=== PATIENT | female | born 1970 | race Hispanic/Latino ===

== ENCOUNTER 2018-11-28 00:11 | Emergency (ER) | payer BC, SELFPAY ==
[2018-11-28] MEDS ORDERED: Ketorolac Tromethamine 60 MG/2 ML VIAL ONE (03:24)
--- NOTE | 2018-11-28 07:51 | RAD ---
CHEST 2 VIEWS: HISTORY: Pain. COMPARISON: None. FINDINGS: Normal cardiac silhouette. The pulmonary vessels and hilum are normal. Costophrenic angles are kendall r. No consolidation or mass. No pneumothorax or osseous abnormalities. IMPRESSION: No acute cardiopulmonary process. POS: [facility]
== END 2018-11-28 04:25 | disposition home or self-care (01) ==
LOC: ERS 00:11
DX: M54.6 Pain in thoracic spine (principal); E78.00 Pure hypercholesterolemia, unspecified; Z79.899 Other long term (current) drug therapy; Z79.84 Long term (current) use of oral hypoglycemic drugs
CPT/HCPCS: 71046; 96372; J1885

== ENCOUNTER 2018-12-23 11:46 | Outpatient (CLI) | payer BC ==
--- NOTE | 2018-12-23 14:50 | RAD ---
LUMBAR SPINE 2 VIEWS: HISTORY: Low back pain. FINDINGS: There are mild to moderate degenerative changes with spurring from the lumbar vertebrae. Slight scol iotic curvature to the left. In the lateral view, there is minimal anterior wedging of the L2 verteb ra. Anterior osteophytes are present at the L1-2 and L2-3 levels. Posterior height is maintained. The other lumbar vertebrae maintain height. Facet hypertrophy is noted. IMPRESSION: Mild anterior wedging of L2. This could represent acute or subacute compression injury. Mild to mod erate degenerative changes of the lumbar spine noted as described. POS: [facility]
== END 2018-12-23 11:47 | disposition home or self-care (01) ==
LOC: BICRAD 11:46
PROVIDERS: ATTEND Family Medicine
DX: M54.5 Low back pain (principal); M47.816 Spondylosis without myelopathy or radiculopathy, lumbar region
CPT/HCPCS: 72100

== ENCOUNTER 2019-01-25 10:43 | Outpatient (CLI) | payer BC ==
--- NOTE | 2019-01-25 11:56 | MRI ---
FMRI of the lumbar spine without contrast: 01/25/2019 COMPARISON: None HISTORY: Wedging of vertebral body on recent radiographs, low back pain TECHNIQUE: Multiplanar multisequence MR imaging of the lumbar spine obtained without contrast FINDINGS: There are innumerable T2/STIR hyperintense lesions throughout the imaged osseous structures including all imaged vertebral bodies, posterior elements, and visualized portions of the sacrum and pelvic osseous structures. The osseous marrow signal intensity is markedly heterogeneous and diffuse ly of decreased signal intensity on T1-weighted imaging. Partially imaged right T12 pedicle is expand ed. Assuming 5 lumbar type vertebral bodies, the conus medullaris terminates at the T12 level. T12-L1: There is a suggestion of mild soft tissue signal intensity within the right neural foramen wh ich may represent tumor extension. No significant central canal or left neural foraminal stenosis. L1-2: Intervertebral disc height and signal intensity grossly unremarkable. Bilateral facet hypertrop hy with no significant central canal or neural foraminal stenosis. L2-3: Mild bilateral facet hypertrophy. Intervertebral disc height and signal intensity within normal limits with no significant central canal or neural foraminal stenosis L3-4: Mild bilateral facet hypertrophy. Intervertebral disc height and signal intensity within normal limits with no significant central canal or neural foraminal stenosis. L4-5: Mild bilateral facet hypertrophy. No significant central canal or neural foraminal stenosis. L5-S1: Mild bilateral facet hypertrophy. No significant central canal or neural foraminal stenosis. Partially imaged sigmoid diverticulosis noted. Imaged retroperitoneal structures demonstrate no acute findings. IMPRESSION: Extensive abnormal bone marrow signal intensity with numerous lesions seen throughout the imaged osseous structures. Findings are highly suspicious for metastatic disease or myeloma. Results discussed with Dr. Burris at 11:50 AM 01/25/2019.
== END 2019-01-25 10:44 | disposition home or self-care (01) ==
LOC: TBSIIMAG 10:43
PROVIDERS: ATTEND Family Medicine
DX: M48.56XA Collapsed vertebra, not elsewhere classified, lumbar region, initial encounter for fracture (principal); M54.5 Low back pain; R93.7 Abnormal findings on diagnostic imaging of other parts of musculoskeletal system; M89.9 Disorder of bone, unspecified
CPT/HCPCS: 72148

== ENCOUNTER 2019-02-02 08:15 | Outpatient (CLI) | payer BC ==
--- NOTE | 2019-02-02 09:21 | MMO ---
Bilateral MAMMO Bilat Screen [facility]. CLINICAL HISTORY: Patient is 48 years old and is seen for screening. The patient has no family history of breast cancer. The patient has no personal history of cancer. VIEWS: The views performed were: bilateral craniocaudal with tomosynthesis and bilateral mediolateral oblique with tomosynthesis. FILMS COMPARED: The present examination has been compared to prior imaging studies performed at [facility] on 03/17/2017 and 03/31/2017. MAMMOGRAM FINDINGS: There are scattered fibroglandular densities. Finding 1: There are stable benign appearing calcifications seen in both breasts. Finding 2: There is a focal asymmetry with indistinct margins seen in the right breast at 12 o'clock. IMPRESSION: FINDING 1: STABLE CALCIFICATIONS IN BOTH BREASTS ARE BENIGN. FINDING 2: FOCAL ASYMMETRY IN THE RIGHT BREAST REQUIRES ADDITIONAL EVALUATION. ADDITIONAL PROJECTIONS (RIGHT CRANIOCAUDAL SPOT COMPRESSION; RIGHT MEDIOLATERAL OBLIQUE SPOT COMPRESSION; AND RIGHT MEDIOLATERAL) ARE RECOMMENDED. AN ULTRASOUND EXAM IS RECOMMENDED. ADDITIONAL IMAGING. THE RESULTS OF THIS EXAM WERE SENT TO THE PATIENT. ACR BI-RADS Category 0 - Incomplete: Need additional imaging evaluation. [facility] will notify the patient of the need for additional imaging services. MAMMOGRAPHY NOTE: 1. A negative mammogram report should not delay a biopsy if a dominant of clinically suspicious mass is present. 2. Approximately 10% to 15% of breast cancers are not detected by mammography. 3. Adenosis and dense breasts may obscure an underlying neoplasm.
== END 2019-02-02 08:16 | disposition home or self-care (01) ==
LOC: BICMAMMO 08:15
PROVIDERS: ATTEND Family Medicine
DX: Z12.31 Encounter for screening mammogram for malignant neoplasm of breast (principal); R92.1 Mammographic calcification found on diagnostic imaging of breast; N64.89 Other specified disorders of breast
CPT/HCPCS: 77063; 77067

== ENCOUNTER 2019-02-06 09:35 | Outpatient (CLI) | payer BC ==
--- NOTE | 2019-02-06 10:59 | MMO ---
Right Breast MAMMO Unilat Diag [facility]DI RT+[facility]ERRELL. CLINICAL HISTORY: Patient is 48 years old and is seen for diagnostic exam. The patient has no family history of breast cancer. The patient has no personal history of cancer. VIEWS: The views performed were: right craniocaudal with tomosynthesis; right mediolateral oblique with tomosynthesis; and right mediolateral. FILMS COMPARED: The present examination has been compared to prior imaging studies performed at [facility] on 03/17/2017, 03/31/2017, 02/02/2019 and 02/06/2019. MAMMOGRAM FINDINGS: There are scattered fibroglandular densities. There is a focal asymmetry seen in the posterior central region of the right breast. Spiculated margins are seen on the additional views. This lesion is not seen on ultrasound. IMPRESSION: FOCAL ASYMMETRY IN THE RIGHT BREAST IS SUSPICIOUS. NEEDLE LOCALIZATION AND BIOPSY ARE RECOMMENDED. FINDINGS DISCUSSED WITH DR. MORGAN ON 02/06/19 AT 10:51 HOURS. 3BTHE RESULTS OF THIS EXAM WERE SENT TO THE PATIENT.0B ACR BI-RADS Category 4 - Suspicious abnormality - biopsy should be considered MAMMOGRAPHY NOTE: 1. A negative mammogram report should not delay a biopsy if a dominant of clinically suspicious mass is present. 2. Approximately 10% to 15% of breast cancers are not detected by mammography. 3. Adenosis and dense breasts may obscure an underlying neoplasm.
--- NOTE | 2019-02-06 11:43 | ULT ---
LIMITED ULTRASOUND RIGHT BREAST: Date: 02/06/19 HISTORY: Mammographic abnormality seen in the posterior depth central breast near the 12 o'clock position. FINDINGS: Limited sonographic evaluation was performed in the expected location of the mammographic abnormality . No mass or distortion is seen to correspond to the mammographic abnormality. However, the mammograp hic finding does represent a suspicious finding. Biopsy of the mass is suggested and a needle and wir e localization followed by surgical excision is recommended. IMPRESSION: BIRADS Category 4 - Suspicious abnormality. Biopsy is recommended. As noted above, this mass is not s een on sonographic evaluation, and as a result, a needle and wire localization with surgical excision is recommended. Above findings discussed with Dr. Adriano Burris on 02/06/19 at 1051 hours. CODE CR. POS: [facility]
== END 2019-02-06 09:36 | disposition home or self-care (01) ==
LOC: BICMAMMO 09:35
PROVIDERS: ATTEND Family Medicine
DX: R92.8 Other abnormal and inconclusive findings on diagnostic imaging of breast (principal); N64.89 Other specified disorders of breast
CPT/HCPCS: G0279

== ENCOUNTER 2019-02-13 08:36 | Outpatient (CLI) | payer BC ==
--- NOTE | 2019-02-13 10:30 | CT ---
CT THORAX WITH IV CONTRAST CT ABDOMEN AND PELVIS WITH IV CONTRAST 02/13/2019 CLINICAL INFORMATION: Metastatic breast carcinoma. COMPARISON: None. Technique: Multiple contiguous axial CT images are obtained through the chest, abdomen, and pelvis with IV contr ast. Coronal reformatted images are provided. FINDINGS: CT thorax: Mediastinum: There is no evidence of lymphadenopathy. The thoracic aorta is normal in caliber without evidence of an aortic dissection. Lungs: No pulmonary nodule, mass, or pleural effusion is seen. Bones: Diffuse mottled appearance of the visualized osseous structures with innumerable lytic lesions throughout the thoracic spine and C7 vertebral body. There are also lytic lesions seen within each scapula and involving the sternum as well as multiple ribs bilaterally. There are fractures involving the right anterolateral sixth and seventh, lateral right eighth and ninth, and posterolateral right 10th ribs. These fractures may be related to prior injury, some of the fractures could be secon fadumo to pathological fractures. There is callus formation about the fractures. CT Abdomen: Portal vein:Patent Gallbladder: Not visualized and may be surgically absent. Liver: Multiple hypodense lesions are seen throughout each lobe of the liver largest within the dome the liver measuring 2.8 cm and in the most posterior medial aspect of the anterior segment left hepatic lobe measuring 2.9 cm. Findings are compatible with multiple metastatic lesions within the li kristen. Pancreas: within normal limits. Spleen: There is a small 1.7 cm hypodense lesion seen at the medial aspect body of the spleen which c ould also be related to metastatic lesion. Adrenals: within normal limits. Kidneys: A subcentimeter too small to characterize hypodense lesion is seen in the midportion right k idney. The kidneys otherwise have a normal CT appearance bilaterally. Peritoneum: No ascites or free air; no fluid collection. Bowel: There is colonic diverticulosis. The small bowel is normal in caliber.The appendix is visualiz ed and normal in caliber. Mesentery and Retroperitoneum: No enlarged mesenteric or retroperitoneal lymph nodes. Abdominal Wall/breast: There are a few nodular densities seen within the right breast. However, this would be better evaluated with mammography. Largest slightly irregular nodule is seen within the posterior central aspect of the upper breast measuring 12 mm. Pelvis: Reproductive Organs: The uterus is not visualized likely related to prior hysterectomy. There are a f ew low-density structures within the left ovary largest measuring approximately 2 cm likely attributable to dominant follicles versus small cysts. Subcentimeter increased density focus is seen in the right aspect of the vaginal wall of uncertain etiology. Pelvis within normal limits. Bladder: Decompressed, but otherwise grossly normal in appearance. Vessels: The abdominal aorta and iliac arteries are normal in caliber. Bones: There is a mottled appearance of the osseous structures with multiple lytic lesions scattered throughout the lumbar spine, sacrum, and throughout the pelvis as well as involving the femoral heads. A few ill-defined areas of sclerosis are seen in the intertrochanteric regions of each proxima l femur also probably attributable to metastatic disease. IMPRESSION: 1. Extensive osseous metastatic disease. There are fractures involving right sided ribs which may be pathologic. These fractures are not displaced. 2. Multiple hypodense hepatic metastatic lesions with a hypodense lesion in the spleen which also may represent a metastatic lesion. 3. Irregular nodular densities seen in the right breast. However, this would be better evaluated with mammography. 4. Colonic diverticulosis 5. Hysterectomy. 6. Above findings discussed Dr. Eric on 02/13/2019 at 1017 hours.
[2019-02-13] MEDS ORDERED: Iopamidol 370 76% 100 ML VIAL ONE (15:00)
== END 2019-02-13 08:37 | disposition home or self-care (01) ==
LOC: CT 08:36
PROVIDERS: ATTEND Internal Medicine Hematology & Oncology
DX: C50.919 Malignant neoplasm of unspecified site of unspecified female breast (principal); C79.51 Secondary malignant neoplasm of bone; M84.48XA Pathological fracture, other site, initial encounter for fracture; D73.89 Other diseases of spleen; N64.89 Other specified disorders of breast; K57.30 Diverticulosis of large intestine without perforation or abscess without bleeding; Z90.710 Acquired absence of both cervix and uterus
CPT/HCPCS: 71260; 74177; Q9967

== ENCOUNTER 2019-02-17 09:41 | Outpatient (CLI) | payer BC ==
[2019-02-17 10:14] LABS: #Basophils 0.1 thou/uL (0.0-0.2); #Eosinphils 0.4 thou/uL (0.0-0.7); #Lymphocytes 2.4 thou/uL (1.20-3.40); #Monocytes 0.8 thou/uL (0.11-0.59); #Neutrophils 5.9 thou/uL (1.40-6.50); %Basophils 0.9 % (0.0-1.0); %Eosinophils 3.9 % (0.0-10.0); %Lymphocytes 24.9 % (21.0-51.0); %Monocytes 8.2 % (0.0-10.0); %Neutrophils 62.1 % (42.0-75.0); Hemoglobin 14.5 g/dL (12.0-16.0); Mean Corpuscular HGB CONC 31.9 g/dL (32.0-36.0); Mean Corpuscular Hemoglobin 29.1 pg (27.0-31.0); Mean Corpuscular Volume 91.3 fL (78.0-98.0); Mean Platelet Volume 7.6 fL (7.4-10.4); Platelet Count 194 thou/uL (130-400); RBC Distribution Width 13.3 % (11.5-14.5); Red Blood Cell (RBC) Count 4.98 mill/uL (4.20-5.40); White Blood Cell (WBC) Count 9.5 thou/uL (4.8-10.8)
[2019-02-17 10:35] LABS: Anion Gap 11 mmol/L (10-20); BUN (Urea Nitrogen) 11 mg/dL (7.0-18.7); Calc. Creatinine Clearance 0 mL/min (70-130); Calcium 10.2 mg/dL (7.8-10.44); Carbon Dioxide 26 mmol/L (22-29); Chloride 103 mmol/L (98-107); Estimated GFR-MDRD 72; Glucose 134 mg/dL (70-105); Potassium 4.4 mmol/L (3.5-5.1); Sodium 136 mmol/L (136-145)
--- NOTE | 2019-02-19 14:07 | EKG ---
Test Reason : Blood Pressure : / mmHG Vent. Rate : 084 BPM Atrial Rate : 084 BPM P-R Int : 120 ms QRS Dur : 078 ms QT Int : 358 ms P-R-T Axes : 065 013 011 degrees QTc Int : 423 ms Normal sinus rhythm Cannot rule out Anterior infarct , age undetermined Abnormal ECG No previous ECGs available Confirmed by JOHN MORALES ([id number]) on 02/19/2019 2:07:15 PM Referred By: MYKEL Confirmed By:JOHN MORALES
== END 2019-02-17 09:42 | disposition home or self-care (01) ==
LOC: LABBT 09:41
PROVIDERS: ATTEND Specialist
DX: Z01.818 Encounter for other preprocedural examination (principal); R92.8 Other abnormal and inconclusive findings on diagnostic imaging of breast
CPT/HCPCS: 80048; 85025; 93005; 93010

== ENCOUNTER 2019-02-21 06:43 | Day surgery (SDC) | payer BC ==
[2019-02-17 10:21] VITALS: BMI 39.6
--- NOTE | 2019-02-21 08:53 | NM ---
NM Lymphoscintigraphy HISTORY: Malignant neoplasm of unspecified site of the right female breast. RADIOPHARMACEUTICAL: 0.423 mCi of technetium 99m filtered sulfur colloid. Right periareolar injectio n in divided doses. FINDINGS: Submitted anterior and lateral planar images demonstrate identification of the first draini ng lymph node within the right axilla. IMPRESSION: Sweetser lymph node(s) in the right axilla.
--- NOTE | 2019-02-21 09:13 | MMO ---
MAMMO Brst Loc Dev Mammo Guide History: [Breast cancer] Comparison: Mammogram February 06, 2019 Findings: Patient was brought to the mammography suite. All questions were answered. Informed consent was obtained. Timeout performed. Patient's right breast was prepped and draped in normal sterile fashion. Using mammographic guidance and a 10 cm needle the posterior breast mass was localized. The needle is through the posterior margin of the mass with the hook curled anteriorly just underneath it. Impression: 1. Technically successful mammographic guided needle localization. The posterior margin of the mass i s speared at the level of the tip of the needle with the wire curled underneath it. 2. Concern for a possible second mass anterior breast seen best on the ML view anterior to the needle tip approximately 5.5 cm on the compression image, although with the patient in the supine position, this is likely less than 2 cm anterior to the originally localized mass.
[2019-02-21] MEDS ORDERED: Ketorolac Tromethamine 30 MG/ML VIAL ONE (10:14)
[2019-02-21] MEDS ORDERED: Fentanyl 100 MCG/2 ML VIAL ONE (10:50)
[2019-02-21] MEDS ORDERED: Lidocaine 1% (PF) 30 ML VIAL ONE (10:51)
[2019-02-21] MEDS ORDERED: Bupivacaine/Epinephrine 0.25% 30 ML VIAL ONE (10:51)
[2019-02-21] MEDS ORDERED: Isosulfan Blue 50 MG/5 ML VIAL ONE (10:56)
[2019-02-21] MEDS ORDERED: Scopolamine 1.5 mg/72 hour Patch ONE (11:12)
--- NOTE | 2019-02-21 13:37 | MMO ---
MAMMO Surgial Specimen History: [Surgical specimen] Comparison: The localization same day Findings: Two separate specimens were sent for review. There are 2 separate needles. There are hyperd ense foci within both samples suggesting that both masses. Impression: Satisfactory specimen.
--- NOTE | 2019-02-21 14:41 | RAD ---
PORTABLE CHEST 1 VIEW: DATE: 02/21/2019. TIME: 1:54 pm. HISTORY: MediPort placement. FINDINGS: There is a left subclavian Port-A-Cath with tip in the projection of the SVC. The heart size is norm al. The lungs are expanded without lobar consolidation, pneumothoraces, or pleural effusions. IMPRESSION: No acute process. POS: [facility]
[2019-02-21] MEDS ORDERED: HYDROcodone/Acetaminophen 5/325 mg Tablet ONE ×2 (14:57→15:35)
[2019-02-21] MEDS ORDERED: ePHEDrine 50 MG/ML VIAL ONE (15:39)
[2019-02-21] MEDS ORDERED: Ondansetron PF 4 MG/2 ML Vial ONE (15:39)
[2019-02-21] MEDS ORDERED: Lidocaine 1% PF 5 ML VIAL ONE (15:39)
[2019-02-21] MEDS ORDERED: PROPOFOL 200 MG/20 ML VIAL ONE (15:39)
[2019-02-21] MEDS ORDERED: Dexamethasone 20 MG/5 ML VIAL ONE (15:39)
--- NOTE | 2019-02-21 22:15 | OP ---
DATE OF PROCEDURE: 02/21/2019 PREOPERATIVE DIAGNOSIS: Suspected metastatic breast cancer. POSTOPERATIVE DIAGNOSIS: Suspected metastatic breast cancer. PROCEDURES PERFORMED: Right breast ultrasound-guided needle localization, right breast needle localized biopsy, right breast mammographic needle localized lumpectomy, right axillary sentinel lymph node mapping with sentinel lymph node biopsy, placement of left subclavian power compatible MediPort. ANESTHESIA: General with laryngeal mask airway. INDICATIONS FOR PROCEDURE: The patient is an obese 48-year-old female. She was recently found to have evidence of metastatic cancer to her bone marrow. Evaluation of this suggested that this may have been from a breast primary. Subsequent CT scan also revealed numerous lesions throughout her spine and in her liver. Imaging studies of the breast indicated an area of concern that was less than 1 cm in the posterior right breast. This was not amenable to an ultrasound-guided biopsy. We have, therefore, scheduled her a mammographic needle localization and biopsy. The sentinel lymph node biopsy was recommended as well. MediPort placement will be carried out to allow for chemotherapy. On the day of her presentation, Dr. Osullivan (Radiology) noted a second lesion within the breast that appeared to be on the same plane as the posterior lesion, but several centimeters anteriorly. This was seen best on the MLO view. Preoperative lymphoscintigraphy was performed as well as needle localization of the posterior lesion. DESCRIPTION OF OPERATION: Informed consent was obtained. The patient was taken to the operating room, where general anesthesia was obtained with the patient in supine position. 3 mL of Lymphazurin was infiltrated in the right periareolar subdermal tissue and massaged for 5 minutes. The right breast, axilla, and left chest wall were prepped with ChloraPrep and draped in sterile fashion. Attention was turned first to the MediPort. Large gauge needle was passed under the clavicle in subclavian vein on the initial pass. Guidewire was passed through this needle, which was fluoroscopically confirmed to enter the superior vena cava. Additional local anesthetic was infiltrated and transverse incision was created based on the needle insertion site. Subcutaneous pocket was dissected inferiorly. Introducer dilator was passed over the wire. Wire and dilator were removed, and catheter was passed through the introducer uneventfully. Catheter tip was positioned at the atriocaval junction and trimmed to appropriate length. The catheter was secured to the locking hub of the port using the sliding grommet. The port was placed in the subcutaneous pocket and secured to pectoral fascia with 2 interrupted sutures of 3-0 Prolene. The wound was closed in layers with 3-0 and 4-0 Monocryl suture. Dermabond was placed externally. The port aspirated blood freely and was flushed with heparinized saline. The subsequent postprocedure chest x-ray showed good position of the port and catheter. Attention was turned to the right axilla. Local anesthetic was infiltrated using 0.25% Marcaine with epinephrine. A transverse incision was created based on needle insertion site. Dissection was carried through the skin and subcutaneous tissue. Neoprobe was utilized to identify areas of maximum radio intensity. Additionally, areas of blue staining were dissected. I was able to identify three separate sentinel lymph nodes. Each of these had radio activity while only one of them appeared to have blue dye. Each of these three were dissected circumferentially and investing lymphatics were divided between clamps and 3-0 silk ties. These were each passed off the field and submitted for permanent evaluation. The hemostasis within the wound was meticulous. The wound was closed in layers with 3-0 and 4-0 Monocryl and additional local anesthetic was instilled in the wound during closure. Dermabond was placed externally. Attention was turned to the breast. The localizing needle entered the breast at the far superior aspect of the breast about the 12 o'clock radiant. This was a 10-cm needle and the concerning lesion was at the tip of the needle. On the images, I was also able to identify the potential second concerning lesion. First, I used ultrasound to map the course and the location of the needle in order to place a counterincision inferior to the needle insertion site. I also identified the second concerning lesion. This was hypoechoic with somewhat thickened irregular cuevas and less than a centimeter in size. It was at the same transverse plane as the initial lesion, but was somewhat lateral and anterior within the breast. A localizing needle was passed through this in a medial to lateral fashion. I then created an incision transverse in the upper right breast that would incorporate both areas of concern as well as the localizing needle. Dissection was carried through the skin and subcutaneous tissue. Attention was turned first to the lateral lesion. I created flaps within the breast tissue superiorly and inferiorly and dissected down on the medial aspect of the localizing wire. At the appropriate depth, I dissected a wide lump of tissue around the localizing wire and removed it intact. Localizing sutures were placed for tissue orientation and it was submitted for specimen mammography. This revealed a hyperdense lesion within the breast that the localizing wire passed through. Attention was then turned to the medial lesion, which was very posterior within the breast. I dissected the flap superiorly and then dissected deeply within the breast down to the chest wall. The localizing wire proceeded immediately anterior to the chest wall. I identified this at the point that it was 4 cm from the tip of the needle. At this point, I removed the localizing needle and replaced the wire to the incision. Then, I dissected immediately off the chest wall, the breast tissue, into which the wire entered extending inferiorly. I then dissected a lump of tissue around the localizing wire using a combination of sharp dissection and electrocautery. The specimen was removed intact and again tagged with sutures for orientation. Specimen mammography again revealed a hyperdense lesion within the specimen, but consistent with area of concern. Meticulous hemostasis was obtained within the wound. It was closed in layers with 3-0 and 4-0 Monocryl. Dermabond was placed externally. There were no complications. The patient tolerated the procedure well, and was taken to the recovery room in stable condition. Job ID: [id number]
== END 2019-02-21 16:20 | disposition home or self-care (01) ==
LOC: SDC 06:43
PROVIDERS: ATTEND Specialist
PROC: 0HBT0ZZ Excision of Right Breast, Open Approach (ICD-10-PCS; principal; 2019-02-21)
PROC: 0JH63WZ Insertion of Totally Implantable Vascular Access Device into Chest Subcutaneous Tissue and Fascia, Percutaneous Approach (ICD-10-PCS; principal; 2019-02-21)
PROC: 07B50ZX Excision of Right Axillary Lymphatic, Open Approach, Diagnostic (ICD-10-PCS; principal; 2019-02-21)
DX: C50.911 Malignant neoplasm of unspecified site of right female breast (principal); C77.3 Secondary and unspecified malignant neoplasm of axilla and upper limb lymph nodes; E11.9 Type 2 diabetes mellitus without complications; J45.909 Unspecified asthma, uncomplicated; E66.9 Obesity, unspecified; Z68.39 Body mass index [BMI] 39.0-39.9, adult; Z79.1 Long term (current) use of non-steroidal anti-inflammatories (NSAID); Z79.84 Long term (current) use of oral hypoglycemic drugs; Z79.899 Other long term (current) drug therapy
CPT/HCPCS: 19281; 71045; 76000; 76098; 78195; 88307; 88341; 88342; A9541; C1788; J0131; J0690; J1100; J1642; J1885; J2001; J2405; J2704; J3010; J3490; Q9968

== ENCOUNTER 2019-08-18 07:57 | Outpatient (CLI) | payer BC ==
[~2019-08-18 07:57] MED LIST: Iopamidol 370 76% 100 ML VIAL ONE
--- NOTE | 2019-08-18 12:26 | CT ---
CT CHEST AND ABDOMEN AND PELVIS WITH IV CONTRAST: Date: 08/18/19 HISTORY: Breast cancer and bone metastatic disease. COMPARISON: 02/13/19. FINDINGS: CT THORAX: No pulmonary nodule or mass is seen. There is no mediastinal or hilar lymphadenopathy identified. Tho racic aorta is normal in caliber. There are diffuse osseous sclerotic metastatic lesions. However, th e majority of these lesions demonstrated a lytic appearance on the prior study, and findings may be r elated to treatment of metastatic lesions. There are remote fractures involving the right 6th-7th rib s, as well as the lateral left 8th, 9th, and 10th ribs. Left subclavian MediPort catheter is now noted in place with tip overlying the cavoatrial junction. CT ABDOMEN/PELVIS: There are innumerable hypodense metastatic lesions again seen throughout each lobe of the liver, and these lesions are better delineated on today's examination, primarily related to phase of imaging. Gi maria c differences in technique, there is probably no significant interval change in degree of metastati c disease. There is a small hypodense lesion medial aspect body of the spleen which is smaller in size, previous ly measuring 1.7 cm, and now measures 1.1 cm. There is also a tiny hypodense lesion in the inferior a spect of the spleen, which was also present on the prior study, but better delineated on the current exam. The pancreas and bilateral adrenal glands demonstrate a normal CT appearance. Subcentimeter, too small to characterize, hypodense lesions are seen in each kidney. Urinary bladder has a normal appearance. There are colonic diverticula seen throughout the colon, much greater in the region of the sigmoid co keerthi. There is colonic wall thickening in the sigmoid colon. This may be related to incomplete distent ion and the proximal diverticular disease in this region. Early diverticulitis could not be entirely excluded. However, no significant pericolonic inflammatory changes are identified. Abdominal aorta is normal in caliber. There is evidence of hysterectomy. There is a small umbilical hernia. No enlarged lymph nodes are seen in the abdomen or pelvis by CT size criteria. As noted on CT of the thorax, there are multiple sclerotic osseous metastatic lesions. However, the m ajority of these lesions demonstrated lytic appearance on the prior study, and the sclerotic appearan ce on today's exam may be related to interval treatment, but there are innumerable sclerotic lesions seen diffusely throughout the osseous structures. IMPRESSION: 1. Extensive osseous metastatic disease. Multiple lytic lesions were noted on the prior exam, but th e lesions on today's examination primarily have a sclerotic appearance with a few scattered lytic les ions identified. Sclerotic appearance of the metastatic lesions may be related to interval treatment. 2. Multiple hepatic metastatic lesions. While these lesions are better delineated on today's examina tion, this may be attributable to factor of imaging. 3. Small hypodense lesions within the spleen which may also represent metastatic lesions. The lesion in the medial aspect body of the spleen is smaller in size. 4. Colonic diverticulosis with prominent thickening in the region of the sigmoid colon. This is prob ably a factor of multiple diverticula and incomplete distention of the colon in this region. However, early diverticulitis cannot be entirely excluded. No pericolonic inflammatory changes are identified . 5. Remote lower bilateral rib fracture. 6. Previously seen nodular appearing densities in the right breast are not appreciated on today's ex am. 7. Remainder of findings are as described above. POS: [facility]
== END 2019-08-18 07:58 | disposition home or self-care (01) ==
LOC: CT 07:57
PROVIDERS: ATTEND Internal Medicine Hematology & Oncology
DX: C50.919 Malignant neoplasm of unspecified site of unspecified female breast (principal); C79.51 Secondary malignant neoplasm of bone; K57.30 Diverticulosis of large intestine without perforation or abscess without bleeding; Z87.81 Personal history of (healed) traumatic fracture; D73.89 Other diseases of spleen
CPT/HCPCS: 71260; 74177

== ENCOUNTER 2019-11-20 07:30 | Outpatient (CLI) | payer BC ==
--- NOTE | 2019-11-20 09:50 | CT ---
CT OF THE CHEST AND ABDOMEN AND PELVIS WITH IV CONTRAST: DATE: 11/20/2019. PROVIDED CLINICAL HISTORY: Breast cancer. FINDINGS: Comparison is made with the study dated 08/18/2019. The heart, pericardium, and great vessels demonstrate a stable CT appearance. There is no evidence f or thoracic lymph node enlargement. The lungs are free of significant opacity. The airway appears p atent and of normal caliber. There is no pleural fluid or pneumothorax apparent. Multiple hypodense hepatic lesions are redemonstrated, without apparent significant interval change w ith respect to prior. Medial splenic lesion is also redemonstrated and appears stable. The pancreas , kidneys, and adrenal glands demonstrate no significant abnormality. Interval development of free intraperitoneal fluid, primarily about the right hepatic margin and pelv ic cul-de-sac. There is also an inhomogeneous appearance to the anterior peritoneal/omental fat with out discrete soft tissue mass. Sigmoid colonic diverticulosis changes are again seen. There is a somewhat more focal area of appare nt mural thickening involving the sigmoid colon. This could be on the basis of nondistention. There is no bowel dilatation, lymph node enlargement, or localized inflammatory fat stranding evident . The regional major vascular structures appear unremarkable. Innumerable mixed lytic and blastic osseous metastatic lesions are redemonstrated without apparent in terval change. IMPRESSION: 1. Development of free intraperitoneal fluid and an inhomogeneous appearance to the anterior periton eal fat. Findings are suspicious for development of peritoneal carcinomatosis, somewhat unusual in t he setting of breast cancer. Given the mural thickening involving the sigmoid colon, consideration f or sigmoidoscopy should be given to exclude a synchronous primary. 2. Otherwise, stable exam. POS: TPC
[2019-11-20] MEDS ORDERED: Iopamidol 370 76% 100 ML VIAL ONE (13:12)
== END 2019-11-20 07:31 | disposition home or self-care (01) ==
LOC: CT 07:30
PROVIDERS: ATTEND Internal Medicine Hematology & Oncology
DX: C50.411 Malignant neoplasm of upper-outer quadrant of right female breast (principal); C79.51 Secondary malignant neoplasm of bone; K63.89 Other specified diseases of intestine
CPT/HCPCS: 71260; 74177; Q9967

== ENCOUNTER 2020-01-14 16:56 | Inpatient (IN) | payer BC ==
[2020-01-14] MEDS ORDERED: Vancomycin 1 GM/200 ML BAG ONE (17:33)
[2020-01-14] MEDS ORDERED: Cefepime 1 GM VIAL ONE (17:33)
[2020-01-14] MEDS ORDERED: Sodium Chloride 0.9% 100 ML ONE (17:33)
--- NOTE | 2020-01-14 17:36 | RAD ---
EXAM: Single view of the chest HISTORY: Chest pain COMPARISON: 02/21/2019 FINDINGS: Single view of the chest shows a normal sized cardiomediastinal silhouette. A left subclav carlos Mediport is seen with its tip in the superior vena cava. Atelectasis is seen in the left lung base. There is no evidence of consolidation, mass, or pleural effusion. The bones are unremarkable. IMPRESSION: No evidence of acute cardiopulmonary disease
[2020-01-14] MEDS ORDERED: Acetaminophen 325 MG Suppository ONE (17:38)
[2020-01-14 17:53] LABS: Bilirubin Negative (Negative); Blood, Urine Negative (Negative); Clarity Clear (Clear); Glucose, Urine (Dipstick) Greater than 1000 mg/dL (Negative); Leukocyte Negative Leu/uL (Negative); Nitrite Negative (Negative); Protein, Urine (Dipstick) 20 mg/dL (Neg-Trace); Urobilinogen 3 mg/dL (Less than 2)
[2020-01-14 18:08] LABS: ALT (SGPT) 20 U/L (8-55); AST (SGOT) 77 U/L (5-34); Albumin 2.8 g/dL (3.5-5.0); Alkaline Phosphatase 179 U/L (40-110); Anion Gap 14 mmol/L (10-20); BUN (Urea Nitrogen) 25 mg/dL (7.0-18.7); Bilirubin, Total 1.1 mg/dL (0.2-1.2); CK (CPK) 155 U/L (29-168); Calc. Creatinine Clearance 0 mL/min (70-130); Calcium 8.2 mg/dL (7.8-10.44); Carbon Dioxide 25 mmol/L (22-29); Chloride 101 mmol/L (98-107); Estimated GFR-MDRD 67; Globulin 2.9 g/dL (2.4-3.5); Glucose 354 mg/dL (70-105); Lipase 13 U/L (8-78); Potassium 4.5 mmol/L (3.5-5.1); Protein, Total 5.7 g/dL (6.0-8.3); Sodium 135 mmol/L (136-145)
[2020-01-14 18:51] LABS: Hemoglobin 9.5 g/dL (12.0-16.0); Mean Corpuscular HGB CONC 33.9 g/dL (32.0-36.0); Mean Corpuscular Hemoglobin 35.6 pg (27.0-31.0); RBC Distribution Width 13.8 % (11.5-14.5); Red Blood Cell (RBC) Count 2.67 mill/uL (4.20-5.40); White Blood Cell (WBC) Count 0.6 thou/uL (4.8-10.8)
[2020-01-14 19:14] LABS: Anisocytosis SLIGHT = 6-15 cells (100X) (0-5/hpf); Hypochromia SLIGHT = 6-15 cells (100X) (0-5/hpf); Lymphocytes 76 % (21-51); MDiff Complete? YES; Macrocytosis SLIGHT = 6-15 cells (100X) (0-5/hpf); Mean Platelet Volume 9.6 fL (7.4-10.4); Monocytes 16 % (0-10); Neutrophil 4 % (42-75); Platelet Count 81 thou/uL (130-400); Platelet Morphology Comment Appears Decreased; Reactive Lymphocytes 4 % (0-10); Reflex for Review?? YES; Schistocytes SLIGHT = 2-5 cells (100X) (0-1/hpf); Tear Drops SLIGHT = 2-5 cells (100X) (0-1/hpf)
--- NOTE | 2020-01-14 20:14 | CT ---
EXAM: CTA of the chest HISTORY: Metastatic breast cancer on chemotherapy with fever COMPARISON: None TECHNIQUE: Multiple contiguous axial images were obtained a CTA of the chest with contrast per pulmon holly embolism protocol. 3-D oblique MIP reformats and direct coronal reformats were performed. FINDINGS: HEART: Normal in size without focal cardiac abnormality. PULMONARY ARTERIES: This exam is limited secondary to poor timing of the contrast bolus. Normal in ca liber without filling defects in the central pulmonary arteries. MEDIASTINUM: No hilar or mediastinal lymphadenopathy. LUNGS: No focal infiltrates or masses. PLEURAL SPACE: No pleural effusion or pneumothorax. CHEST WALL SOFT TISSUES: There is a left-sided Mediport with its tip in the superior vena cava. VISUALIZED OSSEOUS STRUCTURES: Severe diffuse osseous metastatic disease is seen. VISUALIZED SUBDIAPHRAGMATIC STRUCTURES: There is ascites. Hypodensities in the liver likely represent metastases. IMPRESSION: 1. No evidence of pulmonary thromboembolism on this limited exam 2. Diffuse osseous metastatic disease and hepatic metastatic disease.
--- NOTE | 2020-01-14 20:34 | CT ---
CT Abdomen Pelvis W Con: 01/14/2020 7:33 PM CLINICAL INFORMATION: Metastatic breast cancer. Fever. Patient started chemotherapy one week ago COMPARISON: 11/20/2019 TECHNIQUE: Multiple contiguous axial images were obtained and a CT of the abdomen and pelvis with IV contrast. C oronal and sagittal reformats were performed. FINDINGS: Lower Chest: within normal limits. Abdomen: Liver: Scattered hypodensities in the liver are likely secondary to metastatic disease. These have sl ightly worsened compared to the prior examination. The largest lesion measures approximately 3.3 cm in greatest dimension. Bile Ducts: Normal caliber. Gallbladder: No calcified gallstones. Normal caliber wall. Pancreas: within normal limits. Spleen: within normal limits. Adrenals: within normal limits. Kidneys: within normal limits. Pelvis: Reproductive Organs: No pelvic masses. Ureters: within normal limits. Bladder: within normal limits. Peritoneum: Moderate free fluid is seen in the abdomen and pelvis. This has worsened compared to the prior examination. Findings in the mesentery are suspicious for peritoneal carcinomatosis. Bowel: Normal caliber. Scattered diverticula in the colon. Mesentery and Retroperitoneum: No enlarged mesenteric or retroperitoneal lymph nodes. Vessels: Normal. Abdominal Wall: Limited evaluation as the anterior abdominal wall touches the CT gantry. Bones: Diffuse osseous metastatic disease is seen. IMPRESSION: 1. Worsening of ascites and peritoneal carcinomatosis 2. Worsening of hepatic metastatic disease 3. Diffuse osseous metastatic disease 4. Diverticulosis
[2020-01-14] MEDS ORDERED: Amiodarone 150 MG/3 ML VIAL ONE (20:41)
[2020-01-14] MEDS ORDERED: Magnesium 2 GM/50 ML BAG (IN WATER) ONE (20:49)
--- NOTE | 2020-01-14 20:52 | HP ---
PRIMARY CARE PHYSICIAN: Dr. Adriano Burris. CHIEF COMPLAINT: Abdominal pain or pain in my stomach and fever. HISTORY OF PRESENT ILLNESS: Ms. Mariana Dickinson is a pleasant 49-year-old female, who has a history of metastatic breast cancer. She says that she was undergoing her first chemotherapy treatment on Wednesday and then noticed she was starting to have pain "in her stomach" for the last 3 days. She says it will come and go and is not really related to anything such as eating, but if she lays in the bed in certain positions, it is worse. She also started having some fever today. She says she has been nauseated, but has not really thrown up. She also has been having diarrhea off and on. She says it is a minimal amount of stool. There is no blood in the stool, but as a result of her symptoms, she came to the ER for evaluation. In the ER, she was found to be neutropenic with a white blood cell count of 0.6 with only 4 neutrophils. She was also noted that her blood pressure began to drop during her ER stay and was also noted to have a temperature of 102.2. She was tachycardic and as a result, she is being admitted for neutropenia with sepsis. The patient denies any other symptoms such as sore throat. She denies any cough. No congestion. No shortness of breath and no other symptoms other than the abdominal pain. REVIEW OF SYMPTOMS: All systems are negative except for that mentioned in the history of present illness. PAST MEDICAL HISTORY: Significant for diabetes as well as breast cancer, hyperlipidemia, and hypertension. PAST SURGICAL HISTORY: She has had a cholecystectomy and a . ALLERGIES: NO KNOWN DRUG ALLERGIES. SOCIAL HISTORY: She is . She has 3 children. She denies any alcohol use. No drug use or tobacco use. FAMILY HISTORY: No history of any heritable diseases. CURRENT MEDICATIONS: Include; 1. Metformin 500 mg twice daily. 2. Flexeril 10 mg q.8 as needed. 3. Naprosyn 500 mg twice a day. 4. [place] 10/325 q.4 as needed. 5. Lisinopril 10 mg daily. 6. Zofran 8 mg q.6 as needed. 7. Compazine 10 mg q.6 as needed. PHYSICAL EXAMINATION: GENERAL: She is alert and oriented. She does appear to be in some distress due to nausea and abdominal pain. She is well developed. VITAL SIGNS: Blood pressure was approximately 104/50, heart rate 114, respiratory rate of 22, temperature was 100.8, T-max was 102.2. HEENT: Pupils are equal, round, and reactive. Extraocular muscles are intact. Her sclerae anicteric. Throat, she has extremely dry mucous membranes and her lips are dry and cracked. NECK: There is no adenopathy, no bruits. LUNGS: Clear to auscultation. There is no wheezing, no rales, no rhonchi. CARDIOVASCULAR: She has a normal S1, S2. There is no S3 or S4. Heart rate is tachycardic. There are no appreciable murmurs. ABDOMEN: Obese. She does have some firmness on the right upper quadrant as well as some exquisite tenderness in the right upper quadrant and right mid quadrant as well as epigastric region. It appears as if this is either a palpable mass or a severe hepatomegaly. There is no rebound tenderness however and she did have audible bowel sounds, which were slightly hyperactive. EXTREMITIES: There is no clubbing or cyanosis. There is no edema. NEUROLOGIC: The exam is grossly nonfocal. SKIN AND INTEGUMENT: No skin changes. No rash. LABORATORY DATA: Her white blood cell count is 0.6, hemoglobin 9.5, hematocrit is 28.1, and platelet count is 81. D-dimer is 4.12. Sodium 135, potassium 4.5, chloride is 101, CO2 is 25, BUN of 25, creatinine 0.89, glucose is 354, total bilirubin is 1.1. Urinalysis was essentially negative other than 1000 glucose. Chest x-ray was negative for any evidence of any infiltrate or effusion. However, she does have an elevated right hemidiaphragm and poor inspiratory effort. This is by my reading. ASSESSMENT: This is a 49-year-old female, who presents with; 1. Fever, neutropenia, and severe right upper quadrant pain. This is in the setting of a patient receiving chemotherapy for breast cancer. She also has signs of sepsis, in that she was tachycardic, temperature was 102.2. Lactic acid was elevated. She will be admitted to the [facility]. We will start her on broad-spectrum IV antibiotics. Given the severe right upper quadrant pain, we will go ahead and get a CT scan of the abdomen and pelvis with contrast. It is noted that on a previous CT in October of this year, she was noted to have development of free intraperitoneal fluid and findings is suspicious for peritoneal carcinomatosis. We will consult ID as well as her Oncologist given the severity of her illness. 2. Diabetes mellitus type 2. Her blood glucose is elevated, likely as a result of the sepsis. She will be placed on a low-dose scheduled insulin and sliding scale. We will hold off on the metformin for now. 3. Breast cancer. She is currently under active treatment. We will once again consult her Oncologist for recommendations and the patient will be placed on deep venous thrombosis as well as gastrointestinal prophylaxis. Job ID: [id number]
[2020-01-14 20:55] LABS: Lactic Acid 1.7 mmol/L (0.5-2.2)
[2020-01-14] MEDS ORDERED: Amiodarone 450 MG, Admixture Fee 1 EACH in Dextrose 5% in Water 250 ML IVPB SCH (21:15)
[2020-01-14] MEDS ORDERED: Ondansetron ODT 4 MG TAB SL PRN (22:20)
[2020-01-14] MEDS ORDERED: Sodium Chloride 0.9% 1,000 ML IV SCH (22:20)
[2020-01-14] MEDS ORDERED: Ondansetron PF 4 MG/2 ML Vial IVP PRN (22:20)
[2020-01-14] MEDS ORDERED: Dextrose 5% in Water 1,000 ML IV PRN (22:42)
[2020-01-14] MEDS ORDERED: Morphine 2 MG/ML SYRINGE SLOW IVP PRN (22:42)
[2020-01-14] MEDS ORDERED: hydrALAZINE 20 MG/ML VIAL SLOW IVP PRN (22:42)
[2020-01-14] MEDS ORDERED: Lorazepam 2 MG/ML VIAL SLOW IVP PRN (22:42)
[2020-01-14] MEDS ORDERED: Dextrose 50% Abboject 50 ML SYRINGE SLOW IVP PRN (22:42)
[2020-01-14] MEDS ORDERED: HumaLOG 300 UNITS/3 ML VIAL SC PRN (22:42)
[2020-01-14] MEDS: Lactated Ringer's 1,000 ML IV SCH (23:11)
[2020-01-14] MEDS ORDERED: Insulin Glargine 15 UNITS in Pre-Filled Syringe 1 EACH SC SCH (23:30)
[2020-01-15] MEDS: Vancomycin 1.5 GRAM/300 ML BAG 1.5 GM in Premix Bag 1 BAG IVPB SCH ×2 (02:09→14:56)
[2020-01-15 04:19] LABS: Hemoglobin 9.5 g/dL (12.0-16.0); Mean Corpuscular HGB CONC 33.6 g/dL (32.0-36.0); Mean Corpuscular Hemoglobin 35.1 pg (27.0-31.0); Mean Platelet Volume 10.1 fL (7.4-10.4); Platelet Count 74 thou/uL (130-400); RBC Distribution Width 13.8 % (11.5-14.5); White Blood Cell (WBC) Count 0.6 thou/uL (4.8-10.8)
[2020-01-15 04:33] LABS: Lymphocytes 84 % (21-51); MDiff Complete? YES; Monocytes 12 % (0-10); Neutrophil 4 % (42-75); Platelet Morphology Comment Appears Decreased
[2020-01-15 04:36] LABS: Anion Gap 13 mmol/L (10-20); BUN (Urea Nitrogen) 20 mg/dL (7.0-18.7); Calc. Creatinine Clearance 157 mL/min (70-130); Calcium 7.8 mg/dL (7.8-10.44); Carbon Dioxide 22 mmol/L (22-29); Chloride 105 mmol/L (98-107); Estimated GFR-MDRD 87; Glucose 327 mg/dL (70-105); Potassium 4.3 mmol/L (3.5-5.1); Sodium 136 mmol/L (136-145)
[2020-01-15] MEDS: Amiodarone 450 MG in Dextrose 5% in Water 250 ML IVPB SCH ×2 (05:52→21:33)
[2020-01-15] MEDS: Cefepime 1 GM in Sodium Chloride 0.9% 100 ML IVPB SCH ×2 (05:52→18:18)
[2020-01-15] MEDS ORDERED: Vancomycin 1 GM in Premix Bag 1 BAG IVPB SCH (06:00)
[2020-01-15] MEDS: Lactated Ringer's 1,000 ML IV SCH ×2 (09:36→18:21)
[2020-01-15] MEDS: Insulin Glargine 15 UNITS in Pre-Filled Syringe 1 EACH SC SCH ×2 (09:36→21:30)
[2020-01-15] MEDS: Enoxaparin Sodium 40 MG/0.4 ML SYRINGE SC SCH (09:36)
--- NOTE | 2020-01-15 09:47 | PDOC.HOSPP ---
- Subjective Encounter Date: 01/15/20 Encounter Time: 09:45 Subjective: Ms. Mariana Dickinson was seen today in follow-up of Neutropenic sepsis. She says she feels a little better today. The pain in her abdomen is at about a 7/10. She says she has some nausea, but it is only a little. - Objective Vital Signs & Weight: Vital Signs (12 hours) Temp Pulse Ox 01/15/20 07:20 98.8 F 01/15/20 00:00 98.7 F 01/14/20 22:20 99 01/14/20 22:02 99.2 F Weight Weight 228 lb 13.437 oz Most Recent Monitor Data Heart Rate from ECG 101 NIBP 126/76 NIBP BP-Mean 92 Respiration from ECG 20 SpO2 100 I&O: 01/14/20 01/15/20 01/16/20 06:59 06:59 06:59 Intake Total 920 Output Total 910 Balance 10 Result Diagrams: 01/15/20 03:08 01/15/20 03:08 Additional Labs: Accuchecks 01/15/20 01/14/20 01/14/20 06:27 23:29 20:02 POC Glucose 295 H 324 H 337 H Hospitalist ROS - Medication Medications: Active Medications Generic Name Dose Route Start Last Admin Trade Name Pedroq PRN Reason Stop Dose Admin Enoxaparin Sodium 40 mg 01/15/20 09:00 01/15/20 09:36 Lovenox SC 40 mg 0900 SONNY Administration Cefepime HCl 1 gm/ Sodium 100 mls @ 200 mls/hr 01/15/20 06:00 01/15/20 05:52 Chloride IVPB 100 mls 0600,1800 SONNY Administration Lactated Ringer's 1,000 mls @ 125 mls/hr 01/14/20 22:42 01/15/20 09:36 Lactated Ringer's IV 1,000 mls .Q8H SONNY Administration Amiodarone HCl 450 mg/ 259 mls @ 0 mls/hr 01/14/20 22:42 01/15/20 05:52 Dextrose/Water IVPB 259 mls INF SONNY Administration Protocol Per Protocol Vancomycin HCl 1.5 gm/ Device 300 mls @ 200 mls/hr 01/15/20 02:00 01/15/20 02 :09 IVPB 300 mls 0200,1400 SONNY Administration Insulin Glargine 15 units/ 0.15 mls @ 0 mls/hr 01/15/20 09:00 01/15/20 09:36 Miscellaneous Medication SC 0.15 mls QAM SONNY Administration Insulin Human Lispro 0 units 01/14/20 22:42 01/14/20 23:35 Humalog SC 4 unit .BEDTIME SLIDING SC PRN Administration Bedtime Correctional Scale Morphine Sulfate 2 mg 01/14/20 22:42 01/15/20 03:58 Morphine SLOW IVP 2 mg Q4H PRN Administration Moderate to Severe Pain (6-10) Sodium Chloride 10 ml 01/14/20 22:22 01/15/20 03:59 Flush - Normal Saline IVF 10 ml PRN PRN Administration Saline Flush - Exam Eye: PERRL Heart: no murmur, no gallops, no rubs, irregular Respiratory: CTAB, no wheezes, no rales, no ronchi, normal chest expansion, no tachypnea, normal percussion Gastrointestinal: soft (+ RUQ tenderness, with hepatomegaly, no rebound or guarding) Extremities: no cyanosis, no edema Hosp A/P (1) Neutropenic sepsis Code(s): A41.9 - SEPSIS, UNSPECIFIED ORGANISM; D70.9 - NEUTROPENIA, UNSPECIFIED Status: Acute (2) Breast cancer Status: Acute (3) Atrial fibrillation with RVR Code(s): I48.91 - UNSPECIFIED ATRIAL FIBRILLATION Status: Acute (4) Diabetes mellitus type 2 in obese Code(s): E11.69 - TYPE 2 DIABETES MELLITUS WITH OTHER SPECIFIED COMPLICATION; E66.9 - OBESITY, UNSPECIFIED Status: Acute (5) Hypertension Code(s): I10 - ESSENTIAL (PRIMARY) HYPERTENSION Status: Acute - Plan * Neutropenic Sepsis- will continue Cefepime and Vancomycin * Continue to monitor her cultures * Await ID recommendations * AFIB with RVR- likely provoked by sepsis- her heart rate continues to be variable. Continue the Amiodarone drip * Will chack an Echo * Await Cardiology * HTN- blood pressure is stable * DM- blood glucose is stable- will continue low dose Lantus and SSI * Will advance diet to clear liquids * Her CT scan of the Chest and Abdomen was reviewed- it demonstrated advancing disease- will await Oncology input
[2020-01-15] MEDS ORDERED: Prochlorperazine Maleate 5 MG TAB PO PRN (12:40)
--- NOTE | 2020-01-15 13:15 | CON ---
DATE OF CONSULTATION: 01/15/2020 REASON FOR CONSULTATION: Tachycardia. HISTORY OF PRESENT ILLNESS: Ms. Dickinson is a 49-year-old woman with history of breast cancer, who recently presented with nausea and vomiting in addition to diarrhea. She recently chemotherapy. She states this had been noted over the last 4 days. She has not been able to have significant p.o. intake over this time period. I was consulted for possible atrial fibrillation. PAST MEDICAL HISTORY: Diabetes mellitus, breast cancer, hyperlipidemia, hypertension, and cholecystectomy. ALLERGIES: NONE. SOCIAL HISTORY: Currently . HOME MEDICATIONS: Include 1. Metformin. 2. Flexeril. 3. Naproxen. 4. [place]. 5. Lisinopril. 6. Zofran. 7. Compazine. REVIEW OF SYSTEMS: A 10-point review of systems is reviewed and is as above, otherwise negative. PHYSICAL EXAMINATION: GENERAL: Patient is a pleasant woman, who is in no acute distress. The patient appears their stated age. VITAL SIGNS: Blood pressure 143/50, pulse 96, temperature afebrile. NEUROLOGIC: The patient is alert and oriented x3 with no focal neurologic deficits. HEENT: Sclerae without icterus. Mouth has moist mucous membranes with normal pallor. NECK: No JVD. Carotid upstroke brisk. No bruits bilaterally. LUNGS: Clear to auscultation with unlabored respirations. BACK: No scoliosis or kyphosis. CARDIAC: Regular rate and rhythm with normal S1 and S2. No S3 or S4 noted. No significant rubs, murmurs, thrills, or gallops noted throughout the precordium. PMI is not displaced. There is no parasternal heave. ABDOMEN: Soft, nontender, nondistended. No peritoneal signs present. No hepatosplenomegaly. No abnormal striae. EXTREMITIES: 2+ femoral and 2+ dorsalis pedis pulses. No cyanosis, clubbing, or edema. SKIN: No gross abnormalities. PERTINENT LABORATORY DATA: White blood cell count 0.6, hemoglobin 9.5, and platelet count 74. Creatinine 0.71. EKG shows undetermined rhythm. There is suggestion of irregularity, but likely more consistent with sinus tachycardia. Her current rhythm is consistent with a sinus tachycardia on telemetry monitoring. IMPRESSION: 1. Tachycardia. 2. Breast cancer. 3. Recent chemotherapy. 4. Nausea, vomiting, and diarrhea. RECOMMENDATIONS: Ms. Mariana Dickinson appears to have a significant decreased p.o. intake. On top of nausea, vomiting, and diarrhea, she is likely volume contracted. We will continue with IV fluids. We would recommend echo to assess LVEF. We would not proceed with anticoagulation therapy. Continue to monitor on telemetry. Job ID: [id number]
[2020-01-15] MEDS: Diphenoxylate HCl/Atropine Tablet PO PRN (13:25)
[2020-01-15] MEDS: HYDROcodone/Acetaminophen 5/325 mg Tablet PO PRN (13:25)
--- NOTE | 2020-01-15 13:54 | CON ---
DATE OF CONSULTATION: REASON FOR CONSULTATION: Breast cancer and neutropenic fever. HISTORY OF PRESENT ILLNESS: Ms. Peña is a 49-year-old female, who was diagnosed with ER positive, NC negative, HER2 negative invasive lobular carcinoma of the breast involving the liver and bone. This was in 01/2019. She was on Ibrance, letrozole, Zoladex, and Zometa. She had a CT scan in 07/2019, that showed stable disease. However, in December, she had a several-week history of abdominal pain and increasing girth. Physical exam showed a tender abdomen without any definitive mass. She had a CT scan performed, which showed probable peritoneal carcinomatosis. The Ibrance and letrozole were discontinued and she was started on chemotherapy consisting of Taxotere and Cytoxan. She received her first dose on Wednesday, 01/09. She did get Neulasta support. Over the weekend, she began to have worsening pain, diarrhea, and eventual fever. She presented to the emergency room for evaluation. She was found to be neutropenic with a white count of 0.6. She was tachycardic and her temperature was 102.2. She was admitted for neutropenia and sepsis. She was in atrial fibrillation with RVR and started on amiodarone drip. She was pancultured and started on vancomycin and cefepime. She also had stool testing for C difficile, which was negative. She is resting comfortably in the intermediate care unit. She was seen at bedside with her son present, who was used as an horse doctor. She complains of abdominal discomfort and nausea and frequent diarrhea. PAST MEDICAL HISTORY: 1. Metastatic invasive lobular carcinoma. 2. Diabetes mellitus. 3. Reflux. 4. Hypertension. 5. History of abnormal LFT since 2017. PAST SURGICAL HISTORY: 1. Hysterectomy secondary to uterine fibroids. 2. . 3. Cholecystectomy. ALLERGIES: NO KNOWN DRUG ALLERGIES. HOME MEDICATIONS: 1. Benzonatate 200 mg daily. 2. Hydrocodone 10/325 p.r.n. 3. Lisinopril 5 mg daily. 4. Metformin 500 b.i.d. 5. Naprosyn p.r.n. 6. Olmesartan 20 mg daily. FAMILY HISTORY: No family history of malignancy. SOCIAL HISTORY: , one child. Lives with her spouse. No alcohol, tobacco, or illicit drug use. REVIEW OF SYSTEMS: A 10-point review of systems is negative except for noted in HPI. PHYSICAL EXAMINATION: VITAL SIGNS: Temperature is 98.0, pulse is 96, respiratory rate 23, BP is 143/ 50. She is 100% on room air. GENERAL: This is a well-developed, well-nourished female, in no acute distress. HEENT: Normocephalic and atraumatic. Pupils are equal and reactive to light. NECK: Supple. CV: Irregular rate and rhythm. LUNGS: Clear. ABDOMEN: Tender in the right upper quadrant. Bowel sounds are positive. EXTREMITIES: No clubbing or cyanosis. SKIN: No rash. HEMATOLOGIC: No petechiae or purpura. NEUROLOGIC: Nonfocal. PERTINENT LABORATORY DATA AND X-RAYS: Current WBCs are 0.6, hemoglobin 9.5, hematocrit 28.2, and platelet count is 74,000. She has 4% neutrophils, 84% lymphocytes, and 12% monocytes. Sodium is 136, potassium 4.3, chloride 105, CO2 is 22, BUN is 20, creatinine 0.71, lactic acid is 1.7, and calcium 7.8. Bilirubin was 1.1, AST is 77, ALT is 20, and alkaline phosphatase is 179. Troponin is negative. BNP is 34. Serum total protein is 5.7, albumin 2.8, globulin 2.9, and lipase is 13. Urine is negative for bacteria. Abdominal and pelvis CT showed worsening ascites, metastatic liver lesions, and peritoneal carcinomatosis, showed diffuse bone metastatic disease. CT angio of her chest was negative for pulmonary emboli. ASSESSMENT: 1. Metastatic breast cancer of the right breast with recent progression of liver and bone disease, now with peritoneal carcinomatosis. 2. Cycle 1, day 5 of Taxotere and Cytoxan chemotherapy with Neulasta support. 3. Neutropenic fever. 4. Diarrhea. 5. Nausea and vomiting. 6. Atrial fibrillation with rapid ventricular response. DISCUSSION: The patient's side effects of diarrhea and nausea are likely from chemotherapy. She is negative for Clostridium difficile. I will add Imodium and Lomotil to her medication list. She has no nausea medicine on her medication list. I will add Compazine and Zofran, although I note the Zofran interferes with amiodarone. Hopefully, we can use it sparingly. She is being seen by Cardiology for her arrhythmia. We will continue IV fluids and antibiotics. Her white count should begin to improve in the next 24 to 48 hours as she did receive Neulasta support. We will continue to follow along with her hospital course. Thank you for the consult. Job ID: [id number] MTDD
[2020-01-15] MEDS: Acetaminophen 325 MG TAB PO PRN (20:05)
[2020-01-15] MEDS: Ondansetron PF 4 MG/2 ML Vial IVP PRN (22:24)
[2020-01-16] MEDS: HYDROcodone/Acetaminophen 5/325 mg Tablet PO PRN (00:53)
[2020-01-16 01:24] LABS: Vancomycin, Trough 9.7 ug/mL
[2020-01-16] MEDS: Vancomycin 1.5 GRAM/300 ML BAG 1.5 GM in Premix Bag 1 BAG IVPB SCH ×3 (02:02→18:35)
[2020-01-16] MEDS: Lactated Ringer's 1,000 ML IV SCH ×2 (02:14→15:09)
[2020-01-16 04:08] LABS: Anion Gap 12 mmol/L (10-20); BUN (Urea Nitrogen) 18 mg/dL (7.0-18.7); Calc. Creatinine Clearance 169 mL/min (70-130); Calcium 7.7 mg/dL (7.8-10.44); Carbon Dioxide 19 mmol/L (22-29); Chloride 104 mmol/L (98-107); Estimated GFR-MDRD Greater than 90; Glucose 211 mg/dL (70-105); Potassium 4.5 mmol/L (3.5-5.1); Sodium 130 mmol/L (136-145)
--- NOTE | 2020-01-16 05:40 | PDOC.EVN ---
Event Note - Event Note Event Note: RN called - Pt had 4 episodes of tachycardia overnight. On Amiodarone drip.
[2020-01-16 06:01] LABS: Hemoglobin 10.2 g/dL (12.0-16.0); Mean Corpuscular HGB CONC 36.1 g/dL (32.0-36.0); Mean Corpuscular Hemoglobin 37.6 pg (27.0-31.0); Mean Platelet Volume 10.5 fL (7.4-10.4); Platelet Count 50 thou/uL (130-400); RBC Distribution Width 13.9 % (11.5-14.5); White Blood Cell (WBC) Count 0.9 thou/uL (4.8-10.8)
[2020-01-16 06:13] LABS: Hypochromia SLIGHT = 6-15 cells (100X) (0-5/hpf); Lymphocytes 64 % (21-51); MDiff Complete? YES; Macrocytosis SLIGHT = 6-15 cells (100X) (0-5/hpf); Monocytes 28 % (0-10); Neutrophil 4 % (42-75); Platelet Morphology Comment Appears Decreased; Reactive Lymphocytes 4 % (0-10)
[2020-01-16 06:21] LABS: Magnesium 1.9 mg/dL (1.6-2.6)
[2020-01-16] MEDS: Cefepime 1 GM in Sodium Chloride 0.9% 100 ML IVPB SCH ×2 (06:32→18:35)
--- NOTE | 2020-01-16 06:46 | CON ---
DATE OF CONSULTATION: 01/15/2020 REASON FOR CONSULTATION: Febrile neutropenia. HISTORY OF PRESENT ILLNESS: A 49-year-old, who has been diagnosed with metastatic breast cancer to the liver and bone, failed hormonal therapy and now has been switched to cytotoxic chemotherapy with Cytoxan and Taxotere. She has developed peritoneal carcinomatosis as well and she was also on Ibrance before the Neulasta regimen was started. The patient has a port in the left subclavian location. She developed a fever after the last chemotherapy with neutropenia and admitted, had atrial fibrillation and required amiodarone, and currently she had one episode of diarrhea. She denies headaches. She is awake, alert, and oriented. Follows commands. No sore throat. No cough. No chest pain. She does have abdominal tenderness which is chronic, probably from the peritoneal carcinomatosis. She is voiding with the assistance of a Zurita catheter. She has had pain in those areas to include the spine and appendicular structures. PAST MEDICAL HISTORY: Metastatic invasive breast cancer along with bone, liver , and peritoneum; type 2 diabetes; hypertension. PAST SURGICAL HISTORY: Hysterectomy, , cholecystectomy. ALLERGIES: NONE. FAMILY HISTORY: Noncontributory. SOCIAL HISTORY: She lives in the area. , one child. Never smoker. No alcoholic beverage use. MEDICATION LIST: 1. Amiodarone IV. 2. Cefepime. 3. Dextrose. 4. Vancomycin. PHYSICAL EXAMINATION: VITAL SIGNS: T-max 99.2, blood pressure 135/74, pulse 103, respirations 18, O2 saturation 99%. SKIN: No areas of skin breakdown. There is a port in the left subclavian location. She has been tender in the spine. She has peripheral IV access in both upper extremities and a Zurita catheter. GENERAL: Awake, alert, oriented. A little bit of distress from the acute illness. LYMPHATIC: No lymphadenopathy. HEENT: Ocular movements are conjugate. Sclerae are white. Pupils are equal. Conjunctivae normal. Oral cavity, somewhat dry, but no abnormalities noted. She still has quite a few teeth in place. NECK: Supple. No jugular venous distention. There is tenderness diffusely in the spine, probably from the metastatic breast cancer. LUNGS: Symmetric air entry. HEART: S1 and S2. Regular rate. No S3 or S4. ABDOMEN: Soft, not distended or tender. No ascites. No bladder distention. EXTREMITIES: She is able to move extremities. LABORATORY DATA: White cell count is 0.6 and 0.6, neutrophils are 4%, 84% lymphocytes, hemoglobin 9.5, total neutrophil count is minimal. Creatinine 0.71. AST 77, ALT 20, alkaline phosphatase 179, albumin 2.8. Urinalysis was with greater than 1000 glucose. Microbiology with negative C diff. Two sets of blood cultures pending. Influenza A and B are negative. She had an abdomen and pelvis CT from January 13 with worsening ascites and peritoneal carcinomatosis, worsening hepatic metastatic disease, diffuse osseous metastatic disease. ASSESSMENT: Metastatic breast cancer, status post Taxotere and Cytoxan with neutropenic fever. The patient will continue on current regimen. We will monitor blood cultures. Awaiting on the improvement of the white cell count. Evidently , the prognosis is quite limited in view of the aggressive malignancy with widespread metastases. We will see what kind of response she will have to this new intervention. In terms of her neutropenic fever, she should improve promptly once the white cell count returns to normal, which should I predict will happen in the next 2 or 3 days or so. If she has persistence of fever or recurrence of fever in the next 2 or 3 days, we will have to start antifungal coverage, but usually this is not necessary with those types of regimens. Job ID: [id number] [facility]ENTERThu
[2020-01-16] MEDS: Enoxaparin Sodium 40 MG/0.4 ML SYRINGE SC SCH (09:48)
[2020-01-16] MEDS: Insulin Glargine 15 UNITS in Pre-Filled Syringe 1 EACH SC SCH ×2 (09:49→20:53)
[2020-01-16] MEDS: Diphenoxylate HCl/Atropine Tablet PO PRN ×2 (09:58→20:52)
--- NOTE | 2020-01-16 11:19 | PDOC.HOSPP ---
- Subjective Encounter Date: 01/16/20 Encounter Time: 11:17 Subjective: Ms. Peña was seen today in follow-up of Neutropenia and sepsis. she notes some improvement in the abdominal pain, but says she is very sleepy. - Objective Vital Signs & Weight: Vital Signs (12 hours) Temp Pulse Ox 01/16/20 07:48 100 01/16/20 07:34 99.9 F H 01/16/20 03:37 99.6 F 01/15/20 23:21 98.9 F Weight Admit Weight 228 lb 13.437 oz Weight 228 lb 13.437 oz Most Recent Monitor Data Heart Rate from ECG 101 NIBP 128/67 NIBP BP-Mean 87 Respiration from ECG 21 SpO2 100 I&O: 01/15/20 01/16/20 01/17/20 06:59 06:59 06:59 Intake Total 920 2280 Output Total 910 800 Balance 10 1480 Result Diagrams: 01/16/20 05:38 01/16/20 03:21 Additional Labs: Accuchecks 01/16/20 01/16/20 01/15/20 10:49 05:56 21:33 POC Glucose 195 H 207 H 218 H 01/15/20 16:38 POC Glucose 244 H Hospitalist ROS - Medication Medications: Active Medications Generic Name Dose Route Start Last Admin Trade Name Freq PRN Reason Stop Dose Admin Acetaminophen 650 mg 01/14/20 22:42 01/15/20 20:05 Tylenol PO 650 mg Q4H PRN Administration Headache/Fever/Mild Pain (1-3) Hydrocodone Bitart/Acetaminophen 1 tab 01/14/20 22:42 01/16/20 00:53 [place] 5/325 PO 1 tab Q4H PRN Administration Moderate Pain (4-6) Diphenoxylate HCl/Atropine 1 tab 01/15/20 12:40 01/16/20 09:58 Lomotil PO 1 tab Q6H PRN Administration Diarrhea/Loose Stools Enoxaparin Sodium 40 mg 01/15/20 09:00 01/16/20 09:48 Lovenox SC 40 mg 0900 SONNY Administration Cefepime HCl 1 gm/ Sodium 100 mls @ 200 mls/hr 01/15/20 06:00 01/16/20 06:32 Chloride IVPB 100 mls 0600,1800 SONNY Administration Insulin Glargine 15 units/ 0.15 mls @ 0 mls/hr 01/15/20 21:00 01/15/20 21:30 Miscellaneous Medication SC 0.15 mls HS SONNY Administration Lactated Ringer's 1,000 mls @ 125 mls/hr 01/14/20 22:42 01/16/20 02:14 Lactated Ringer's IV 1,000 mls .Q8H SONNY Administration Amiodarone HCl 450 mg/ 259 mls @ 0 mls/hr 01/14/20 22:42 01/15/20 21:33 Dextrose/Water IVPB 259 mls INF SONNY Administration Protocol Per Protocol Insulin Glargine 15 units/ 0.15 mls @ 0 mls/hr 01/15/20 09:00 01/16/20 09:49 Miscellaneous Medication SC 0.15 mls QAM SONNY Administration Vancomycin HCl 1.5 gm/ Device 300 mls @ 200 mls/hr 01/16/20 02:00 01/16/20 09 :48 IVPB 300 mls 0200,1000,1800 SONNY Administration Insulin Human Lispro 0 units 01/14/20 22:42 01/14/20 23:35 Humalog SC 4 unit .BEDTIME SLIDING SC PRN Administration Bedtime Correctional Scale Morphine Sulfate 2 mg 01/14/20 22:42 01/15/20 03:58 Morphine SLOW IVP 2 mg Q4H PRN Administration Moderate to Severe Pain (6-10) Ondansetron HCl 4 mg 01/15/20 12:43 01/15/20 22:24 Zofran IVP 4 mg Q6H PRN Administration Nausea/Vomiting Sodium Chloride 10 ml 01/15/20 09:00 01/16/20 09:48 Flush - Normal Saline IVF 10 ml Q12HR SONNY Administration Sodium Chloride 10 ml 01/14/20 22:22 01/15/20 22:25 Flush - Normal Saline IVF 10 ml PRN PRN Administration Saline Flush - Exam Eye: PERRL Heart: RRR, no murmur, no gallops, no rubs, normal peripheral pulses Respiratory: CTAB, no wheezes, no rales, no ronchi, normal chest expansion, no tachypnea Gastrointestinal: soft, normal bowel sounds, tender to palpation (+ mild RUQ tenderness, and a fullness there,) Extremities: no cyanosis Hosp A/P (1) Neutropenic sepsis Code(s): A41.9 - SEPSIS, UNSPECIFIED ORGANISM; D70.9 - NEUTROPENIA, UNSPECIFIED Status: Acute (2) Breast cancer Status: Acute (3) Atrial fibrillation with RVR Code(s): I48.91 - UNSPECIFIED ATRIAL FIBRILLATION Status: Acute (4) Diabetes mellitus type 2 in obese Code(s): E11.69 - TYPE 2 DIABETES MELLITUS WITH OTHER SPECIFIED COMPLICATION; E66.9 - OBESITY, UNSPECIFIED Status: Acute (5) Hypertension Code(s): I10 - ESSENTIAL (PRIMARY) HYPERTENSION Status: Acute - Plan * Neutropenic Sepsis- will continue Cefepime and Vancomycin * Cultures are negative so far * ID recommendations noted * AFIB - She was evaluated by Cardiology- and this is not felt to be AFIB- sinus tachycardia instead * HTN- blood pressure is stable * DM- blood glucose is stable- will continue low dose Lantus and SSI * Continue to advance diet as tolerated. * She likely can be moved out of the [facility] soon
--- NOTE | 2020-01-16 14:55 | PDOC.MOPN ---
Interval History: about the same, continue diarrhea despite imodium, lomotil. - Vital Signs Vital Signs: Vital Signs (12 hours) Temp Pulse Ox 01/16/20 11:54 99.9 F H 01/16/20 07:48 100 01/16/20 07:34 99.9 F H 01/16/20 03:37 99.6 F Weight Admit Weight 228 lb 13.437 oz Weight 228 lb 13.437 oz Most Recent Monitor Data Heart Rate from ECG 103 NIBP 128/69 NIBP BP-Mean 88 Respiration from ECG 26 SpO2 100 - Physical Exam General: Alert, Oriented x3, No acute distress HEENT: Other (dry lips) Lungs: Clear to auscultation Cardiovascular: Regular rate Abdomen: Other Extremities: Other Neurological: Normal speech - Labs Result Diagrams: 01/16/20 05:38 01/16/20 03:21 Lab results: Laboratory Results - last 24 hr 01/16/20 10:49: POC Glucose 195 H 01/16/20 05:56: POC Glucose 207 H 01/16/20 05:38: WBC 0.9 L*, RBC 2.70 L, Hgb 10.2 L, Hct 28.1 L, MCV 104.0 H, MCH 37.6 H, MCHC 36.1 H, RDW 13.9, Plt Count 50 L, MPV 10.5 H, Neutrophils % ( Manual) 4 L, Lymphocytes % (Manual) 64 H, Reactive Lymphs % 4, Monocytes % ( Manual) 28 H, Lymphocytes # Not Reportable, Hypochromia SLIGHT = 6-15 cells, Plt Morphology Comment Appears Decreased L, Macrocytosis SLIGHT = 6-15 cells 01/16/20 03:21: Phosphorus 2.0 L, Magnesium 1.9 01/16/20 03:21: Sodium 130 L, Potassium 4.5, Chloride 104, Carbon Dioxide 19 L, Anion Gap 12, BUN 18, Creatinine 0.66, Estimated GFR (MDRD) Greater than 90, Glucose 211 H, Calcium 7.7 L 01/16/20 01:05: Vancomycin Trough 9.7 01/15/20 21:33: POC Glucose 218 H 01/15/20 16:38: POC Glucose 244 H Status: lab reviewed by me A/P - Problem (1) Breast cancer Current Visit: Yes Status: Acute (2) Neutropenic sepsis Current Visit: Yes Code(s): A41.9 - SEPSIS, UNSPECIFIED ORGANISM; D70.9 - NEUTROPENIA, UNSPECIFIED Status: Acute - Plan Plan: 1. Continue antidiarrheals, antiemetics 2. Continue IVF and supportive care 3. WBC should improve soon
[2020-01-16] MEDS: Ondansetron PF 4 MG/2 ML Vial IVP PRN ×2 (15:09→20:58)
[2020-01-16] MEDS: Loperamide HCl 2 MG CAP PO PRN (15:09)
--- NOTE | 2020-01-16 18:03 | PRG ---
DATE OF SERVICE: 01/16/2020 SUBJECTIVE: Ms. Mariana Dickinson is doing well. No recurrent nausea or vomiting. She continued to have diarrhea, although states it is better. OBJECTIVE: GENERAL: Patient is a pleasant female, who is in no acute distress. The patient appears their stated age. VITAL SIGNS: Blood pressure , pulse 108, and respirations 20. NEUROLOGIC: The patient is alert and oriented x3 with no focal neurologic deficits. HEENT: Sclerae without icterus. Mouth has moist mucous membranes with normal pallor. NECK: No JVD. Carotid upstroke brisk. No bruits bilaterally. LUNGS: Clear to auscultation with unlabored respirations. BACK: No scoliosis or kyphosis. CARDIAC: Regular rate and rhythm with normal S1 and S2. No S3 or S4 noted. No significant rubs, murmurs, thrills, or gallops noted throughout the precordium. PMI is not displaced. There is no parasternal heave. ABDOMEN: Soft, nontender, nondistended. No peritoneal signs present. No hepatosplenomegaly. No abnormal striae. EXTREMITIES: 2+ femoral and 2+ dorsalis pedis pulses. No cyanosis, clubbing, or edema. SKIN: No gross abnormalities. LABORATORY DATA: White blood cell count 0.9, hemoglobin 10.0, and creatinine 0.66. IMPRESSION: 1. Intermittent atrial flutter. 2. Volume contraction. 3. Leukopenia from recent chemotherapy. RECOMMENDATIONS: 1. Add low-dose Cardizem in a short-acting form to try to reduce dysrhythmia. 2. Continue IV fluids. 3. Continue antibiotic therapy. Job ID: [id number]
[2020-01-17] MEDS: Acetaminophen 325 MG TAB PO PRN ×2 (01:12→20:25)
[2020-01-17] MEDS: Morphine 4 MG/ML VIAL SLOW IVP PRN (01:12)
[2020-01-17] MEDS: Lactated Ringer's 1,000 ML IV SCH ×2 (01:13→07:56)
[2020-01-17] MEDS: Vancomycin 1.5 GRAM/300 ML BAG 1.5 GM in Premix Bag 1 BAG IVPB SCH ×3 (02:07→17:30)
[2020-01-17] MEDS: Amiodarone 450 MG in Dextrose 5% in Water 250 ML IVPB SCH ×2 (02:07→18:22)
[2020-01-17 03:53] LABS: Anion Gap 12 mmol/L (10-20); BUN (Urea Nitrogen) 18 mg/dL (7.0-18.7); Calc. Creatinine Clearance 174 mL/min (70-130); Calcium 7.7 mg/dL (7.8-10.44); Carbon Dioxide 19 mmol/L (22-29); Chloride 104 mmol/L (98-107); Estimated GFR-MDRD Greater than 90; Glucose 181 mg/dL (70-105); Potassium 4.1 mmol/L (3.5-5.1); Sodium 131 mmol/L (136-145)
[2020-01-17 04:08] LABS: Band 14 % (5-11); Hemoglobin 9.2 g/dL (12.0-16.0); Lymphocytes 42 % (21-51); MDiff Complete? YES; Mean Corpuscular HGB CONC 33.6 g/dL (32.0-36.0); Mean Corpuscular Hemoglobin 35.4 pg (27.0-31.0); Mean Platelet Volume 11.3 fL (7.4-10.4); Metamyelocyte 8 % (0-0); Monocytes 18 % (0-10); Neutrophil 18 % (42-75); Nucleated RBC 4 % (0); Platelet Count 54 thou/uL (130-400); Platelet Morphology Comment Appears Decreased; RBC Distribution Width 14.1 % (11.5-14.5); Red Blood Cell (RBC) Count 2.59 mill/uL (4.20-5.40)
[2020-01-17] MEDS: Cefepime 1 GM in Sodium Chloride 0.9% 100 ML IVPB SCH ×2 (05:59→17:29)
[2020-01-17] MEDS: HumaLOG 300 UNITS/3 ML VIAL SC PRN (06:08)
[2020-01-17] MEDS: Enoxaparin Sodium 40 MG/0.4 ML SYRINGE SC SCH (07:56)
[2020-01-17] MEDS: Diphenoxylate HCl/Atropine Tablet PO PRN (07:56)
[2020-01-17] MEDS: Insulin Glargine 15 UNITS in Pre-Filled Syringe 1 EACH SC SCH ×2 (07:56→20:25)
--- NOTE | 2020-01-17 09:57 | PDOC.HOSPP ---
- Subjective Encounter Date: 01/17/20 Encounter Time: 09:55 Subjective: Ms. Peña is feeling better. She was seen today in follow-up of neutropenia and fever. - Objective Vital Signs & Weight: Vital Signs (12 hours) Temp Pulse Ox 01/17/20 08:00 100 01/17/20 07:18 96.7 F L 01/17/20 04:00 98.9 F 100 01/17/20 02:00 99 01/17/20 00:00 100 01/16/20 23:39 99.8 F H Weight Admit Weight 228 lb 13.437 oz Weight 228 lb 13.437 oz Most Recent Monitor Data Heart Rate from ECG 90 NIBP 123/66 NIBP BP-Mean 85 Respiration from ECG 18 SpO2 100 I&O: 01/16/20 01/17/20 01/18/20 06:59 06:59 06:59 Intake Total 2280 4697 Output Total 800 1625 Balance 1480 3072 Result Diagrams: 01/17/20 03:10 01/17/20 03:10 Additional Labs: Accuchecks 01/17/20 01/16/20 01/16/20 06:11 20:36 16:31 POC Glucose 172 H 205 H 207 H 01/16/20 10:49 POC Glucose 195 H Hospitalist ROS - Medication Medications: Active Medications Generic Name Dose Route Start Last Admin Trade Name Freq PRN Reason Stop Dose Admin Acetaminophen 650 mg 01/14/20 22:42 01/17/20 01:12 Tylenol PO 650 mg Q4H PRN Administration Headache/Fever/Mild Pain (1-3) Hydrocodone Bitart/Acetaminophen 1 tab 01/14/20 22:42 01/16/20 00:53 [place] 5/325 PO 1 tab Q4H PRN Administration Moderate Pain (4-6) Diltiazem HCl 30 mg 01/16/20 18:00 01/17/20 05:59 Cardizem PO 30 mg Q6H SONNY Administration Diphenoxylate HCl/Atropine 1 tab 01/15/20 12:40 01/17/20 07:56 Lomotil PO 1 tab Q6H PRN Administration Diarrhea/Loose Stools Enoxaparin Sodium 40 mg 01/15/20 09:00 01/17/20 07:56 Lovenox SC 40 mg 0900 SONNY Administration Cefepime HCl 1 gm/ Sodium 100 mls @ 200 mls/hr 01/15/20 06:00 01/17/20 05:59 Chloride IVPB 100 mls 0600,1800 SONNY Administration Insulin Glargine 15 units/ 0.15 mls @ 0 mls/hr 01/15/20 21:00 01/16/20 20:53 Miscellaneous Medication SC 0.15 mls HS SONNY Administration Lactated Ringer's 1,000 mls @ 125 mls/hr 01/14/20 22:42 01/17/20 07:56 Lactated Ringer's IV 1,000 mls .Q8H SONNY Administration Amiodarone HCl 450 mg/ 259 mls @ 0 mls/hr 01/14/20 22:42 01/17/20 02:07 Dextrose/Water IVPB 259 mls INF SONNY Administration Protocol Per Protocol Insulin Glargine 15 units/ 0.15 mls @ 0 mls/hr 01/15/20 09:00 01/17/20 07:56 Miscellaneous Medication SC 0.15 mls QAM SONNY Administration Vancomycin HCl 1.5 gm/ Device 300 mls @ 200 mls/hr 01/16/20 02:00 01/17/20 02 :07 IVPB 300 mls 0200,1000,1800 SONNY Administration Insulin Human Lispro 0 units 01/14/20 22:42 01/17/20 06:08 Humalog SC 2 unit .MODERATE SLIDING SC PRN Administration Moderate Correctional Scale Insulin Human Lispro 0 units 01/14/20 22:42 01/14/20 23:35 Humalog SC 4 unit .BEDTIME SLIDING SC PRN Administration Bedtime Correctional Scale Loperamide HCl 2 mg 01/15/20 12:40 01/16/20 15:09 Imodium PO 2 mg PRN PRN Administration Diarrhea/Loose Stools Morphine Sulfate 2 mg 01/14/20 22:42 01/15/20 03:58 Morphine SLOW IVP 2 mg Q4H PRN Administration Moderate to Severe Pain (6-10) Morphine Sulfate 4 mg 01/14/20 22:42 01/17/20 01:12 Morphine SLOW IVP 4 mg Q4H PRN Administration Moderate to Severe Pain (6-10) Ondansetron HCl 4 mg 01/15/20 12:43 01/16/20 20:58 Zofran IVP 4 mg Q6H PRN Administration Nausea/Vomiting Sodium Chloride 10 ml 01/15/20 09:00 01/17/20 07:57 Flush - Normal Saline IVF 10 ml Q12HR SONNY Administration Sodium Chloride 10 ml 01/14/20 22:22 01/15/20 22:25 Flush - Normal Saline IVF 10 ml PRN PRN Administration Saline Flush - Exam Eye: PERRL Heart: RRR, no murmur, no gallops, no rubs, normal peripheral pulses Respiratory: CTAB, no wheezes, no rales, no ronchi, normal chest expansion, no tachypnea, normal percussion Gastrointestinal: soft, non-tender, non-distended, normal bowel sounds, no palpable masses, no hepatomegaly Extremities: no cyanosis, 1+ LE edema Hosp A/P (1) Neutropenic sepsis Code(s): A41.9 - SEPSIS, UNSPECIFIED ORGANISM; D70.9 - NEUTROPENIA, UNSPECIFIED Status: Acute (2) Breast cancer Status: Acute (3) Atrial fibrillation with RVR Code(s): I48.91 - UNSPECIFIED ATRIAL FIBRILLATION Status: Acute (4) Diabetes mellitus type 2 in obese Code(s): E11.69 - TYPE 2 DIABETES MELLITUS WITH OTHER SPECIFIED COMPLICATION; E66.9 - OBESITY, UNSPECIFIED Status: Acute (5) Hypertension Code(s): I10 - ESSENTIAL (PRIMARY) HYPERTENSION Status: Acute - Plan * Neutropenic Sepsis- cultures are negative * Continue Cefepime and Vancomycin * Atrial flutter- this has been intermittent, and her heart rate has improved * HTN- blood pressure is stable * DM- blood glucose is stable- will continue low dose Lantus and SSI * Continue to advance diet as tolerated. * She is stable to transfer to Telemetry
--- NOTE | 2020-01-17 10:34 | PDOC.MOPN ---
Interval History: sleepy, nausea improved. Diarrhea during night. - Vital Signs Vital Signs: Vital Signs (12 hours) Temp Pulse Ox 01/17/20 08:00 100 01/17/20 07:18 96.7 F L 01/17/20 04:00 98.9 F 100 01/17/20 02:00 99 01/17/20 00:00 100 01/16/20 23:39 99.8 F H Weight Admit Weight 228 lb 13.437 oz Weight 228 lb 13.437 oz Most Recent Monitor Data Heart Rate from ECG 90 NIBP 122/67 NIBP BP-Mean 85 Respiration from ECG 18 SpO2 100 - Physical Exam General: No acute distress Lungs: Clear to auscultation, Normal air movement Cardiovascular: Regular rate, Normal S1, Normal S2, No murmurs, Gallops, Rubs Abdomen: No tenderness Skin: No rashes, No breakdown, No significant lesion Neurological: Normal speech Psych/Mental Status: Mental status NL - Labs Result Diagrams: 01/17/20 03:10 01/17/20 03:10 Lab results: Laboratory Results - last 24 hr 01/17/20 06:11: POC Glucose 172 H 01/17/20 03:10: WBC 2.0 L, RBC 2.59 L, Hgb 9.2 L, Hct 27.3 L, MCV 105.0 H, MCH 35.4 H, MCHC 33.6, RDW 14.1, Plt Count 54 L, MPV 11.3 H, Neutrophils % (Manual) 18 L, Band Neuts % (Manual) 14 H, Lymphocytes % (Manual) 42, Monocytes % (Manual ) 18 H, Metamyelocytes % (Man) 8 H, Nucleated RBCs # (Man) 4 H, Plt Morphology Comment Appears Decreased L 01/17/20 03:10: Sodium 131 L, Potassium 4.1, Chloride 104, Carbon Dioxide 19 L, Anion Gap 12, BUN 18, Creatinine 0.64, Estimated GFR (MDRD) Greater than 90, Glucose 181 H, Calcium 7.7 L 01/17/20 01:07: Vancomycin Trough 19.0 01/16/20 20:36: POC Glucose 205 H 01/16/20 16:31: POC Glucose 207 H 01/16/20 10:49: POC Glucose 195 H Status: lab reviewed by me A/P - Problem (1) Breast cancer Current Visit: Yes Status: Acute (2) Neutropenic sepsis Current Visit: Yes Code(s): A41.9 - SEPSIS, UNSPECIFIED ORGANISM; D70.9 - NEUTROPENIA, UNSPECIFIED Status: Acute - Plan Plan: 1. Continue antidiarrheals, antiemetics 2. Continue IVF and supportive care 3. WBC improved today.
--- NOTE | 2020-01-17 16:08 | PRG ---
DATE OF SERVICE: 01/17/2020 SUBJECTIVE: Ms. Mariana Dickinson continues to have diarrhea. No current complaints. She did well all night. No recurrent episodes of heart flutters. She did develop atrial flutter noted during my visit this morning with heart rate in the 140s to 150s. She was asymptomatic. OBJECTIVE: VITAL SIGNS: Blood pressure 113/55, pulse 90, and respirations 20. LUNGS: Clear to auscultation. HEART: Regular rate and rhythm. ABDOMEN: Soft, nontender, and nondistended. EXTREMITIES: No edema. PERTINENT LABORATORY DATA: White blood cell count 2.0, hemoglobin 9.2, and hematocrit 27.3. IMPRESSION: 1. Recurrent atrial flutter. 2. Nausea, vomiting, and diarrhea, status post chemotherapy. RECOMMENDATIONS: 1. Increase Cardizem to 60 mg q.6 hours. 2. Consult with EP due to recurrent episodes of atrial flutter. 3. Continue IV amiodarone and await recommendations from Dr. Grover. Job ID: [id number]
--- NOTE | 2020-01-17 18:31 | PRG ---
DATE OF SERVICE: 01/17/2020 SUBJECTIVE: The patient was transferred to [facility]. She is lying in her right lateral decubitus as usual. Some difficulty with speech, but she was able to talk a little better than previously. Having some abdominal cramps and sensation of fullness, particularly in the right upper quadrant. No cough. Some back pain. She is voiding with an indwelling Zurita catheter. OBJECTIVE: VITAL SIGNS: T-max 99.8 yesterday at 11:00 p.m. and now 99.4, blood pressure 113/55, pulse 91, respirations 16. GENERAL: No acute distress. Oriented. HEENT: Ocular movements conjugate. Herpetic lesions in the lower lip. LUNGS: Symmetric, clear breath sounds. HEART: S1 and S2, regular rate. ABDOMEN: Somewhat distended with sensation of fullness in the right upper quadrant. Mild tenderness. No bladder distention. EXTREMITIES: Able to move extremities. LABORATORY DATA: The white cell count is up to 2000, hemoglobin 9.2, platelets 54,000, total neutrophil count is about 500 to 600. Chemistry with a creatinine of 0.64, sodium 131. Microbiology with negative C diff. Two sets of negative blood cultures. ASSESSMENT: Metastatic breast cancer, Taxotere and Cytoxan, neutropenic fever, improving neutrophil count rapidly as expected. The patient is having some significant diarrhea, could be related to the antibiotics and chemotherapy. Aggressive malignancy with widespread metastases. No need for antifungal agent to be added at this point in time continuing improvement of the syndrome that led to admission. Job ID: [id number] MTDD
[2020-01-18] MEDS: Vancomycin 1.5 GRAM/300 ML BAG 1.5 GM in Premix Bag 1 BAG IVPB SCH ×3 (01:30→18:18)
[2020-01-18] MEDS: Cefepime 1 GM in Sodium Chloride 0.9% 100 ML IVPB SCH ×2 (05:05→18:17)
[2020-01-18 05:18] LABS: Band 10 % (5-11); Hemoglobin 9.2 g/dL (12.0-16.0); Hypochromia SLIGHT = 6-15 cells (100X) (0-5/hpf); Lymphocytes 16 % (21-51); MDiff Complete? YES; Macrocytosis SLIGHT = 6-15 cells (100X) (0-5/hpf); Mean Corpuscular HGB CONC 34.7 g/dL (32.0-36.0); Mean Corpuscular Hemoglobin 36.2 pg (27.0-31.0); Mean Platelet Volume 10.6 fL (7.4-10.4); Monocytes 7 % (0-10); Neutrophil 65 % (42-75); Nucleated RBC 8 % (0); Platelet Count 47 thou/uL (130-400); Platelet Morphology Comment Appears Decreased; RBC Distribution Width 14.4 % (11.5-14.5); Reactive Lymphocytes 2 % (0-10); Red Blood Cell (RBC) Count 2.54 mill/uL (4.20-5.40); White Blood Cell (WBC) Count 5.7 thou/uL (4.8-10.8)
[2020-01-18] MEDS: Amiodarone 450 MG in Dextrose 5% in Water 250 ML IVPB SCH (05:46)
[2020-01-18] MEDS: Morphine 4 MG/ML VIAL SLOW IVP PRN ×2 (09:18→13:34)
[2020-01-18] MEDS: Enoxaparin Sodium 40 MG/0.4 ML SYRINGE SC SCH (09:48)
--- NOTE | 2020-01-18 10:52 | PDOC.MOPN ---
Interval History: alert today, feels better. diarrhea improving. - Vital Signs Vital Signs: Vital Signs (12 hours) Temp Pulse Resp BP Pulse Ox 01/18/20 09:04 98.5 F 97 16 117/62 94 L 01/18/20 04:00 99.6 F 87 18 130/68 93 L 01/18/20 00:00 100.8 F H 103 H 16 124/72 94 L Weight Admit Weight 228 lb 13.437 oz Weight 228 lb 13.437 oz Most Recent Monitor Data Heart Rate from ECG 90 NIBP 110/56 NIBP BP-Mean 74 Respiration from ECG 19 SpO2 100 - Physical Exam General: Alert HEENT: Atraumatic Lungs: Clear to auscultation Cardiovascular: Regular rate Abdomen: Normal bowel sounds Extremities: Other Skin: No rashes, No breakdown, No significant lesion Neurological: Normal speech Psych/Mental Status: Mental status NL - Labs Result Diagrams: 01/18/20 04:01 01/17/20 03:10 Lab results: Laboratory Results - last 24 hr 01/18/20 05:34: POC Glucose 131 H 01/18/20 04:01: WBC 5.7, RBC 2.54 L, Hgb 9.2 L, Hct 26.5 L, MCV 104.0 H, MCH 36.2 H, MCHC 34.7, RDW 14.4, Plt Count 47 L, MPV 10.6 H, Neutrophils % (Manual) 65, Band Neuts % (Manual) 10, Lymphocytes % (Manual) 16 L, Reactive Lymphs % 2, Monocytes % (Manual) 7, Nucleated RBCs # (Man) 8 H, Hypochromia SLIGHT = 6-15 cells, Plt Morphology Comment Appears Decreased L, Macrocytosis SLIGHT = 6-15 cells 01/17/20 20:29: POC Glucose 161 H 01/17/20 16:42: POC Glucose 159 H Status: lab reviewed by me A/P - Problem (1) Breast cancer Current Visit: Yes Status: Acute (2) Neutropenic sepsis Current Visit: Yes Code(s): A41.9 - SEPSIS, UNSPECIFIED ORGANISM; D70.9 - NEUTROPENIA, UNSPECIFIED Status: Resolved - Plan Plan: 1. ANC 5.5, no longer neutropenic. DC precautions 2. Continue antidiarrheals prn 3. Increase activity 4. Cardiac eval in progress
[2020-01-18] MEDS: Insulin Glargine 15 UNITS in Pre-Filled Syringe 1 EACH SC SCH (11:30)
[2020-01-18] MEDS ORDERED: Insulin Glargine 6 UNITS in Pre-Filled Syringe 1 EACH SC SCH (12:15)
--- NOTE | 2020-01-18 12:40 | PDOC.HOSPP ---
- Subjective Encounter Date: 01/18/20 Encounter Time: 12:39 Subjective: Ms. Peña was seen today in follow-up of neutropenic fever. She admits to feeling a little better. She notes improving abdominal pain, but continues to have diarrhea, and nausea. She also has a poor appetite. - Objective Vital Signs & Weight: Vital Signs (12 hours) Temp Pulse Resp BP BP BP Pulse Ox 01/18/20 12:07 95 01/18/20 11:07 99.5 F 91 14 116/56 L 90 L 01/18/20 09:33 156/80 H 118/62 01/18/20 09:04 98.5 F 97 16 117/62 94 L 01/18/20 04:00 99.6 F 87 18 130/68 93 L Weight Admit Weight 228 lb 13.437 oz Weight 228 lb 13.437 oz Most Recent Monitor Data Heart Rate from ECG 90 NIBP 110/56 NIBP BP-Mean 74 Respiration from ECG 19 SpO2 100 I&O: 01/17/20 01/18/20 01/19/20 06:59 06:59 06:59 Intake Total 4697 610 Output Total 1625 1950 Balance 3072 -1340 Result Diagrams: 01/18/20 04:01 01/17/20 03:10 Additional Labs: Accuchecks 01/18/20 01/18/20 01/17/20 10:55 05:34 20:29 POC Glucose 186 H 131 H 161 H 01/17/20 16:42 POC Glucose 159 H Hospitalist ROS - Medication Medications: Active Medications Generic Name Dose Route Start Last Admin Trade Name Freq PRN Reason Stop Dose Admin Acetaminophen 650 mg 01/14/20 22:42 01/17/20 20:25 Tylenol PO 650 mg Q4H PRN Administration Headache/Fever/Mild Pain (1-3) Hydrocodone Bitart/Acetaminophen 1 tab 01/14/20 22:42 01/16/20 00:53 [place] 5/325 PO 1 tab Q4H PRN Administration Moderate Pain (4-6) Diltiazem HCl 60 mg 01/17/20 18:00 01/18/20 12:08 Cardizem PO 60 mg Q6HR SONNY Administration Diphenoxylate HCl/Atropine 1 tab 01/15/20 12:40 01/17/20 07:56 Lomotil PO 1 tab Q6H PRN Administration Diarrhea/Loose Stools Enoxaparin Sodium 40 mg 01/15/20 09:00 01/18/20 09:48 Lovenox SC Not Given 0900 SONNY Cefepime HCl 1 gm/ Sodium 100 mls @ 200 mls/hr 01/15/20 06:00 01/18/20 05:05 Chloride IVPB 100 mls 0600,1800 SONNY Administration Insulin Glargine 15 units/ 0.15 mls @ 0 mls/hr 01/15/20 21:00 01/17/20 20:25 Miscellaneous Medication SC 0.15 mls HS SONNY Administration Amiodarone HCl 450 mg/ 259 mls @ 0 mls/hr 01/14/20 22:42 01/18/20 05:46 Dextrose/Water IVPB 259 mls INF SONNY Administration Protocol Per Protocol Vancomycin HCl 1.5 gm/ Device 300 mls @ 200 mls/hr 01/16/20 02:00 01/18/20 09 :20 IVPB 300 mls 0200,1000,1800 SONNY Administration Insulin Human Lispro 0 units 01/14/20 22:42 01/17/20 06:08 Humalog SC 2 unit .MODERATE SLIDING SC PRN Administration Moderate Correctional Scale Insulin Human Lispro 0 units 01/14/20 22:42 01/14/20 23:35 Humalog SC 4 unit .BEDTIME SLIDING SC PRN Administration Bedtime Correctional Scale Loperamide HCl 2 mg 01/15/20 12:40 01/16/20 15:09 Imodium PO 2 mg PRN PRN Administration Diarrhea/Loose Stools Morphine Sulfate 2 mg 01/14/20 22:42 01/15/20 03:58 Morphine SLOW IVP 2 mg Q4H PRN Administration Moderate to Severe Pain (6-10) Morphine Sulfate 4 mg 01/14/20 22:42 01/18/20 09:18 Morphine SLOW IVP 4 mg Q4H PRN Administration Moderate to Severe Pain (6-10) Ondansetron HCl 4 mg 01/15/20 12:43 01/16/20 20:58 Zofran IVP 4 mg Q6H PRN Administration Nausea/Vomiting Sodium Chloride 10 ml 01/15/20 09:00 01/18/20 09:21 Flush - Normal Saline IVF 10 ml Q12HR SONNY Administration Sodium Chloride 10 ml 01/14/20 22:22 01/15/20 22:25 Flush - Normal Saline IVF 10 ml PRN PRN Administration Saline Flush - Exam Eye: PERRL Heart: RRR, no murmur, no gallops, no rubs, normal peripheral pulses Respiratory: CTAB, no wheezes, no rales, no ronchi, normal chest expansion, no tachypnea Gastrointestinal: soft (+ right upper quadrant tenderness- + hepatomegaly), non- distended, normal bowel sounds Hosp A/P (1) Neutropenic sepsis Code(s): A41.9 - SEPSIS, UNSPECIFIED ORGANISM; D70.9 - NEUTROPENIA, UNSPECIFIED Status: Resolved (2) Breast cancer Status: Acute (3) Atrial fibrillation with RVR Code(s): I48.91 - UNSPECIFIED ATRIAL FIBRILLATION Status: Acute (4) Diabetes mellitus type 2 in obese Code(s): E11.69 - TYPE 2 DIABETES MELLITUS WITH OTHER SPECIFIED COMPLICATION; E66.9 - OBESITY, UNSPECIFIED Status: Acute (5) Hypertension Code(s): I10 - ESSENTIAL (PRIMARY) HYPERTENSION Status: Acute - Plan * Neutropenic Sepsis- continue IV antibiotics, await further recommendations from ID * Atrial flutter- await EP recommendations * HTN- blood pressure is stable * DM- blood glucose is stable- will continue low dose Lantus and SSI * Encourage oral intake, and ambulation * Neutropenia- improved, and can discontinue reverse isolation
--- NOTE | 2020-01-18 15:01 | CON ---
DATE OF CONSULTATION: 01/18/2020 HISTORY OF PRESENT ILLNESS: I am seeing Ms. 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 Her problems are: 1. Recurrent atrial arrhythmias. a. Newly found atrial fibrillation with rapid rate in the setting of acute illness. b. IV amiodarone, suppressing atrial fibrillation with occasional atypical atrial flutter runs noted. 2. Preserved LVEF of 65%, mild MR and mild TR, normal left atrial size on echo on 01/15/2020. 3. History of metastatic breast cancer, on chemotherapy regimen with associated neutropenia. 4. Neutropenic fever. Negative blood cultures x2 days. Negative C difficile and influenza type A and B. 5. History of diabetes and hypertension and elevated BMI. ALLERGIES: NONE NOTED. MEDICATIONS: At home, included: 1. Metformin. 2. Cyclobenzaprine. 3. Naproxen. 4. Lisinopril. 5. Ondansetron. 6. Prochlorperazine. 7. Hydrocodone. SUBJECTIVE: Ms. Peña was admitted with neutropenic fever and had diarrhea and weakness for at least 3 days. She had nausea without major throwing up episodes. She denies bleeding. She was noted to be hypotensive and fever at 102.2. She was diagnosed with neutropenic fever. ID is following. Dr. Foy was originally consulted for tachycardia, and IV amiodarone was initiated, also receiving p.o. Cardizem. She was noted to have episodic atrial fibrillation, then the episode of atrial flutter is seen, currently maintaining sinus rhythm. Currently, she seems to be doing fair. Denies dyspnea or angina. No cough. She still has borderline temperatures, T-max 100.8. Intermittent diarrhea is noted. She is noted to have excoriation in the buttocks. REVIEW OF SYSTEMS: Rest of 12-point review of systems otherwise unremarkable. PAST MEDICAL HISTORY: As above. PAST SURGICAL HISTORY: 1. History of cholecystectomy. 2. . SOCIAL HISTORY: The patient is . She has 3 children. Denies any EtOH or drug abuse. No history of tobacco abuse. FAMILY HISTORY: No inheritable diseases. PHYSICAL EXAMINATION: VITAL SIGNS: Blood pressure is 115/56, heart rate 97, respirations 18, and temperature 100.7 degrees Fahrenheit. GENERAL: This is an alert and oriented, [place]ic-speaking woman, in no apparent distress. NECK: Supple. Jugular veins difficult to evaluate. CHEST: Coarse without crackles. HEART: Sounds are regular to rate and rhythm. No murmur or gallop. ABDOMEN: Benign. Bowel sounds positive. EXTREMITIES: Lower extremities without edema, clubbing, or cyanosis. Pulses are adequate. NEUROLOGIC: The patient is nonfocal. MUSCULOSKELETAL: Without joint swelling or deformity. SKIN: Without rash. DATABASE: EKG is reviewed. Initial EKG, revealing sinus tachycardia, rate of 136 beats per minute. Subsequent EKG seems to indicate atrial fibrillation/atypical atrial flutter, alternating again with sinus rhythm. More recent EKGs though seem to indicate a more regular atrial flutter with variable AV conduction, rate 160 to 170 beats per minute. Chest CT from admission reveals no pulmonary thromboembolism and diffuse osseous metastatic disease and hepatitic metastatic disease noted. LABORATORY DATA: White cell count is 5.7, although initially was 0.6 on admission; hemoglobin currently 9.2; and platelet count is 47, decreased from initial 81. Sodium 131, potassium 4.1, BUN is 18, and creatinine 0.64. Troponin levels are less than 0.01 on admission. BNP is 34.7. ASSESSMENT AND PLAN: Ms. Peña is a pleasant 49-year-old woman with history of metastatic breast cancer, on chemotherapy, who is presenting with neutropenic fever. She also was noted to have tachycardia, both sinus tachycardia initially, converting to atrial fibrillation. Atrial fibrillation required p.o. diltiazem and IV amiodarone initiation on the . Since then, on occasion more organized atrial flutter is seen. Atrial flutter both atypical and on occasion, possibly typical isthmus dependent in morphology as well with decreasing trend. I examined the patient and discussed her symptoms with her. She seems to be responding well to the initiated amiodarone therapy. Although amiodarone tends to organize the atrial arrhythmias, I am hoping that eventually with adequate loading it will be able to suppress the rhythm. Monitoring her liver function is prudent especially in view of the baseline LFT abnormalities which is likely related to liver mets. Long-term after resolution of the neutropenic fever, I am hoping her tendency for atrial fibrillation will subside, then we will be able to discontinue amiodarone. Due to her borderline platelet count, she is a poor candidate for anticoagulation at this point. I will continue suppressive measures. She is a poor long-term candidate for ablation, especially in view of the COVID-19 pandemic, I will postpone that unless typically isthmus dependent atrial flutter sustained and makes discharge difficult. Thank you again for allowing me to participate in the care of this patient. Job ID: [id number] MTDD
--- NOTE | 2020-01-18 15:29 | EKG ---
Test Reason : EMERGENCY EXAM Blood Pressure : / mmHG Vent. Rate : 195 BPM Atrial Rate : 136 BPM P-R Int : 000 ms QRS Dur : 062 ms QT Int : 234 ms P-R-T Axes : 000 -33 -42 degrees QTc Int : 421 ms Undetermined rhythm Left axis deviation Nonspecific ST and T wave abnormality Abnormal ECG Confirmed by CASANDRA FORMAN, KWADWO ([id number]), photograph editor AMY STUART ([id number]) on 01/18/2020 3:29:09 PM Referred By: Confirmed By:KWADWO GUAJARDO MD
[2020-01-18] MEDS: Amiodarone 200 MG TAB PO SCH ×2 (15:30→20:39)
[2020-01-18] MEDS: Insulin Glargine 6 UNITS in Pre-Filled Syringe 1 EACH SC SCH (20:45)
[2020-01-19] MEDS: Vancomycin 1.5 GRAM/300 ML BAG 1.5 GM in Premix Bag 1 BAG IVPB SCH ×3 (00:51→17:39)
[2020-01-19] MEDS: Cefepime 1 GM in Sodium Chloride 0.9% 100 ML IVPB SCH ×2 (05:38→17:03)
[2020-01-19 05:52] LABS: Band 19 % (5-11); Dohle Bodies SLIGHT; Hemoglobin 9.5 g/dL (12.0-16.0); Lymphocytes 8 % (21-51); MDiff Complete? YES; Mean Corpuscular Hemoglobin 35.1 pg (27.0-31.0); Mean Platelet Volume 11.9 fL (7.4-10.4); Metamyelocyte 3 % (0-0); Monocytes 3 % (0-10); Myelocyte 5 % (0-0); Neutrophil 62 % (42-75); Nucleated RBC 6 % (0); Platelet Count 40 thou/uL (130-400); Platelet Morphology Comment Appears Decreased; RBC Distribution Width 14.5 % (11.5-14.5); Red Blood Cell (RBC) Count 2.69 mill/uL (4.20-5.40); Toxic Granulation SLIGHT; White Blood Cell (WBC) Count 10.1 thou/uL (4.8-10.8)
[2020-01-19] MEDS: Insulin Glargine 6 UNITS in Pre-Filled Syringe 1 EACH SC SCH ×2 (08:37→21:52)
[2020-01-19] MEDS: Amiodarone 200 MG TAB PO SCH ×3 (08:38→21:47)
[2020-01-19 09:19] LABS: Vancomycin, Trough 17.4 ug/mL
[2020-01-19] MEDS: Enoxaparin Sodium 40 MG/0.4 ML SYRINGE SC SCH (09:28)
[2020-01-19] MEDS: Diphenoxylate HCl/Atropine Tablet PO PRN (09:58)
--- NOTE | 2020-01-19 11:19 | PDOC.HOSPP ---
- Subjective Encounter Date: 01/19/20 Encounter Time: 11:19 Subjective: Ms. Peña was seen today in follow-up of Neutropenic fever. She says she feels worse today than yesterday. She is much weaker, and she is having trouble breathing, especially when she turns to the left side. She was not able to stand on her own with PT, and her appetite remains poor. - Objective Vital Signs & Weight: Vital Signs (12 hours) Temp Pulse Resp BP BP Pulse Ox 01/19/20 07:33 98.6 F 108 H 18 118/57 L 94 L 01/19/20 03:14 98.5 F 117 H 18 134/63 92 L 01/19/20 00:00 100.0 F H 92 20 123/56 L 92 L Weight Admit Weight 228 lb 13.437 oz Weight 228 lb 13.437 oz Most Recent Monitor Data Heart Rate from ECG 90 NIBP 110/56 NIBP BP-Mean 74 Respiration from ECG 19 SpO2 100 I&O: 01/18/20 01/19/20 01/20/20 06:59 06:59 06:59 Intake Total 610 3000 Output Total 1950 3600 Balance -1340 -600 Result Diagrams: 01/19/20 04:22 01/17/20 03:10 Additional Labs: Accuchecks 01/19/20 01/18/20 01/18/20 05:42 20:28 17:01 POC Glucose 160 H 166 H 182 H 01/18/20 10:55 POC Glucose 186 H Hospitalist ROS - Medication Medications: Active Medications Generic Name Dose Route Start Last Admin Trade Name Freq PRN Reason Stop Dose Admin Acetaminophen 650 mg 01/14/20 22:42 01/17/20 20:25 Tylenol PO 650 mg Q4H PRN Administration Headache/Fever/Mild Pain (1-3) Hydrocodone Bitart/Acetaminophen 1 tab 01/14/20 22:42 01/16/20 00:53 [place] 5/325 PO 1 tab Q4H PRN Administration Moderate Pain (4-6) Amiodarone HCl 200 mg 01/18/20 15:00 01/19/20 08:38 Cordarone PO 200 mg TID SONNY Administration Diltiazem HCl 60 mg 01/17/20 18:00 01/19/20 05:38 Cardizem PO 60 mg Q6HR SONNY Administration Diphenoxylate HCl/Atropine 1 tab 01/15/20 12:40 01/19/20 09:58 Lomotil PO 1 tab Q6H PRN Administration Diarrhea/Loose Stools Enoxaparin Sodium 40 mg 01/15/20 09:00 01/19/20 09:28 Lovenox SC Not Given 0900 SONNY Cefepime HCl 1 gm/ Sodium 100 mls @ 200 mls/hr 01/15/20 06:00 01/19/20 05:38 Chloride IVPB 100 mls 0600,1800 SONNY Administration Vancomycin HCl 1.5 gm/ Device 300 mls @ 200 mls/hr 01/16/20 02:00 01/19/20 09 :55 IVPB 300 mls 0200,1000,1800 SONNY Administration Insulin Glargine 6 units/ 0.06 mls @ 0 mls/hr 01/19/20 09:00 01/19/20 08:37 Miscellaneous Medication SC Not Given QAM SONNY Insulin Glargine 6 units/ 0.06 mls @ 0 mls/hr 01/18/20 21:00 01/18/20 20:45 Miscellaneous Medication SC Not Given HS SONNY Insulin Human Lispro 0 units 01/14/20 22:42 01/17/20 06:08 Humalog SC 2 unit .MODERATE SLIDING SC PRN Administration Moderate Correctional Scale Insulin Human Lispro 0 units 01/14/20 22:42 01/14/20 23:35 Humalog SC 4 unit .BEDTIME SLIDING SC PRN Administration Bedtime Correctional Scale Loperamide HCl 2 mg 01/15/20 12:40 01/16/20 15:09 Imodium PO 2 mg PRN PRN Administration Diarrhea/Loose Stools Morphine Sulfate 2 mg 01/14/20 22:42 01/15/20 03:58 Morphine SLOW IVP 2 mg Q4H PRN Administration Moderate to Severe Pain (6-10) Morphine Sulfate 4 mg 01/14/20 22:42 01/18/20 13:34 Morphine SLOW IVP 4 mg Q4H PRN Administration Moderate to Severe Pain (6-10) Ondansetron HCl 4 mg 01/15/20 12:43 01/16/20 20:58 Zofran IVP 4 mg Q6H PRN Administration Nausea/Vomiting Sodium Chloride 10 ml 01/15/20 09:00 01/19/20 08:40 Flush - Normal Saline IVF 10 ml Q12HR SONNY Administration Sodium Chloride 10 ml 01/14/20 22:22 01/15/20 22:25 Flush - Normal Saline IVF 10 ml PRN PRN Administration Saline Flush - Exam Eye: PERRL Heart: RRR, no murmur, no gallops, no rubs, normal peripheral pulses Respiratory: CTAB (decreased breath sounds at the bases), no wheezes, no rales, no ronchi Gastrointestinal: soft (distended, + RUQ tendernss no rebound or guarding) Extremities: no cyanosis Hosp A/P (1) Neutropenic sepsis Code(s): A41.9 - SEPSIS, UNSPECIFIED ORGANISM; D70.9 - NEUTROPENIA, UNSPECIFIED Status: Resolved (2) Breast cancer Status: Acute (3) Atrial fibrillation with RVR Code(s): I48.91 - UNSPECIFIED ATRIAL FIBRILLATION Status: Acute (4) Diabetes mellitus type 2 in obese Code(s): E11.69 - TYPE 2 DIABETES MELLITUS WITH OTHER SPECIFIED COMPLICATION; E66.9 - OBESITY, UNSPECIFIED Status: Acute (5) Hypertension Code(s): I10 - ESSENTIAL (PRIMARY) HYPERTENSION Status: Acute - Plan * Shortness of breath- ? etiology- may be volume overload- will check a CXR to assess, and may need CT scan as well-( offered to start with the CT scan but the patient was concerned that she will not be able to breathe if she has to lay flat. * Neutropenic Sepsis- continue IV antibiotics. All cultures are negative- may be able to transition to oral antibiotics * Atrial flutter- She has been placed on oral Amiodarone * HTN- blood pressure is stable * DM- blood glucose is stable- * Encourage oral intake, and ambulation * Neutropenia- WBC count is 10.1
--- NOTE | 2020-01-19 12:09 | RAD ---
SUPINE CHEST: Date: 01/19/2020 INDICATION: Shortness of breath. COMPARISON: 01/14/2020. FINDINGS: Poor inspiration. CP angles are blunted bilaterally and appear stable. I cannot exclude bibasilar ate lectasis and/or infiltrates. The upper lung zones remain clear. Central line is unchanged. IMPRESSION: Chest findings are stable from 01/14/2020. POS: [facility]
--- NOTE | 2020-01-19 13:40 | PDOC.EP ---
- Subjective Date: 01/19/20 Time: 12:00 Interval History: follow up for management of atrial arrhythmias. - Review of Systems Constitutional: reports: fever, malaise, weakness. denies: chills, sweats Respiratory: denies: cough, pleuritic pain, shortness of breath, wheezing Cardiology: denies: chest pain, edema, light headedness, passing out Gastrointestinal: denies: abdominal pain, constipation, diarrhea - Objective Allergies/Adverse Reactions: Allergies Allergy/AdvReac Type Severity Reaction Status Date / Time No Known Allergies Allergy Verified 01/14/20 22:49 Current Medications Acetaminophen (Tylenol) 650 mg PO Q4H PRN PRN Reason: Headache/Fever/Mild Pain (1-3) Last Admin: 01/17/20 20:25 Dose: 650 mg Hydrocodone Bitart/Acetaminophen ([place] 5/325) 1 tab PO Q4H PRN PRN Reason: Moderate Pain (4-6) Last Admin: 01/16/20 00:53 Dose: 1 tab Amiodarone HCl (Cordarone) 200 mg PO TID [facility] Last Admin: 01/19/20 08:38 Dose: 200 mg Dextrose/Water (Dextrose 50%) 25 gm SLOW IVP PRN PRN PRN Reason: Hypoglycemia Diltiazem HCl (Cardizem) 60 mg PO Q6HR [facility] Last Admin: 01/19/20 11:55 Dose: 60 mg Diphenoxylate HCl/Atropine (Lomotil) 1 tab PO Q6H PRN PRN Reason: Diarrhea/Loose Stools Last Admin: 01/19/20 09:58 Dose: 1 tab Enoxaparin Sodium (Lovenox) 40 mg SC 0900 [facility] Last Admin: 01/19/20 09:28 Dose: Not Given Glucagon (Glucagon) 1 mg IM PRN PRN PRN Reason: Hypoglycemia Hydralazine HCl (Apresoline) 10 mg SLOW IVP Q4H PRN PRN Reason: SBP > 180 and HR < 70 Cefepime HCl 1 gm/ Sodium (Chloride) 100 mls @ 200 mls/hr IVPB 0600,1800 [facility] Last Admin: 01/19/20 05:38 Dose: 100 mls Dextrose/Water (D5w) 1,000 mls @ 0 mls/hr IV .Q0M PRN PRN Reason: Hypoglycemia Vancomycin HCl 1.5 gm/ Device 300 mls @ 200 mls/hr IVPB 0200,1000,1800 [facility] Last Admin: 01/19/20 09:55 Dose: 300 mls Insulin Glargine 6 units/ (Miscellaneous Medication) 0.06 mls @ 0 mls/hr SC QAM [facility] Last Admin: 01/19/20 08:37 Dose: Not Given Insulin Glargine 6 units/ (Miscellaneous Medication) 0.06 mls @ 0 mls/hr SC HS [facility] Last Admin: 01/18/20 20:45 Dose: Not Given Insulin Human Lispro (Humalog) 0 units SC .MODERATE SLIDING SC PRN PRN Reason: Moderate Correctional Scale Last Admin: 01/17/20 06:08 Dose: 2 unit Insulin Human Lispro (Humalog) 0 units SC .BEDTIME SLIDING SC PRN PRN Reason: Bedtime Correctional Scale Last Admin: 01/14/20 23:35 Dose: 4 unit Loperamide HCl (Imodium) 2 mg PO PRN PRN PRN Reason: Diarrhea/Loose Stools Last Admin: 01/16/20 15:09 Dose: 2 mg Lorazepam (Ativan) 0.5 mg SLOW IVP Q6H PRN PRN Reason: Anxiety/Agitation Miscellaneous Medication (Pharmacy To Dose) 1 each IVPB PRN PRN PRN Reason: Pharmacy to dose Morphine Sulfate (Morphine) 2 mg SLOW IVP Q4H PRN PRN Reason: Moderate to Severe Pain (6-10) Last Admin: 01/15/20 03:58 Dose: 2 mg Morphine Sulfate (Morphine) 4 mg SLOW IVP Q4H PRN PRN Reason: Moderate to Severe Pain (6-10) Last Admin: 01/18/20 13:34 Dose: 4 mg Ondansetron HCl (Zofran) 4 mg IVP Q6H PRN PRN Reason: Nausea/Vomiting Last Admin: 01/16/20 20:58 Dose: 4 mg Prochlorperazine Maleate (Compazine) 10 mg PO Q6H PRN PRN Reason: Nausea/Vomiting Sodium Chloride (Flush - Normal Saline) 10 ml IVF Q12HR [facility] Last Admin: 01/19/20 08:40 Dose: 10 ml Sodium Chloride (Flush - Normal Saline) 10 ml IVF PRN PRN PRN Reason: Saline Flush Last Admin: 01/15/20 22:25 Dose: 10 ml Vital Signs & Weight: Vital Signs Temp Pulse Resp BP BP Pulse Ox 01/19/20 11:49 97.2 F L 67 20 126/96 H 95 01/19/20 07:33 98.6 F 108 H 18 118/57 L 94 L 01/19/20 03:14 98.5 F 117 H 18 134/63 92 L Admit Weight 228 lb 13.437 oz Weight 228 lb 13.437 oz I/O: I/O 01/18/20 01/19/20 01/20/20 06:59 06:59 06:59 Intake Total 610 3000 Output Total 1950 3600 Balance -1340 -600 - Quality Measures Condition: Atrial Fibrillation/Flutter (hx or current) - Medication Contraindications No Anticoagulant reason: Anticoagulant not tolerated (thrombocytopenia) - Physical Exam General: alert & oriented x3, appears well, no apparent distress, speech clear, affect appropriate HEENT: mucus membranes moist, normocephaly. negative: jaundice Neck: supple neck, midline trachea, no lymphadenopathy Cardiology: irregularly irregular, tachycardia Lungs: clear to auscultation, no wheeze, rales, rhonchi Neurology: cranial nerve 2-12 intact, sensory function intact, no lateralizing findings - Chadsvasc Risk factors Hypertension: 1 Diabetes mellitus: 1 Female: 1 Risk Score: 3 - Labs Result Diagrams: 01/19/20 04:22 01/17/20 03:10 - EKG Interpretation EKG Method: Telemetry EKG shows: Atypical atrial flutter - Assessment/Plan Assessment/Plan: 1. Atrial fibrillation, paroxysmal - continues on amiodarone taper, more organized atrial flutter (possibly CTI dependent) is still being seen 2. Neutropenic fever 3. Thrombocytopenia -plt ct 40 on 01/18 4. Metastatic liver carcinoma -bone mets on CT Not a candidate for OAC with low platelet count. Suppressing AF with amiodarone will likely be necessary to continue while she is acutely ill, but hopefully can be stopped once her fever is resolved, assuming AF subsides. Recommend close surveillance of her LFTs while amiodarone is in use. If persisting CTI dependent flutter is seen and delaying discharge, could consider CTI flutter ablation. Will re-evaluate Wednesday. Continue amiodarone.
--- NOTE | 2020-01-19 14:03 | PDOC.MOPN ---
Interval History: complains of left leg numbness. Mild diarrhea - Vital Signs Vital Signs: Vital Signs (12 hours) Temp Pulse Resp BP BP Pulse Ox 01/19/20 11:49 97.2 F L 67 20 126/96 H 95 01/19/20 07:33 98.6 F 108 H 18 118/57 L 94 L 01/19/20 03:14 98.5 F 117 H 18 134/63 92 L Weight Admit Weight 228 lb 13.437 oz Weight 228 lb 13.437 oz Most Recent Monitor Data Heart Rate from ECG 90 NIBP 110/56 NIBP BP-Mean 74 Respiration from ECG 19 SpO2 100 - Physical Exam General: Alert, Oriented x3, No acute distress HEENT: Atraumatic, PERRLA, EOMI, Mucous membr. moist/pink Lungs: Clear to auscultation, Normal air movement Cardiovascular: Other Abdomen: Other (obese) Extremities: No clubbing, No cyanosis, No edema, Normal pulses, No tenderness/ swelling Skin: No rashes, No breakdown, No significant lesion Neurological: Normal speech - Labs Result Diagrams: 01/19/20 04:22 01/17/20 03:10 Lab results: Laboratory Results - last 24 hr 01/19/20 11:21: POC Glucose 182 H 01/19/20 08:42: Vancomycin Trough 17.4 01/19/20 05:42: POC Glucose 160 H 01/19/20 04:22: WBC 10.1, RBC 2.69 L, Hgb 9.5 L, Hct 27.8 L, MCV 103.0 H, MCH 35.1 H, MCHC 34.0, RDW 14.5, Plt Count 40 L, MPV 11.9 H, Neutrophils % (Manual) 62, Band Neuts % (Manual) 19 H, Lymphocytes % (Manual) 8 L, Monocytes % (Manual ) 3, Metamyelocytes % (Man) 3 H, Myelocytes % 5 H, Nucleated RBCs # (Man) 6 H, Toxic Granulation SLIGHT, Dohle Bodies SLIGHT, Plt Morphology Comment Appears Decreased L 01/18/20 20:28: POC Glucose 166 H 01/18/20 17:01: POC Glucose 182 H Status: lab reviewed by me A/P - Problem (1) Breast cancer Current Visit: Yes Status: Acute (2) Neutropenic sepsis Current Visit: Yes Code(s): A41.9 - SEPSIS, UNSPECIFIED ORGANISM; D70.9 - NEUTROPENIA, UNSPECIFIED Status: Resolved - Plan Plan: 1. continue OT/PT 2. Cardiology/EP workup continues 3. nutritional support.
[2020-01-19] MEDS: Loperamide HCl 2 MG CAP PO PRN (15:16)
--- NOTE | 2020-01-19 15:41 | PDOC.EVN ---
Event Note - Event Note Event Note: Chest X-ray reviewed, and there has not been significant change. I saw Ms. Peña again, and she says she is breathing better. The dyspnea has improved. She believes she will feel better once she is at home. I contacted Dr. Zamarripa, and her antibiotics can be transitioned to Omnicef 300mg BID for 5 days. WIll start in the AM
[2020-01-20] MEDS: Vancomycin 1.5 GRAM/300 ML BAG 1.5 GM in Premix Bag 1 BAG IVPB SCH (03:30)
[2020-01-20] MEDS: Loperamide HCl 2 MG CAP PO PRN (03:35)
[2020-01-20] MEDS: Cefepime 1 GM in Sodium Chloride 0.9% 100 ML IVPB SCH (05:46)
[2020-01-20] MEDS: Insulin Glargine 6 UNITS in Pre-Filled Syringe 1 EACH SC SCH ×2 (08:16→21:30)
[2020-01-20] MEDS: Enoxaparin Sodium 40 MG/0.4 ML SYRINGE SC SCH (08:16)
[2020-01-20] MEDS: Cefdinir 300 MG CAP PO SCH ×2 (08:18→21:20)
[2020-01-20] MEDS: Diphenoxylate HCl/Atropine Tablet PO PRN ×2 (08:18→21:25)
[2020-01-20] MEDS: Amiodarone 200 MG TAB PO SCH ×3 (08:18→21:20)
--- NOTE | 2020-01-20 11:33 | PDOC.HOSPP ---
- Subjective Encounter Date: 01/20/20 Encounter Time: 10:30 Subjective: has sob, no palp or chest pain wants to go home but has not ambulated, is requiring max assist to stand - Objective Vital Signs & Weight: Vital Signs (12 hours) Temp Pulse Resp BP Pulse Ox 01/20/20 07:08 98.2 F 95 18 123/55 L 93 L 01/20/20 04:00 99.2 F 92 18 119/57 L 94 L Weight Admit Weight 228 lb 13.437 oz Weight 256 lb 12.8 oz Most Recent Monitor Data Heart Rate from ECG 90 NIBP 110/56 NIBP BP-Mean 74 Respiration from ECG 19 SpO2 100 I&O: 01/19/20 01/20/20 01/21/20 06:59 06:59 06:59 Intake Total 3000 2550 Output Total 3600 2350 Balance -600 200 Result Diagrams: 01/19/20 04:22 01/17/20 03:10 Additional Labs: Accuchecks 01/20/20 01/20/20 01/19/20 10:51 05:38 20:19 POC Glucose 161 H 149 H 174 H 01/19/20 16:42 POC Glucose 171 H Hospitalist ROS - Medication Medications: Active Medications Generic Name Dose Route Start Last Admin Trade Name Freq PRN Reason Stop Dose Admin Acetaminophen 650 mg 01/14/20 22:42 01/17/20 20:25 Tylenol PO 650 mg Q4H PRN Administration Headache/Fever/Mild Pain (1-3) Hydrocodone Bitart/Acetaminophen 1 tab 01/14/20 22:42 01/16/20 00:53 [place] 5/325 PO 1 tab Q4H PRN Administration Moderate Pain (4-6) Amiodarone HCl 200 mg 01/18/20 15:00 01/20/20 08:18 Cordarone PO 200 mg TID SONNY Administration Cefdinir 300 mg 01/20/20 09:00 01/20/20 08:18 Omnicef PO 300 mg BID SONNY Administration Diltiazem HCl 60 mg 01/17/20 18:00 01/20/20 05:46 Cardizem PO 60 mg Q6HR SONNY Administration Diphenoxylate HCl/Atropine 1 tab 01/15/20 12:40 01/20/20 08:18 Lomotil PO 1 tab Q6H PRN Administration Diarrhea/Loose Stools Enoxaparin Sodium 40 mg 01/15/20 09:00 01/20/20 08:16 Lovenox SC Not Given 0900 SONNY Insulin Glargine 6 units/ 0.06 mls @ 0 mls/hr 01/19/20 09:00 01/20/20 08:16 Miscellaneous Medication SC Not Given QAM SONNY Insulin Glargine 6 units/ 0.06 mls @ 0 mls/hr 01/18/20 21:00 01/19/20 21:52 Miscellaneous Medication SC 0.06 mls HS SONNY Administration Insulin Human Lispro 0 units 01/14/20 22:42 01/17/20 06:08 Humalog SC 2 unit .MODERATE SLIDING SC PRN Administration Moderate Correctional Scale Insulin Human Lispro 0 units 01/14/20 22:42 01/14/20 23:35 Humalog SC 4 unit .BEDTIME SLIDING SC PRN Administration Bedtime Correctional Scale Loperamide HCl 2 mg 01/15/20 12:40 01/20/20 03:35 Imodium PO 2 mg PRN PRN Administration Diarrhea/Loose Stools Morphine Sulfate 2 mg 01/14/20 22:42 01/15/20 03:58 Morphine SLOW IVP 2 mg Q4H PRN Administration Moderate to Severe Pain (6-10) Morphine Sulfate 4 mg 01/14/20 22:42 01/18/20 13:34 Morphine SLOW IVP 4 mg Q4H PRN Administration Moderate to Severe Pain (6-10) Ondansetron HCl 4 mg 01/15/20 12:43 01/16/20 20:58 Zofran IVP 4 mg Q6H PRN Administration Nausea/Vomiting Sodium Chloride 10 ml 01/15/20 09:00 01/20/20 08:20 Flush - Normal Saline IVF 10 ml Q12HR SONNY Administration Sodium Chloride 10 ml 01/14/20 22:22 01/15/20 22:25 Flush - Normal Saline IVF 10 ml PRN PRN Administration Saline Flush - Exam General Appearance: awake alert, ill appearing Eye: PERRL, anicteric sclera ENT: no oropharyngeal lesions, moist mucosa Neck: supple, no JVD Heart: RRR, no murmur Respiratory: no wheezes, no rales, rhonchi Gastrointestinal: soft, non-tender, normal bowel sounds Gastrointestinal - other findings: abdominal wall edema Extremities: no cyanosis, 1+ LE edema Neurological: cranial nerve grossly intact, no focal deficits Psychiatric: A&O x 3 Hosp A/P (1) Atrial fibrillation with RVR Code(s): I48.91 - UNSPECIFIED ATRIAL FIBRILLATION Status: Acute (2) Breast cancer Status: Chronic Qualifiers: Breast location: unspecified site of breast (3) Diabetes mellitus type 2 in obese Code(s): E11.69 - TYPE 2 DIABETES MELLITUS WITH OTHER SPECIFIED COMPLICATION; E66.9 - OBESITY, UNSPECIFIED Status: Chronic (4) Hypertension Code(s): I10 - ESSENTIAL (PRIMARY) HYPERTENSION Status: Chronic Qualifiers: Hypertension type: essential hypertension Qualified Code(s): I10 - Essential (primary) hypertension (5) Neutropenic sepsis Code(s): A41.9 - SEPSIS, UNSPECIFIED ORGANISM; D70.9 - NEUTROPENIA, UNSPECIFIED Status: Resolved (6) Moderate protein-calorie malnutrition Code(s): E44.0 - MODERATE PROTEIN-CALORIE MALNUTRITION Status: Acute (7) Physical deconditioning Code(s): R53.81 - OTHER MALAISE Status: Acute - Plan has low albumin with third spacing and sob will attempt to diurese and see if it helps severe deconditioning, needs rehab for recuperation prior to home has h/o breast cancer with mets, recieved 1 cycle of chemo per patient on amiodarone taper orally, cardizem 60mg q6h, lantus omnicef x 5 days d/w son over phone and gave full updates.
[2020-01-20] MEDS: Ondansetron PF 4 MG/2 ML Vial IVP PRN (14:17)
[2020-01-20] MEDS: Furosemide 20 MG/2 ML VIAL SLOW IVP SCH (14:22)
[2020-01-21 04:39] LABS: ALT (SGPT) 32 U/L (8-55); AST (SGOT) 104 U/L (5-34); Albumin 2.4 g/dL (3.5-5.0); Alkaline Phosphatase 292 U/L (40-110); Anion Gap 14 mmol/L (10-20); BUN (Urea Nitrogen) 9 mg/dL (7.0-18.7); Bilirubin, Total 0.9 mg/dL (0.2-1.2); Calc. Creatinine Clearance 236 mL/min (70-130); Calcium 7.2 mg/dL (7.8-10.44); Carbon Dioxide 19 mmol/L (22-29); Chloride 101 mmol/L (98-107); Estimated GFR-MDRD Greater than 90; Globulin 2.9 g/dL (2.4-3.5); Glucose 135 mg/dL (70-105); Potassium 3.3 mmol/L (3.5-5.1); Protein, Total 5.3 g/dL (6.0-8.3); Sodium 131 mmol/L (136-145)
[2020-01-21] MEDS: Furosemide 20 MG/2 ML VIAL SLOW IVP SCH ×2 (05:15→14:55)
[2020-01-21] MEDS: Potassium Chloride 20 MEQ TAB PO SCH ×2 (08:12→16:56)
[2020-01-21] MEDS: Amiodarone 200 MG TAB PO SCH ×3 (08:12→21:17)
[2020-01-21] MEDS: Diphenoxylate HCl/Atropine Tablet PO PRN ×3 (08:13→21:24)
[2020-01-21] MEDS: Cefdinir 300 MG CAP PO SCH ×2 (08:13→21:17)
[2020-01-21] MEDS: Insulin Glargine 6 UNITS in Pre-Filled Syringe 1 EACH SC SCH ×3 (08:14→21:18)
[2020-01-21] MEDS: Enoxaparin Sodium 40 MG/0.4 ML SYRINGE SC SCH (08:23)
--- NOTE | 2020-01-21 10:30 | PDOC.HOSPP ---
- Subjective Encounter Date: 01/21/20 Encounter Time: 08:45 Subjective: sob is better, so far has gotten 2 doses of iv lasix is mobilizing a bit with PT, gets dizzy and tired easily with activity - Objective Vital Signs & Weight: Vital Signs (12 hours) Temp Pulse Resp BP Pulse Ox 01/21/20 06:55 98.4 F 90 18 110/54 L 93 L 01/21/20 03:21 99.0 F 89 16 110/56 L 93 L Weight Admit Weight 228 lb 13.437 oz Weight 256 lb 12.8 oz Most Recent Monitor Data Heart Rate from ECG 90 NIBP 110/56 NIBP BP-Mean 74 Respiration from ECG 19 SpO2 100 I&O: 01/20/20 01/21/20 01/22/20 06:59 06:59 06:59 Intake Total 2550 2570 Output Total 2350 2400 Balance 200 170 Result Diagrams: 01/19/20 04:22 01/21/20 03:48 Additional Labs: Accuchecks 01/21/20 01/20/20 01/20/20 06:31 20:44 17:29 POC Glucose 152 H 150 H 203 H 01/20/20 10:51 POC Glucose 161 H Hospitalist ROS - Medication Medications: Active Medications Generic Name Dose Route Start Last Admin Trade Name Freq PRN Reason Stop Dose Admin Acetaminophen 650 mg 01/14/20 22:42 01/17/20 20:25 Tylenol PO 650 mg Q4H PRN Administration Headache/Fever/Mild Pain (1-3) Hydrocodone Bitart/Acetaminophen 1 tab 01/14/20 22:42 01/16/20 00:53 [place] 5/325 PO 1 tab Q4H PRN Administration Moderate Pain (4-6) Amiodarone HCl 200 mg 01/18/20 15:00 01/21/20 08:12 Cordarone PO 200 mg TID SONNY Administration Cefdinir 300 mg 01/20/20 09:00 01/21/20 08:13 Omnicef PO 300 mg BID SONNY Administration Diltiazem HCl 60 mg 01/17/20 18:00 01/21/20 05:14 Cardizem PO 60 mg Q6HR SONNY Administration Diphenoxylate HCl/Atropine 1 tab 01/15/20 12:40 01/21/20 08:13 Lomotil PO 1 tab Q6H PRN Administration Diarrhea/Loose Stools Enoxaparin Sodium 40 mg 01/15/20 09:00 01/21/20 08:23 Lovenox SC 40 mg 0900 SONNY Administration Furosemide 20 mg 01/20/20 14:00 01/21/20 05:15 Lasix SLOW IVP 20 mg 0600,1400 SONNY Administration Insulin Glargine 6 units/ 0.06 mls @ 0 mls/hr 01/19/20 09:00 01/21/20 08:22 Miscellaneous Medication SC Not Given QAM SONNY Insulin Glargine 6 units/ 0.06 mls @ 0 mls/hr 01/18/20 21:00 01/21/20 08:14 Miscellaneous Medication SC 0.06 mls HS SONNY Administration Insulin Human Lispro 0 units 01/14/20 22:42 01/17/20 06:08 Humalog SC 2 unit .MODERATE SLIDING SC PRN Administration Moderate Correctional Scale Insulin Human Lispro 0 units 01/14/20 22:42 01/14/20 23:35 Humalog SC 4 unit .BEDTIME SLIDING SC PRN Administration Bedtime Correctional Scale Loperamide HCl 2 mg 01/15/20 12:40 01/20/20 03:35 Imodium PO 2 mg PRN PRN Administration Diarrhea/Loose Stools Morphine Sulfate 2 mg 01/14/20 22:42 01/15/20 03:58 Morphine SLOW IVP 2 mg Q4H PRN Administration Moderate to Severe Pain (6-10) Morphine Sulfate 4 mg 01/14/20 22:42 01/18/20 13:34 Morphine SLOW IVP 4 mg Q4H PRN Administration Moderate to Severe Pain (6-10) Ondansetron HCl 4 mg 01/15/20 12:43 01/20/20 14:17 Zofran IVP 4 mg Q6H PRN Administration Nausea/Vomiting Potassium Chloride 40 meq 01/21/20 08:00 01/21/20 08:12 K-Dur PO 40 meq BID-WM SONNY Administration Sodium Chloride 10 ml 01/15/20 09:00 01/21/20 08:26 Flush - Normal Saline IVF 10 ml Q12HR SONNY Administration Sodium Chloride 10 ml 01/14/20 22:22 01/15/20 22:25 Flush - Normal Saline IVF 10 ml PRN PRN Administration Saline Flush - Exam General Appearance: awake alert Eye: PERRL, anicteric sclera ENT: no oropharyngeal lesions, moist mucosa Neck: supple, no JVD Heart: RRR, no murmur Respiratory: no wheezes, no rales Gastrointestinal: soft, non-tender, normal bowel sounds Gastrointestinal - other findings: abd wall edema++ Extremities: no cyanosis, 1+ LE edema Neurological: cranial nerve grossly intact, no focal deficits Psychiatric: normal affect, A&O x 3 Hosp A/P (1) Atrial fibrillation with RVR Code(s): I48.91 - UNSPECIFIED ATRIAL FIBRILLATION Status: Resolved (2) Breast cancer Status: Chronic Qualifiers: Breast location: unspecified site of breast (3) Diabetes mellitus type 2 in obese Code(s): E11.69 - TYPE 2 DIABETES MELLITUS WITH OTHER SPECIFIED COMPLICATION; E66.9 - OBESITY, UNSPECIFIED Status: Chronic (4) Hypertension Code(s): I10 - ESSENTIAL (PRIMARY) HYPERTENSION Status: Chronic Qualifiers: Hypertension type: essential hypertension Qualified Code(s): I10 - Essential (primary) hypertension (5) Neutropenic sepsis Code(s): A41.9 - SEPSIS, UNSPECIFIED ORGANISM; D70.9 - NEUTROPENIA, UNSPECIFIED Status: Resolved (6) Moderate protein-calorie malnutrition Code(s): E44.0 - MODERATE PROTEIN-CALORIE MALNUTRITION Status: Acute (7) Physical deconditioning Code(s): R53.81 - OTHER MALAISE Status: Acute - Plan has low albumin with third spacing and sob is on iv lasix and diuresing well, sbp is holding up. Needs another 3-4 doses of iv lasix prior to dc. severe deconditioning, needs rehab for recuperation prior to home has h/o breast cancer with mets, recieved 1 cycle of chemo per patient on amiodarone taper orally, cardizem 60mg q6h, lantus omnicef x 5 days d/w son over phone and gave full updates yesterday.
[2020-01-21] MEDS ORDERED: Diabetic Tussin 200 MG/10 ML UDCUP PO PRN (15:50)
[2020-01-22] MEDS: Furosemide 20 MG/2 ML VIAL SLOW IVP SCH ×2 (05:09→15:41)
[2020-01-22 08:21] LABS: Hemoglobin 8.7 g/dL (12.0-16.0); Mean Corpuscular HGB CONC 33.8 g/dL (32.0-36.0); Mean Corpuscular Hemoglobin 35.1 pg (27.0-31.0); Mean Platelet Volume 9.9 fL (7.4-10.4); Platelet Count 66 thou/uL (130-400); RBC Distribution Width 15.5 % (11.5-14.5); Red Blood Cell (RBC) Count 2.46 mill/uL (4.20-5.40); White Blood Cell (WBC) Count 16.1 thou/uL (4.8-10.8)
[2020-01-22 08:25] LABS: Anion Gap 11 mmol/L (10-20); BUN (Urea Nitrogen) 5 mg/dL (7.0-18.7); Calc. Creatinine Clearance 232 mL/min (70-130); Calcium 7.2 mg/dL (7.8-10.44); Carbon Dioxide 24 mmol/L (22-29); Chloride 101 mmol/L (98-107); Estimated GFR-MDRD Greater than 90; Glucose 118 mg/dL (70-105); Sodium 132 mmol/L (136-145)
[2020-01-22 09:00] LABS: Band 15 % (5-11); Lymphocytes 18 % (21-51); MDiff Complete? YES; Metamyelocyte 3 % (0-0); Monocytes 5 % (0-10); Myelocyte 2 % (0-0); Neutrophil 55 % (42-75); Nucleated RBC 14 % (0); Platelet Morphology Comment Appears Decreased; Polychromasia MODERATE = 3-4 cells (100X) (0-2/hpf); Reactive Lymphocytes 2 % (0-10); Schistocytes SLIGHT = 2-5 cells (100X) (0-1/hpf)
[2020-01-22] MEDS: Potassium Chloride 20 MEQ TAB PO SCH (09:14)
[2020-01-22] MEDS: Cefdinir 300 MG CAP PO SCH (09:14)
[2020-01-22] MEDS: Enoxaparin Sodium 40 MG/0.4 ML SYRINGE SC SCH (09:14)
[2020-01-22] MEDS: Insulin Glargine 6 UNITS in Pre-Filled Syringe 1 EACH SC SCH ×2 (09:19→22:55)
[2020-01-22] MEDS: Amiodarone 200 MG TAB PO SCH ×3 (09:24→20:26)
[2020-01-22] MEDS: Diphenoxylate HCl/Atropine Tablet PO PRN ×2 (09:28→20:26)
--- NOTE | 2020-01-22 11:07 | PDOC.HOSPP ---
- Subjective Encounter Date: 01/22/20 Encounter Time: 09:15 Subjective: c/o diarrhea, no sob this am encouraged to eat more proteins - Objective Vital Signs & Weight: Vital Signs (12 hours) Temp Pulse Resp BP BP Pulse Ox 01/22/20 07:47 98.5 F 92 15 107/54 L 92 L 01/22/20 04:00 99.4 F 92 16 108/51 L 95 Weight Admit Weight 228 lb 13.437 oz Weight 256 lb 12.8 oz Most Recent Monitor Data Heart Rate from ECG 90 NIBP 110/56 NIBP BP-Mean 74 Respiration from ECG 19 SpO2 100 I&O: 01/21/20 01/22/20 01/23/20 06:59 06:59 06:59 Intake Total 2570 2560 Output Total 2400 3950 Balance 170 -1390 Result Diagrams: 01/22/20 07:59 01/22/20 07:59 Additional Labs: Accuchecks 01/22/20 01/22/20 01/21/20 10:45 05:24 20:06 POC Glucose 174 H 115 H 129 H 01/21/20 01/21/20 16:46 10:43 POC Glucose 147 H 208 H Hospitalist ROS - Medication Medications: Active Medications Generic Name Dose Route Start Last Admin Trade Name Freq PRN Reason Stop Dose Admin Acetaminophen 650 mg 01/14/20 22:42 01/17/20 20:25 Tylenol PO 650 mg Q4H PRN Administration Headache/Fever/Mild Pain (1-3) Hydrocodone Bitart/Acetaminophen 1 tab 01/14/20 22:42 01/16/20 00:53 [place] 5/325 PO 1 tab Q4H PRN Administration Moderate Pain (4-6) Amiodarone HCl 200 mg 01/18/20 15:00 01/22/20 09:24 Cordarone PO 200 mg TID SONNY Administration Diltiazem HCl 60 mg 01/17/20 18:00 01/22/20 05:08 Cardizem PO 60 mg Q6HR SONNY Administration Diphenoxylate HCl/Atropine 1 tab 01/15/20 12:40 01/22/20 09:28 Lomotil PO 1 tab Q6H PRN Administration Diarrhea/Loose Stools Enoxaparin Sodium 40 mg 01/15/20 09:00 03/29/20 08:23 Lovenox SC 40 mg 0900 SONNY Administration Furosemide 20 mg 01/20/20 14:00 01/22/20 05:09 Lasix SLOW IVP 20 mg 0600,1400 SONNY Administration Insulin Glargine 6 units/ 0.06 mls @ 0 mls/hr 01/19/20 09:00 01/22/20 09:19 Miscellaneous Medication SC 0.06 mls QAM SONNY Administration Insulin Glargine 6 units/ 0.06 mls @ 0 mls/hr 01/18/20 21:00 01/21/20 21:18 Miscellaneous Medication SC Not Given HS SONNY Insulin Human Lispro 0 units 01/14/20 22:42 01/17/20 06:08 Humalog SC 2 unit .MODERATE SLIDING SC PRN Administration Moderate Correctional Scale Insulin Human Lispro 0 units 01/14/20 22:42 01/14/20 23:35 Humalog SC 4 unit .BEDTIME SLIDING SC PRN Administration Bedtime Correctional Scale Loperamide HCl 2 mg 01/15/20 12:40 01/20/20 03:35 Imodium PO 2 mg PRN PRN Administration Diarrhea/Loose Stools Morphine Sulfate 2 mg 01/14/20 22:42 01/15/20 03:58 Morphine SLOW IVP 2 mg Q4H PRN Administration Moderate to Severe Pain (6-10) Morphine Sulfate 4 mg 01/14/20 22:42 01/18/20 13:34 Morphine SLOW IVP 4 mg Q4H PRN Administration Moderate to Severe Pain (6-10) Ondansetron HCl 4 mg 01/15/20 12:43 01/20/20 14:17 Zofran IVP 4 mg Q6H PRN Administration Nausea/Vomiting Sodium Chloride 10 ml 01/15/20 09:00 01/22/20 09:25 Flush - Normal Saline IVF 10 ml Q12HR SONNY Administration Sodium Chloride 10 ml 01/14/20 22:22 01/15/20 22:25 Flush - Normal Saline IVF 10 ml PRN PRN Administration Saline Flush - Exam General Appearance: awake alert Eye: PERRL, anicteric sclera ENT: no oropharyngeal lesions, moist mucosa Neck: supple, no JVD Heart: RRR, no murmur Respiratory: no wheezes, no rales Gastrointestinal: soft, normal bowel sounds Gastrointestinal - other findings: abd wall edema is receding a bit Extremities: no cyanosis, 1+ LE edema Neurological: cranial nerve grossly intact, no focal deficits Psychiatric: normal affect, A&O x 3 Hosp A/P (1) Atrial fibrillation with RVR Code(s): I48.91 - UNSPECIFIED ATRIAL FIBRILLATION Status: Resolved (2) Breast cancer Status: Chronic Qualifiers: Breast location: unspecified site of breast (3) Diabetes mellitus type 2 in obese Code(s): E11.69 - TYPE 2 DIABETES MELLITUS WITH OTHER SPECIFIED COMPLICATION; E66.9 - OBESITY, UNSPECIFIED Status: Chronic (4) Hypertension Code(s): I10 - ESSENTIAL (PRIMARY) HYPERTENSION Status: Chronic Qualifiers: Hypertension type: essential hypertension Qualified Code(s): I10 - Essential (primary) hypertension (5) Neutropenic sepsis Code(s): A41.9 - SEPSIS, UNSPECIFIED ORGANISM; D70.9 - NEUTROPENIA, UNSPECIFIED Status: Resolved (6) Moderate protein-calorie malnutrition Code(s): E44.0 - MODERATE PROTEIN-CALORIE MALNUTRITION Status: Acute (7) Physical deconditioning Code(s): R53.81 - OTHER MALAISE Status: Acute - Plan has low albumin with third spacing and sob is on iv lasix and diuresing well, sbp is holding up. Needs another 2-3 doses of iv lasix prior to dc. severe deconditioning, needs rehab for recuperation prior to home has h/o breast cancer with mets, recieved 1 cycle of chemo per patient on amiodarone taper orally, cardizem 60mg q6h, lantus dc antibiotics in view of diarrhea. mobilize more with PT as tolerated anup hose to LE
[2020-01-22] MEDS: Acetaminophen 325 MG TAB PO PRN (11:39)
--- NOTE | 2020-01-22 17:25 | PDOC.EP ---
- Subjective Date: 01/22/20 Time: 17:23 Interval History: Continues to improve. AFL resolved over the weekend. Breathing easier. - Review of Systems Constitutional: denies: chills, fever, malaise, sweats, weakness, other Respiratory: denies: hemoptysis, SOB with excertion Cardiology: denies: chest pain, edema, heart racing, light headedness Gastrointestinal: denies: abdominal pain - Objective Allergies/Adverse Reactions: Allergies Allergy/AdvReac Type Severity Reaction Status Date / Time No Known Allergies Allergy Verified 01/14/20 22:49 Current Medications Acetaminophen (Tylenol) 650 mg PO Q4H PRN PRN Reason: Headache/Fever/Mild Pain (1-3) Last Admin: 01/22/20 11:39 Dose: 650 mg Hydrocodone Bitart/Acetaminophen ([place] 5/325) 1 tab PO Q4H PRN PRN Reason: Moderate Pain (4-6) Last Admin: 01/16/20 00:53 Dose: 1 tab Alprazolam (Xanax) 1 mg PO HSPRN PRN PRN Reason: Anxiety Amiodarone HCl (Cordarone) 200 mg PO TID [facility] Last Admin: 01/22/20 15:41 Dose: 200 mg Dextrose/Water (Dextrose 50%) 25 gm SLOW IVP PRN PRN PRN Reason: Hypoglycemia Diltiazem HCl (Cardizem) 60 mg PO Q6HR [facility] Last Admin: 01/22/20 11:38 Dose: 60 mg Diphenoxylate HCl/Atropine (Lomotil) 1 tab PO Q6H PRN PRN Reason: Diarrhea/Loose Stools Last Admin: 01/22/20 09:28 Dose: 1 tab Enoxaparin Sodium (Lovenox) 40 mg SC 0900 [facility] Last Admin: 01/21/20 08:23 Dose: 40 mg Furosemide (Lasix) 20 mg SLOW IVP 0600,1400 [facility] Last Admin: 01/22/20 15:41 Dose: 20 mg Glucagon (Glucagon) 1 mg IM PRN PRN PRN Reason: Hypoglycemia Guaifenesin (Robitussin Sf) 200 mg PO Q6H PRN PRN Reason: Cough Hydralazine HCl (Apresoline) 10 mg SLOW IVP Q4H PRN PRN Reason: SBP > 180 and HR < 70 Dextrose/Water (D5w) 1,000 mls @ 0 mls/hr IV .Q0M PRN PRN Reason: Hypoglycemia Insulin Glargine 6 units/ (Miscellaneous Medication) 0.06 mls @ 0 mls/hr SC QAM [facility] Last Admin: 01/22/20 09:19 Dose: 0.06 mls Insulin Glargine 6 units/ (Miscellaneous Medication) 0.06 mls @ 0 mls/hr SC HS [facility] Last Admin: 01/21/20 21:18 Dose: Not Given Insulin Human Lispro (Humalog) 0 units SC .MODERATE SLIDING SC PRN PRN Reason: Moderate Correctional Scale Last Admin: 01/17/20 06:08 Dose: 2 unit Insulin Human Lispro (Humalog) 0 units SC .BEDTIME SLIDING SC PRN PRN Reason: Bedtime Correctional Scale Last Admin: 01/14/20 23:35 Dose: 4 unit Loperamide HCl (Imodium) 2 mg PO PRN PRN PRN Reason: Diarrhea/Loose Stools Last Admin: 01/20/20 03:35 Dose: 2 mg Lorazepam (Ativan) 0.5 mg SLOW IVP Q6H PRN PRN Reason: Anxiety/Agitation Morphine Sulfate (Morphine) 2 mg SLOW IVP Q4H PRN PRN Reason: Moderate to Severe Pain (6-10) Last Admin: 01/15/20 03:58 Dose: 2 mg Morphine Sulfate (Morphine) 4 mg SLOW IVP Q4H PRN PRN Reason: Moderate to Severe Pain (6-10) Last Admin: 01/18/20 13:34 Dose: 4 mg Ondansetron HCl (Zofran) 4 mg IVP Q6H PRN PRN Reason: Nausea/Vomiting Last Admin: 01/20/20 14:17 Dose: 4 mg Potassium Chloride (K-Dur) 40 meq PO DAILY [facility] Prochlorperazine Maleate (Compazine) 10 mg PO Q6H PRN PRN Reason: Nausea/Vomiting Sodium Chloride (Flush - Normal Saline) 10 ml IVF Q12HR [facility] Last Admin: 01/22/20 09:25 Dose: 10 ml Sodium Chloride (Flush - Normal Saline) 10 ml IVF PRN PRN PRN Reason: Saline Flush Last Admin: 01/15/20 22:25 Dose: 10 ml Vital Signs & Weight: Vital Signs Temp Pulse Pulse Pulse Resp BP BP 01/22/20 15:47 97.7 F 95 18 01/22/20 14:38 97 99 118/58 L 113/55 L 01/22/20 14:04 98.5 F 01/22/20 11:32 99.6 F 99 19 01/22/20 07:47 98.5 F 92 15 BP BP Pulse Ox 01/22/20 15:47 121/64 95 01/22/20 14:38 01/22/20 14:04 01/22/20 11:32 121/58 L 94 L 01/22/20 07:47 107/54 L 92 L Admit Weight 228 lb 13.437 oz Weight 256 lb 12.8 oz I/O: I/O 01/21/20 01/22/20 01/23/20 06:59 06:59 06:59 Intake Total 2570 2560 Output Total 2400 3950 Balance 170 -1390 - Quality Measures Condition: Atrial Fibrillation/Flutter (hx or current) - Medication Contraindications No Anticoagulant reason: Anticoagulant not tolerated (thrombocytopenia) - Physical Exam General: alert & oriented x3, appears well Neck: supple neck, no JVD/HJR Cardiology: regular rate and rhythm, no murmur Lungs: clear to auscultation Neurology: grossly intact Abdomen: unremarkable, active bowel sounds - Labs Result Diagrams: 01/22/20 07:59 01/22/20 07:59 - Assessment/Plan Assessment/Plan: 1. Atrial fibrillation, paroxysmal - continues on amiodarone taper, more organized atrial flutter (possibly CTI dependent), resolved. 2. Neutropenic fever 3. Thrombocytopenia -plt ct 40 on 01/18 4. Metastatic liver carcinoma -bone mets on CT Not a candidate for OAC with low platelet count. Suppressing AF with amiodarone will likely be necessary to continue while she is acutely ill, but hopefully can be stopped once her fever is resolved, assuming AF subsides. Recommend close surveillance of her LFTs while amiodarone is in use. If persisting CTI dependent flutter is seen and delaying discharge, could consider CTI flutter ablation. [place] over weekend. Continue amiodarone.
[2020-01-22] MEDS: ALPRAZolam 1 MG TAB PO PRN (22:52)
[2020-01-23 04:50] LABS: Anion Gap 11 mmol/L (10-20); BUN (Urea Nitrogen) 5 mg/dL (7.0-18.7); Calc. Creatinine Clearance 241 mL/min (70-130); Calcium 7.2 mg/dL (7.8-10.44); Carbon Dioxide 22 mmol/L (22-29); Chloride 102 mmol/L (98-107); Estimated GFR-MDRD Greater than 90; Glucose 108 mg/dL (70-105); Potassium 4.2 mmol/L (3.5-5.1); Sodium 131 mmol/L (136-145)
[2020-01-23 05:19] LABS: Band 12 % (5-11); Hemoglobin 8.4 g/dL (12.0-16.0); Lymphocytes 12 % (21-51); MDiff Complete? YES; Macrocytosis SLIGHT = 6-15 cells (100X) (0-5/hpf); Mean Corpuscular HGB CONC 33.7 g/dL (32.0-36.0); Mean Corpuscular Hemoglobin 34.8 pg (27.0-31.0); Mean Platelet Volume 9.7 fL (7.4-10.4); Metamyelocyte 1 % (0-0); Monocytes 9 % (0-10); Myelocyte 1 % (0-0); Neutrophil 65 % (42-75); Nucleated RBC 6 % (0); Platelet Count 83 thou/uL (130-400); Platelet Morphology Comment Appears Decreased; Polychromasia SLIGHT = 2-3 cells (100X) (0-2/hpf); RBC Distribution Width 15.6 % (11.5-14.5); Red Blood Cell (RBC) Count 2.42 mill/uL (4.20-5.40)
[2020-01-23] MEDS: Furosemide 20 MG/2 ML VIAL SLOW IVP SCH ×2 (05:45→14:05)
[2020-01-23] MEDS: Diphenoxylate HCl/Atropine Tablet PO PRN ×2 (06:11→12:20)
[2020-01-23] MEDS: HYDROcodone/Acetaminophen 5/325 mg Tablet PO PRN (06:11)
[2020-01-23] MEDS: Insulin Glargine 6 UNITS in Pre-Filled Syringe 1 EACH SC SCH ×2 (08:37→20:53)
[2020-01-23] MEDS: Amiodarone 200 MG TAB PO SCH ×3 (08:38→20:54)
[2020-01-23] MEDS: Potassium Chloride 20 MEQ TAB PO SCH (08:38)
[2020-01-23] MEDS: Enoxaparin Sodium 40 MG/0.4 ML SYRINGE SC SCH (09:06)
--- NOTE | 2020-01-23 10:25 | PDOC.EP ---
- Subjective Date: 01/23/20 Time: 09:30 Interval History: Stable overnight. Unaware/asymptomatic with recurrence of AFib/flutter. Voices no new concerns or complaints. - Review of Systems Constitutional: reports: sweats. denies: chills, fever Respiratory: denies: cough, sputum, wheezing Cardiology: denies: chest pain, heart racing, light headedness, palpitations, passing out Gastrointestinal: denies: abdominal pain, constipation, diarrhea, vomitting - Objective Allergies/Adverse Reactions: Allergies Allergy/AdvReac Type Severity Reaction Status Date / Time No Known Allergies Allergy Verified 01/14/20 22:49 Current Medications Acetaminophen (Tylenol) 650 mg PO Q4H PRN PRN Reason: Headache/Fever/Mild Pain (1-3) Last Admin: 01/22/20 11:39 Dose: 650 mg Hydrocodone Bitart/Acetaminophen ([place] 5/325) 1 tab PO Q4H PRN PRN Reason: Moderate Pain (4-6) Last Admin: 01/23/20 06:11 Dose: 1 tab Alprazolam (Xanax) 1 mg PO HSPRN PRN PRN Reason: Anxiety Last Admin: 01/22/20 22:52 Dose: 1 mg Amiodarone HCl (Cordarone) 200 mg PO TID SONNY Last Admin: 01/23/20 08:38 Dose: 200 mg Dextrose/Water (Dextrose 50%) 25 gm SLOW IVP PRN PRN PRN Reason: Hypoglycemia Diltiazem HCl (Cardizem) 60 mg PO Q6HR SONNY Last Admin: 01/23/20 05:45 Dose: 60 mg Diphenoxylate HCl/Atropine (Lomotil) 1 tab PO Q6H PRN PRN Reason: Diarrhea/Loose Stools Last Admin: 01/23/20 06:11 Dose: 1 tab Enoxaparin Sodium (Lovenox) 40 mg SC 0900 [facility] Last Admin: 01/23/20 09:06 Dose: 40 mg Furosemide (Lasix) 20 mg SLOW IVP 0600,1400 SONNY Last Admin: 01/23/20 05:45 Dose: 20 mg Glucagon (Glucagon) 1 mg IM PRN PRN PRN Reason: Hypoglycemia Guaifenesin (Robitussin Sf) 200 mg PO Q6H PRN PRN Reason: Cough Hydralazine HCl (Apresoline) 10 mg SLOW IVP Q4H PRN PRN Reason: SBP > 180 and HR < 70 Dextrose/Water (D5w) 1,000 mls @ 0 mls/hr IV .Q0M PRN PRN Reason: Hypoglycemia Insulin Glargine 6 units/ (Miscellaneous Medication) 0.06 mls @ 0 mls/hr SC QAM [facility] Last Admin: 01/23/20 08:37 Dose: 0.06 mls Insulin Glargine 6 units/ (Miscellaneous Medication) 0.06 mls @ 0 mls/hr SC HS [facility] Last Admin: 01/22/20 22:55 Dose: 0.06 mls Insulin Human Lispro (Humalog) 0 units SC .MODERATE SLIDING SC PRN PRN Reason: Moderate Correctional Scale Last Admin: 01/17/20 06:08 Dose: 2 unit Insulin Human Lispro (Humalog) 0 units SC .BEDTIME SLIDING SC PRN PRN Reason: Bedtime Correctional Scale Last Admin: 01/14/20 23:35 Dose: 4 unit Loperamide HCl (Imodium) 2 mg PO PRN PRN PRN Reason: Diarrhea/Loose Stools Last Admin: 01/20/20 03:35 Dose: 2 mg Lorazepam (Ativan) 0.5 mg SLOW IVP Q6H PRN PRN Reason: Anxiety/Agitation Morphine Sulfate (Morphine) 2 mg SLOW IVP Q4H PRN PRN Reason: Moderate to Severe Pain (6-10) Last Admin: 01/15/20 03:58 Dose: 2 mg Morphine Sulfate (Morphine) 4 mg SLOW IVP Q4H PRN PRN Reason: Moderate to Severe Pain (6-10) Last Admin: 01/18/20 13:34 Dose: 4 mg Ondansetron HCl (Zofran) 4 mg IVP Q6H PRN PRN Reason: Nausea/Vomiting Last Admin: 01/20/20 14:17 Dose: 4 mg Potassium Chloride (K-Dur) 40 meq PO DAILY [facility] Last Admin: 01/23/20 08:38 Dose: 40 meq Prochlorperazine Maleate (Compazine) 10 mg PO Q6H PRN PRN Reason: Nausea/Vomiting Sodium Chloride (Flush - Normal Saline) 10 ml IVF Q12HR [facility] Last Admin: 01/23/20 08:45 Dose: 10 ml Sodium Chloride (Flush - Normal Saline) 10 ml IVF PRN PRN PRN Reason: Saline Flush Last Admin: 01/15/20 22:25 Dose: 10 ml Vital Signs & Weight: Vital Signs Temp Pulse Resp BP BP Pulse Ox 01/23/20 08:38 99.6 F 96 16 106/52 L 95 01/23/20 04:00 98.3 F 92 18 101/49 L 92 L 01/22/20 23:47 97.7 F 91 16 106/51 L 95 Admit Weight 228 lb 13.437 oz Weight 248 lb 6 oz I/O: I/O 01/22/20 01/23/20 01/24/20 06:59 06:59 06:59 Intake Total 2560 3200 Output Total 3950 3800 Balance -1390 -600 - Quality Measures Condition: Atrial Fibrillation/Flutter (hx or current) - Medication Contraindications No Anticoagulant reason: Anticoagulant not tolerated (thrombocytopenia) - Physical Exam General: alert & oriented x3, no apparent distress, speech clear, affect appropriate HEENT: mucus membranes moist, normocephaly Neck: supple neck, midline trachea, no JVD/HJR, no lymphadenopathy Cardiology: regular rate and rhythm, no murmur, PMI nondisplaced Lungs: clear to auscultation, no wheeze, rales, rhonchi Neurology: cranial nerve 2-12 intact, sensory function intact, no lateralizing findings - Labs Result Diagrams: 01/23/20 04:12 01/23/20 04:12 - EKG Interpretation EKG Method: Telemetry EKG shows: Sinus rhythm - Assessment/Plan Assessment/Plan: 1. Atrial fibrillation, paroxysmal - continues on amiodarone taper, more organized atrial flutter (possibly CTI dependent), resolved. -01/22: short recurrence since yesterday. Asymptomatic, now in SR 2. Neutropenic fever 3. Thrombocytopenia -plt ct 40 on 01/18, 01/22=83 4. Metastatic liver carcinoma -bone mets on CT Not a candidate for OAC with low platelet count. Recommend close surveillance of her LFTs while amiodarone is in use. Stable overnight. Continue amiodarone taper to goal of 200mg PO daily. OK for DC by EP.
--- NOTE | 2020-01-23 12:06 | PDOC.HOSPP ---
- Subjective Encounter Date: 01/23/20 Encounter Time: 09:30 Subjective: no sob is trying to work with PT but is severely deconditioned needing max to mod assist - Objective Vital Signs & Weight: Vital Signs (12 hours) Temp Pulse Pulse Pulse Resp BP BP 01/23/20 09:09 100 54 L 115/53 L 118/54 L 01/23/20 08:38 99.6 F 96 16 01/23/20 04:00 98.3 F 92 18 BP Pulse Ox 01/23/20 09:09 01/23/20 08:38 106/52 L 95 01/23/20 04:00 101/49 L 92 L Weight Admit Weight 228 lb 13.437 oz Weight 248 lb 6 oz Most Recent Monitor Data Heart Rate from ECG 90 NIBP 110/56 NIBP BP-Mean 74 Respiration from ECG 19 SpO2 100 I&O: 01/22/20 01/23/20 01/24/20 06:59 06:59 06:59 Intake Total 2560 3200 Output Total 3950 3800 Balance -1390 -600 Result Diagrams: 01/23/20 04:12 01/23/20 04:12 Additional Labs: Accuchecks 01/23/20 01/23/20 01/22/20 10:58 05:25 21:03 POC Glucose 147 H 109 153 H 01/22/20 17:14 POC Glucose 137 H Hospitalist ROS - Medication Medications: Active Medications Generic Name Dose Route Start Last Admin Trade Name Freq PRN Reason Stop Dose Admin Acetaminophen 650 mg 01/14/20 22:42 01/22/20 11:39 Tylenol PO 650 mg Q4H PRN Administration Headache/Fever/Mild Pain (1-3) Hydrocodone Bitart/Acetaminophen 1 tab 01/14/20 22:42 01/23/20 06:11 [place] 5/325 PO 1 tab Q4H PRN Administration Moderate Pain (4-6) Alprazolam 1 mg 01/21/20 15:50 01/22/20 22:52 Xanax PO 1 mg HSPRN PRN Administration Anxiety Amiodarone HCl 200 mg 01/18/20 15:00 01/23/20 08:38 Cordarone PO 200 mg TID SONNY Administration Diltiazem HCl 60 mg 01/17/20 18:00 01/23/20 05:45 Cardizem PO 60 mg Q6HR SONNY Administration Diphenoxylate HCl/Atropine 1 tab 01/15/20 12:40 01/23/20 06:11 Lomotil PO 1 tab Q6H PRN Administration Diarrhea/Loose Stools Enoxaparin Sodium 40 mg 01/15/20 09:00 01/23/20 09:06 Lovenox SC 40 mg 0900 SONNY Administration Furosemide 20 mg 01/20/20 14:00 01/23/20 05:45 Lasix SLOW IVP 20 mg 0600,1400 SONNY Administration Insulin Glargine 6 units/ 0.06 mls @ 0 mls/hr 01/19/20 09:00 01/23/20 08:37 Miscellaneous Medication SC 0.06 mls QAM SONNY Administration Insulin Glargine 6 units/ 0.06 mls @ 0 mls/hr 01/18/20 21:00 01/22/20 22:55 Miscellaneous Medication SC 0.06 mls HS SONNY Administration Insulin Human Lispro 0 units 01/14/20 22:42 01/17/20 06:08 Humalog SC 2 unit .MODERATE SLIDING SC PRN Administration Moderate Correctional Scale Insulin Human Lispro 0 units 01/14/20 22:42 01/14/20 23:35 Humalog SC 4 unit .BEDTIME SLIDING SC PRN Administration Bedtime Correctional Scale Loperamide HCl 2 mg 01/15/20 12:40 01/20/20 03:35 Imodium PO 2 mg PRN PRN Administration Diarrhea/Loose Stools Morphine Sulfate 2 mg 01/14/20 22:42 01/15/20 03:58 Morphine SLOW IVP 2 mg Q4H PRN Administration Moderate to Severe Pain (6-10) Morphine Sulfate 4 mg 01/14/20 22:42 01/18/20 13:34 Morphine SLOW IVP 4 mg Q4H PRN Administration Moderate to Severe Pain (6-10) Ondansetron HCl 4 mg 01/15/20 12:43 01/20/20 14:17 Zofran IVP 4 mg Q6H PRN Administration Nausea/Vomiting Potassium Chloride 40 meq 01/23/20 09:00 01/23/20 08:38 K-Dur PO 40 meq DAILY SONNY Administration Sodium Chloride 10 ml 01/15/20 09:00 01/23/20 08:45 Flush - Normal Saline IVF 10 ml Q12HR SONNY Administration Sodium Chloride 10 ml 01/14/20 22:22 01/15/20 22:25 Flush - Normal Saline IVF 10 ml PRN PRN Administration Saline Flush - Exam General Appearance: awake alert Eye: PERRL, anicteric sclera ENT: no oropharyngeal lesions, moist mucosa Neck: supple, no JVD Heart: RRR, no murmur Respiratory: no wheezes, rales, rhonchi Gastrointestinal: soft, non-tender, normal bowel sounds Extremities: no cyanosis, 2+ LE edema Neurological: cranial nerve grossly intact, no focal deficits Psychiatric: A&O x 3 Hosp A/P (1) Atrial fibrillation with RVR Code(s): I48.91 - UNSPECIFIED ATRIAL FIBRILLATION Status: Resolved (2) Breast cancer Status: Chronic Qualifiers: Breast location: unspecified site of breast (3) Diabetes mellitus type 2 in obese Code(s): E11.69 - TYPE 2 DIABETES MELLITUS WITH OTHER SPECIFIED COMPLICATION; E66.9 - OBESITY, UNSPECIFIED Status: Chronic (4) Hypertension Code(s): I10 - ESSENTIAL (PRIMARY) HYPERTENSION Status: Chronic Qualifiers: Hypertension type: essential hypertension Qualified Code(s): I10 - Essential (primary) hypertension (5) Neutropenic sepsis Code(s): A41.9 - SEPSIS, UNSPECIFIED ORGANISM; D70.9 - NEUTROPENIA, UNSPECIFIED Status: Resolved (6) Moderate protein-calorie malnutrition Code(s): E44.0 - MODERATE PROTEIN-CALORIE MALNUTRITION Status: Acute (7) Physical deconditioning Code(s): R53.81 - OTHER MALAISE Status: Acute - Plan has low albumin with third spacing and sob is on iv lasix and diuresing well, sbp is holding up. severe deconditioning, needs rehab for recuperation prior to home has h/o breast cancer with mets, recieved 1 cycle of chemo per patient on amiodarone taper orally, cardizem 60mg q6h, lantus dc antibiotics in view of diarrhea. mobilize more with PT as tolerated anup hose to LE February dc to rehab in am if accepted
[2020-01-23] MEDS: HumaLOG 300 UNITS/3 ML VIAL SC PRN (17:12)
--- NOTE | 2020-01-23 19:46 | PRG ---
DATE OF SERVICE: 01/23/2020 SUBJECTIVE: Ms. Dickinson is still laying on her lateral decubitus. Two reasons for this position; 1. She feels dyspneic when she is on her back. 2. She has a hard time in moving to a different position in bed because of weakness in lower extremities and pelvic area. She does not have a headache. Mild dyspnea. No chest pain. No cough. No abdominal pain or vomiting. Having some eructation intermittently. OBJECTIVE: VITAL SIGNS: T-max 100.8 recently, blood pressure 103/56, pulse 97, respirations 18, and O2 saturation is 97% on room air. GENERAL: Appears chronically ill, oriented, awake. HEENT: Conjunctivae are normal. LUNGS: Symmetric air entry except for the right base. There is little bit diminished, but no crackles or wheezing. HEART: S1 and S2. Regular rate. ABDOMEN: Protuberant, but not tender. Soft. No organomegaly. EXTREMITIES: The patient has weak lower extremities. She is able to move her feet well and has good sensation there, but there are 2+ to 3+ edema in lower extremities. NEUROLOGIC: She is awake, oriented, follows commands. She is able to lift her knees a little bit, but not much, and cannot pivot herself to change the decubitus in bed without help. LABORATORY DATA: White cell count was up to 16, now is 15,000; hemoglobin 8.4; platelets 83,000; 65% neutrophils; 12% bands; and 12% lymphocytes. Creatinine 0.52. ASSESSMENT AND DISCUSSION: Metastatic breast cancer, on Taxotere and Cytoxan. Neutropenic fever, improving neutrophil count rapidly as expected. The patient having some significant diarrhea and weakness in lower extremities. Aggressive malignancy with widespread metastases. Some recrudescence of temperature elevation, we will have to monitor that, could be related to the overshooting of the neutrophil response. In view of the bony metastases, one of the areas of concern is with spinal cord involvement and compression. We will go ahead and order an MRI of her spine to rule out that possibility. Job ID: [id number]
[2020-01-23] MEDS: ALPRAZolam 1 MG TAB PO PRN (23:11)
[2020-01-23] MEDS: Loperamide HCl 2 MG CAP PO PRN (23:11)
[2020-01-24] MEDS: Furosemide 20 MG/2 ML VIAL SLOW IVP SCH (05:11)
[2020-01-24 05:18] LABS: Anion Gap 7 mmol/L (10-20); BUN (Urea Nitrogen) 5 mg/dL (7.0-18.7); Calc. Creatinine Clearance 220 mL/min (70-130); Calcium 7.2 mg/dL (7.8-10.44); Carbon Dioxide 28 mmol/L (22-29); Chloride 101 mmol/L (98-107); Estimated GFR-MDRD Greater than 90; Glucose 109 mg/dL (70-105); Potassium 4.2 mmol/L (3.5-5.1); Sodium 132 mmol/L (136-145)
[2020-01-24] MEDS: Insulin Glargine 6 UNITS in Pre-Filled Syringe 1 EACH SC SCH ×2 (09:09→20:15)
[2020-01-24] MEDS: Potassium Chloride 20 MEQ TAB PO SCH (09:10)
[2020-01-24] MEDS: Enoxaparin Sodium 40 MG/0.4 ML SYRINGE SC SCH (09:10)
[2020-01-24] MEDS: Amiodarone 200 MG TAB PO SCH ×3 (09:10→20:14)
--- NOTE | 2020-01-24 10:13 | PDOC.HOSPP ---
- Subjective Encounter Date: 01/24/20 Encounter Time: 09:30 Subjective: sob is better, feels weak, wants her ramirez removed - Objective Vital Signs & Weight: Vital Signs (12 hours) Temp Pulse Resp BP BP Pulse Ox 01/24/20 07:27 98.9 F 93 19 104/54 L 93 L 01/24/20 03:56 99.5 F 89 18 108/51 L 92 L Weight Admit Weight 228 lb 13.437 oz Weight 244 lb 3.2 oz Most Recent Monitor Data Heart Rate from ECG 90 NIBP 110/56 NIBP BP-Mean 74 Respiration from ECG 19 SpO2 100 I&O: 01/23/20 01/24/20 01/25/20 06:59 06:59 06:59 Intake Total 3200 2270 Output Total 3800 3975 Balance -600 -1700 Result Diagrams: 01/23/20 04:12 01/24/20 04:21 Additional Labs: Accuchecks 01/23/20 01/23/20 01/23/20 20:54 16:50 10:58 POC Glucose 137 H 192 H 147 H Hospitalist ROS - Medication Medications: Active Medications Generic Name Dose Route Start Last Admin Trade Name Freq PRN Reason Stop Dose Admin Acetaminophen 650 mg 01/14/20 22:42 01/22/20 11:39 Tylenol PO 650 mg Q4H PRN Administration Headache/Fever/Mild Pain (1-3) Hydrocodone Bitart/Acetaminophen 1 tab 01/14/20 22:42 01/23/20 06:11 [place] 5/325 PO 1 tab Q4H PRN Administration Moderate Pain (4-6) Alprazolam 1 mg 01/21/20 15:50 01/23/20 23:11 Xanax PO 1 mg HSPRN PRN Administration Anxiety Amiodarone HCl 200 mg 01/18/20 15:00 01/24/20 09:10 Cordarone PO 200 mg TID SONNY Administration Diltiazem HCl 60 mg 01/17/20 18:00 01/24/20 05:11 Cardizem PO 60 mg Q6HR SONNY Administration Diphenoxylate HCl/Atropine 1 tab 01/15/20 12:40 01/23/20 12:20 Lomotil PO 1 tab Q6H PRN Administration Diarrhea/Loose Stools Enoxaparin Sodium 40 mg 01/15/20 09:00 01/24/20 09:10 Lovenox SC 40 mg 0900 SONNY Administration Insulin Glargine 6 units/ 0.06 mls @ 0 mls/hr 01/19/20 09:00 01/24/20 09:09 Miscellaneous Medication SC 0.06 mls QAM SONNY Administration Insulin Glargine 6 units/ 0.06 mls @ 0 mls/hr 01/18/20 21:00 01/23/20 20:53 Miscellaneous Medication SC 0.06 mls HS SONNY Administration Insulin Human Lispro 0 units 01/14/20 22:42 01/23/20 17:12 Humalog SC 2 unit .MODERATE SLIDING SC PRN Administration Moderate Correctional Scale Insulin Human Lispro 0 units 01/14/20 22:42 01/14/20 23:35 Humalog SC 4 unit .BEDTIME SLIDING SC PRN Administration Bedtime Correctional Scale Loperamide HCl 2 mg 01/15/20 12:40 01/23/20 23:11 Imodium PO 2 mg PRN PRN Administration Diarrhea/Loose Stools Morphine Sulfate 2 mg 01/14/20 22:42 01/15/20 03:58 Morphine SLOW IVP 2 mg Q4H PRN Administration Moderate to Severe Pain (6-10) Morphine Sulfate 4 mg 01/14/20 22:42 01/18/20 13:34 Morphine SLOW IVP 4 mg Q4H PRN Administration Moderate to Severe Pain (6-10) Ondansetron HCl 4 mg 01/15/20 12:43 01/20/20 14:17 Zofran IVP 4 mg Q6H PRN Administration Nausea/Vomiting Potassium Chloride 40 meq 01/23/20 09:00 01/24/20 09:10 K-Dur PO 40 meq DAILY SONNY Administration Sodium Chloride 10 ml 01/15/20 09:00 01/24/20 09:12 Flush - Normal Saline IVF 10 ml Q12HR SONNY Administration Sodium Chloride 10 ml 01/14/20 22:22 01/23/20 23:12 Flush - Normal Saline IVF 10 ml PRN PRN Administration Saline Flush - Exam General Appearance: awake alert Eye: PERRL, anicteric sclera ENT: no oropharyngeal lesions, moist mucosa Neck: supple, no JVD Heart: RRR, no murmur Respiratory: no wheezes, rales Gastrointestinal: soft, non-distended, normal bowel sounds Gastrointestinal - other findings: abd wall edema is receding Extremities: no cyanosis, 2+ LE edema Neurological: cranial nerve grossly intact, no focal deficits Psychiatric: normal affect, A&O x 3 Hosp A/P (1) Atrial fibrillation with RVR Code(s): I48.91 - UNSPECIFIED ATRIAL FIBRILLATION Status: Resolved (2) Breast cancer Status: Chronic Qualifiers: Breast location: unspecified site of breast (3) Diabetes mellitus type 2 in obese Code(s): E11.69 - TYPE 2 DIABETES MELLITUS WITH OTHER SPECIFIED COMPLICATION; E66.9 - OBESITY, UNSPECIFIED Status: Chronic (4) Hypertension Code(s): I10 - ESSENTIAL (PRIMARY) HYPERTENSION Status: Chronic Qualifiers: Hypertension type: essential hypertension Qualified Code(s): I10 - Essential (primary) hypertension (5) Neutropenic sepsis Code(s): A41.9 - SEPSIS, UNSPECIFIED ORGANISM; D70.9 - NEUTROPENIA, UNSPECIFIED Status: Resolved (6) Moderate protein-calorie malnutrition Code(s): E44.0 - MODERATE PROTEIN-CALORIE MALNUTRITION Status: Acute (7) Physical deconditioning Code(s): R53.81 - OTHER MALAISE Status: Acute - Plan has low albumin with third spacing and sob is on iv lasix and diuresing well, sbp is holding up. severe deconditioning, needs rehab for recuperation prior to home has h/o breast cancer with mets, recieved 1 cycle of chemo per patient on amiodarone taper orally, cardizem 60mg q6h, lantus mobilize more with PT as tolerated anup HAN May dc to rehab if accepted I cannot reach Mr.Montalvo Silveira on phone to give updates from last 2 days MRI of thoracic and lumbar spine has been ordered to see if she has any spinal cord impingement from mets.
--- NOTE | 2020-01-24 10:37 | PDOC.MOPN ---
Interval History: continues to rest on right side. neuro appears intact. - Vital Signs Vital Signs: Vital Signs (12 hours) Temp Pulse Resp BP BP Pulse Ox 01/24/20 07:27 98.9 F 93 19 104/54 L 93 L 01/24/20 03:56 99.5 F 89 18 108/51 L 92 L Weight Admit Weight 228 lb 13.437 oz Weight 244 lb 3.2 oz Most Recent Monitor Data Heart Rate from ECG 90 NIBP 110/56 NIBP BP-Mean 74 Respiration from ECG 19 SpO2 100 - Physical Exam General: Alert HEENT: Atraumatic, PERRLA, EOMI, Mucous membr. moist/pink Lungs: Clear to auscultation Cardiovascular: Regular rate, Normal S1, Normal S2, No murmurs, Gallops, Rubs Abdomen: Other (distending) Extremities: Other (ble edema) Neurological: Normal speech - Labs Result Diagrams: 01/23/20 04:12 01/24/20 04:21 Lab results: Laboratory Results - last 24 hr 01/24/20 04:21: Sodium 132 L, Potassium 4.2, Chloride 101, Carbon Dioxide 28, Anion Gap 7 L, BUN 5 L, Creatinine 0.54 L, Estimated GFR (MDRD) Greater than 90 , Glucose 109 H, Calcium 7.2 L 01/23/20 20:54: POC Glucose 137 H 01/23/20 16:50: POC Glucose 192 H 01/23/20 10:58: POC Glucose 147 H Status: lab reviewed by me A/P - Problem (1) Breast cancer Current Visit: Yes Status: Chronic Qualifiers: Breast location: unspecified site of breast (2) Neutropenic sepsis Current Visit: Yes Code(s): A41.9 - SEPSIS, UNSPECIFIED ORGANISM; D70.9 - NEUTROPENIA, UNSPECIFIED Status: Resolved - Plan Plan: agree with MRI transfer to onc. abdominal ultrasound for poss paracentesis.
--- NOTE | 2020-01-24 10:47 | PDOC.EP ---
- Subjective Date: 01/24/20 Time: 10:46 Interval History: follow up for atrial arrhythmia management. Stable overnight. Voices no new concerns or complaints. - Review of Systems Constitutional: reports: weakness. denies: chills, fever, malaise, sweats Respiratory: reports: shortness of breath. denies: cough, sputum, wheezing Cardiology: denies: chest pain, edema, heart racing, light headedness, palpitations, passing out - Objective Allergies/Adverse Reactions: Allergies Allergy/AdvReac Type Severity Reaction Status Date / Time No Known Allergies Allergy Verified 01/14/20 22:49 Current Medications Acetaminophen (Tylenol) 650 mg PO Q4H PRN PRN Reason: Headache/Fever/Mild Pain (1-3) Last Admin: 01/22/20 11:39 Dose: 650 mg Hydrocodone Bitart/Acetaminophen ([place] 5/325) 1 tab PO Q4H PRN PRN Reason: Moderate Pain (4-6) Last Admin: 01/23/20 06:11 Dose: 1 tab Alprazolam (Xanax) 1 mg PO HSPRN PRN PRN Reason: Anxiety Last Admin: 01/23/20 23:11 Dose: 1 mg Amiodarone HCl (Cordarone) 200 mg PO TID SONNY Last Admin: 01/24/20 09:10 Dose: 200 mg Dextrose/Water (Dextrose 50%) 25 gm SLOW IVP PRN PRN PRN Reason: Hypoglycemia Diltiazem HCl (Cardizem) 60 mg PO Q6HR SONNY Last Admin: 01/24/20 05:11 Dose: 60 mg Diphenoxylate HCl/Atropine (Lomotil) 1 tab PO Q6H PRN PRN Reason: Diarrhea/Loose Stools Last Admin: 01/23/20 12:20 Dose: 1 tab Enoxaparin Sodium (Lovenox) 40 mg SC 0900 SONNY Last Admin: 01/24/20 09:10 Dose: 40 mg Furosemide (Lasix) 40 mg PO 0900,1400 SONNY Glucagon (Glucagon) 1 mg IM PRN PRN PRN Reason: Hypoglycemia Guaifenesin (Robitussin Sf) 200 mg PO Q6H PRN PRN Reason: Cough Hydralazine HCl (Apresoline) 10 mg SLOW IVP Q4H PRN PRN Reason: SBP > 180 and HR < 70 Dextrose/Water (D5w) 1,000 mls @ 0 mls/hr IV .Q0M PRN PRN Reason: Hypoglycemia Insulin Glargine 6 units/ (Miscellaneous Medication) 0.06 mls @ 0 mls/hr SC QAM [facility] Last Admin: 01/24/20 09:09 Dose: 0.06 mls Insulin Glargine 6 units/ (Miscellaneous Medication) 0.06 mls @ 0 mls/hr SC HS [facility] Last Admin: 01/23/20 20:53 Dose: 0.06 mls Insulin Human Lispro (Humalog) 0 units SC .MODERATE SLIDING SC PRN PRN Reason: Moderate Correctional Scale Last Admin: 01/23/20 17:12 Dose: 2 unit Insulin Human Lispro (Humalog) 0 units SC .BEDTIME SLIDING SC PRN PRN Reason: Bedtime Correctional Scale Last Admin: 01/14/20 23:35 Dose: 4 unit Loperamide HCl (Imodium) 2 mg PO PRN PRN PRN Reason: Diarrhea/Loose Stools Last Admin: 01/23/20 23:11 Dose: 2 mg Lorazepam (Ativan) 0.5 mg SLOW IVP Q6H PRN PRN Reason: Anxiety/Agitation Metolazone (Zaroxolyn) 2.5 mg PO 0830 [facility] Morphine Sulfate (Morphine) 2 mg SLOW IVP Q4H PRN PRN Reason: Moderate to Severe Pain (6-10) Last Admin: 01/15/20 03:58 Dose: 2 mg Morphine Sulfate (Morphine) 4 mg SLOW IVP Q4H PRN PRN Reason: Moderate to Severe Pain (6-10) Last Admin: 01/18/20 13:34 Dose: 4 mg Ondansetron HCl (Zofran) 4 mg IVP Q6H PRN PRN Reason: Nausea/Vomiting Last Admin: 01/20/20 14:17 Dose: 4 mg Potassium Chloride (K-Dur) 40 meq PO DAILY [facility] Last Admin: 01/24/20 09:10 Dose: 40 meq Prochlorperazine Maleate (Compazine) 10 mg PO Q6H PRN PRN Reason: Nausea/Vomiting Sodium Chloride (Flush - Normal Saline) 10 ml IVF Q12HR [facility] Last Admin: 01/24/20 09:12 Dose: 10 ml Sodium Chloride (Flush - Normal Saline) 10 ml IVF PRN PRN PRN Reason: Saline Flush Last Admin: 01/23/20 23:12 Dose: 10 ml Vital Signs & Weight: Vital Signs Temp Pulse Resp BP BP Pulse Ox 01/24/20 07:27 98.9 F 93 19 104/54 L 93 L 01/24/20 03:56 99.5 F 89 18 108/51 L 92 L Admit Weight 228 lb 13.437 oz Weight 244 lb 3.2 oz I/O: I/O 01/23/20 01/24/20 01/25/20 06:59 06:59 06:59 Intake Total 3200 2270 480 Output Total 3800 3975 1650 Balance -600 -0241 -0019 - Quality Measures Condition: Atrial Fibrillation/Flutter (hx or current) - Medication Contraindications No Anticoagulant reason: Anticoagulant not tolerated (thrombocytopenia) - Physical Exam General: alert & oriented x3, appears well, no apparent distress, speech clear, affect appropriate HEENT: mucus membranes moist, normocephaly Neck: supple neck, midline trachea, no lymphadenopathy Cardiology: regular rate and rhythm, no murmur, PMI nondisplaced Lungs: clear to auscultation, no wheeze, rales, rhonchi Neurology: cranial nerve 2-12 intact, sensory function intact, no lateralizing findings - Labs Result Diagrams: 01/23/20 04:12 01/24/20 04:21 - EKG Interpretation EKG Method: Telemetry EKG shows: Sinus rhythm - Assessment/Plan Assessment/Plan: 1. Atrial fibrillation, paroxysmal - continues on amiodarone taper - more organized atrial flutter (possibly CTI dependent), resolved. -01/22: short recurrence of A Flutter, atypical. Asymptomatic, now in SR 2. Neutropenic fever 3. Thrombocytopenia -plt ct 40 on 01/18, 01/22=83 4. Metastatic liver carcinoma -bone mets on CT Not a candidate for OAC with low platelet count. Recommend close surveillance of her LFTs while amiodarone is in use. Stable overnight. Continue amiodarone taper to goal of 200mg PO daily. OK for DC by EP.
--- NOTE | 2020-01-24 12:05 | MRI ---
EXAM: MRI Thoracic Spine W WO Con PROVIDED CLINICAL HISTORY: History of cancer, lower extremity weakness COMPARISON: None FINDINGS: Thoracic alignment appears normal. Vertebral body heights are preserved. There is diffusely abnormall y diminished T1 signal intensity involving the regional marrow. There is patchy inhomogeneous T2 hyperintensity and contrast enhancement throughout the regional marrow. The axial images are limited by patient motion. No gross signal abnormality involving the thoracic sp inal cord. No definite abnormal contrast enhancement involving the thoracic spinal cord. There is no significant central canal or foraminal narrowing apparent. Right pleural fluid is partially visualized. IMPRESSION: 1. Limited study by patient motion. 2. Diffuse regional osseous metastatic disease. 3. No evidence for significant central canal or foraminal narrowing.
--- NOTE | 2020-01-24 12:17 | MRI ---
MRI lumbar spine without and with gadolinium contrast HISTORY: Low back pain with worsening lower extremity weakness. Metastatic breast cancer. FINDINGS: A small portion of intra-abdominal fluid is visualized. There is known intra-abdominal meta static disease. Conus medullaris has a normal appearance. Vertebral body heights and alignment are maintained. Abnormal signal is present throughout the bone marrow of each vertebra, involving all portions. The a bnormal areas primarily show gadolinium enhancement, best demonstrated on the sagittal fat sat postcontrast images. Small amount of fluid is present within the facets at the lumbosacral junction. Mild osteophytosis th roughout the facets. Very mild posterior disc bulges at the L2-3 and L5-S1 levels. Degenerative changes result in mild to moderate stenosis of the right neural foramen at the L3-4 level. IMPRESSION : Diffuse osseous metastatic disease. Mild degenerative changes including stenosis of the right L3-4 neural foramen. No focal disc herniati on or nerve root compression evident.
[2020-01-24 13:09] VITALS: BMI 41.9
[2020-01-24] MEDS: Furosemide 40 MG TAB PO SCH (13:30)
[2020-01-24] MEDS: HYDROcodone/Acetaminophen 5/325 mg Tablet PO PRN (20:46)
[2020-01-24] MEDS: Loperamide HCl 2 MG CAP PO PRN (20:52)
[2020-01-25 03:59] LABS: INR-International Normal Ratio 1.2; PTT 32.2 SEC (22.9-36.1); Prothrombin Time 15.2 SEC (12.0-14.7)
[2020-01-25 04:06] LABS: Anion Gap 8 mmol/L (10-20); BUN (Urea Nitrogen) 5 mg/dL (7.0-18.7); Calc. Creatinine Clearance 209 mL/min (70-130); Calcium 7.2 mg/dL (7.8-10.44); Carbon Dioxide 29 mmol/L (22-29); Chloride 100 mmol/L (98-107); Estimated GFR-MDRD Greater than 90; Glucose 129 mg/dL (70-105); Potassium 4.3 mmol/L (3.5-5.1); Sodium 133 mmol/L (136-145)
[2020-01-25] MEDS: Potassium Chloride 20 MEQ TAB PO SCH (07:45)
[2020-01-25] MEDS: Enoxaparin Sodium 40 MG/0.4 ML SYRINGE SC SCH (07:45)
[2020-01-25] MEDS: Furosemide 40 MG TAB PO SCH ×2 (07:45→14:43)
[2020-01-25] MEDS: Amiodarone 200 MG TAB PO SCH ×2 (07:45→14:43)
[2020-01-25] MEDS ORDERED: Lidocaine 1% PF 5 ML VIAL ONE (07:57)
[2020-01-25] MEDS ORDERED: Sodium Bicarbonate 2.5 MEQ/5 ML VIAL ONE (07:57)
[2020-01-25] MEDS ORDERED: Metolazone 2.5 MG TAB PO SCH (08:30)
--- NOTE | 2020-01-25 09:41 | ULT ---
Ultrasound-guided paracentesis: HISTORY: Metastatic breast cancer with peritoneal carcinomatosis and ascites. FINDINGS: Informed consent obtained prior to the procedure. Preprocedural imaging demonstrated intrap eritoneal free fluid. An area was marked in the right mid abdomen in the mid axillary line, and then meticulously prepped a nd draped in normal sterile fashion and anesthetized with 1% buffered lidocaine. With direct sonographic guidance, a 19-gauge needle and 5 Romansh Beta Dasheh catheter were advanced into the abdomen. After the return of fluid, the catheter was advanced, and the needle was removed. Approximately 6 L of clear straw-colored fluid was aspirated. The introducer sheath was removed, and hemostasis was achieved with direct pressure. A dry sterile dressing was placed. The patient tolerated the procedure well and without immediate complication. IMPRESSION: Technically successful ultrasound-guided paracentesis.
[2020-01-25] MEDS: Insulin Glargine 6 UNITS in Pre-Filled Syringe 1 EACH SC SCH (09:48)
--- NOTE | 2020-01-25 09:59 | PDOC.MOPN ---
Interval History: feels better after paracentesis but states still weak. - Vital Signs Vital Signs: Vital Signs (12 hours) Temp Pulse Resp BP Pulse Ox 01/25/20 08:00 98.8 F 97 16 111/55 L 95 01/25/20 04:00 98.9 F 89 16 102/51 L 100 01/25/20 00:00 98.5 F 97 16 109/50 L 98 Weight Admit Weight 228 lb 13.437 oz Weight 244 lb 3.2 oz Most Recent Monitor Data Heart Rate from ECG 90 NIBP 110/56 NIBP BP-Mean 74 Respiration from ECG 19 SpO2 100 - Physical Exam General: Alert, Oriented x3, No acute distress HEENT: Atraumatic, PERRLA, EOMI, Mucous membr. moist/pink Lungs: Clear to auscultation, Normal air movement Cardiovascular: Regular rate, Normal S1, Normal S2, No murmurs, Gallops, Rubs Abdomen: Other (soft) Neurological: Normal speech Psych/Mental Status: Other (depressed) - Labs Result Diagrams: 01/23/20 04:12 01/25/20 03:23 Lab results: Laboratory Results - last 24 hr 01/25/20 03:23: PT 15.2 H, INR 1.2, APTT 32.2 01/25/20 03:23: Sodium 133 L, Potassium 4.3, Chloride 100, Carbon Dioxide 29, Anion Gap 8 L, BUN 5 L, Creatinine 0.57 L, Estimated GFR (MDRD) Greater than 90 , Glucose 129 H, Calcium 7.2 L 01/24/20 20:19: POC Glucose 189 H 01/24/20 18:11: POC Glucose 133 H 01/24/20 12:30: POC Glucose 143 H 01/24/20 05:56: POC Glucose 109 Status: lab reviewed by me A/P - Problem (1) Breast cancer Current Visit: Yes Status: Chronic Qualifiers: Breast location: unspecified site of breast (2) Neutropenic sepsis Current Visit: Yes Code(s): A41.9 - SEPSIS, UNSPECIFIED ORGANISM; D70.9 - NEUTROPENIA, UNSPECIFIED Status: Resolved - Plan Plan: 6l fluid removed this am with paracentesis continue PT likely needs rehab or snf ok to dc home from our perspective
--- NOTE | 2020-01-25 10:50 | PDOC.HOSPP ---
- Subjective Encounter Date: 01/25/20 Encounter Time: 10:30 Subjective: had paracentesis with removal of 6lts this am no new complaints - Objective Vital Signs & Weight: Vital Signs (12 hours) Temp Pulse Resp BP Pulse Ox 01/25/20 08:00 98.8 F 97 16 111/55 L 95 01/25/20 04:00 98.9 F 89 16 102/51 L 100 01/25/20 00:00 98.5 F 97 16 109/50 L 98 Weight Admit Weight 228 lb 13.437 oz Weight 244 lb 3.2 oz Most Recent Monitor Data Heart Rate from ECG 90 NIBP 110/56 NIBP BP-Mean 74 Respiration from ECG 19 SpO2 100 I&O: 01/24/20 01/25/20 01/26/20 06:59 06:59 06:59 Intake Total 2270 1440 Output Total 3975 3700 Balance -9686 -3953 Result Diagrams: 01/23/20 04:12 01/25/20 03:23 Additional Labs: Accuchecks 01/24/20 01/24/20 01/24/20 20:19 18:11 12:30 POC Glucose 189 H 133 H 143 H 01/24/20 05:56 POC Glucose 109 Hospitalist ROS - Medication Medications: Active Medications Generic Name Dose Route Start Last Admin Trade Name Freq PRN Reason Stop Dose Admin Acetaminophen 650 mg 01/14/20 22:42 01/22/20 11:39 Tylenol PO 650 mg Q4H PRN Administration Headache/Fever/Mild Pain (1-3) Alprazolam 1 mg 01/21/20 15:50 01/23/20 23:11 Xanax PO 1 mg HSPRN PRN Administration Anxiety Amiodarone HCl 200 mg 01/18/20 15:00 01/25/20 07:45 Cordarone PO 200 mg TID SONNY Administration Diltiazem HCl 60 mg 01/17/20 18:00 01/25/20 05:21 Cardizem PO Not Given Q6HR SONNY Diphenoxylate HCl/Atropine 1 tab 01/15/20 12:40 01/23/20 12:20 Lomotil PO 1 tab Q6H PRN Administration Diarrhea/Loose Stools Enoxaparin Sodium 40 mg 01/15/20 09:00 01/25/20 07:45 Lovenox SC Not Given 0900 SONNY Furosemide 40 mg 01/24/20 14:00 01/25/20 07:45 Lasix PO Not Given 0900,1400 SONNY Insulin Glargine 6 units/ 0.06 mls @ 0 mls/hr 01/19/20 09:00 01/25/20 09:48 Miscellaneous Medication SC 0.06 mls QAM SONNY Administration Insulin Glargine 6 units/ 0.06 mls @ 0 mls/hr 01/18/20 21:00 01/24/20 20:15 Miscellaneous Medication SC 0.06 mls HS SONNY Administration Insulin Human Lispro 0 units 01/14/20 22:42 01/23/20 17:12 Humalog SC 2 unit .MODERATE SLIDING SC PRN Administration Moderate Correctional Scale Insulin Human Lispro 0 units 01/14/20 22:42 01/14/20 23:35 Humalog SC 4 unit .BEDTIME SLIDING SC PRN Administration Bedtime Correctional Scale Loperamide HCl 2 mg 01/15/20 12:40 01/24/20 20:52 Imodium PO 2 mg PRN PRN Administration Diarrhea/Loose Stools Metolazone 2.5 mg 01/25/20 08:30 01/25/20 09:48 Zaroxolyn PO 2.5 mg 0830 SONNY Administration Ondansetron HCl 4 mg 01/15/20 12:43 01/20/20 14:17 Zofran IVP 4 mg Q6H PRN Administration Nausea/Vomiting Potassium Chloride 40 meq 01/23/20 09:00 01/25/20 07:45 K-Dur PO 40 meq DAILY SONNY Administration Sodium Chloride 10 ml 01/15/20 09:00 01/25/20 07:46 Flush - Normal Saline IVF 10 ml Q12HR SONNY Administration Sodium Chloride 10 ml 01/14/20 22:22 01/23/20 23:12 Flush - Normal Saline IVF 10 ml PRN PRN Administration Saline Flush - Exam General Appearance: awake alert Eye: PERRL, anicteric sclera ENT: no oropharyngeal lesions, moist mucosa Neck: supple, no JVD Heart: RRR, no gallops Respiratory: no wheezes, no rales Gastrointestinal: soft, normal bowel sounds, no guarding, no rigidity Extremities: no cyanosis, 1+ LE edema Neurological: cranial nerve grossly intact, no focal deficits Psychiatric: A&O x 3 Hosp A/P (1) Atrial fibrillation with RVR Code(s): I48.91 - UNSPECIFIED ATRIAL FIBRILLATION Status: Chronic (2) Breast cancer Status: Chronic Qualifiers: Breast location: unspecified site of breast Estrogen receptor status: positive Patient sex: female (3) Diabetes mellitus type 2 in obese Code(s): E11.69 - TYPE 2 DIABETES MELLITUS WITH OTHER SPECIFIED COMPLICATION; E66.9 - OBESITY, UNSPECIFIED Status: Chronic (4) Hypertension Code(s): I10 - ESSENTIAL (PRIMARY) HYPERTENSION Status: Chronic Qualifiers: Hypertension type: essential hypertension Qualified Code(s): I10 - Essential (primary) hypertension (5) Neutropenic sepsis Code(s): A41.9 - SEPSIS, UNSPECIFIED ORGANISM; D70.9 - NEUTROPENIA, UNSPECIFIED Status: Resolved (6) Moderate protein-calorie malnutrition Code(s): E44.0 - MODERATE PROTEIN-CALORIE MALNUTRITION Status: Acute (7) Physical deconditioning Code(s): R53.81 - OTHER MALAISE Status: Acute - Plan s/p Paracentesis with removal of 6 liters straw col fluid. has low albumin with third spacing and sob is on iv lasix and diuresing well, sbp is holding up. severe deconditioning, needs rehab for recuperation prior to home has h/o breast cancer with mets on amiodarone taper orally, cardizem 60mg q6h, lantus mobilize more with PT as tolerated anup HAN May dc to rehab if accepted MRI of thoracic and lumbar spine results reviewed, no radiation needed, d/w Ms.Julie Rodriguez. May dc to rehab if accepted anytime
[2020-01-25] MEDS: HumaLOG 300 UNITS/3 ML VIAL SC PRN (11:52)
[2020-01-25 12:29] VITALS: TEMP 98.9
[2020-01-25 16:58] VITALS: BP 114/56
--- NOTE | 2020-01-26 12:38 | DIS ---
DATE OF ADMISSION: 01/14/2020 DATE OF DISCHARGE: 01/25/2020 DISCHARGE DISPOSITION: Inpatient rehab. PRIMARY DISCHARGE DIAGNOSES: Severe deconditioning, history of breast cancer with multiple metastases, sepsis with neutropenic fever, moderate protein calorie malnutrition due to poor oral intake, diabetes mellitus type 2, hypertension, and atrial fibrillation with rapid ventricular response, which is rate controlled and mostly in sinus. PROCEDURES DONE DURING HOSPITALIZATION: CT angio chest done showed no evidence of pulmonary thromboembolism. There is diffuse osseous metastatic disease and hepatic metastases. CT of the abdomen and pelvis with contrast done showed worsening ascites and peritoneal carcinomatosis, worsening hepatic metastatic disease. There is diffuse osseous metastatic disease seen. Diverticulosis was seen. Echo with 2D Doppler showed EF of more than 65%. MRI of thoracic spine with and without contrast done showed diffuse regional osseous metastatic disease. No significant central canal or foraminal narrowing. MRI of lumbar spine with contrast done showed diffuse osseous metastatic disease. There are mild degenerative changes including stenosis of the right L3-4 neural foramen. No focal disk herniation or nerve root compression was evident. Paracentesis with removal of 6 L of serosanguineous of straw-colored fluid by Interventional Radiology done on 01/25/2020. Blood cultures x2, no growth. Influenza A and B antigens were negative. Clostridium difficile antigen and toxin were negative. Discharge white count of 15, H and H of 8 and 25, platelet count is 83. Had a white count of 0.6 on admission with H and H of 9 and 28, and platelet count of 81. Discharge BUN and creatinine are 5 and 0.5. Albumin was 2.4, AST 77, ALT 20, alkaline phosphatase 179, total bilirubin 1.1. INPATIENT CONSULTS: Ms. Roxanna Rodriguez for Oncology, Dr. Troy Grover for Electrophysiology, Dr. Foy for Cardiology, and Dr. Zamarripa for Infectious Disease. DISCHARGE PLAN: The patient to follow up with Dr. Eric in 2 weeks. She needs to follow up with Dr. Foy in 2 weeks. BRIEF COURSE DURING HOSPITALIZATION: The patient initially got admitted on the with complaints of abdominal pain and fever. The patient was found to be neutropenic with sepsis. She had known history of breast cancer with multiple metastases. The patient also had atrial fibrillation with RVR on arrival. Ms. 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 Prior to arrival, the patient also had peritoneal carcinomatosis. She was on Taxotere and Cytoxan prior to arrival here. She got her first dose on 01/10/2020 and was also given a dose of Neulasta prior to arrival here. In view of all the above history, the patient was admitted to the hospital and was placed on broad-spectrum IV antibiotics. Pancultures were obtained. Her blood cultures did not grow any organism. The patient's pancytopenia slowly resolved. She has had massive ascites and had paracentesis done with removal of 6 L. She also has anasarca with very low albumin and severe deconditioning. In view of this, she is being discharged to inpatient rehab for further recuperation. Her atrial fibrillation is likely paroxysmal. She has also had episodes of flutter as well while being monitored on telemetry. She is currently stable on current medications including amiodarone and Cardizem. She also needs to continue Lasix with close monitoring of electrolytes at the rehab. Her overall prognosis is guarded due to multiple metastasis, poor functional status , and low albumin with severe deconditioning at present. The patient will not receive any further chemotherapy until her functional status improves per Oncology. She has been counseled and motivated to work with Physical Therapy at the inpatient rehab. A total of 35 minutes was spent on discharge plan. Please see a [id number] documentation for the day of discharge on [employer]. Job ID: [id number] MTDD
--- NOTE | 2020-01-26 22:19 | PQF ---
ROGE HENDERSON VINAYA KUMAR MD [id number] CLINICAL DOCUMENTATION CLARIFICATION FORM: POST DISCHARGE Addendum to original discharge summary date: ____ Late entry note date: __ DATE:01/26/2020 ATTN: ALDEN NARAYAN MD Please exercise your independent, professional judgment in responding to the clarification form. Clinical indicators are provided on the bottom of this form for your review Please check appropriate box(s): Pancytopenia due to: [ x ] Chemotherapy/antineoplastic drugs [ ] Other drug-induced (please specify if known): [ ] Congenital [ ] Other diagnosis [ ] Unable to determine In addition, please specify: Present on Admission (POA): [ x] Yes [ ] No [ ] Unable to determine For continuity of documentation, please document condition throughout progress notes and discharge summary. Thank You. CLINICAL INDICATORS - SIGNS / SYMPTOMS / LABS WBC-0.9 , 2.0, 5.7, 10.1-Documented in Laboratory RBC-2.70, 2.59, 2.54, 2.69-Documented in Laboratory Plt count-50, 54, 47, 40-Documented in Laboratory Neutropenic fever- Electrophysiology progress note on 01/23 by Troy Grover MD Thrombocytopenia -Electrophysiology progress note on 01/23 by Troy Grover MD Metastatic liver carcinoma -bone mets on CT-Electrophysiology progress note on 01/23 by Troy Grover MD Sepsis with neutropenic fever-Documented in discharge summary on 01/24 by Alden Narayan MD H/O breast cancer with mets received 1 cycle of chemo per patient -Documented in Hospitalist progress note on 01/23 by Alden Narayan MD [employer]K [employer]CTORS Sepsis with neutropenic fever-Documented in discharge summary on 01/24 by Alden Narayan MD H/O breast cancer with mets received 1 cycle of chemo per patient -Documented in Hospitalist progress note on 01/23 by Alden Narayan MD Thrombocytopenia -Electrophysiology progress note on 01/23 by Troy Grover MD TREATMENT: 6L fluid removed this am with paracentesis -Documented in oncology progress note on 01/24 by Roxanna Rodriguez APRN Ms Roxanna yari rodriguez for oncology-Documented in discharge summary on 01/24 by Alden Narayan MD Cefepime 1gm -Documented in Medication snapshot Vancomycin -Documented in Medication snapshot [employer] Win[employer] View[employer] (This form is maintained as a part of the permanent medical record) 2014 [employer]. All Rights Reserved [email or web address]
== END 2020-01-25 16:45 | DRG 871 ==
LOC: ERS 16:56 → CCU 19:10 → IMCU/EMU 01-15 03:26 → 2NO 01-17 15:43 → ONC 01-24 12:18
PROVIDERS: ADMIT Internal Medicine; ATTEND Internal Medicine
PROC: 0W9G3ZZ Drainage of Peritoneal Cavity, Percutaneous Approach (ICD-10-PCS; principal; 2020-01-25)
DX: A41.9 Sepsis, unspecified organism (principal); D61.810 Antineoplastic chemotherapy induced pancytopenia; E44.0 Moderate protein-calorie malnutrition; Z68.41 Body mass index [BMI] 40.0-44.9, adult; I48.92 Unspecified atrial flutter; C78.7 Secondary malignant neoplasm of liver and intrahepatic bile duct; C79.51 Secondary malignant neoplasm of bone; D70.9 Neutropenia, unspecified; C50.919 Malignant neoplasm of unspecified site of unspecified female breast; E11.69 Type 2 diabetes mellitus with other specified complication; E66.9 Obesity, unspecified; Z90.49 Acquired absence of other specified parts of digestive tract; I10 Essential (primary) hypertension; E11.9 Type 2 diabetes mellitus without complications; K21.9 Gastro-esophageal reflux disease without esophagitis; R19.7 Diarrhea, unspecified; E86.9 Volume depletion, unspecified; I48.0 Paroxysmal atrial fibrillation; D69.6 Thrombocytopenia, unspecified
CPT/HCPCS: 36415; 36416; 49083; 51702; 71045; 71275; 72157; 72158; 74177; 80048; 80053; 80202; 81003; 82550; 83605; 83690; 83735; 83880; 84100; 84484; 85025; 85060; 85379; 85610; 85730; 87040; 87324; 87449; 87804; 93005; 93306; 96365; 96367; 96375; 96376; A4353; J0282; J0692; J1650; J1815; J1940; J2001; J2270; J2405; J3370; J3475; J3490; J7070; Q9967

== ENCOUNTER 2020-04-21 15:04 | Emergency (ER) | payer BC ==
[~2020-04-21 15:04] MED LIST changes: -Iopamidol 370 76% 100 ML VIAL ONE; +Iopamidol-370 76% 500 ML 1 ML ONE
[2020-04-21] MEDS ORDERED: Morphine 4 MG/ML VIAL ONE ×2 (15:51→18:38)
[2020-04-21] MEDS ORDERED: Ondansetron PF 4 MG/2 ML Vial ONE ×2 (15:53→18:38)
[2020-04-21 16:23] LABS: Hemoglobin 10.7 g/dL (12.0-16.0); Mean Corpuscular HGB CONC 32.9 g/dL (32.0-36.0); Mean Corpuscular Hemoglobin 31.9 pg (27.0-31.0); RBC Distribution Width 18.2 % (11.5-14.5); Red Blood Cell (RBC) Count 3.34 mill/uL (4.20-5.40); White Blood Cell (WBC) Count 7.8 thou/uL (4.8-10.8)
[2020-04-21 16:38] LABS: Bacteria/HPF None Seen HPF (None Seen); Bilirubin Negative (Negative); Blood, Urine Negative (Negative); Clarity Turbid (Clear); Glucose, Urine (Dipstick) Normal (Negative); Leukocyte 25 Leu/uL (Negative); Nitrite Negative (Negative); Protein, Urine (Dipstick) Negative (Neg-Trace); RBC/HPF 0-3 HPF (0-3); Squamous Epithelial 0-3 HPF (0-3); Urobilinogen Normal mg/dL (Less than 2); WBC/HPF 0-3 HPF (0-3)
[2020-04-21 16:40] LABS: ALT (SGPT) 22 U/L (8-55); AST (SGOT) 22 U/L (5-34); Albumin 3.3 g/dL (3.5-5.0); Alkaline Phosphatase 150 U/L (40-110); Anion Gap 13 mmol/L (10-20); BUN (Urea Nitrogen) 10 mg/dL (7.0-18.7); Calc. Creatinine Clearance 0 mL/min (70-130); Calcium 8.4 mg/dL (7.8-10.44); Carbon Dioxide 25 mmol/L (22-29); Chloride 101 mmol/L (98-107); Estimated GFR-MDRD Greater than 90; Globulin 2.5 g/dL (2.4-3.5); Glucose 157 mg/dL (70-105); Lipase 10 U/L (8-78); Potassium 3.7 mmol/L (3.5-5.1); Protein, Total 5.8 g/dL (6.0-8.3); Sodium 135 mmol/L (136-145)
[2020-04-21 16:43] LABS: Anisocytosis SLIGHT = 6-15 cells (100X) (0-5/hpf); Band 45 % (5-11); Eosinophils 2 % (0-10); Hypochromia SLIGHT = 6-15 cells (100X) (0-5/hpf); Lymphocytes 4 % (21-51); MDiff Complete? YES; Mean Platelet Volume 6.5 fL (7.4-10.4); Monocytes 1 % (0-10); Neutrophil 46 % (42-75); Platelet Count 45 thou/uL (130-400); Platelet Morphology Comment Appears Decreased; Reactive Lymphocytes 2 % (0-10); Reflex for Review?? NO; Tear Drops SLIGHT = 2-5 cells (100X) (0-1/hpf)
--- NOTE | 2020-04-21 17:13 | RAD ---
PORTABLE CHEST: History: Nausea, vomiting, shortness of breath. Comparison: 01-19-2020 FINDINGS: There are diffuse osseous metastatic disease again noted which has been previously described. A Medip ort catheter is adequately positioned. There is question of a new hazy infiltrate overlying the left midlung when compared to the prior stud y. If there is concern of pneumonia, recommend upright PA and lateral views to better evaluate the argenis ng su. Otherwise the lungs are clear and the vascularity is normal. No other interval change noted. IMPRESSION: As above. POS: AGW
--- NOTE | 2020-04-21 17:46 | CT ---
CT OF THE ABDOMEN AND PELVIS WITH IV CONTRAST INDICATION: 49-year-old female with history of breast cancer undergoing chemotherapy with nausea vomi ting diarrhea for 3 days COMPARISON: CT the abdomen and pelvis dated January 14, 2020 FINDINGS: ABDOMEN: Lung bases: Clear Liver: Numerous hypodense masses are again seen involving the liver. The index lesion within the left hepatic lobe appears to measure 3.4 cm now measures 3 cm. An additional conspicuous lesion within the right hepatic dome previously measured 2.6 cm and is stable on the current examination. Gallbladder: Not evident Pancreas: Normal. Adrenal glands: Normal. Spleen: Normal. Kidneys and ureters: Small bilateral renal cysts. No hydronephrosis Vasculature: Normal. Lymph nodes:No lymphadenopathy. Free fluid in abdomen:There is improvement in the degree of ascites. Mild residual free fluid is seen within the abdomen and pelvis. PELVIS: Small and large bowel: There is mucosal enhancement and wall thickening involving the rectum, sigmoid colon, and descending colon suspicious for changes of a proctocolitis. There are scattered colonic diverticula. Small bowel appears of normal caliber. Appendix:Normal Bladder: Normal. Rectal and perirectal soft tissues:Normal. Reproductive structures: Uterus is surgically absent. Adnexa are seen within the lower quadrants bila terally. Free fluid in pelvis: Small amount of free fluid is present. Lymphadenopathy pelvis: No lymphadenopathy is evident. Osseous structures: Diffuse osteoblastic metastatic disease similar appearing. Healed rib deformities involving the lower rib cage bilaterally are similar appearing. The chronic endplate compression abnormalities of L2 similar appearing. No acute fractures evident. There is scattered degenerative a nd osteoarthritic changes. Soft tissues:Normal. IMPRESSION: 1. Findings of a proctocolitis. Findings are suspicious for an infectious proctocolitis. There are sc attered colonic diverticula. No drainable fluid collection is evident. 2. Overall findings of response to therapy within the abdomen and pelvis. The hypodense hepatic metas tatic disease appears slightly less prominent. There is improvement in the degree of scattered ascites. Diffuse osteoblastic metastatic disease appears stable.
== END 2020-04-21 18:52 | disposition home or self-care (01) ==
LOC: ERS 15:04
DX: K52.9 Noninfective gastroenteritis and colitis, unspecified (principal); I10 Essential (primary) hypertension; E11.9 Type 2 diabetes mellitus without complications; E78.5 Hyperlipidemia, unspecified; Z79.899 Other long term (current) drug therapy; Z79.4 Long term (current) use of insulin
CPT/HCPCS: 71045; 74177; 80053; 81003; 81015; 83605; 83690; 84484; 85025; 86850; 86900; 86901; 87040; 93005; J2270; J2405; Q9967

== ENCOUNTER 2020-04-22 16:26 | Inpatient (IN) | payer BC ==
[2020-04-22] MEDS ORDERED: Ondansetron PF 4 MG/2 ML Vial ONE (17:14)
[2020-04-22] MEDS ORDERED: Morphine 4 MG/ML VIAL ONE (17:14)
[2020-04-22 17:36] LABS: Hemoglobin 8.7 g/dL (12.0-16.0); Mean Corpuscular HGB CONC 33.1 g/dL (32.0-36.0); Mean Corpuscular Volume 96.8 fL (78.0-98.0); Mean Platelet Volume 10.5 fL (7.4-10.4); Platelet Count 48 thou/uL (130-400); RBC Distribution Width 17.7 % (11.5-14.5); Red Blood Cell (RBC) Count 2.71 mill/uL (4.20-5.40); White Blood Cell (WBC) Count 1.9 thou/uL (4.8-10.8)
[2020-04-22 17:54] LABS: ALT (SGPT) 17 U/L (8-55); AST (SGOT) 17 U/L (5-34); Alkaline Phosphatase 130 U/L (40-110); Anion Gap 10 mmol/L (10-20); BUN (Urea Nitrogen) 7 mg/dL (7.0-18.7); CK (CPK) 56 U/L (29-168); Calc. Creatinine Clearance 0 mL/min (70-130); Calcium 8.3 mg/dL (7.8-10.44); Carbon Dioxide 25 mmol/L (22-29); Chloride 103 mmol/L (98-107); Estimated GFR-MDRD Greater than 90; Globulin 2.4 g/dL (2.4-3.5); Glucose 122 mg/dL (70-105); Lipase 5 U/L (8-78); Magnesium 1.7 mg/dL (1.6-2.6); Potassium 3.5 mmol/L (3.5-5.1); Protein, Total 5.4 g/dL (6.0-8.3); Sodium 134 mmol/L (136-145)
[2020-04-22 18:11] LABS: MDiff Complete? YES
[2020-04-22 18:12] LABS: Anisocytosis SLIGHT = 6-15 cells (100X) (0-5/hpf); Band 3 % (5-11); Lymphocytes 12 % (21-51); Monocytes 7 % (0-10); Neutrophil 78 % (42-75); Platelet Morphology Comment Appears Decreased; Polychromasia SLIGHT = 2-3 cells (100X) (0-2/hpf); Tear Drops SLIGHT = 2-5 cells (100X) (0-1/hpf)
[2020-04-22 19:31] LABS: Bilirubin Negative (Negative); Blood, Urine Negative (Negative); Clarity Clear (Clear); Glucose, Urine (Dipstick) Normal (Negative); Ketone, Urine Negative (Negative); Leukocyte Negative Leu/uL (Negative); Nitrite Negative (Negative); Protein, Urine (Dipstick) 20 mg/dL (Neg-Trace); Specific Gravity, Urine 1.018 (1.002-1.036)
[2020-04-22] MEDS ORDERED: metroNIDAZOLE 500 MG/100 ML BAG ONE (20:11)
[2020-04-22] MEDS ORDERED: Sodium Chloride 0.9% 1,000 ML IV SCH (22:50)
[2020-04-22] MEDS ORDERED: Morphine 2 MG/ML SYRINGE SLOW IVP PRN (22:51)
[2020-04-22] MEDS ORDERED: Ondansetron PF 4 MG/2 ML Vial IVP SCH (23:00)
[2020-04-23] MEDS ORDERED: Acetaminophen 650 MG Suppository PR PRN (01:18)
[2020-04-23] MEDS ORDERED: Acetaminophen 325 MG TAB PO PRN (01:18)
[2020-04-23] MEDS ORDERED: Dextrose 50% Abboject 50 ML SYRINGE SLOW IVP PRN (01:31)
[2020-04-23] MEDS ORDERED: Dextrose 5% in Water 1,000 ML IV PRN (01:31)
[2020-04-23] MEDS ORDERED: Dextrose 5 %-0.45 % NaCl 1,000 ML IV SCH (01:45)
[2020-04-23] MEDS ORDERED: D5 1/2 NS 500 ML IV SCH (01:45)
[2020-04-23] MEDS ORDERED: Sodium Chloride 0.9% (PF) 10 ML VIAL FS PRN (02:12)
--- NOTE | 2020-04-23 02:25 | PDOC.HHP ---
Hospitalist HPI - History of Present Illness Abdominal pain and leg weakness History of Present Illness: Patient presents with multiple complaints but states her main concern was her abdominal discomfort as well as worsening weakness in her legs. She is known to have metastatic breast cancer and is receiving chemotherapy every 3 weeks. Her last treatment was on 04/17. States she has noted gradual worsening in lower extremity pain, with reduced sensation extending up to her upper thighs. She has noted significantly worsening weakness, and for the last 3 days has had trouble walking short distances and states her legs easily give out. She has also reports diarrhea, however upon further questioning she appears to be experiencing incontinence of stool which has been occurring when she attempts to mobilize to the bathroom. When asked about urine incontinence the patient states she has had difficulty emptying her bladder. While in the ED today she had UA obtained via straight cath and reports feeling relief in her abdominal discomfort immediately after. Unclear how much urine was removed from her bladder. She denies any back pain/tenderness. Has not noted any saddle paraesthesias/ anesthesia. Is able to lift her legs slightly but reports that they feel heavy. Patient unsure what chemotherapy regimen she is on. Has been told in the past that altered sensation in her legs could be associated with her chemotherapy treatment. Currently on Gabapentin. She denies having any fevers, chills or sweats. Does report feeling generally unwell and fatigued. ED Course: In the ED she had an EKG that showed a HR os 93. No ST changes or T wave abnormalities. CT abdomen/pelvis: Findings of proctocolitis, infectious. Scattered colon diverticula. When compared to previous study she appears to have overall response to therapy. Hypodense liver mets said to appear slightly less prominent. Also improvement in scattered ascites. Diffuse osteoblastic mets appears stable. Labs done showed a WCC of 1.9, Hgb 8.7, Hct 26.2, platelets 48, neutrophils 78. Lactic acid 1.3, Mg 1.7, Lipase 5, CK 56, Na+ 134. Creat 0.50, BUN 7, GFR >90. Glucose 122, Alk phos 130, LFTs normal. Patient started on Cipro and Flagyl for acute colitis. Given Morphine for pain. Zofran for nausea. Received 1 L NS IV. Hospitalist ROS - Review of Systems Constitutional: reports: weakness, malaise. denies: fever, chills, sweats, other Eyes: denies: pain, vision change, conjunctivae inflammation, eyelid inflammation, redness, other ENT: denies: ear pain, ear discharge, nose pain, nose discharge, nose congestion , mouth pain, mouth swelling, throat pain, throat swelling, other Respiratory: denies: cough, dry, shortness of breath, hemoptysis, SOB with excertion, pleuritic pain, sputum, wheezing, other Cardiovascular: denies: chest pain, palpitations, orthopnea, paroxysmal noc. dyspnea, edema, light headedness, other Gastrointestinal: reports: nausea, vomiting (Wednesday, but has resolved), abdominal pain, diarrhea, other (stool incontinence) Genitourinary: reports: incontinence, retention Musculoskeletal: reports: leg pain (bilateral) Skin: denies: rash, lesions, bon, bruising, other Neurological: reports: weakness (lower leg weakness), numbness (feet up to upper thighs) - Medication Medications: Active Medications Generic Name Dose Route Start Last Admin Trade Name Freq PRN Reason Stop Dose Admin Dextrose/Sodium Chloride 1,000 mls @ 75 mls/hr 04/23/20 01:45 04/23/20 02:09 D5 1/ Ns IV 1,000 mls .[id number] SONNY Administration ALLERGIES: No known drug allergies. HOME MEDICATIONS: dilTIAZem oral tablet extended release 24 hr : Strength - 180 mg : ORAL Patient Dose: 180 mg Oral once a day. amiodarone oral tablet : Strength - 200 mg : ORAL Patient Dose: 200 mg Oral once a day. gabapentin capsule : Strength - 100 mg : ORAL Patient Dose: 100 mg Oral once a day (at bedtime). furosemide oral tablet : Strength - 40 mg : ORAL Patient Dose: 40 mg Oral 2 times a day. Levemir Flexpen insulin pen : Strength - 100 unit/mL (3 mL) : SUBCUTANEOUS Patient Dose: 16 units Subcutaneous once a day (at bedtime). Hospitalist History - Past Medical History Cardiac: reports: HTN, Hyperlipidemia Heme/Onc: reports: Cancer (Metastatic breast cancer to liver and bone) Endocrine: reports: Diabetes - Past Surgical History Past Surgical History: reports: Other Surgical History: Port placement Abdominal surgery - Family History Family History: reports: no pertinent history - Social History Smoking Status: Never smoker Alcohol: reports: None Living Situation: With Family Hospitalist Results - Labs Result Diagrams: 04/22/20 17:16 04/22/20 17:16 Lab results: WBC 1.9 thou/uL (4.8-10.8) L 04/22/20 17:16 Hgb 8.7 g/dL (12.0-16.0) L 04/22/20 17:16 Hct 26.2 % (36.0-47.0) L 04/22/20 17:16 MCV 96.8 fL (78.0-98.0) 04/22/20 17:16 Plt Count 48 thou/uL (130-400) L 04/22/20 17:16 Band Neuts % (Manual) 3 % (5-11) L 04/22/20 17:16 Sodium 134 mmol/L (136-145) L 04/22/20 17:16 Potassium 3.5 mmol/L (3.5-5.1) 04/22/20 17:16 Chloride 103 mmol/L (98-107) 04/22/20 17:16 Carbon Dioxide 25 mmol/L (22-29) 04/22/20 17:16 BUN 7 mg/dL (7.0-18.7) 04/22/20 17:16 Creatinine 0.50 mg/dL (0.6-1.1) L 04/22/20 17:16 Glucose 122 mg/dL (70-105) H 04/22/20 17:16 Lactic Acid 1.3 mmol/L (0.5-2.2) 04/22/20 17:16 Calcium 8.3 mg/dL (7.8-10.44) 04/22/20 17:16 Total Bilirubin 1.0 mg/dL (0.2-1.2) 04/22/20 17:16 AST 17 U/L (5-34) 04/22/20 17:16 ALT 17 U/L (8-55) 04/22/20 17:16 Alkaline Phosphatase 130 U/L (40-110) H 04/22/20 17:16 Creatine Kinase 56 U/L (29-168) 04/22/20 17:16 Troponin I 0.014 ng/mL (< 0.028) 04/22/20 17:16 Serum Total Protein 5.4 g/dL (6.0-8.3) L 04/22/20 17:16 Albumin 3.0 g/dL (3.5-5.0) L 04/22/20 17:16 Lipase 5 U/L (8-78) L 04/22/20 17:16 Urine Ketones Negative mg/dL (Negative) 04/22/20 19:08 Urine Blood Negative (Negative) 04/22/20 19:08 Urine Nitrite Negative (Negative) 04/22/20 19:08 Ur Leukocyte Esterase Negative Peter/uL (Negative) 04/22/20 19:08 - Radiology Interpretation CT scan - abdomen Status: report reviewed by nh Hospitalist H&P A/P - Problem (1) Proctocolitis Code(s): K52.9 - NONINFECTIVE GASTROENTERITIS AND COLITIS, UNSPECIFIED Status : Acute (2) Abdominal pain Code(s): R10.9 - UNSPECIFIED ABDOMINAL PAIN Status: Acute (3) Bowel incontinence Code(s): R15.9 - FULL INCONTINENCE OF FECES Status: Acute (4) Bilateral leg weakness Code(s): R29.898 - OTH SYMPTOMS AND SIGNS INVOLVING THE MUSCULOSKELETAL SYSTEM Status: Acute (5) Pancytopenia Code(s): D61.818 - OTHER PANCYTOPENIA Status: Acute (6) Metastatic breast cancer Code(s): C50.919 - MALIGNANT NEOPLASM OF UNSP SITE OF UNSPECIFIED FEMALE BREAST Status: Chronic (7) Physical deconditioning Code(s): R53.81 - OTHER MALAISE Status: Chronic (8) Diabetes mellitus type 2 in obese Code(s): E11.69 - TYPE 2 DIABETES MELLITUS WITH OTHER SPECIFIED COMPLICATION; E66.9 - OBESITY, UNSPECIFIED Status: Chronic (9) Hypertension Code(s): I10 - ESSENTIAL (PRIMARY) HYPERTENSION Status: Chronic Qualifiers: Hypertension type: essential hypertension Qualified Code(s): I10 - Essential (primary) hypertension - Plan Plan: Repeat H/H, will transfuse if <7 Continue antibiotics. Stool studies. Also check for occult blood. Protonix 40mg BID. Known vertebral mets with worsening BLE weakness/numbness and stool incontinence concerning for cord compression. MRI T/L spine NPO for now. Day team to decide on further consults i.e. neurosurgery, oncology. Bladder scan to assess for urine retention. Monitor glucose. ISS initiated. Monitor BP. Hold antihypertensives given BP low. Reconcile home medications as appropriate once verified. PT/OT consult DVT prophylaxis with mechanical SCDs. CODE STATUS FULL Surrogate decision maker is her Raoul Valdes. Case discussed with Dr. Angel Travis who agrees with plan as above.
[2020-04-23] MEDS: metroNIDAZOLE 500 MG in Premix Bag 1 BAG IVPB SCH ×3 (04:19→20:53)
[2020-04-23] MEDS ORDERED: Morphine 2 MG/ML VIAL SLOW IVP PRN (04:45)
[2020-04-23 05:10] LABS: INR-International Normal Ratio 1.2; Prothrombin Time 15.3 sec (12.0-14.7)
[2020-04-23 05:21] LABS: Band 2 % (5-11); Hemoglobin 8.4 g/dL (12.0-16.0); Lymphocytes 36 % (21-51); MDiff Complete? YES; Mean Corpuscular HGB CONC 32.7 g/dL (32.0-36.0); Mean Corpuscular Hemoglobin 33.4 pg (27.0-31.0); Mean Platelet Volume 10.2 fL (7.4-10.4); Monocytes 12 % (0-10); Neutrophil 50 % (42-75); Platelet Count 60 thou/uL (130-400); Platelet Morphology Comment Appears Decreased; RBC Distribution Width 17.6 % (11.5-14.5); White Blood Cell (WBC) Count 1.3 thou/uL (4.8-10.8)
[2020-04-23 05:34] LABS: ALT (SGPT) 15 U/L (8-55); AST (SGOT) 17 U/L (5-34); Albumin 2.8 g/dL (3.5-5.0); Alkaline Phosphatase 118 U/L (40-110); Anion Gap 10 mmol/L (10-20); BUN (Urea Nitrogen) 6 mg/dL (7.0-18.7); Bilirubin, Total 0.7 mg/dL (0.2-1.2); Calc. Creatinine Clearance 183 mL/min (70-130); Calcium 7.9 mg/dL (7.8-10.44); Carbon Dioxide 24 mmol/L (22-29); Chloride 106 mmol/L (98-107); Estimated GFR-MDRD Greater than 90; Glucose 122 mg/dL (70-105); Iron 41 ug/dL (50-170); Iron Binding Capacity, Total 211 mcg/dL (265-497); Potassium 3.7 mmol/L (3.5-5.1); Protein, Total 4.8 g/dL (6.0-8.3); Sodium 136 mmol/L (136-145)
[2020-04-23 05:36] LABS: Ferritin 613.56 ng/mL (10-291)
[2020-04-23 05:41] LABS: Vitamin B12 Greater than 2000 pg/mL (211-911)
[2020-04-23] MEDS: Pantoprazole 40 MG VIAL IVP SCH ×3 (08:33→20:53)
[2020-04-23] MEDS ORDERED: Morphine 2 MG/ML SYRINGE SLOW IVP PRN (08:50)
[2020-04-23] MEDS ORDERED: Prochlorperazine Maleate 5 MG TAB PO PRN (08:51)
[2020-04-23] MEDS ORDERED: D5 1/2 NS w/20 mEq KCL 1,000 ML IV SCH (09:00)
--- NOTE | 2020-04-23 09:42 | MRI ---
MRI OF THE THORACIC SPINE WITH AND WITHOUT CONTRAST: INDICATION: History of metastatic disease with bilateral leg weakness. CONTRAST: 20 cc of MultiHance. COMPARISON: MRI of the thoracic spine dated 01/24/2020. FINDINGS: Diffuse osteoblastic metastatic disease is again seen. No definite cord compression or cord signal ab normality is noted. Motion artifact slightly limits image detail. The patient refused to complete the full thoracic spine survey. Multilevel spondylosis of the thoracic spine is present. There is a l eft paracentral disc protrusion at T8-T9 without appreciable cord or neural foraminal compromise. Visualized paravertebral soft tissues demonstrate small bilateral pleural effusions. No definite acut e fracture is evident. Diffusely abnormal enhancing lesions are seen throughout the visualized thoracic spine. IMPRESSION: 1. 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 2. Small left paracentral disc protrusion at T8-T9. 3. Small bilateral pleural effusions. Transcribed Date/Time: 04/23/2020 9:56 AM
[2020-04-23 10:01] LABS: Phosphorus 2.8 mg/dL (2.3-4.7)
--- NOTE | 2020-04-23 10:09 | MRI ---
MR the lumbar spine without contrast INDICATION: History of metastatic disease with bowel incontinence and bilateral lower extremity weakn ess COMPARISON: MR the lumbar spine dated January 25, 2019 TECHNIQUE: Multiplanar multisequence MR images were obtained of lumbar spine without IV contrast. FINDINGS: The patient refused the postcontrast examination. Bone marrow: There is diffuse osseous blastic metastatic disease involving the lumbar spine. Distal spinal cord and conus: There is new abnormal nodularity involving the cauda equina suspicious for intramedullary metastases. One of the largest is seen on image 24 series 5 measuring 8 mm at the L3 vertebral level. The nodularity the cauda equina is new from the comparison examination January 2019. The conus seen to terminate at L1. Visualized retroperitoneum and paraspinal soft tissues: There is mild anasarca. Vertebral levels: L5-S1: There is mild left neural foraminal narrowing. There is a broad-based bulge and facet joint de generative change, greater on the left.. L4-5: There is [id number] facet joint degenerative change but no appreciable central canal or n eural foraminal narrowing. L3-4: There is mild facet joint degenerative change and broad-based bulge but no appreciable central canal or neural foraminal narrowing L2-3: There is a broad-based bulge and facet joint degenerative change without appreciable central ca nal or neural foraminal narrowing L1-L2: No appreciable central canal or neuroforaminal narrowing. T12-L1: No appreciable central canal or neuroforaminal narrowing. IMPRESSION: 1. 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 2. New extensive nodularity now involving cauda equina suspicious for intramedullary metastatic disea se.
[2020-04-23] MEDS: Folic Acid 1 MG TAB PO SCH ×2 (10:30→20:53)
--- NOTE | 2020-04-23 11:50 | CON ---
DATE OF CONSULTATION: 04/23/2020 REASON FOR CONSULTATION: Colitis. HISTORY OF PRESENT ILLNESS: Ava Peña is a 49-year-old woman, who speaks Bulgarian only, seen today with the assistance of the interpreting service. She has a history significant for metastatic breast cancer. She has metastases to the liver and to the spine. She has been receiving chemotherapy every 3 weeks, last treatment on 04/17. She was admitted to the hospital last night. She reports that she has had some progressive weakness and numbness in the lower extremities as well as urinary retention and stool incontinence over the past 3 to 5 days or so. The stools have been nonbloody, somewhat loose with some generalized abdominal cramping discomfort, but she has actually not had any diarrhea so far today. She had to have straight catheter to urinate last night and felt significant relief with that. CT imaging demonstrated mucosal thickening in the rectum, sigmoid and descending colon consistent with possible infectious colitis. She has numerous stable metastatic lesions to the liver as well as extensive osteoblastic metastases throughout the spine. Notably, MRI was performed this morning of the thoracic and lumbar spine and this demonstrated extensive osteoblastic metastatic disease, but also new nodularity throughout the cauda equina area consistent with intramedullary metastases. Oncology and Neurosurgery have also been consulted. Stool studies for pathogens were ordered, but again she has not had a bowel movement yet this morning. She does endorse nausea and has had several episodes of emesis. No emesis so far today. She is hemodynamically stable. It does not appear she has ever undergone colonoscopy. She saw my partner, Dr. Cole, a couple of years ago in clinic consultation for rectal bleeding and was found to have internal hemorrhoids. She never followed up for planned colonoscopy after that. REVIEW OF SYSTEMS: Full review of systems including constitutional, head, eyes, ears, nose, throat, GI, , cardiovascular, respiratory, musculoskeletal, and neurologic systems is negative except as noted in the HPI. PAST MEDICAL HISTORY: 1. Breast cancer, metastatic to liver and spine. 2. Diabetes. 3. Hypertension. ALLERGIES: NO KNOWN DRUG ALLERGIES. HOME MEDICATIONS: 1. Diltiazem. 2. Amiodarone. 3. Gabapentin. 4. Furosemide 40 mg twice daily. 5. Levemir 16 units subcutaneously daily. FAMILY HISTORY: Noncontributory. SOCIAL HISTORY: No smoking or alcohol use. She lives with family. She speaks Bulgarian. PHYSICAL EXAMINATION: VITAL SIGNS: Temperature 97.2, pulse 85, blood pressure 111/56, and oxygen saturation 95% on room air. GENERAL: A 49-year-old woman appearing chronically ill, but nontoxic, lying in bed comfortably, in no distress. SKIN: No jaundice. No rashes were palpable. EYES: No scleral icterus. Extraocular movements intact. ENT: Mucous membranes moist. No oral lesions. LYMPH: No submandibular or supraclavicular lymphadenopathy. THYROID: Nontender to palpation. HEART: Regular rate and rhythm. LUNGS: Clear to auscultation bilaterally. ABDOMEN: Nondistended. Bowel sounds present throughout. Soft. Some tenderness to palpation in the suprapubic area. No guarding or rebound tenderness. EXTREMITIES: No peripheral edema. VESSELS: Radial pulses are 2+ bilaterally. NEURO: Cranial nerves II through XII intact bilaterally. No focal deficits. LABORATORY STUDIES: WBC 1.3, hemoglobin 8.4, and platelets 60. INR 1.2. Urinalysis negative. Troponin negative. BNP only 37. Vitamin B12 greater than 2000. Folic acid 3.3. Sodium 136, potassium 3.7, BUN 6, creatinine 0.49, . Ferritin 613. Alkaline phosphatase 118, AST 17, ALT 15, albumin 2.8, and total bilirubin 0.7. Blood cultures are pending. Stool studies ordered but not yet collected. IMAGING STUDIES: CT of the abdomen and pelvis from 04/21/2020, showed thickening in the rectum, sigmoid, and descending colon consistent with possible infectious colitis. There is scattered diverticulosis, mild ascites, absent gallbladder, normal pancreas. She has numerous stable liver masses, which represent metastatic disease. MRI of the thoracic and lumbar spine from earlier today showed new extensive nodularity in the cauda equina area consistent with intramedullary metastases. There is diffuse osteoblastic metastatic disease of the spine. ASSESSMENT AND PLAN: 1. Acute diarrhea, possibly resolving. 2. Distal acute colitis, likely infectious, seen on recent CT. Symptoms are really all acute over the past several days. She is not having significant diarrhea today. Abdominal discomfort may rather be from urinary retention with the CT findings in her obviously immunocompromised state, consider infectious etiology. Agree with empiric ciprofloxacin and Flagyl for now. Please obtain stool studies when able. I do not think there is going to be any utility to colonoscopy given her overall clinical status. See how she does symptomatically. Clear liquid diet today. 3. Cauda equina syndrome, new symptoms, appears secondary to metastatic disease. 4. Metastatic breast cancer with metastases to spine and liver. Oncology and Neurosurgery evaluations are pending. Obviously, this appears to be the more acute issue. The patient may benefit from [place] catheterization given her ongoing urinary retention. Please call anytime with questions or concerns. Job ID: [id number]
[2020-04-23] MEDS: Potassium Chloride 20 MEQ TAB PO SCH (12:48)
[2020-04-23] MEDS: Amiodarone 200 MG TAB PO SCH (12:49)
[2020-04-23] MEDS: Saccharomyces boulardii 250 MG CAP PO SCH (12:49)
[2020-04-23] MEDS: Multivit, Therapeutic 1 TAB PO SCH (12:50)
[2020-04-23] MEDS: Cefepime 1 GM in Sodium Chloride 0.9% 100 ML IVPB SCH ×2 (12:51→21:00)
[2020-04-23] MEDS ORDERED: D5W-AA 4.25% with LYTES 1,000 ML BAG IV SCH (13:00)
--- NOTE | 2020-04-23 18:21 | CON ---
DATE OF CONSULTATION: REASON FOR CONSULTATION: Metastatic breast cancer. HISTORY OF PRESENT ILLNESS: Ms. Peña is a 49-year-old female, who has metastatic, ER positive, OR negative, HER2 negative, invasive lobular carcinoma involving the liver and the bones. She was bone marrow positive at diagnosis in February 2019. She underwent treatment with chemotherapy, and in July 2019, CT scan showed stable liver mets and improved bone mets. In December, she presented with abdominal pain and increasing abdominal girth. CT scan showed changes consistent with peritoneal metastasis. She was started on Taxotere and Cytoxan IV chemotherapy, cycle one was complicated by neutropenic sepsis. She had an abscess to her left forearm and wrist that required drainage and antibiotics. The patient has a history of chronic low back pain and she has used a walker for some time, but in February, she remained mostly in the wheelchair. She was continuing physical therapy at home. She was tolerating her chemotherapy with Neulasta support. When she arrived for cycle 5 on April 17, her left wrist abscess was tender and swollen again. She was prescribed cephalexin. She was having increased nausea. She was still able to walk short distances with physical therapy. She presented to the emergency room yesterday with abdominal discomfort and worsening weakness in her legs. She had a CT of the abdomen and pelvis, which showed slight improvement in her liver lesions. Unfortunately, there was a new abnormal nodularity involving the cauda equina suspicious for intramedullary metastasis. She was started on IV antibiotics for her wrist abscess. GI was consulted for possible colitis, although her diarrhea improved since admission. She apparently seems to be having some urinary retention as well. She was seen at bedside, she is sleepy and has to be prompted to answer questions. She does move both lower extremities, but does not participate in neurological assessment. PAST MEDICAL HISTORY: 1. Metastatic invasive lobular carcinoma of the right breast, there are two separate T2 lesions. 2. Left wrist abscess. 3. Diabetes. 4. Reflux. 5. Hypertension. 6. Abnormal LFTs in 2017 with negative ultrasound. PAST SURGICAL HISTORY: 1. Breast excision. 2. Hysterectomy. 3. . 4. Cholecystectomy. ALLERGIES: NO KNOWN DRUG ALLERGIES. HOME MEDICATIONS: 1. Cordarone. 2. Cardizem. 3. Lasix. 4. Lantus. 5. Compazine. 6. K-Dur. FAMILY HISTORY: No history of malignancy. SOCIAL HISTORY: , one child. Lives with her spouse. No alcohol, tobacco, or illicit drug use. REVIEW OF SYSTEMS: Positive for abdominal and back pain. PHYSICAL EXAMINATION: VITAL SIGNS: Temperature is 98.4, pulse is 86, respiratory rate 16, BP is 103/55. She is 96% on room air. GENERAL: This is a chronically ill-appearing female, in no acute distress. HEENT: Normocephalic and atraumatic. NECK: Supple. CV: Regular rate and rhythm. LUNGS: Clear. ABDOMEN: Soft and nontender. EXTREMITIES: No clubbing or cyanosis. SKIN: She has scarring and skin changes of her left wrist. NEUROLOGIC: She moves all extremities. PERTINENT LABS AND X-RAYS: WBCs 1.3, hemoglobin 8.4, hematocrit 25.5, platelet count is 60,000, she has 50% neutrophils, 2% bands, 36% lymphocytes, 12% monocytes. PT is 15.3, INR is 1.2, PTT 35. Sodium 136, potassium 3.7, chloride is 106, CO2 is 24, BUN is 6, creatinine 0.49, calcium 7.9, phosphorus 2.3, magnesium 1.7. Iron 41, TIBC 211, iron saturation 19, ferritin 613. Bilirubin 0.7, AST is 17, ALT is 15, alkaline phosphatase is 118. Serum total protein 4.8, albumin 2.8, globulin 2. Folic acid 3.3, vitamin B12 greater than 2000. Radiology, per HPI. ASSESSMENT: 1. Metastatic invasive lobular carcinoma with liver, bone mets, peritoneal carcinomatosis. 2. New nodularity of the cauda equina with worsening bilateral lower extremity weakness. 3. Pancytopenia secondary to chemo. DISCUSSION: The patient's last chemotherapy was on April 17. Her low counts are likely from treatment. She did receive Neulasta on April 18 and should see improvement in her white count over the next several days. She has had chronic bilateral lower extremity weakness, worse now with some evidence of cauda equina syndrome. Neurosurgery has been consulted. We will discuss with Dr. Higgins and potentially consult Dr. Mccarthy for radiation therapy. We will follow her CBC daily. We would continue antibiotics and IV fluids as she has poor appetite and a progressing abscess of her left wrist. Thank you for the consult. Job ID: [id number]
[2020-04-23] MEDS: D5W-AA 4.25% with LYTES 1,000 ML BAG IV SCH (18:40)
[2020-04-23] MEDS: Dexamethasone 4 mg/ml Vial SLOW IVP SCH ×2 (18:40→23:56)
[2020-04-23] MEDS: HumaLOG 300 UNITS/3 ML VIAL SC PRN (20:59)
[2020-04-23] MEDS ORDERED: Prevnar 13-Val Conj/PF 0.5 ML SYRINGE IM ONE (21:00)
[2020-04-23] MEDS: Morphine 2 MG/ML VIAL SLOW IVP PRN (21:51)
--- NOTE | 2020-04-23 22:47 | CON ---
DATE OF CONSULTATION: 04/23/2020 REASON FOR CONSULTATION: Ms. Peña is a 49-year-old female with probable cauda equina syndrome from metastatic breast cancer. I was asked to see her for consideration of radiation therapy. HISTORY OF PRESENT ILLNESS: Ms. Peña was initially diagnosed with breast cancer in January of 2019. Apparently at that time, she had estrogen positive, progesterone receptor negative, HER2 receptor negative invasive lobular carcinoma of the right breast. She apparently was also found to have bone and liver metastasis at the time of diagnosis. She was placed on treatment with letrozole and Ibrance and did that up until recently when she began having progressive disease. She was subsequently started on treatment with Taxol and Cytoxan. She received her fifth cycle of this therapy about 8 days ago. She was admitted to the hospital earlier today with several complaints. One complaint was abdominal discomfort. She has had this for several days and was also having diarrhea. There was concern that she might have colitis on a recent CT scan. She has been placed on antibiotics for possible colitis and for C difficile. However, today she has not had a bowel movement, so no cultures have been able to be obtained. Her other complaint was of decreased sensation of the ability to urinate and have bowel movements and also having some incontinence of urine and bowel movements. For the last several days, she feels that she has no strength in her legs. In talking with Roxanna Rodriguez, the patient has been in a wheelchair for some time. However, for the past 3 days, at least she reports that her legs really do not support her weight. Apparently today, she has had better sensation, but again still has no strength in her leg. She did have a catheterization for a urine specimen in the emergency room and felt relief of her abdominal discomfort. However, in talking with the nurse, she is urinating quite frequently, as they are having to change her briefs quite frequently. She does report some pain in the hips and abdomen at the present time. She also reports some numbness over the chin area and some in her hands. She denies any nausea or vomiting. She voices no other complaints. PAST MEDICAL HISTORY: 1. Breast cancer as mentioned above. 2. Hypertension. 3. Hypercholesterolemia. 4. Diabetes. 5. Status post . MEDICATIONS: 1. Cefepime. 2. Metronidazole. 3. Amiodarone. 4. Diltiazem. 5. Insulin. 6. Morphine. 7. Protonix. 8. Potassium. 9. Florastor. 10. Compazine p.r.n. ALLERGIES: NO KNOWN MEDICAL ALLERGIES. SOCIAL HISTORY: She lives here in town with her family. She speaks only Georgian. The entirety of today's visit was done with a certified field property loss specialist. She has no cigarette or alcohol use. FAMILY HISTORY: Noncontributory. REVIEW OF SYSTEMS: Remainder of review of system is otherwise negative. PHYSICAL EXAMINATION: VITAL SIGNS: Height 5 feet and 5 inches. Weight is 184 pounds. Blood pressure is 110/56, pulse is 86, respirations are 16, temperature is 98.5, and O2 saturation is 99%. CONSTITUTIONAL: She is alert and oriented and in no apparent distress. She is lying in the bed. Karnofsky performance status is 40%. EYES: Pupils are equal, round, and reactive to light and extraocular movements are intact. ENT: Oral cavity and oropharynx are normal without lesion or erythema. Palate elevates symmetrically. Gingiva is intact. NECK: Supple without cervical or supraclavicular adenopathy. No thyromegaly. Larynx midline. LUNGS: Breathing nonlabored. Clear to auscultation. CARDIOVASCULAR: Heart, regular rate and rhythm without murmur. No lower extremity edema. ABDOMEN: Obese, with diffuse tenderness. There is no rebound or guarding. Bowel sounds are present. Liver percusses to normal size. SKIN: Without rash or purpura. NEUROLOGIC: Cranial nerves 2 through 12 are grossly intact. Motor strength is 5/5 in both upper extremities in all muscle groups tested. In both lower extremities, her hip flexors are rated 3/5 and she is able to lift her legs off the bed, but has no resistance to gravity. Dorsiflexion and plantar flexion are 4/5. Reflexes are diminished, but symmetrical. Gait was not tested. LABORATORY DATA: Previous pathology showed an invasive lobular carcinoma that was estrogen receptor positive, progesterone receptor negative, and HER2 receptor negative. CBC revealed a white blood cell count of 1300 with a hemoglobin of 8.4, hematocrit of 25.5, and platelet count of 60,000. RADIOLOGIC DATA: CT scan of the thoracic and lumbar spine were performed. The thoracic spine showed no evidence of spinal cord compression. There was metastatic disease in the thoracic spine. MRI of the lumbar spine showed changes consistent with nodularity along the cauda equina. This was suspicious for intramedullary metastasis and was new compared to previous MRI. She also had evidence of bone metastasis in the lumbar spine. CT scan of the abdomen and pelvis performed on 04/21/2020, suggested colitis. Her liver metastases were slightly improved. These images were all personally reviewed. ASSESSMENT: Ms. Peña is a 49-year-old female with a long history of metastatic breast cancer that was stage IV, diagnosis with liver and bone metastasis. 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 PLAN: I do think we should complete her staging with an MRI of the brain and cervical spine. The changes in the cauda equina on MRI are most consistent with metastatic disease. This almost certainly explains her symptomatology of her leg weakness. I am going to initiate the patient on dexamethasone. I think we should emergently begin radiation therapy unless Neurosurgery has an intervention that they would recommend. I suspect she is not a surgical candidate. I have made the recommendation to her that we treat her with radiation therapy. The logistics of radiation as well as the benefits and risks were discussed. The simulation and daily treatment procedure were discussed. The difficulty of the fact that she just had chemotherapy 8 days ago and Taxol can certainly be radiation sensitizing. Nevertheless, we are left with no option, but to pursue radiation because of her leg weakness. The side effects of radiation would include, but not be limited to skin reaction, fatigue, lower blood counts, nausea, vomiting, abdominal cramping, abdominal pain, diarrhea, and small risk of damage to her intestines or other structures, which receive radiation therapy. Time was taken to answer all of her questions regarding her treatment options. She is agreeable to proceed with radiation therapy as recommended to her. We will initiate her on dexamethasone tonight and will begin her radiation therapy tomorrow. She is already on Protonix, which I agree with. She is also on antibiotics for possible colitis, although she is no longer having any bowel movements. The etiology of her abdominal pain is not clear to me at the present time. She does not seem to be in retention. Since talking with the nurse, she is producing a large amount of urine. Hopefully, her abdominal pain will improve with the antibiotics. Consideration could be given to Zurita catheterization, but it would be good to know that she was C difficile negative. The Zurita catheter would not be because of retention, but would more be because of her incontinence. We will order the MRI of the cervical, spine, and brain and we will make arrangements for her to begin her radiation therapy tomorrow. Thank you for this interesting consultation. Job ID: [id number]
[2020-04-23] MEDS: traMADol HCl 50 MG TAB PO PRN (23:55)
[2020-04-24] MEDS: Morphine 2 MG/ML VIAL SLOW IVP PRN (01:37)
[2020-04-24 04:53] LABS: ALT (SGPT) 18 U/L (8-55); AST (SGOT) 18 U/L (5-34); Albumin 3.2 g/dL (3.5-5.0); Alkaline Phosphatase 132 U/L (40-110); Anion Gap 11 mmol/L (10-20); BUN (Urea Nitrogen) 8 mg/dL (7.0-18.7); Bilirubin, Total 0.8 mg/dL (0.2-1.2); Calc. Creatinine Clearance 152 mL/min (70-130); Calcium 8.4 mg/dL (7.8-10.44); Carbon Dioxide 25 mmol/L (22-29); Chloride 103 mmol/L (98-107); Estimated GFR-MDRD Greater than 90; Globulin 2.5 g/dL (2.4-3.5); Glucose 277 mg/dL (70-105); Magnesium 1.8 mg/dL (1.6-2.6); Phosphorus 3.2 mg/dL (2.3-4.7); Potassium 4.5 mmol/L (3.5-5.1); Protein, Total 5.7 g/dL (6.0-8.3); Sodium 134 mmol/L (136-145)
[2020-04-24 05:09] LABS: Band 8 % (5-11); Hemoglobin 8.7 g/dL (12.0-16.0); Hypochromia SLIGHT = 6-15 cells (100X) (0-5/hpf); Lymphocytes 44 % (21-51); MDiff Complete? YES; Mean Corpuscular HGB CONC 32.9 g/dL (32.0-36.0); Mean Corpuscular Hemoglobin 32.2 pg (27.0-31.0); Mean Corpuscular Volume 97.8 fL (78.0-98.0); Mean Platelet Volume 9.6 fL (7.4-10.4); Monocytes 8 % (0-10); Neutrophil 40 % (42-75); Platelet Count 80 thou/uL (130-400); Platelet Morphology Comment Appears Adequate; RBC Distribution Width 17.5 % (11.5-14.5); White Blood Cell (WBC) Count 1.6 thou/uL (4.8-10.8)
[2020-04-24] MEDS: metroNIDAZOLE 500 MG in Premix Bag 1 BAG IVPB SCH ×3 (05:26→20:10)
[2020-04-24] MEDS: Dexamethasone 4 mg/ml Vial SLOW IVP SCH ×3 (05:27→17:21)
[2020-04-24] MEDS: HumaLOG 300 UNITS/3 ML VIAL SC PRN ×2 (05:27→16:10)
[2020-04-24] MEDS: D5W-AA 4.25% with LYTES 1,000 ML BAG IV SCH (06:15)
--- NOTE | 2020-04-24 08:23 | PRG ---
DATE OF SERVICE: 04/24/2020 I personally interviewed and examined the patient, and agreed with documentation of Oneil Rowland PA-C dated 04/23/2020. Briefly, Ava Peña is a 49-year-old woman with known metastatic breast cancer. Because of significant back and radiating leg pain, as well as a diminishing ability to walk, she came to the emergency department. MR imaging of the spine revealed multiple bony lesions as well as intrathecal metastases. Neurosurgery was consulted. Overnight, I do not see any fevers recorded. Her neurological function in her lower extremities is limited by pain. However, I do believe there is some objective weakness. There is also diffuse multidermatomal numbness. I reviewed imaging studies myself. None of the bony lesions in the thoracolumbar spine are compressive of neural elements. There is some reactive inflammation in the bone around them. The intrathecal pathology involves meningeal studding and some T2 signal change in the conus medullaris either from vascular issues related to tumor or tumor infiltration itself. There is some chunky disease along the cauda equina. None of the lesions here are compressive of the neural elements. Because of the lack of compression, surgical intervention would not be beneficial. Her dysfunction is from the effect of the tumor itself, whether it is infiltration or inflammation that it is causing, the nerves are not working appropriately. There is nothing to decompress. I do not recommend surgical intervention. For pain control, brace could be considered. Radiation could be considered. Surgery will not benefit her. Job ID: [id number]
--- NOTE | 2020-04-24 08:43 | PDOC.HOSPP ---
- Subjective Encounter Date: 04/24/20 Encounter Time: 18:00 Subjective: Patient seen and examined for . No new complaints. No overnight events - Objective Vital Signs & Weight: Vital Signs (12 hours) Temp Pulse Resp BP Pulse Ox 04/24/20 04:00 99.1 F 66 16 121/59 L 95 04/23/20 23:59 99.2 F 86 16 110/58 L 95 Weight Admit Weight 184 lb 1 oz Weight 184 lb 1 oz I&O: 04/23/20 04/24/20 04/25/20 06:59 06:59 06:59 Intake Total 667 Balance 667 Result Diagrams: 04/24/20 04:15 04/24/20 04:15 Additional Labs: Accuchecks 04/23/20 04/23/20 04/23/20 20:50 16:37 12:00 POC Glucose 214 H 131 H 112 H Laboratory Tests 04/23/20 04:36 Folate 3.30 L Radiology Reviewed by me: Yes (MRI - reviewed) Hospitalist ROS - Review of Systems Respiratory: denies: cough, dry, shortness of breath, hemoptysis, SOB with excertion, pleuritic pain, sputum, wheezing, other Cardiovascular: denies: chest pain, palpitations, orthopnea, paroxysmal noc. dyspnea, edema, light headedness, other - Medication Medications: Active Medications Generic Name Dose Route Start Last Admin Trade Name Freq PRN Reason Stop Dose Admin Acetaminophen 650 mg 04/23/20 01:18 04/23/20 08:21 Tylenol PO 650 mg Q4H PRN Administration Headache/Fever/Mild Pain (1-3) Amiodarone HCl 200 mg 04/23/20 09:00 04/23/20 12:49 Cordarone PO 200 mg DAILY SONNY Administration Dexamethasone 4 mg 04/23/20 18:00 04/24/20 05:27 Decadron SLOW IVP 4 mg Q6HR SONNY Administration Diltiazem HCl 30 mg 04/23/20 15:00 04/23/20 20:53 Cardizem PO 30 mg TID SONNY Administration Folic Acid 1 mg 04/23/20 09:00 04/23/20 20:53 Folvite PO 1 mg BID SONNY Administration Metronidazole 500 mg/ Device 100 mls @ 100 mls/hr 04/23/20 04:00 04/24/20 05: 26 IVPB 100 mls 0400,1200,2000 SONNY Administration Cefepime HCl 1 gm/ Sodium 100 mls @ 200 mls/hr 04/23/20 10:00 04/23/20 21:00 Chloride IVPB 100 mls 1000,2200 SONNY Administration Insulin Human Lispro 0 units 04/23/20 01:31 04/24/20 05:27 Humalog SC 4 unit .MILD SLIDING SCALE PRN Administration Mild Correctional Scale Insulin Human Lispro 0 units 04/23/20 01:31 04/23/20 20:59 Humalog SC 2 unit .BEDTIME SLIDING SC PRN Administration Bedtime Correctional Scale Morphine Sulfate 2 mg 04/23/20 21:46 04/24/20 01:37 Morphine Sulfate SLOW IVP 04/24/20 08:51 2 mg Q4H PRN Administration Pain Multivitamins 1 tab 04/23/20 09:00 04/23/20 12:50 Theragran PO 1 tab DAILY SONNY Administration Pantoprazole Sodium 40 mg 04/23/20 09:00 04/23/20 20:53 Protonix IVP 40 mg Q12HR SONNY Administration Potassium Chloride 20 meq 04/23/20 09:00 04/23/20 12:48 K-Dur PO 20 meq DAILY SONNY Administration Saccharomyces Boulardii 250 mg 04/23/20 09:00 04/23/20 12:49 Florastor PO 250 mg DAILY SONNY Administration Tramadol HCl 50 mg 04/23/20 08:50 04/23/20 23:55 Ultram PO 50 mg Q4H PRN Administration Moderate Pain (4-6) - Exam General Appearance: NAD Neck: supple, no JVD Heart: RRR, no gallops, no rubs, normal peripheral pulses Respiratory: no wheezes, no rales, no ronchi, normal chest expansion Gastrointestinal: soft, non-distended, normal bowel sounds, tender to palpation (in lower quad) Neurological: no new deficit Psychiatric: A&O x 3 Hosp A/P - Plan DVT proph w/SCDs Abdominal pain/Proctocolitis Pancytopenia prob due to chemo/folic acid def Cauda equina syndrome causing B/L LE weakness Metastatic breast cancer Physical deconditioning DM2 HTN Folic acid def Urinary incontinence PLAN: IV Dexamethasone Replace Folic acid Zurita catheter per Dr Mccarthy GI/Onc/NSG input appeciated Radiation started Cont IVF
[2020-04-24] MEDS: Folic Acid 1 MG TAB PO SCH ×2 (09:40→20:10)
[2020-04-24] MEDS: HYDROcodone/Acetaminophen 5/325 mg Tablet PO PRN (09:41)
[2020-04-24] MEDS: Potassium Chloride 20 MEQ TAB PO SCH (09:41)
[2020-04-24] MEDS: Saccharomyces boulardii 250 MG CAP PO SCH (09:41)
[2020-04-24] MEDS: Amiodarone 200 MG TAB PO SCH (09:41)
[2020-04-24] MEDS: Multivit, Therapeutic 1 TAB PO SCH (09:41)
[2020-04-24] MEDS: Pantoprazole 40 MG VIAL IVP SCH ×2 (09:41→20:10)
--- NOTE | 2020-04-24 10:34 | PDOC.MOPN ---
Interval History: mild pain today. Urge to void but ramirez in place. - Vital Signs Vital Signs: Vital Signs (12 hours) Temp Pulse Resp BP Pulse Ox 04/24/20 08:55 97.5 F L 82 18 115/58 L 97 04/24/20 04:00 99.1 F 66 16 121/59 L 95 04/23/20 23:59 99.2 F 86 16 110/58 L 95 Weight Admit Weight 184 lb 1 oz Weight 184 lb 1 oz - Physical Exam General: Alert, Oriented x3, No acute distress HEENT: Atraumatic, PERRLA, EOMI, Mucous membr. moist/pink Lungs: Clear to auscultation, Normal air movement Cardiovascular: Regular rate, Normal S1, Normal S2, No murmurs, Gallops, Rubs Abdomen: Normal bowel sounds, Soft, No tenderness, No hepatospenomegaly, No masses Extremities: Other Neurological: Normal speech - Labs Result Diagrams: 04/24/20 04:15 04/24/20 04:15 Lab results: Laboratory Results - last 24 hr 04/24/20 04:15: WBC 1.6 L, RBC 2.70 L, Hgb 8.7 L, Hct 26.4 L, MCV 97.8, MCH 32.2 H, MCHC 32.9, RDW 17.5 H, Plt Count 80 L, MPV 9.6, Neutrophils % (Manual) 40 L, Band Neuts % (Manual) 8, Lymphocytes % (Manual) 44, Monocytes % (Manual) 8 , Hypochromia SLIGHT = 6-15 cells, Plt Morphology Comment Appears Adequate 04/24/20 04:15: Sodium 134 L, Potassium 4.5, Chloride 103, Carbon Dioxide 25, Anion Gap 11, BUN 8, Creatinine 0.59 L, Estimated GFR (MDRD) Greater than 90, Glucose 277 H, Calcium 8.4, Phosphorus 3.2, Magnesium 1.8, Total Bilirubin 0.8, AST 18, ALT 18, Alkaline Phosphatase 132 H, Serum Total Protein 5.7 L, Albumin 3.2 L, Globulin 2.5, Albumin/Globulin Ratio 1.3 04/23/20 20:50: POC Glucose 214 H 04/23/20 16:37: POC Glucose 131 H 04/23/20 12:00: POC Glucose 112 H Status: lab reviewed by me A/P - Problem (1) Bilateral leg weakness Current Visit: Yes Code(s): R29.898 - OTH SYMPTOMS AND SIGNS INVOLVING THE MUSCULOSKELETAL SYSTEM Status: Acute (2) Pancytopenia Current Visit: Yes Code(s): D61.818 - OTHER PANCYTOPENIA Status: Acute (3) Metastatic breast cancer Current Visit: Yes Code(s): C50.919 - MALIGNANT NEOPLASM OF UNSP SITE OF UNSPECIFIED FEMALE BREAST Status: Chronic - Plan Plan: 1. continue pain control, steroids 2. WBC improving, neulasta given last week 3. plan simulation and xrt today 4. discussed with Dr. Higgins 5. chemo held until radiation complete 5. Update son, Zak. Answered all questions.
[2020-04-24] MEDS: Lorazepam 0.5 MG TAB PO PRN (11:14)
[2020-04-24] MEDS: Cefepime 1 GM in Sodium Chloride 0.9% 100 ML IVPB SCH ×2 (13:50→20:10)
[2020-04-24] MEDS: traMADol HCl 50 MG TAB PO PRN (13:54)
[2020-04-24] MEDS: Lorazepam 1 MG TAB PO PRN (14:21)
--- NOTE | 2020-04-24 15:35 | MRI ---
Exam: Brain MRI with and without contrast HISTORY: Metastatic breast cancer COMPARISON: None FINDINGS: Gradient echo sequence: No hemorrhage Calvarium: Heterogeneous T1 signal intensity with enhancement, compatible with multifocal osseous met astases. Largest metastatic deposit is in the right temporal calvarium and measures 2.1 x 0.9 cm. Midline brain parenchyma: Unremarkable Cerebrum:There is T2 and FLAIR hyperintensity along the medial left occipital lobe with mild sulcal e ffacement. Otherwise, cortical lund-white matter differentiation is preserved. There is no midline shift. Basilar cisterns are patent. Brain volume is age-appropriate. Ventricles: No evidence of hydrocephalus. Sinuses and mastoid air cells: Asymmetric opacification of the left mastoid air cells. Diffusion: Central arterial flow is maintained. Absent restricted diffusion. Postcontrast images:Multifocal enhancing lesions involving the brain parenchyma, compatible with infr atentorial and supratentorial metastases. Largest intraparenchymal lesion is in the left occipital lobe and measures 1.1 x 0.8 cm. Additional abnormal enhancement is noted in the midbrain and david as well as the right cerebellar hemisphere. Small parenchymal enhancement in bilateral deep lund matter structures as well as the left and right cortex is identified. IMPRESSION: 1. Multifocal intraparenchymal metastatic lesions as described above. 2. Multifocal osseous metastases.
--- NOTE | 2020-04-24 15:40 | MRI ---
Exam: MRI cervical spine without contrast HISTORY: Metastatic breast cancer.. Arm numbness. Evaluate for intramedullary metastases. COMPARISON: None FINDINGS: Heterogeneous T1 marrow signal hypointensity involving multiple cervical vertebra, compatible with o sseous metastases. No pathologic fracture. There is associated vertebral body STIR hyperintensity. Visualized spinal cord has appropriate signal intensity. No cord malacia or cord expansion. Postcontrast imaging could not be performed due to patient's inability to complete the postcontrast p ortion of the exam. C2-C3: No significant central canal stenosis or significant neural foraminal narrowing C3-C4: Broad-based disc bulge abuts the thecal sac. Subarachnoid space is nearly effaced. Mild centra l canal stenosis. Neural foramina are patent C4-C5: No significant posterior disc abnormality. No significant central canal stenosis. Bilaterally, neural foramina are patent C5-C6: Mild loss of disc space height. Central/left paracentral disc bulge. Mild central canal stenos is. Bilaterally, neural foramina are patent C6-C7: No significant central canal stenosis or significant neural foraminal narrowing C7-T1: No significant central canal stenosis or significant neural foraminal narrowing IMPRESSION: 1. No significant central canal stenosis or significant neural foraminal narrowing throughout the cer vical spine 2. Multifocal osseous metastases without pathologic fracture. 3. No cord signal abnormality in the visualized thoracic and spinal cord
--- NOTE | 2020-04-24 18:03 | PRG ---
DATE OF SERVICE: 04/24/2020 SUBJECTIVE: The patient has not had a bowel movement over the last 20 hours. She complains of having diffuse abdominal pain, favoring the right side. There is no nausea or vomiting. She has no appetite. Stool culture has not been collected because of no BM. PHYSICAL EXAMINATION: VITAL SIGNS: Temperature is 97.5, blood pressure 115/58, and pulse of 82. GENERAL: She is alert, does not appear in distress. HEENT: Shows anicteric sclerae. Oropharynx is moist. CV: Shows normal S1, S2. Regular rate and rhythm. CHEST: Shows breath sounds. ABDOMEN: Protuberant, but nondistended. No tympany. There is mild tenderness to palpation. No guarding or rebound. She has active bowel sounds. EXTREMITIES: Show no edema. LABORATORY DATA: WBC is 1.6, hemoglobin 8.7, and platelet count of 80,000. Electrolytes within normal range. Bilirubin 0.8, AST 18, ALT 18, and alkaline phosphatase 132. ASSESSMENT: 1. Metastatic breast cancer to liver, bone, with peritoneal implants on CT, now with noncompressive cauda equina syndrome causing bladder and fecal incontinence and leg weakness. 2. CT finding of left-sided colitis. The patient has not had any diarrhea for the last 24 hours. Stool studies ordered, but not collected. The patient is currently on IV Cipro and metronidazole empirically. 3. Poor appetite. 4. Nausea and vomiting, resolved. RECOMMENDATIONS: 1. Continue with empiric antibiotics for now. 2. We will attempt at stool collection when possible. No indication for colonoscopy at the present time given her leukopenia. We will follow. Job ID: [id number]
[2020-04-25] MEDS: Dexamethasone 4 mg/ml Vial SLOW IVP SCH ×4 (00:22→18:39)
[2020-04-25 04:37] LABS: ALT (SGPT) 14 U/L (8-55); AST (SGOT) 13 U/L (5-34); Albumin 3.2 g/dL (3.5-5.0); Alkaline Phosphatase 132 U/L (40-110); Anion Gap 9 mmol/L (10-20); BUN (Urea Nitrogen) 9 mg/dL (7.0-18.7); Bilirubin, Total 0.5 mg/dL (0.2-1.2); Calc. Creatinine Clearance 157 mL/min (70-130); Calcium 8.3 mg/dL (7.8-10.44); Carbon Dioxide 25 mmol/L (22-29); Chloride 103 mmol/L (98-107); Estimated GFR-MDRD Greater than 90; Globulin 2.5 g/dL (2.4-3.5); Glucose 271 mg/dL (70-105); Magnesium 1.9 mg/dL (1.6-2.6); Potassium 4.4 mmol/L (3.5-5.1); Protein, Total 5.7 g/dL (6.0-8.3); Sodium 133 mmol/L (136-145)
[2020-04-25] MEDS: metroNIDAZOLE 500 MG in Premix Bag 1 BAG IVPB SCH ×3 (04:54→20:18)
[2020-04-25] MEDS: HumaLOG 300 UNITS/3 ML VIAL SC PRN (04:59)
[2020-04-25 05:13] LABS: Band 21 % (5-11); Hemoglobin 9.1 g/dL (12.0-16.0); Lymphocytes 15 % (21-51); MDiff Complete? YES; Mean Corpuscular Hemoglobin 31.7 pg (27.0-31.0); Mean Corpuscular Volume 96.1 fL (78.0-98.0); Mean Platelet Volume 8.7 fL (7.4-10.4); Metamyelocyte 1 % (0-0); Monocytes 16 % (0-10); Neutrophil 47 % (42-75); Platelet Count 109 thou/uL (130-400); RBC Distribution Width 17.4 % (11.5-14.5); Red Blood Cell (RBC) Count 2.86 mill/uL (4.20-5.40); White Blood Cell (WBC) Count 6.1 thou/uL (4.8-10.8)
[2020-04-25 05:14] LABS: Platelet Morphology Comment Appears Decreased
[2020-04-25] MEDS: Pantoprazole 40 MG VIAL IVP SCH ×2 (08:45→20:19)
[2020-04-25] MEDS: Amiodarone 200 MG TAB PO SCH (08:46)
[2020-04-25] MEDS: Potassium Chloride 20 MEQ TAB PO SCH (08:46)
[2020-04-25] MEDS: Saccharomyces boulardii 250 MG CAP PO SCH (08:46)
[2020-04-25] MEDS: Folic Acid 1 MG TAB PO SCH ×2 (08:46→20:16)
[2020-04-25] MEDS: Multivit, Therapeutic 1 TAB PO SCH (08:46)
--- NOTE | 2020-04-25 09:21 | PRG ---
DATE OF SERVICE: 04/25/2020 SUBJECTIVE: I visited with Ms. Peña this morning. She is not having nausea or vomiting. Her abdominal pain is much better since getting a Zurita catheter yesterday. She does thinks her legs are a little bit stronger. She continues to have some lower back pain. She voices no other complaints. She has not yet had a bowel movement. OBJECTIVE: VITAL SIGNS: Height 5 feet 5 inches and weight 184 pounds, blood pressure 127/58, pulse is 82, respirations are 18, temperature 98.2, O2 saturation is 98% on room air. CONSTITUTIONAL: She is alert and oriented and in no apparent distress. Karnofsky performance status is 40%. NECK: Supple without cervical or supraclavicular adenopathy. No thyromegaly. LUNGS: Breathing nonlabored. Clear to auscultation and percussion. CARDIOVASCULAR: Heart, regular rate and rhythm without murmur. No lower extremity edema. ABDOMEN: Soft, nontender, nondistended without mass or hepatosplenomegaly. Liver percusses to normal size. NEUROLOGIC: Cranial nerves 2 through 12 are grossly intact. Motor strength is good in both upper extremities in all muscle groups tested. I do think her legs are stronger. She is able to hold her legs off the bed against gravity for longer period of time. Gait was not tested. RADIOLOGIC DATA: MRI of the brain performed on 04/24/2020 was personally reviewed and again shows multiple intraparenchymal metastatic lesions in the brain. There was small amount of vasogenic edema. MRI of the cervical spine shows no evidence of cord metastasis. There is diffuse bone metastasis. Both of these MRIs were personally reviewed. ASSESSMENT: Ms. Peña is a 49-year-old female with metastatic breast cancer to the cauda equina and now to the brain. She started radiation therapy to the cauda equina area yesterday. She is also already on dexamethasone. She seems to be responding to that with some slight improvement in her leg strength today. She is asymptomatic from her brain metastasis. PLAN: I had a long discussion with Ms. Peña and her sister through video conferencing. The entire visit today was done with the aid of the [employer] lot worker. I explained to the patient and her sister the findings on the MRI of the brain. I recommended that we treat her with whole-brain radiation therapy. The logistics of radiation as well as the benefits and risks of treatment were discussed. The simulation and daily treatment procedure were discussed. Side effects would include but not be limited to skin reaction, fatigue, lower blood counts, hair loss which may be permanent, headache, nausea, vomiting, and small risk of damage to her normal brain, and risk of cognitive decline because of the radiation therapy. I explained that without treatment, the lesions in the brain would certainly cause cognitive decline. I explained that when cognitive decline occurs what it typically is like. I have recommended that we treat her with Namenda while she is on the radiation therapy for up to six months afterwards as this has been shown to lessen the risk of cognitive decline from radiation therapy. Time was taken to answer all of her questions regarding this. She is agreeable to proceed with radiation as recommended to her. I will start the Namenda. I also discussed with the patient and her sister her long-term prognosis. I explained that she does not have curable disease, but that we hope to try and control the cancer in the cauda equina and brain region with the radiation for as long as we can to improve her quality of life and get her back on her feet and reduce her pain. She voiced understanding of that. Again, she is agreeable to proceed with radiation as recommended to her. We will continue the radiation on her spine today, but we will also begin the simulation process for her whole brain. Job ID: [id number]
[2020-04-25] MEDS: Cefepime 1 GM in Sodium Chloride 0.9% 100 ML IVPB SCH ×2 (10:23→20:19)
[2020-04-25] MEDS: Lorazepam 1 MG TAB PO PRN (13:07)
--- NOTE | 2020-04-25 14:29 | PDOC.HOSPP ---
- Subjective Encounter Date: 04/25/20 Encounter Time: 10:30 Subjective: Patient seen and examined for gen weakness. No new focal deficits. No new complaints. No overnight events - Objective Vital Signs & Weight: Vital Signs (12 hours) Temp Pulse Pulse Pulse Resp BP BP 04/25/20 09:16 84 88 122/64 109/59 L 04/25/20 09:14 84 88 122/64 109/59 L 04/25/20 08:44 98.2 F 82 18 BP Pulse Ox 04/25/20 09:16 04/25/20 09:14 04/25/20 08:44 127/58 L 98 Weight Admit Weight 184 lb 1 oz Weight 184 lb 1 oz I&O: 04/24/20 04/25/20 04/26/20 06:59 06:59 06:59 Intake Total 667 600 Output Total 1975 Balance 667 -6057 Result Diagrams: 04/25/20 03:43 04/25/20 03:43 Additional Labs: Accuchecks 04/24/20 04/24/20 20:55 15:52 POC Glucose 251 H 284 H Hospitalist ROS - Review of Systems Respiratory: denies: cough, dry, shortness of breath, hemoptysis, SOB with excertion, pleuritic pain, sputum, wheezing, other Cardiovascular: denies: chest pain, palpitations, orthopnea, paroxysmal noc. dyspnea, edema, light headedness, other - Medication Medications: Active Medications Generic Name Dose Route Start Last Admin Trade Name Freq PRN Reason Stop Dose Admin Acetaminophen 650 mg 04/23/20 01:18 04/23/20 08:21 Tylenol PO 650 mg Q4H PRN Administration Headache/Fever/Mild Pain (1-3) Hydrocodone Bitart/Acetaminophen 1 tab 04/24/20 08:16 04/24/20 09:41 [place] 5/325 PO 1 tab Q4H PRN Administration Moderate Pain (4-6) Amiodarone HCl 200 mg 04/23/20 09:00 04/25/20 08:46 Cordarone PO 200 mg DAILY SONNY Administration Dexamethasone 4 mg 04/23/20 18:00 04/25/20 14:20 Decadron SLOW IVP 4 mg Q6HR SONNY Administration Diltiazem HCl 30 mg 04/23/20 15:00 04/25/20 14:20 Cardizem PO 30 mg TID SONNY Administration Folic Acid 1 mg 04/23/20 09:00 04/25/20 08:46 Folvite PO 1 mg BID SONNY Administration Metronidazole 500 mg/ Device 100 mls @ 100 mls/hr 04/23/20 04:00 04/25/20 14: 20 IVPB 100 mls 0400,1200,2000 SONNY Administration Cefepime HCl 1 gm/ Sodium 100 mls @ 200 mls/hr 04/23/20 10:00 04/25/20 10:23 Chloride IVPB 100 mls 1000,2200 SONNY Administration Insulin Human Lispro 0 units 04/23/20 01:31 04/25/20 04:59 Humalog SC 4 unit .MILD SLIDING SCALE PRN Administration Mild Correctional Scale Insulin Human Lispro 0 units 04/23/20 01:31 04/23/20 20:59 Humalog SC 2 unit .BEDTIME SLIDING SC PRN Administration Bedtime Correctional Scale Lorazepam 1 mg 04/24/20 08:16 04/25/20 13:07 Ativan PO 1 mg DAILYPRN PRN Administration Claustrophobia Lorazepam 0.5 mg 04/24/20 08:16 04/24/20 11:14 Ativan PO 0.5 mg Q6H PRN Administration Anxiety Memantine 5 mg 04/25/20 09:00 04/25/20 10:22 Namenda PO 5 mg DAILY SONNY Administration Multivitamins 1 tab 04/23/20 09:00 04/25/20 08:46 Theragran PO 1 tab DAILY SONNY Administration Pantoprazole Sodium 40 mg 04/23/20 09:00 04/25/20 08:45 Protonix IVP 40 mg Q12HR SONNY Administration Potassium Chloride 20 meq 04/23/20 09:00 04/25/20 08:46 K-Dur PO 20 meq DAILY SONNY Administration Saccharomyces Boulardii 250 mg 04/23/20 09:00 04/25/20 08:46 Florastor PO 250 mg DAILY SONNY Administration Tramadol HCl 50 mg 04/23/20 08:50 04/24/20 13:54 Ultram PO 50 mg Q4H PRN Administration Moderate Pain (4-6) - Exam General Appearance: NAD Heart: RRR, no gallops Respiratory: no rales, no ronchi Gastrointestinal: soft, non-distended Extremities: no cyanosis Neurological: no new deficit Hosp A/P - Plan DVT proph w/SCDs Abdominal pain/Proctocolitis Cauda equina syndrome causing B/L LE weakness Pancytopenia prob due to chemo/folic acid def Metastatic breast cancer Brain mets Physical deconditioning DM2 - uncontrolled HTN Folic acid def Urinary incontinence -Zurita catheter placed per Dr Mccarthy PLAN: Add Lantus Cont IV Atbx for Colitis - on clear liqd diet Cont IV Dexamethasone GI/Onc/NSG input appeciated Cont Radiation per NSG Namenda started per Dr Mccarthy
[2020-04-25] MEDS ORDERED: Insulin Glargine 10 UNITS in Pre-Filled Syringe SC SCH (14:45)
[2020-04-25] MEDS: Insulin Regular 300 UNITS/3 ML VIAL SC PRN ×2 (16:19→20:22)
--- NOTE | 2020-04-25 16:53 | CON ---
DATE OF CONSULTATION: 04/23/2020 HISTORY OF PRESENT ILLNESS: Ms. Peña is a 49-year-old female with metastatic breast cancer. Neurosurgery was called due to significant back and leg pain. This pain is limiting her ability to walk, and she came to [facility]. Neurosurgery was consulted due to an MRI of her lower spine that revealed multiple bony lesions and metastasis to her lumbar spine. PAST MEDICAL HISTORY: Hypertension, GERD, left wrist abscess, diabetes, metastasis of the right breast. SURGICAL HISTORY: Hysterectomy, , cholecystectomy, and mastectomy. ALLERGIES: NO KNOWN ALLERGIES. MEDICATIONS: 1. K-Dur. 2. Compazine. 3. Lantus. 4. Lasix. 5. Cardizem. 6. Cordarone. SOCIAL HISTORY: Denies alcohol, tobacco, or illicit drugs. REVIEW OF SYSTEMS: CONSTITUTION: Denies fever or chills. EAR, NOSE, AND THROAT: Denies change in vision or hearing. CARDIAC: Denies chest pain, shortness of breath, or diaphoresis. PULMONARY: Denies shortness of breath, cough, or hemoptysis. GI: Denies abdominal pain, nausea, vomiting, diarrhea, or change in stool formation and consistency. : Denies trouble with urination, frequency of urination, or bloody urine. SKIN: Reports left wrist abscess. MUSCULOSKELETAL: As per present illness. NEUROLOGICAL: As per history of present illness. PSYCHOLOGICAL: Denies anxiety, depression, or behavior changes. PHYSICAL EXAMINATION: HEENT: Pupils are equal. Extraocular movements are intact. NECK: Soft, supple. No masses are noted. Range of motion is intact and nonpainful. NEUROLOGICAL: Awake, alert, and oriented x3. Attention and fund of knowledge, normal. Cranial nerves grossly intact. Upper extremity, she has good strength bilaterally in her deltoids, biceps, triceps, wrist extension, finger extension, finger intrinsics. Sensation equal bilaterally. Reflexes are symmetric. Lower extremities; neurological function in the lower extremities is limited due to pain with some bilateral weakness and multidermal numbness. IMAGING: MRI of the L-spine revealed multiple bony lesions and intrathecal metastases. PLAN: No surgical intervention at this time. Surgery would not benefit her. Consider radiation. Job ID: [id number] MTDD
--- NOTE | 2020-04-25 21:10 | PRG ---
DATE OF SERVICE: 04/25/2020 SUBJECTIVE: Ms. Peña continues to have diarrhea. She has no complaints of pain. She does start radiation therapy in her spine today for cauda equina syndrome. OBJECTIVE: VITAL SIGNS: Temperature is 98, pulse 82, and blood pressure 115/55. ABDOMEN: Soft, nontender. Bowel sounds are positive. LABORATORY DATA: White count 6.1, hemoglobin 9.1, platelet count 109, 21% bands, and 47% neutrophils. Microbiology, the only stool that got sent for the C diff, which was negative. Influenza is negative. Blood culture is negative. ASSESSMENT: 1. Left-sided colitis. This likely is probably infectious colitis. It involved just the lower colon. Clostridium difficile was negative. The possibility would be portal hypertensive changes her counts are down, but there is no evidence of thrombus in the mesenteric vessels. There is no evidence of overt splenomegaly or hepatomegaly. She does have some liver mets, but they did not seem to be enough to cause any hemodynamic changes in the portal system. I would recommend continuing her antibiotics at this time. I will check her stool, white blood cells, and routine cultures, although they will probably be negative as she has been on antibiotics for so many days. At this time, I would not proceed with endoscopy. She seems to be improving. 2. Pancytopenia, presumptively related to her chemotherapy. 3. Metastatic breast cancer with mets in the liver without any overt signs of hemodynamic compromise, stable liver function test, bone mets with brain mets as well. She is receiving radiation to her spine for cauda equina syndrome. We will follow along with you. We will continue her liquid diet as she prefers. Need to check electrolytes, magnesium, and phosphorus tomorrow and replace as necessary. Job ID: [id number]
[2020-04-26] MEDS: Dexamethasone 4 mg/ml Vial SLOW IVP SCH ×5 (00:20→23:56)
[2020-04-26] MEDS: metroNIDAZOLE 500 MG in Premix Bag 1 BAG IVPB SCH ×3 (04:55→20:36)
[2020-04-26 06:31] LABS: ALT (SGPT) 16 U/L (8-55); AST (SGOT) 18 U/L (5-34); Albumin 3.1 g/dL (3.5-5.0); Alkaline Phosphatase 139 U/L (40-110); Anion Gap 10 mmol/L (10-20); BUN (Urea Nitrogen) 9 mg/dL (7.0-18.7); Bilirubin, Total 0.5 mg/dL (0.2-1.2); Calc. Creatinine Clearance 166 mL/min (70-130); Carbon Dioxide 24 mmol/L (22-29); Chloride 104 mmol/L (98-107); Estimated GFR-MDRD Greater than 90; Globulin 2.4 g/dL (2.4-3.5); Glucose 222 mg/dL (70-105); Potassium 4.3 mmol/L (3.5-5.1); Protein, Total 5.5 g/dL (6.0-8.3); Sodium 134 mmol/L (136-145)
[2020-04-26 08:14] LABS: Anisocytosis MODERATE=16-30 cells (100X) (0-5/hpf); Band 7 % (5-11); Hemoglobin 9.3 g/dL (12.0-16.0); Lymphocytes 12 % (21-51); MDiff Complete? YES; Mean Corpuscular HGB CONC 32.6 g/dL (32.0-36.0); Mean Corpuscular Hemoglobin 31.5 pg (27.0-31.0); Mean Corpuscular Volume 96.5 fL (78.0-98.0); Monocytes 3 % (0-10); Neutrophil 78 % (42-75); Nucleated RBC 1 % (0); Platelet Count 128 thou/uL (130-400); Polychromasia SLIGHT = 2-3 cells (100X) (0-2/hpf); RBC Distribution Width 17.9 % (11.5-14.5); Red Blood Cell (RBC) Count 2.97 mill/uL (4.20-5.40); White Blood Cell (WBC) Count 14.4 thou/uL (4.8-10.8)
[2020-04-26] MEDS: Saccharomyces boulardii 250 MG CAP PO SCH ×2 (08:42→20:37)
[2020-04-26] MEDS: Multivit, Therapeutic 1 TAB PO SCH (08:42)
[2020-04-26] MEDS: Amiodarone 200 MG TAB PO SCH (08:42)
[2020-04-26] MEDS: Folic Acid 1 MG TAB PO SCH ×2 (08:42→20:36)
[2020-04-26] MEDS: Lorazepam 1 MG TAB PO PRN (08:43)
[2020-04-26] MEDS: Pantoprazole 40 MG VIAL IVP SCH ×2 (08:43→20:36)
[2020-04-26] MEDS ORDERED: Insulin Glargine 10 UNITS in Pre-Filled Syringe SC SCH (09:00)
[2020-04-26] MEDS: Cefepime 1 GM in Sodium Chloride 0.9% 100 ML IVPB SCH (11:11)
[2020-04-26] MEDS: Insulin Regular 300 UNITS/3 ML VIAL SC PRN ×2 (11:40→15:56)
--- NOTE | 2020-04-26 15:19 | PDOC.HOSPP ---
- Subjective Encounter Date: 04/26/20 Encounter Time: 12:30 Subjective: Patient seen and examined for Colitis with LE weakness. Diarrhea since yesterday evening. No new focal deficits. No overnight events - Objective Vital Signs & Weight: Vital Signs (12 hours) Temp Pulse Resp BP Pulse Ox 04/26/20 07:56 98.6 F 81 16 123/67 98 Weight Admit Weight 184 lb 1 oz Weight 184 lb 1 oz I&O: 04/25/20 04/26/20 04/27/20 06:59 06:59 06:59 Intake Total 600 800 Output Total 6337 432 6753 Balance -1375 -100 -1250 Result Diagrams: 04/26/20 05:57 04/26/20 05:57 Additional Labs: Accuchecks 04/26/20 04/26/20 04/25/20 11:01 06:02 19:38 POC Glucose 289 H 221 H 276 H 04/25/20 16:02 POC Glucose 252 H Hospitalist ROS - Review of Systems Cardiovascular: denies: chest pain, palpitations, orthopnea, paroxysmal noc. dyspnea, edema, light headedness, other Gastrointestinal: reports: diarrhea. denies: nausea, vomiting, abdominal pain, constipation, melena, hematochezia, other - Medication Medications: Active Medications Generic Name Dose Route Start Last Admin Trade Name Freq PRN Reason Stop Dose Admin Acetaminophen 650 mg 04/23/20 01:18 04/23/20 08:21 Tylenol PO 650 mg Q4H PRN Administration Headache/Fever/Mild Pain (1-3) Hydrocodone Bitart/Acetaminophen 1 tab 04/24/20 08:16 04/24/20 09:41 [place] 5/325 PO 1 tab Q4H PRN Administration Moderate Pain (4-6) Amiodarone HCl 200 mg 04/23/20 09:00 04/26/20 08:42 Cordarone PO 200 mg DAILY SONNY Administration Dexamethasone 4 mg 04/23/20 18:00 04/26/20 11:11 Decadron SLOW IVP 4 mg Q6HR SONNY Administration Diltiazem HCl 30 mg 04/23/20 15:00 04/26/20 08:42 Cardizem PO 30 mg TID SONNY Administration Folic Acid 1 mg 04/23/20 09:00 04/26/20 08:42 Folvite PO 1 mg BID SONNY Administration Metronidazole 500 mg/ Device 100 mls @ 100 mls/hr 04/23/20 04:00 04/26/20 11: 40 IVPB 100 mls 0400,1200,2000 SONNY Administration Cefepime HCl 1 gm/ Sodium 100 mls @ 200 mls/hr 04/23/20 10:00 04/26/20 11:11 Chloride IVPB 100 mls 1000,2200 SONNY Administration Insulin Glargine 10 units/ 0.1 mls @ 0 mls/hr 04/26/20 09:00 04/26/20 08:43 Miscellaneous Medication SC 0.1 mls QAM SONNY Administration Insulin Human Lispro 0 units 04/23/20 01:31 04/23/20 20:59 Humalog SC 2 unit .BEDTIME SLIDING SC PRN Administration Bedtime Correctional Scale Insulin Human Regular 0 units 04/25/20 14:36 04/26/20 11:40 Humulin R SC 6 unit .MODERATE SLIDING SC PRN Administration Moderate Correctional Scale Lorazepam 1 mg 04/24/20 08:16 04/26/20 08:43 Ativan PO 1 mg DAILYPRN PRN Administration Claustrophobia Lorazepam 0.5 mg 04/24/20 08:16 04/24/20 11:14 Ativan PO 0.5 mg Q6H PRN Administration Anxiety Memantine 5 mg 04/25/20 09:00 04/26/20 08:42 Namenda PO 5 mg DAILY SONNY Administration Multivitamins 1 tab 04/23/20 09:00 04/26/20 08:42 Theragran PO 1 tab DAILY SONNY Administration Pantoprazole Sodium 40 mg 04/23/20 09:00 04/26/20 08:43 Protonix IVP 40 mg Q12HR SONNY Administration Potassium Chloride 20 meq 04/23/20 09:00 04/25/20 08:46 K-Dur PO 20 meq DAILY SONNY Administration Tramadol HCl 50 mg 04/23/20 08:50 04/24/20 13:54 Ultram PO 50 mg Q4H PRN Administration Moderate Pain (4-6) - Exam General Appearance: NAD Heart: RRR, no gallops Respiratory: no wheezes, no ronchi Gastrointestinal: non-tender, no guarding, no rigidity Extremities: no cyanosis Neurological: no new deficit Psychiatric: normal affect, A&O x 3 Hosp A/P - Plan PT/OT, DVT proph w/SCDs Abdominal pain/Proctocolitis C diff Colitis - POA Cauda equina syndrome causing B/L LE weakness Pancytopenia prob due to chemo/folic acid def Metastatic breast cancer Brain mets Physical deconditioning DM2 HTN Folic acid def Urinary incontinence -Zurita catheter placed per Dr Mccarthy PLAN: Start PO Vancomycin Await stool w/u Increase Lantus to 10 BID Cont IV Atbx for Colitis per GI Cont clear liqd diet Cont IV Dexamethasone for Brain mets Cont Radiation per NSG on Namenda per Dr Mccarthy
[2020-04-26] MEDS: Vancomycin HCl 25 MG/ML Oral PO SCH ×2 (15:56→20:36)
--- NOTE | 2020-04-26 17:20 | PRG ---
DATE OF SERVICE: SUBJECTIVE: Ms. Peña feels little bit better. She stools. She is less tender. She wants to eat. OBJECTIVE: VITAL SIGNS: Temperature is 98, pulse 81, blood pressure is 123/67. ABDOMEN: Soft and nontender. NEURO: She is awake, alert, oriented. LABORATORY DATA: White count 14, hemoglobin 9, platelet count 128. Sodium 134, potassium 4.3, BUN and creatinine are 9 and 0.54. Liver function tests normal except for alkaline phosphatase of 139. Stool C diff antigen positive, tox screen pending. Lactoferrin positive. E coli, Shiga toxin negative. Campylobacter, negative. Stool culture normal evans. ASSESSMENT: 1. Left-sided colitis with diarrhea. 2. Pancytopenia, likely related to chemotherapy. 3. Metastatic breast cancer, mets in liver without signs of hemodynamic compromise. Also, there was met to her spine with cauda equina syndrome and mets to the brain. RECOMMENDATIONS: We will shift therapy to C. diff. She has had several days of fluoroquinolone. This can stop. We will also add probiotic. Job ID: [id number]
[2020-04-26] MEDS: Heparin 5,000 UNITS/ML VIAL SC SCH (20:38)
[2020-04-26] MEDS: HYDROcodone/Acetaminophen 5/325 mg Tablet PO PRN (20:38)
[2020-04-26] MEDS: HumaLOG 300 UNITS/3 ML VIAL SC PRN (20:44)
[2020-04-26] MEDS ORDERED: Insulin Glargine 15 UNITS in Pre-Filled Syringe 1 EACH SC SCH (21:00)
[2020-04-26] MEDS ORDERED: Insulin Glargine 10 UNITS in Pre-Filled Syringe 1 EACH SC SCH (21:00)
[2020-04-27] MEDS: Vancomycin HCl 25 MG/ML Oral PO SCH ×4 (04:29→20:30)
[2020-04-27] MEDS: metroNIDAZOLE 500 MG in Premix Bag 1 BAG IVPB SCH ×3 (04:29→20:30)
[2020-04-27 05:01] LABS: ALT (SGPT) 18 U/L (8-55); AST (SGOT) 19 U/L (5-34); Albumin 3.3 g/dL (3.5-5.0); Alkaline Phosphatase 156 U/L (40-110); Anion Gap 9 mmol/L (10-20); BUN (Urea Nitrogen) 9 mg/dL (7.0-18.7); Bilirubin, Total 0.5 mg/dL (0.2-1.2); Calc. Creatinine Clearance 138 mL/min (70-130); Calcium 8.1 mg/dL (7.8-10.44); Carbon Dioxide 23 mmol/L (22-29); Chloride 106 mmol/L (98-107); Estimated GFR-MDRD Greater than 90; Globulin 2.5 g/dL (2.4-3.5); Glucose 312 mg/dL (70-105); Potassium 4.4 mmol/L (3.5-5.1); Protein, Total 5.8 g/dL (6.0-8.3); Sodium 134 mmol/L (136-145)
[2020-04-27 05:21] LABS: Anisocytosis SLIGHT = 6-15 cells (100X) (0-5/hpf); Band 24 % (5-11); Hemoglobin 10.6 g/dL (12.0-16.0); Lymphocytes 4 % (21-51); MDiff Complete? YES; Mean Corpuscular HGB CONC 32.5 g/dL (32.0-36.0); Mean Corpuscular Volume 98.3 fL (78.0-98.0); Mean Platelet Volume 8.5 fL (7.4-10.4); Metamyelocyte 1 % (0-0); Monocytes 4 % (0-10); Myelocyte 2 % (0-0); Neutrophil 65 % (42-75); Platelet Count 138 thou/uL (130-400); Platelet Morphology Comment Appears Adequate; Polychromasia SLIGHT = 2-3 cells (100X) (0-2/hpf); RBC Distribution Width 18.4 % (11.5-14.5); Red Blood Cell (RBC) Count 3.31 mill/uL (4.20-5.40); White Blood Cell (WBC) Count 18.9 thou/uL (4.8-10.8)
[2020-04-27] MEDS: Insulin Regular 300 UNITS/3 ML VIAL SC PRN ×2 (05:28→11:38)
[2020-04-27] MEDS: Dexamethasone 4 mg/ml Vial SLOW IVP SCH ×4 (05:28→23:53)
[2020-04-27] MEDS: Saccharomyces boulardii 250 MG CAP PO SCH ×2 (09:24→20:30)
[2020-04-27] MEDS: Heparin 5,000 UNITS/ML VIAL SC SCH ×3 (09:24→21:28)
[2020-04-27] MEDS: Pantoprazole 40 MG VIAL IVP SCH (09:24)
[2020-04-27] MEDS: Amiodarone 200 MG TAB PO SCH (09:24)
[2020-04-27] MEDS: Multivit, Therapeutic 1 TAB PO SCH (09:25)
[2020-04-27] MEDS: Folic Acid 1 MG TAB PO SCH ×2 (09:25→20:30)
[2020-04-27] MEDS: Insulin Glargine 20 UNITS in Pre-Filled Syringe 1 EACH SC SCH (10:03)
--- NOTE | 2020-04-27 10:44 | PDOC.HOSPP ---
- Subjective Encounter Date: 04/27/20 Encounter Time: 09:30 Subjective: Patient seen and examined for Colitis. Diarrhea improving. Tolerating full liqd diet. No new complaints. No overnight events - Objective Vital Signs & Weight: Vital Signs (12 hours) Temp Pulse Resp BP Pulse Ox 04/27/20 08:00 99.1 F 84 16 117/63 96 Weight Admit Weight 184 lb 1 oz Weight 184 lb 1 oz I&O: 04/26/20 04/27/20 04/28/20 06:59 06:59 06:59 Intake Total 800 2350 Output Total 900 3375 Balance -100 -1025 Result Diagrams: 04/27/20 04:11 04/27/20 04:11 Additional Labs: Accuchecks 04/26/20 04/26/20 04/26/20 20:32 16:02 11:01 POC Glucose 321 H 286 H 289 H Hospitalist ROS - Review of Systems Respiratory: denies: cough, dry, shortness of breath, hemoptysis, SOB with excertion, pleuritic pain, sputum, wheezing, other Cardiovascular: denies: chest pain, palpitations, orthopnea, paroxysmal noc. dyspnea, edema, light headedness, other - Medication Medications: Active Medications Generic Name Dose Route Start Last Admin Trade Name Freq PRN Reason Stop Dose Admin Acetaminophen 650 mg 04/23/20 01:18 04/23/20 08:21 Tylenol PO 650 mg Q4H PRN Administration Headache/Fever/Mild Pain (1-3) Hydrocodone Bitart/Acetaminophen 1 tab 04/24/20 08:16 04/26/20 20:38 [place] 5/325 PO 1 tab Q4H PRN Administration Moderate Pain (4-6) Amiodarone HCl 200 mg 04/23/20 09:00 04/27/20 09:24 Cordarone PO 200 mg DAILY SONNY Administration Dexamethasone 4 mg 04/23/20 18:00 04/27/20 05:28 Decadron SLOW IVP 4 mg Q6HR SONNY Administration Diltiazem HCl 30 mg 04/23/20 15:00 04/27/20 09:24 Cardizem PO 30 mg TID SONNY Administration Folic Acid 1 mg 04/23/20 09:00 04/27/20 09:25 Folvite PO 1 mg BID SONNY Administration Heparin Sodium (Porcine) 5,000 units 04/26/20 21:00 04/27/20 09:24 Heparin SC 5,000 units BID SONNY Administration Metronidazole 500 mg/ Device 100 mls @ 100 mls/hr 04/23/20 04:00 04/27/20 04: 29 IVPB 100 mls 0400,1200,2000 SONNY Administration Insulin Glargine 20 units/ 0.2 mls @ 0 mls/hr 04/27/20 09:00 04/27/20 10:03 Miscellaneous Medication SC 0.2 mls QAM SONNY Administration Insulin Human Lispro 0 units 04/23/20 01:31 04/26/20 20:44 Humalog SC 4 unit .BEDTIME SLIDING SC PRN Administration Bedtime Correctional Scale Insulin Human Regular 0 units 04/25/20 14:36 04/27/20 05:28 Humulin R SC 8 unit .MODERATE SLIDING SC PRN Administration Moderate Correctional Scale Lorazepam 1 mg 04/24/20 08:16 04/26/20 08:43 Ativan PO 1 mg DAILYPRN PRN Administration Claustrophobia Lorazepam 0.5 mg 04/24/20 08:16 04/24/20 11:14 Ativan PO 0.5 mg Q6H PRN Administration Anxiety Memantine 5 mg 04/25/20 09:00 04/27/20 09:25 Namenda PO 5 mg DAILY SONNY Administration Multivitamins 1 tab 04/23/20 09:00 04/27/20 09:25 Theragran PO 1 tab DAILY SONNY Administration Pantoprazole Sodium 40 mg 04/23/20 09:00 04/27/20 09:24 Protonix IVP 40 mg Q12HR SONNY Administration Potassium Chloride 20 meq 04/23/20 09:00 04/25/20 08:46 K-Dur PO 20 meq DAILY SONNY Administration Saccharomyces Boulardii 250 mg 04/26/20 21:00 04/27/20 09:24 Florastor PO 250 mg BID SONNY Administration Tramadol HCl 50 mg 04/23/20 08:50 04/24/20 13:54 Ultram PO 50 mg Q4H PRN Administration Moderate Pain (4-6) Vancomycin HCl 250 mg 04/27/20 09:00 04/27/20 10:03 First Vancomycin PO 250 mg 0300,0900,1500,2100 SONNY Administration - Exam General Appearance: NAD Neck: supple, no JVD Heart: RRR, no gallops Respiratory: no wheezes, no ronchi Gastrointestinal: non-tender, non-distended, no guarding, no rigidity Extremities: no cyanosis Neurological: no new deficit Psychiatric: normal affect, A&O x 3 Hosp A/P - Plan PT/OT, DVT proph w/heparin, DVT proph w/SCDs Abdominal pain due to C diff Colitis -on PO Vancomycin with IV Flagyl per GI Brain mets/Cauda equina syndrome causing B/L LE weakness -on IV Decadron -on Radiation -on Namenda per Dr Mccarthy Pancytopenia prob due to chemo/folic acid def -improving Metastatic breast cancer Physical deconditioning DM2 -uncontrolled HTN Urinary incontinence -Zurita catheter placed per Dr Mccarthy PLAN: Cont PO Vancomycin with IV Flagyl Increase Lantus dose Change sliding scale to aggressive Cont full liqd diet Cont IV Dexamethasone and Radiation per NSG Cont PT/OT AM labs
[2020-04-27] MEDS: HumaLOG 300 UNITS/3 ML VIAL SC PRN ×2 (16:52→21:26)
--- NOTE | 2020-04-27 16:58 | PRG ---
DATE OF SERVICE: 04/27/2020 SUBJECTIVE: Ms. Peña has only had 1 or 2 problems today. She states she has no pain. OBJECTIVE: VITAL SIGNS: Temperature 99, respirations 16, pulse 84, blood pressure 117/63. ABDOMEN: Soft, nontender. LABORATORY DATA: White count 14.4, up from 6 yesterday, hemoglobin is 9.3, platelet count 128, 78 segs, 7 bands. Sodium 134, potassium 4.4, BUN and creatinine 9 and 0.65. Liver function tests normal except for alkaline phosphatase . Magnesium is 2. ASSESSMENT: 1. Severe C diff colitis, improving. 2. Cauda equina syndrome secondary to mets. 3. brain mets as well. RECOMMENDATIONS: I think if she continues to improve, we can stop the IV Flagyl as her white blood cell count comes down. When she is discharged, she should go home on Saccharomyces boulardii for 3 months. Vancomycin 250 mg p.o. q.i.d. for 2 weeks and then taper to t.i.d. for a week, b.i.d. for a week, daily for a week, every other day for 7 doses, then every 3rd day for 7 doses as she is high risk for recurrence with metastatic cancer. We will sign off at this time. If I can be of any further assistance, please do not hesitate to contact me. Job ID: [id number]
[2020-04-27] MEDS: HYDROcodone/Acetaminophen 5/325 mg Tablet PO PRN (20:32)
[2020-04-27] MEDS ORDERED: Insulin Glargine 15 UNITS in Pre-Filled Syringe 1 EACH SC SCH (21:00)
[2020-04-27] MEDS ORDERED: Insulin Glargine 20 UNITS in Pre-Filled Syringe SC SCH (21:00)
[2020-04-27] MEDS: Lorazepam 0.5 MG TAB PO PRN (23:58)
--- NOTE | 2020-04-28 01:54 | PRG ---
DATE OF SERVICE: 04/27/2020 SUBJECTIVE: The patient is feeling somewhat better today with less diarrhea and no abdominal pain. Test for Clostridium difficile has been positive. Vital signs are temperature 99.1, pulse 84, respirations 16, and blood pressure 117/63. CBC today showed WBC 18.9, hemoglobin 10.6, and platelet 138,000. Her comprehensive metabolic profiles have an elevated glucose of 312, alkaline phosphatase of 156, and albumin of 3.3. ASSESSMENT AND RECOMMENDATION: Her Clostridium difficile seems to be improving. She will continue on the oral vancomycin. Decision on further chemotherapy will be made next week. Job ID: [id number]
[2020-04-28] MEDS: Vancomycin HCl 25 MG/ML Oral PO SCH ×4 (03:35→21:33)
[2020-04-28] MEDS: metroNIDAZOLE 500 MG in Premix Bag 1 BAG IVPB SCH ×3 (03:36→21:32)
[2020-04-28 04:29] LABS: ALT (SGPT) 18 U/L (8-55); AST (SGOT) 17 U/L (5-34); Albumin 3.2 g/dL (3.5-5.0); Alkaline Phosphatase 150 U/L (40-110); Anion Gap 10 mmol/L (10-20); BUN (Urea Nitrogen) 11 mg/dL (7.0-18.7); Bilirubin, Total 0.5 mg/dL (0.2-1.2); Calc. Creatinine Clearance 149 mL/min (70-130); Carbon Dioxide 24 mmol/L (22-29); Chloride 105 mmol/L (98-107); Estimated GFR-MDRD Greater than 90; Globulin 2.3 g/dL (2.4-3.5); Glucose 288 mg/dL (70-105); Potassium 4.4 mmol/L (3.5-5.1); Protein, Total 5.5 g/dL (6.0-8.3); Sodium 135 mmol/L (136-145)
[2020-04-28 04:31] LABS: Anisocytosis SLIGHT = 6-15 cells (100X) (0-5/hpf); Band 20 % (5-11); Hemoglobin 10.5 g/dL (12.0-16.0); Lymphocytes 4 % (21-51); MDiff Complete? YES; Mean Corpuscular HGB CONC 32.3 g/dL (32.0-36.0); Mean Corpuscular Hemoglobin 31.4 pg (27.0-31.0); Mean Corpuscular Volume 97.1 fL (78.0-98.0); Mean Platelet Volume 8.5 fL (7.4-10.4); Metamyelocyte 1 % (0-0); Monocytes 2 % (0-10); Myelocyte 1 % (0-0); Neutrophil 72 % (42-75); Platelet Count 118 thou/uL (130-400); Platelet Morphology Comment Appears Decreased; Polychromasia SLIGHT = 2-3 cells (100X) (0-2/hpf); RBC Distribution Width 18.4 % (11.5-14.5); Red Blood Cell (RBC) Count 3.36 mill/uL (4.20-5.40)
[2020-04-28] MEDS: Dexamethasone 4 mg/ml Vial SLOW IVP SCH ×3 (05:44→17:00)
[2020-04-28] MEDS: HumaLOG 300 UNITS/3 ML VIAL SC PRN ×4 (05:45→21:34)
[2020-04-28] MEDS: Amiodarone 200 MG TAB PO SCH (09:42)
[2020-04-28] MEDS: Folic Acid 1 MG TAB PO SCH ×2 (09:43→21:35)
[2020-04-28] MEDS: Heparin 5,000 UNITS/ML VIAL SC SCH ×3 (09:44→21:34)
[2020-04-28] MEDS: Insulin Glargine 20 UNITS in Pre-Filled Syringe 1 EACH SC SCH (09:45)
[2020-04-28] MEDS: Multivit, Therapeutic 1 TAB PO SCH (09:47)
[2020-04-28] MEDS: Saccharomyces boulardii 250 MG CAP PO SCH ×2 (09:47→21:32)
--- NOTE | 2020-04-28 12:56 | PRG ---
DATE OF SERVICE: 04/28/2020 SUBJECTIVE: Ms. Peña says no belly pain. She has less diarrhea. MEDICATIONS: 1. Tylenol. 2. Cardizem. 3. Folvite. 4. Heparin t.i.d. 5. [place]. 6. Insulin sliding scale. 7. Lorazepam. 8. Namenda. 9. Metronidazole 500 mg IV t.i.d. 10. Saccharomyces boulardii. 11. Tramadol. 12. Vancomycin 250 p.o. q.i.d. PHYSICAL EXAMINATION: VITAL SIGNS: Temperature is 98, pulse 87, blood pressure 130/64. ABDOMEN: Soft and nontender. ASSESSMENT: 1. Clostridium difficile colitis, improving. 2. Increased white blood cell count, likely related to dexamethasone that she is on for brain metastatic cancer. At this time, we will sign off. I can be of any further assistance in her care, please do not hesitate to contact me. Job ID: [id number]
--- NOTE | 2020-04-28 13:44 | PDOC.HOSPP ---
- Subjective Encounter Date: 04/28/20 Encounter Time: 13:00 Subjective: Patient seen and examined for C diff colitis. Diarrhea improving. Abd pain controlled. No new complaints. No overnight events - Objective Vital Signs & Weight: Vital Signs (12 hours) Temp Pulse Resp BP Pulse Ox 04/28/20 08:00 98.1 F 77 18 130/64 97 Weight Admit Weight 184 lb 1 oz Weight 184 lb 1 oz I&O: 04/27/20 04/28/20 04/29/20 06:59 06:59 06:59 Intake Total 2350 1920 Output Total 3375 750 Balance -1025 1170 Result Diagrams: 04/28/20 03:32 04/28/20 03:32 Additional Labs: Accuchecks 04/28/20 04/27/20 04/27/20 11:16 20:51 16:02 POC Glucose 312 H 281 H 336 H Hospitalist ROS - Review of Systems Respiratory: denies: cough, dry, shortness of breath, hemoptysis, SOB with excertion, pleuritic pain, sputum, wheezing, other Cardiovascular: denies: chest pain, palpitations, orthopnea, paroxysmal noc. dyspnea, edema, light headedness, other - Medication Medications: Active Medications Generic Name Dose Route Start Last Admin Trade Name Freq PRN Reason Stop Dose Admin Acetaminophen 650 mg 04/23/20 01:18 04/23/20 08:21 Tylenol PO 650 mg Q4H PRN Administration Headache/Fever/Mild Pain (1-3) Hydrocodone Bitart/Acetaminophen 1 tab 04/24/20 08:16 04/27/20 20:32 [place] 5/325 PO 1 tab Q4H PRN Administration Moderate Pain (4-6) Amiodarone HCl 200 mg 04/23/20 09:00 04/28/20 09:42 Cordarone PO 200 mg DAILY SONNY Administration Dexamethasone 4 mg 04/23/20 18:00 04/28/20 11:12 Decadron SLOW IVP 4 mg Q6HR SONNY Administration Diltiazem HCl 30 mg 04/23/20 15:00 04/28/20 09:42 Cardizem PO 30 mg TID SONNY Administration Folic Acid 1 mg 04/23/20 09:00 04/28/20 09:43 Folvite PO 1 mg BID SONNY Administration Metronidazole 500 mg/ Device 100 mls @ 100 mls/hr 04/23/20 04:00 04/28/20 11: 15 IVPB 100 mls 0400,1200,2000 SONNY Administration Insulin Human Lispro 0 units 04/23/20 01:31 04/27/20 21:26 Humalog SC 3 unit .BEDTIME SLIDING SC PRN Administration Bedtime Correctional Scale Insulin Human Lispro 0 units 04/27/20 13:09 04/28/20 11:17 Humalog SC 11 unit .AGGRESSIVE SLIDING PRN Administration Aggressive Correctional Scale Lorazepam 1 mg 04/24/20 08:16 04/26/20 08:43 Ativan PO 1 mg DAILYPRN PRN Administration Claustrophobia Lorazepam 0.5 mg 04/24/20 08:16 04/27/20 23:58 Ativan PO 0.5 mg Q6H PRN Administration Anxiety Memantine 5 mg 04/25/20 09:00 04/28/20 09:46 Namenda PO 5 mg DAILY SONNY Administration Multivitamins 1 tab 04/23/20 09:00 04/28/20 09:47 Theragran PO 1 tab DAILY SONNY Administration Pantoprazole Sodium 40 mg 04/27/20 21:00 04/28/20 09:47 Protonix PO 40 mg BID SONNY Administration Potassium Chloride 20 meq 04/23/20 09:00 04/25/20 08:46 K-Dur PO 20 meq DAILY SONNY Administration Saccharomyces Boulardii 250 mg 04/26/20 21:00 04/28/20 09:47 Florastor PO 250 mg BID SONNY Administration Tramadol HCl 50 mg 04/23/20 08:50 04/24/20 13:54 Ultram PO 50 mg Q4H PRN Administration Moderate Pain (4-6) Vancomycin HCl 250 mg 04/27/20 09:00 04/28/20 09:48 First Vancomycin PO 250 mg 0300,0900,1500,2100 SONNY Administration - Exam General Appearance: NAD Neck: supple, no JVD Heart: RRR, no gallops Respiratory: no wheezes, no ronchi Gastrointestinal: soft, non-tender, normal bowel sounds Extremities: no cyanosis Neurological: no new deficit Hosp A/P - Plan DVT proph w/SCDs Abdominal pain due to C diff Colitis -on PO Vancomycin with IV Flagyl per GI Brain mets/Cauda equina syndrome causing B/L LE weakness -on IV Decadron -on Radiation -on Namenda per Dr Mccarthy Pancytopenia prob due to chemo/folic acid def -improving Metastatic breast cancer Physical deconditioning DM2 -uncontrolled HTN Urinary incontinence -Zurita catheter placed per Dr Mccarthy PLAN: Cont PO Vancomycin with IV Flagyl Increase Lantus dose to 25 BID Change sliding scale to aggressive Advance diet Cont IV Dexamethasone and Radiation per NSG Cont PT/OT AM labs
[2020-04-28] MEDS: HYDROcodone/Acetaminophen 5/325 mg Tablet PO PRN (21:33)
[2020-04-28] MEDS: Dexamethasone 4 MG TAB PO SCH (21:34)
[2020-04-28] MEDS: Insulin Glargine 25 UNITS in Pre-Filled Syringe 1 EACH SC SCH (21:34)
[2020-04-29] MEDS: Vancomycin HCl 25 MG/ML Oral PO SCH ×4 (04:30→20:18)
[2020-04-29] MEDS: metroNIDAZOLE 500 MG in Premix Bag 1 BAG IVPB SCH ×3 (04:30→20:18)
[2020-04-29 04:55] LABS: ALT (SGPT) 18 U/L (8-55); AST (SGOT) 17 U/L (5-34); Alkaline Phosphatase 139 U/L (40-110); Anion Gap 10 mmol/L (10-20); BUN (Urea Nitrogen) 15 mg/dL (7.0-18.7); Bilirubin, Total 0.5 mg/dL (0.2-1.2); Calc. Creatinine Clearance 152 mL/min (70-130); Calcium 7.9 mg/dL (7.8-10.44); Carbon Dioxide 22 mmol/L (22-29); Chloride 105 mmol/L (98-107); Estimated GFR-MDRD Greater than 90; Globulin 2.3 g/dL (2.4-3.5); Glucose 304 mg/dL (70-105); Potassium 4.4 mmol/L (3.5-5.1); Protein, Total 5.3 g/dL (6.0-8.3); Sodium 133 mmol/L (136-145)
[2020-04-29] MEDS: HumaLOG 300 UNITS/3 ML VIAL SC PRN ×4 (05:39→20:20)
[2020-04-29 05:51] LABS: Band 9 % (5-11); Hemoglobin 10.4 g/dL (12.0-16.0); Lymphocytes 1 % (21-51); MDiff Complete? YES; Mean Corpuscular HGB CONC 31.9 g/dL (32.0-36.0); Mean Corpuscular Hemoglobin 31.3 pg (27.0-31.0); Mean Corpuscular Volume 97.9 fL (78.0-98.0); Mean Platelet Volume 9.1 fL (7.4-10.4); Metamyelocyte 2 % (0-0); Monocytes 4 % (0-10); Neutrophil 84 % (42-75); Platelet Count 105 thou/uL (130-400); Platelet Morphology Comment Appears Decreased; RBC Distribution Width 18.8 % (11.5-14.5); Red Blood Cell (RBC) Count 3.33 mill/uL (4.20-5.40); White Blood Cell (WBC) Count 12.3 thou/uL (4.8-10.8)
[2020-04-29] MEDS: Amiodarone 200 MG TAB PO SCH (08:13)
[2020-04-29] MEDS: Dexamethasone 4 MG TAB PO SCH ×3 (08:14→20:19)
[2020-04-29] MEDS: Heparin 5,000 UNITS/ML VIAL SC SCH ×3 (08:15→20:23)
[2020-04-29] MEDS: Folic Acid 1 MG TAB PO SCH ×2 (08:15→20:19)
[2020-04-29] MEDS: Insulin Glargine 25 UNITS in Pre-Filled Syringe 1 EACH SC SCH ×2 (08:15→20:23)
[2020-04-29] MEDS: Saccharomyces boulardii 250 MG CAP PO SCH ×2 (08:16→20:19)
[2020-04-29] MEDS: Multivit, Therapeutic 1 TAB PO SCH (08:16)
--- NOTE | 2020-04-29 11:02 | PRG ---
DATE OF SERVICE: 04/29/2020 Ms. Peña is going to get brain radiation today. Her C diff has markedly improved. We are going to sign off from a GI standpoint. Again, to reiterate, her treatment should include a slow vancomycin taper when she is discharged, to have a total of 14 days of oral vancomycin q.i.d. followed by a taper as outlined in my 04/27/2020 note over 6 weeks. If there are any questions, please do not hesitate to contact, GI Service would re-evaluate her. Job ID: [id number]
--- NOTE | 2020-04-29 12:52 | PDOC.HOSPP ---
- Subjective Encounter Date: 04/29/20 Encounter Time: 12:48 Subjective: alert, cooperative, GI issues improved - Objective Vital Signs & Weight: Vital Signs (12 hours) Temp Pulse Resp BP Pulse Ox 04/29/20 07:27 98 04/29/20 07:19 98.7 F 82 16 133/64 98 Weight Admit Weight 184 lb 1 oz Weight 184 lb 1 oz I&O: 04/28/20 04/29/20 04/30/20 06:59 06:59 06:59 Intake Total 1920 770 560 Output Total 750 750 900 Balance 1170 20 -340 Result Diagrams: 04/29/20 03:51 04/29/20 03:51 Additional Labs: Accuchecks 04/29/20 04/29/20 04/28/20 12:03 05:40 21:10 POC Glucose 293 H 281 H 310 H 04/28/20 17:00 POC Glucose 293 H Hospitalist ROS - Medication Medications: Active Medications Generic Name Dose Route Start Last Admin Trade Name Freq PRN Reason Stop Dose Admin Acetaminophen 650 mg 04/23/20 01:18 04/23/20 08:21 Tylenol PO 650 mg Q4H PRN Administration Headache/Fever/Mild Pain (1-3) Hydrocodone Bitart/Acetaminophen 1 tab 04/24/20 08:16 04/28/20 21:33 [place] 5/325 PO 1 tab Q4H PRN Administration Moderate Pain (4-6) Amiodarone HCl 200 mg 04/23/20 09:00 04/29/20 08:13 Cordarone PO 200 mg DAILY SONNY Administration Dexamethasone 4 mg 04/28/20 21:00 04/29/20 08:14 Decadron PO 4 mg TID SONNY Administration Diltiazem HCl 30 mg 04/23/20 15:00 04/29/20 08:14 Cardizem PO 30 mg TID SONNY Administration Folic Acid 1 mg 04/23/20 09:00 04/29/20 08:15 Folvite PO 1 mg BID SONNY Administration Heparin Sodium (Porcine) 5,000 units 04/28/20 15:00 04/29/20 08:15 Heparin SC 5,000 units TID SONNY Administration Metronidazole 500 mg/ Device 100 mls @ 100 mls/hr 04/23/20 04:00 04/29/20 04: 30 IVPB 100 mls 0400,1200,2000 SONNY Administration Insulin Glargine 25 units/ 0.25 mls @ 0 mls/hr 04/28/20 21:00 04/29/20 08:15 Miscellaneous Medication SC 0.25 mls BID SONNY Administration Insulin Human Lispro 0 units 04/23/20 01:31 04/28/20 21:34 Humalog SC 4 unit .BEDTIME SLIDING SC PRN Administration Bedtime Correctional Scale Insulin Human Lispro 0 units 04/27/20 13:09 04/29/20 11:59 Humalog SC 9 unit .AGGRESSIVE SLIDING PRN Administration Aggressive Correctional Scale Lorazepam 1 mg 04/24/20 08:16 04/26/20 08:43 Ativan PO 1 mg DAILYPRN PRN Administration Claustrophobia Lorazepam 0.5 mg 04/24/20 08:16 04/27/20 23:58 Ativan PO 0.5 mg Q6H PRN Administration Anxiety Memantine 5 mg 04/25/20 09:00 04/29/20 08:15 Namenda PO 5 mg DAILY SONNY Administration Multivitamins 1 tab 04/23/20 09:00 04/29/20 08:16 Theragran PO 1 tab DAILY SONNY Administration Pantoprazole Sodium 40 mg 04/27/20 21:00 04/29/20 08:16 Protonix PO 40 mg BID SONNY Administration Potassium Chloride 20 meq 04/23/20 09:00 04/25/20 08:46 K-Dur PO 20 meq DAILY SONNY Administration Saccharomyces Boulardii 250 mg 04/26/20 21:00 04/29/20 08:16 Florastor PO 250 mg BID SONNY Administration Tramadol HCl 50 mg 04/23/20 08:50 04/24/20 13:54 Ultram PO 50 mg Q4H PRN Administration Moderate Pain (4-6) Vancomycin HCl 250 mg 04/27/20 09:00 04/29/20 08:16 First Vancomycin PO 250 mg 0300,0900,1500,2100 SONNY Administration - Exam General Appearance: awake alert Neck: no JVD Heart: RRR, no murmur Respiratory: CTAB Gastrointestinal: soft, non-distended, normal bowel sounds Extremities: 1+ LE edema Hosp A/P (1) Colitis due to Clostridium difficile Code(s): A04.72 - ENTEROCOLITIS D/T CLOSTRIDIUM DIFFICILE, NOT SPCF RECUR Status: Acute (2) Anemia Code(s): D64.9 - ANEMIA, UNSPECIFIED Status: Acute Qualifiers: Anemia type: unspecified type Qualified Code(s): D64.9 - Anemia, unspecified (3) DM type 2 (diabetes mellitus, type 2) Status: Chronic Qualifiers: Diabetes mellitus intermediate insulin use: without intermediate use Diabetes mellitus complication status: without complication Qualified Code(s): E11.9 - Type 2 diabetes mellitus without complications (4) 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
[2020-04-29] MEDS: traMADol HCl 50 MG TAB PO PRN (17:23)
[2020-04-29] MEDS: Lorazepam 1 MG TAB PO PRN (21:29)
--- NOTE | 2020-04-30 00:39 | PDOC.EVN ---
Event Note - Event Note Event Note: Nurse called, irregular pulse, tachycardic, hx afib, no CP, VSS. Will get EKG and check lytes.
[2020-04-30] MEDS ORDERED: Metoprolol Tartrate 5 MG/5 ML VIAL IVP SCH (00:47)
[2020-04-30] MEDS: metroNIDAZOLE 500 MG in Premix Bag 1 BAG IVPB SCH ×3 (03:58→19:58)
[2020-04-30] MEDS: Vancomycin HCl 25 MG/ML Oral PO SCH ×4 (03:58→20:03)
[2020-04-30 04:30] LABS: Anion Gap 10 mmol/L (10-20); BUN (Urea Nitrogen) 13 mg/dL (7.0-18.7); Calc. Creatinine Clearance 155 mL/min (70-130); Carbon Dioxide 24 mmol/L (22-29); Chloride 104 mmol/L (98-107); Estimated GFR-MDRD Greater than 90; Glucose 283 mg/dL (70-105); Magnesium 1.9 mg/dL (1.6-2.6); Potassium 4.6 mmol/L (3.5-5.1); Sodium 133 mmol/L (136-145)
[2020-04-30 05:38] LABS: Anisocytosis SLIGHT = 6-15 cells (100X) (0-5/hpf); Band 13 % (5-11); Hemoglobin 11.5 g/dL (12.0-16.0); Lymphocytes 1 % (21-51); MDiff Complete? YES; Mean Corpuscular HGB CONC 31.2 g/dL (32.0-36.0); Mean Corpuscular Hemoglobin 30.9 pg (27.0-31.0); Mean Corpuscular Volume 98.9 fL (78.0-98.0); Mean Platelet Volume 8.8 fL (7.4-10.4); Monocytes 2 % (0-10); Neutrophil 84 % (42-75); Platelet Count 98 thou/uL (130-400); Platelet Morphology Comment Appears Decreased; RBC Distribution Width 18.7 % (11.5-14.5); Red Blood Cell (RBC) Count 3.73 mill/uL (4.20-5.40); Tear Drops SLIGHT = 2-5 cells (100X) (0-1/hpf); White Blood Cell (WBC) Count 11.3 thou/uL (4.8-10.8)
[2020-04-30] MEDS: HumaLOG 300 UNITS/3 ML VIAL SC PRN ×4 (06:03→20:05)
[2020-04-30] MEDS: Multivit, Therapeutic 1 TAB PO SCH (09:00)
[2020-04-30] MEDS: Heparin 5,000 UNITS/ML VIAL SC SCH ×3 (09:00→20:03)
[2020-04-30] MEDS: Saccharomyces boulardii 250 MG CAP PO SCH ×2 (09:00→20:02)
[2020-04-30] MEDS: Amiodarone 200 MG TAB PO SCH (09:00)
[2020-04-30] MEDS: Dexamethasone 4 MG TAB PO SCH ×3 (09:01→20:02)
[2020-04-30] MEDS: Folic Acid 1 MG TAB PO SCH ×2 (09:01→20:02)
[2020-04-30] MEDS: Insulin Glargine 25 UNITS in Pre-Filled Syringe 1 EACH SC SCH ×2 (09:27→20:03)
--- NOTE | 2020-04-30 11:46 | PDOC.HOSPP ---
- Subjective Encounter Date: 04/30/20 Encounter Time: 11:44 Subjective: doing ok - Objective Vital Signs & Weight: Vital Signs (12 hours) Temp Pulse Resp BP Pulse Ox 04/30/20 08:00 98.6 F 80 18 122/70 97 04/30/20 04:00 73 18 123/67 97 04/30/20 01:10 70 121/67 04/30/20 01:05 116 H 108/73 04/30/20 01:00 117 H 20 110/79 95 04/30/20 00:40 136 H 20 142/85 H 97 Weight Admit Weight 184 lb 1 oz Weight 184 lb 1 oz I&O: 04/29/20 04/30/20 05/01/20 06:59 06:59 06:59 Intake Total 770 1840 Output Total 750 2475 Balance 20 -635 Result Diagrams: 04/30/20 03:42 04/30/20 03:42 Additional Labs: Accuchecks 04/29/20 04/29/20 04/29/20 20:21 16:24 12:03 POC Glucose 277 H 324 H 293 H EKG Reviewed by me: Yes (Atrial fib with RVR) Hospitalist ROS - Medication Medications: Active Medications Generic Name Dose Route Start Last Admin Trade Name Freq PRN Reason Stop Dose Admin Acetaminophen 650 mg 04/23/20 01:18 04/23/20 08:21 Tylenol PO 650 mg Q4H PRN Administration Headache/Fever/Mild Pain (1-3) Hydrocodone Bitart/Acetaminophen 1 tab 04/24/20 08:16 04/28/20 21:33 [place] 5/325 PO 1 tab Q4H PRN Administration Moderate Pain (4-6) Amiodarone HCl 200 mg 04/23/20 09:00 04/30/20 09:00 Cordarone PO 200 mg DAILY SONNY Administration Dexamethasone 4 mg 04/28/20 21:00 04/30/20 09:01 Decadron PO 4 mg TID SONNY Administration Diltiazem HCl 30 mg 04/23/20 15:00 04/30/20 09:02 Cardizem PO 30 mg TID SONNY Administration Folic Acid 1 mg 04/23/20 09:00 04/30/20 09:01 Folvite PO 1 mg BID SONNY Administration Heparin Sodium (Porcine) 5,000 units 04/28/20 15:00 04/30/20 09:00 Heparin SC 5,000 units TID SONNY Administration Metronidazole 500 mg/ Device 100 mls @ 100 mls/hr 04/23/20 04:00 04/30/20 03: 58 IVPB 100 mls 0400,1200,2000 SONNY Administration Insulin Glargine 25 units/ 0.25 mls @ 0 mls/hr 04/28/20 21:00 04/30/20 09:27 Miscellaneous Medication SC 0.25 mls BID SONNY Administration Insulin Human Lispro 0 units 04/23/20 01:31 04/29/20 20:20 Humalog SC 3 unit .BEDTIME SLIDING SC PRN Administration Bedtime Correctional Scale Insulin Human Lispro 0 units 04/27/20 13:09 04/30/20 06:03 Humalog SC 9 unit .AGGRESSIVE SLIDING PRN Administration Aggressive Correctional Scale Lorazepam 1 mg 04/24/20 08:16 04/29/20 21:29 Ativan PO 1 mg DAILYPRN PRN Administration Claustrophobia Lorazepam 0.5 mg 04/24/20 08:16 04/27/20 23:58 Ativan PO 0.5 mg Q6H PRN Administration Anxiety Memantine 5 mg 04/25/20 09:00 04/30/20 09:01 Namenda PO 5 mg DAILY SONNY Administration Multivitamins 1 tab 04/23/20 09:00 04/30/20 09:00 Theragran PO 1 tab DAILY SONNY Administration Pantoprazole Sodium 40 mg 04/27/20 21:00 04/30/20 09:01 Protonix PO 40 mg BID SONNY Administration Potassium Chloride 20 meq 04/23/20 09:00 04/25/20 08:46 K-Dur PO 20 meq DAILY SONNY Administration Saccharomyces Boulardii 250 mg 04/26/20 21:00 04/30/20 09:00 Florastor PO 250 mg BID SONNY Administration Tramadol HCl 50 mg 04/23/20 08:50 04/29/20 17:23 Ultram PO 50 mg Q4H PRN Administration Moderate Pain (4-6) Vancomycin HCl 250 mg 04/27/20 09:00 04/30/20 09:01 First Vancomycin PO 250 mg 0300,0900,1500,2100 SONNY Administration - Exam General Appearance: awake alert Neck: no JVD Heart: RRR, no murmur Respiratory: CTAB Gastrointestinal: soft, non-tender, normal bowel sounds Extremities: no edema Hosp A/P (1) Colitis due to Clostridium difficile Code(s): A04.72 - ENTEROCOLITIS D/T CLOSTRIDIUM DIFFICILE, NOT SPCF RECUR Status: Acute (2) Anemia Code(s): D64.9 - ANEMIA, UNSPECIFIED Status: Acute Qualifiers: Anemia type: unspecified type Qualified Code(s): D64.9 - Anemia, unspecified (3) DM type 2 (diabetes mellitus, type 2) Status: Chronic Qualifiers: 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 Diabetes mellitus complication status: without complication Qualified Code(s): E11.9 - Type 2 diabetes mellitus without complications (4) 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
--- NOTE | 2020-04-30 15:55 | EKG ---
Test Reason : STAT Blood Pressure : / mmHG Vent. Rate : 139 BPM Atrial Rate : 125 BPM P-R Int : 000 ms QRS Dur : 068 ms QT Int : 298 ms P-R-T Axes : 000 -22 007 degrees QTc Int : 453 ms Atrial fibrillation with rapid ventricular response Low voltage QRS Abnormal ECG When compared with ECG of 22-APR-2020 16:46, (Unconfirmed) Atrial fibrillation has replaced Sinus rhythm Vent. rate has increased BY 46 BPM T wave inversion no longer evident in Anterior leads Confirmed by LYDIA FORMAN, DR. Whelan ([id number]) on 04/30/2020 3:54:48 PM Referred By: JEFERSON Confirmed By:DR. Tip FREEMAN MD
[2020-05-01] MEDS: Vancomycin HCl 25 MG/ML Oral PO SCH ×4 (03:54→20:03)
[2020-05-01] MEDS: metroNIDAZOLE 500 MG in Premix Bag 1 BAG IVPB SCH ×3 (03:54→19:53)
[2020-05-01] MEDS: HumaLOG 300 UNITS/3 ML VIAL SC PRN ×4 (05:06→19:57)
[2020-05-01] MEDS: Heparin 5,000 UNITS/ML VIAL SC SCH ×3 (09:07→19:53)
[2020-05-01] MEDS: Multivit, Therapeutic 1 TAB PO SCH (09:08)
[2020-05-01] MEDS: Folic Acid 1 MG TAB PO SCH ×2 (09:08→19:52)
[2020-05-01] MEDS: Dexamethasone 4 MG TAB PO SCH ×3 (09:08→19:52)
[2020-05-01] MEDS: Saccharomyces boulardii 250 MG CAP PO SCH ×2 (09:08→19:52)
[2020-05-01] MEDS: Amiodarone 200 MG TAB PO SCH (09:08)
[2020-05-01] MEDS: Insulin Glargine 25 UNITS in Pre-Filled Syringe 1 EACH SC SCH ×2 (09:09→19:53)
--- NOTE | 2020-05-01 10:02 | PDOC.HOSPP ---
- Subjective Encounter Date: 05/01/20 Encounter Time: 09:56 Subjective: no diarrhea. lags weak, stands with major assist - Objective Vital Signs & Weight: Vital Signs (12 hours) Temp Pulse Resp BP Pulse Ox 05/01/20 08:45 98.0 F 85 18 119/67 98 05/01/20 04:00 98.7 F 89 16 127/71 98 04/30/20 23:43 99.1 F 84 16 141/77 H 97 Weight Admit Weight 184 lb 1 oz Weight 184 lb 1 oz I&O: 04/30/20 05/01/20 05/02/20 06:59 06:59 06:59 Intake Total 1840 Output Total 3742 1100 Balance -914 -1100 Result Diagrams: 04/30/20 03:42 04/30/20 03:42 Additional Labs: Accuchecks 05/01/20 04/30/20 04/30/20 05:07 20:06 16:36 POC Glucose 218 H 296 H 277 H 04/30/20 11:24 POC Glucose 269 H Hospitalist ROS - Medication Medications: Active Medications Generic Name Dose Route Start Last Admin Trade Name Freq PRN Reason Stop Dose Admin Acetaminophen 650 mg 04/23/20 01:18 04/23/20 08:21 Tylenol PO 650 mg Q4H PRN Administration Headache/Fever/Mild Pain (1-3) Hydrocodone Bitart/Acetaminophen 1 tab 04/24/20 08:16 04/28/20 21:33 [place] 5/325 PO 1 tab Q4H PRN Administration Moderate Pain (4-6) Amiodarone HCl 200 mg 04/23/20 09:00 05/01/20 09:08 Cordarone PO 200 mg DAILY SONNY Administration Dexamethasone 4 mg 04/28/20 21:00 05/01/20 09:08 Decadron PO 4 mg TID SONNY Administration Diltiazem HCl 30 mg 04/23/20 15:00 05/01/20 09:08 Cardizem PO 30 mg TID SONNY Administration Folic Acid 1 mg 04/23/20 09:00 05/01/20 09:08 Folvite PO 1 mg BID SONNY Administration Heparin Sodium (Porcine) 5,000 units 04/28/20 15:00 05/01/20 09:07 Heparin SC 5,000 units TID SONNY Administration Metronidazole 500 mg/ Device 100 mls @ 100 mls/hr 04/23/20 04:00 05/01/20 03: 54 IVPB 100 mls 0400,1200,2000 SONNY Administration Insulin Glargine 25 units/ 0.25 mls @ 0 mls/hr 04/28/20 21:00 05/01/20 09:09 Miscellaneous Medication SC 0.25 mls BID SONNY Administration Insulin Human Lispro 0 units 04/23/20 01:31 04/30/20 20:05 Humalog SC 3 unit .BEDTIME SLIDING SC PRN Administration Bedtime Correctional Scale Insulin Human Lispro 0 units 04/27/20 13:09 05/01/20 05:06 Humalog SC 6 unit .AGGRESSIVE SLIDING PRN Administration Aggressive Correctional Scale Lorazepam 1 mg 04/24/20 08:16 04/29/20 21:29 Ativan PO 1 mg DAILYPRN PRN Administration Claustrophobia Lorazepam 0.5 mg 04/24/20 08:16 04/27/20 23:58 Ativan PO 0.5 mg Q6H PRN Administration Anxiety Memantine 5 mg 04/25/20 09:00 05/01/20 09:08 Namenda PO 5 mg DAILY SONNY Administration Multivitamins 1 tab 04/23/20 09:00 05/01/20 09:08 Theragran PO 1 tab DAILY SONNY Administration Pantoprazole Sodium 40 mg 04/27/20 21:00 05/01/20 09:08 Protonix PO 40 mg BID SONNY Administration Potassium Chloride 20 meq 04/23/20 09:00 04/25/20 08:46 K-Dur PO 20 meq DAILY SONNY Administration Saccharomyces Boulardii 250 mg 04/26/20 21:00 05/01/20 09:08 Florastor PO 250 mg BID SONNY Administration Tramadol HCl 50 mg 04/23/20 08:50 04/29/20 17:23 Ultram PO 50 mg Q4H PRN Administration Moderate Pain (4-6) Vancomycin HCl 250 mg 04/27/20 09:00 05/01/20 09:07 First Vancomycin PO 250 mg 0300,0900,1500,2100 SONNY Administration - Exam General Appearance: awake alert Neck: no JVD Heart: RRR, no murmur Respiratory: CTAB Gastrointestinal: soft, normal bowel sounds Extremities: 1+ LE edema Hosp A/P (1) Colitis due to Clostridium difficile Code(s): A04.72 - ENTEROCOLITIS D/T CLOSTRIDIUM DIFFICILE, NOT SPCF RECUR Status: Acute (2) Anemia Code(s): D64.9 - ANEMIA, UNSPECIFIED Status: Acute Qualifiers: Anemia type: unspecified type Qualified Code(s): D64.9 - Anemia, unspecified (3) DM type 2 (diabetes mellitus, type 2) Status: Chronic Qualifiers: Diabetes mellitus shelter insulin use: without shelter use Diabetes mellitus complication status: without complication Qualified Code(s): E11.9 - Type 2 diabetes mellitus without complications (4) 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
--- NOTE | 2020-05-01 10:41 | PDOC.MOPN ---
Interval History: better. Smiling, pain controlled. Diarrhea improving. - Vital Signs Vital Signs: Vital Signs (12 hours) Temp Pulse Resp BP Pulse Ox 05/01/20 08:45 98.0 F 85 18 119/67 98 05/01/20 04:00 98.7 F 89 16 127/71 98 04/30/20 23:43 99.1 F 84 16 141/77 H 97 Weight Admit Weight 184 lb 1 oz Weight 184 lb 1 oz - Physical Exam General: Alert Lungs: Normal air movement Neurological: Normal speech - Labs Result Diagrams: 04/30/20 03:42 04/30/20 03:42 Lab results: Laboratory Results - last 24 hr 05/01/20 05:07: POC Glucose 218 H 04/30/20 20:06: POC Glucose 296 H 04/30/20 16:36: POC Glucose 277 H 04/30/20 11:24: POC Glucose 269 H 04/27/20 13:20: E. histolytica Antigen Negative Status: lab reviewed by me A/P - Problem (1) Bilateral leg weakness Current Visit: Yes Code(s): R29.898 - OTH SYMPTOMS AND SIGNS INVOLVING THE MUSCULOSKELETAL SYSTEM Status: Acute (2) Pancytopenia Current Visit: Yes Code(s): D61.818 - OTHER PANCYTOPENIA Status: Acute (3) Metastatic breast cancer Current Visit: Yes Code(s): C50.919 - MALIGNANT NEOPLASM OF UNSP SITE OF UNSPECIFIED FEMALE BREAST Status: Chronic - Plan Plan: continue XRT per Dr. Mccarthy no chemo for now likely needs rehab once radiation completed disposition per Krista and Dr. Mccarthy. will sign off, call if needed.
[2020-05-01] MEDS: Lorazepam 0.5 MG TAB PO PRN (12:59)
[2020-05-02] MEDS: metroNIDAZOLE 500 MG in Premix Bag 1 BAG IVPB SCH ×3 (04:05→20:17)
[2020-05-02] MEDS: Vancomycin HCl 25 MG/ML Oral PO SCH ×4 (04:05→20:36)
[2020-05-02] MEDS: HumaLOG 300 UNITS/3 ML VIAL SC PRN ×4 (05:46→20:24)
[2020-05-02] MEDS: Heparin 5,000 UNITS/ML VIAL SC SCH ×3 (09:32→20:18)
[2020-05-02] MEDS: Folic Acid 1 MG TAB PO SCH ×2 (09:33→20:17)
[2020-05-02] MEDS: Dexamethasone 4 MG TAB PO SCH ×3 (09:33→20:17)
[2020-05-02] MEDS: Amiodarone 200 MG TAB PO SCH (09:34)
[2020-05-02] MEDS: Insulin Glargine 25 UNITS in Pre-Filled Syringe 1 EACH SC SCH ×2 (09:34→20:22)
[2020-05-02] MEDS: Multivit, Therapeutic 1 TAB PO SCH (09:37)
[2020-05-02] MEDS: Saccharomyces boulardii 250 MG CAP PO SCH ×2 (09:38→20:17)
--- NOTE | 2020-05-02 09:42 | PDOC.HOSPP ---
- Subjective Encounter Date: 05/02/20 Encounter Time: 09:39 Subjective: no complaints - Objective Vital Signs & Weight: Weight Admit Weight 184 lb 1 oz Weight 184 lb 1 oz I&O: 05/01/20 05/02/20 05/03/20 06:59 06:59 06:59 Intake Total 440 Output Total 1100 500 Balance -1100 -60 Result Diagrams: 04/30/20 03:42 04/30/20 03:42 Additional Labs: Accuchecks 05/02/20 05/01/20 05/01/20 05:48 20:01 16:19 POC Glucose 248 H 310 H 283 H 05/01/20 11:48 POC Glucose 308 H Hospitalist ROS - Medication Medications: Active Medications Generic Name Dose Route Start Last Admin Trade Name Freq PRN Reason Stop Dose Admin Acetaminophen 650 mg 04/23/20 01:18 04/23/20 08:21 Tylenol PO 650 mg Q4H PRN Administration Headache/Fever/Mild Pain (1-3) Hydrocodone Bitart/Acetaminophen 1 tab 04/24/20 08:16 04/28/20 21:33 [place] 5/325 PO 1 tab Q4H PRN Administration Moderate Pain (4-6) Amiodarone HCl 200 mg 04/23/20 09:00 05/01/20 09:08 Cordarone PO 200 mg DAILY SONNY Administration Dexamethasone 4 mg 04/28/20 21:00 05/01/20 19:52 Decadron PO 4 mg TID SONNY Administration Diltiazem HCl 30 mg 04/23/20 15:00 05/01/20 19:52 Cardizem PO 30 mg TID SONNY Administration Folic Acid 1 mg 04/23/20 09:00 05/01/20 19:52 Folvite PO 1 mg BID SONNY Administration Heparin Sodium (Porcine) 5,000 units 04/28/20 15:00 05/01/20 19:53 Heparin SC 5,000 units TID SONNY Administration Metronidazole 500 mg/ Device 100 mls @ 100 mls/hr 04/23/20 04:00 05/02/20 04: 05 IVPB 100 mls 0400,1200,2000 SONNY Administration Insulin Glargine 25 units/ 0.25 mls @ 0 mls/hr 04/28/20 21:00 05/01/20 19:53 Miscellaneous Medication SC 0.25 mls BID SONNY Administration Insulin Human Lispro 0 units 04/23/20 01:31 05/01/20 19:57 Humalog SC 4 unit .BEDTIME SLIDING SC PRN Administration Bedtime Correctional Scale Insulin Human Lispro 0 units 04/27/20 13:09 05/02/20 05:46 Humalog SC 9 unit .AGGRESSIVE SLIDING PRN Administration Aggressive Correctional Scale Lorazepam 1 mg 04/24/20 08:16 04/29/20 21:29 Ativan PO 1 mg DAILYPRN PRN Administration Claustrophobia Lorazepam 0.5 mg 04/24/20 08:16 05/01/20 12:59 Ativan PO 0.5 mg Q6H PRN Administration Anxiety Multivitamins 1 tab 04/23/20 09:00 05/01/20 09:08 Theragran PO 1 tab DAILY SONNY Administration Pantoprazole Sodium 40 mg 04/27/20 21:00 05/01/20 19:52 Protonix PO 40 mg BID SONNY Administration Potassium Chloride 20 meq 04/23/20 09:00 04/25/20 08:46 K-Dur PO 20 meq DAILY SONNY Administration Saccharomyces Boulardii 250 mg 04/26/20 21:00 05/01/20 19:52 Florastor PO 250 mg BID SONNY Administration Tramadol HCl 50 mg 04/23/20 08:50 04/29/20 17:23 Ultram PO 50 mg Q4H PRN Administration Moderate Pain (4-6) Vancomycin HCl 250 mg 04/27/20 09:00 05/02/20 04:05 First Vancomycin PO 250 mg 0300,0900,1500,2100 SONNY Administration - Exam General Appearance: awake alert Neck: no JVD Heart: RRR, no murmur Respiratory: CTAB Gastrointestinal: soft, non-distended, no palpable masses Extremities: no edema Hosp A/P (1) Colitis due to Clostridium difficile Code(s): A04.72 - ENTEROCOLITIS D/T CLOSTRIDIUM DIFFICILE, NOT SPCF RECUR Status: Acute (2) Anemia Code(s): D64.9 - ANEMIA, UNSPECIFIED Status: Acute Qualifiers: Anemia type: unspecified type Qualified Code(s): D64.9 - Anemia, unspecified (3) DM type 2 (diabetes mellitus, type 2) Status: Chronic Qualifiers: Diabetes mellitus 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 Diabetes mellitus complication status: without complication Qualified Code(s): E11.9 - Type 2 diabetes mellitus without complications (4) 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
[2020-05-03] MEDS: Vancomycin HCl 25 MG/ML Oral PO SCH ×4 (03:33→20:33)
[2020-05-03] MEDS: metroNIDAZOLE 500 MG in Premix Bag 1 BAG IVPB SCH (03:33)
[2020-05-03] MEDS: HumaLOG 300 UNITS/3 ML VIAL SC PRN ×4 (05:11→21:04)
[2020-05-03] MEDS: Dexamethasone 4 MG TAB PO SCH ×3 (08:54→20:32)
[2020-05-03] MEDS: Saccharomyces boulardii 250 MG CAP PO SCH ×2 (08:54→20:32)
[2020-05-03] MEDS: Multivit, Therapeutic 1 TAB PO SCH (08:54)
[2020-05-03] MEDS: Folic Acid 1 MG TAB PO SCH ×2 (08:54→20:32)
[2020-05-03] MEDS: Amiodarone 200 MG TAB PO SCH (08:54)
[2020-05-03] MEDS: Heparin 5,000 UNITS/ML VIAL SC SCH ×3 (08:55→20:18)
[2020-05-03] MEDS: Insulin Glargine 25 UNITS in Pre-Filled Syringe 1 EACH SC SCH ×2 (08:56→21:03)
[2020-05-03] MEDS: HumaLOG 300 UNITS/3 ML VIAL SC SCH ×2 (11:51→17:56)
--- NOTE | 2020-05-03 14:05 | PDOC.HOSPP ---
- Subjective Encounter Date: 05/03/20 Encounter Time: 11:30 Subjective: pt up in bed no complains but does not have much mobility. - Objective Vital Signs & Weight: Vital Signs (12 hours) Temp Pulse Resp BP Pulse Ox 05/03/20 08:55 95 05/03/20 08:00 98.1 F 86 18 116/60 95 05/03/20 04:00 82 Weight Admit Weight 184 lb 1 oz Weight 184 lb 1 oz I&O: 05/02/20 05/03/20 05/04/20 06:59 06:59 06:59 Intake Total 440 1400 Output Total 500 1050 Balance -60 350 Result Diagrams: 04/30/20 03:42 04/30/20 03:42 Additional Labs: Accuchecks 05/03/20 05/03/20 05/02/20 10:59 05:13 20:28 POC Glucose 294 H 244 H 311 H 05/02/20 16:41 POC Glucose 309 H Hospitalist ROS - Review of Systems Cardiovascular: denies: chest pain, palpitations, orthopnea, paroxysmal noc. dyspnea, edema, light headedness, other Gastrointestinal: denies: nausea, vomiting, abdominal pain, diarrhea, constipation, melena, hematochezia, other Other: pt not able to move her lower ext much. - Medication Medications: Active Medications Generic Name Dose Route Start Last Admin Trade Name Freq PRN Reason Stop Dose Admin Acetaminophen 650 mg 04/23/20 01:18 04/23/20 08:21 Tylenol PO 650 mg Q4H PRN Administration Headache/Fever/Mild Pain (1-3) Hydrocodone Bitart/Acetaminophen 1 tab 04/24/20 08:16 04/28/20 21:33 [place] 5/325 PO 1 tab Q4H PRN Administration Moderate Pain (4-6) Amiodarone HCl 200 mg 04/23/20 09:00 05/03/20 08:54 Cordarone PO 200 mg DAILY SONNY Administration Dexamethasone 4 mg 04/28/20 21:00 05/03/20 08:54 Decadron PO 4 mg TID SONNY Administration Diltiazem HCl 30 mg 04/23/20 15:00 05/03/20 08:54 Cardizem PO 30 mg TID SONNY Administration Folic Acid 1 mg 04/23/20 09:00 05/03/20 08:54 Folvite PO 1 mg BID SONNY Administration Heparin Sodium (Porcine) 5,000 units 04/28/20 15:00 05/03/20 08:55 Heparin SC Not Given TID SONNY Insulin Glargine 25 units/ 0.25 mls @ 0 mls/hr 04/28/20 21:00 05/03/20 08:56 Miscellaneous Medication SC 0.25 mls BID SONNY Administration Insulin Human Lispro 0 units 04/23/20 01:31 05/02/20 20:24 Humalog SC 4 unit .BEDTIME SLIDING SC PRN Administration Bedtime Correctional Scale Insulin Human Lispro 0 units 04/27/20 13:09 05/03/20 11:52 Humalog SC 9 unit .AGGRESSIVE SLIDING PRN Administration Aggressive Correctional Scale Insulin Human Lispro 5 units 05/03/20 12:00 05/03/20 11:51 Humalog SC 5 unit TID-WM SNONY Administration Lorazepam 1 mg 04/24/20 08:16 04/29/20 21:29 Ativan PO 1 mg DAILYPRN PRN Administration Claustrophobia Lorazepam 0.5 mg 04/24/20 08:16 05/01/20 12:59 Ativan PO 0.5 mg Q6H PRN Administration Anxiety Memantine 5 mg 05/02/20 09:00 05/03/20 08:54 Namenda PO 5 mg BID SONNY Administration Multivitamins 1 tab 04/23/20 09:00 05/03/20 08:54 Theragran PO 1 tab DAILY SONNY Administration Pantoprazole Sodium 40 mg 04/27/20 21:00 05/03/20 08:54 Protonix PO 40 mg BID SONNY Administration Potassium Chloride 20 meq 04/23/20 09:00 04/25/20 08:46 K-Dur PO 20 meq DAILY SONNY Administration Saccharomyces Boulardii 250 mg 04/26/20 21:00 05/03/20 08:54 Florastor PO 250 mg BID SONNY Administration Vancomycin HCl 250 mg 04/27/20 09:00 05/03/20 08:54 First Vancomycin PO 250 mg 0300,0900,1500,2100 SONNY Administration - Exam Neck: negative: supple, symmetric, no JVD, no thyromegaly, no lymphadenopathy, no carotid bruit, JVD Heart: negative: RRR, no murmur, no gallops, no rubs, normal peripheral pulses, irregular, diminshed peripheral pulses, murmur present, II/IV, III/IV Respiratory: negative: CTAB, no wheezes, no rales, no ronchi, normal chest expansion, no tachypnea, normal percussion, rales, rhonchi, tachypneic, wheezes Gastrointestinal: negative: soft, non-tender, non-distended, normal bowel sounds , no palpable masses, no hepatomegaly, no splenomegaly, no bruit, no guarding, no rigidity, tender to palpation, distended, diminished bowl sounds, voluntary guarding Extremities - other findings: weak to her bilateral lower ext, sensation intact Hosp A/P (1) Bilateral leg weakness Code(s): R29.898 - OT SYMPTOMS AND SIGNS INVOLVING THE MUSCULOSKELETAL SYSTEM Status: Acute (2) 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 Code(s): C50.919 - MALIGNANT NEOPLASM OF UNSP SITE OF UNSPECIFIED FEMALE BREAST ; C79.49 - SECONDARY MALIGNANT NEOPLASM OF OTH PARTS OF NERVOUS SYSTEM Status : Acute (3) Colitis due to Clostridium difficile Code(s): A04.72 - ENTEROCOLITIS D/T CLOSTRIDIUM DIFFICILE, NOT SPCF RECUR Status: Acute (4) DM type 2 (diabetes mellitus, type 2) Status: Chronic Qualifiers: Diabetes mellitus halfway insulin use: without halfway use Diabetes mellitus complication status: without complication Qualified Code(s): E11.9 - Type 2 diabetes mellitus without complications (5) Moderate protein-calorie malnutrition Code(s): E44.0 - MODERATE PROTEIN-CALORIE MALNUTRITION Status: Acute (6) Physical deconditioning Code(s): R53.81 - OTHER MALAISE Status: Chronic - Plan 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 she also has intramedullary metastatic disease. she was seen by NS and no intervention but will need to continue radiation. will continue steroids. pt's blood sugars are darin will adjust insulin. will make sure she has PT and OT. pt has no more diarrhea.
[2020-05-03] MEDS: HYDROcodone/Acetaminophen 5/325 mg Tablet PO PRN (20:32)
[2020-05-04] MEDS: Vancomycin HCl 25 MG/ML Oral PO SCH ×4 (04:18→20:55)
[2020-05-04 04:21] LABS: #Lymphocytes 0.1 thou/uL (1.20-3.40); #Monocytes 0.9 thou/uL (0.11-0.59); #Neutrophils 11.7 thou/uL (1.40-6.50); %Eosinophils 0.1 % (0.0-10.0); %Lymphocytes 0.7 % (21.0-51.0); %Monocytes 6.7 % (0.0-10.0); %Neutrophils 92.5 % (42.0-75.0); Hemoglobin 11.9 g/dL (12.0-16.0); Mean Corpuscular HGB CONC 32.9 g/dL (32.0-36.0); Mean Corpuscular Hemoglobin 31.8 pg (27.0-31.0); Mean Corpuscular Volume 96.7 fL (78.0-98.0); Mean Platelet Volume 10.4 fL (7.4-10.4); Platelet Count 67 thou/uL (130-400); RBC Distribution Width 19.2 % (11.5-14.5); Red Blood Cell (RBC) Count 3.76 mill/uL (4.20-5.40); White Blood Cell (WBC) Count 12.7 thou/uL (4.8-10.8)
[2020-05-04 04:38] LABS: Anion Gap 10 mmol/L (10-20); BUN (Urea Nitrogen) 14 mg/dL (7.0-18.7); Calc. Creatinine Clearance 169 mL/min (70-130); Calcium 7.7 mg/dL (7.8-10.44); Carbon Dioxide 23 mmol/L (22-29); Chloride 104 mmol/L (98-107); Estimated GFR-MDRD Greater than 90; Glucose 287 mg/dL (70-105); Potassium 4.8 mmol/L (3.5-5.1); Sodium 132 mmol/L (136-145)
[2020-05-04] MEDS: Folic Acid 1 MG TAB PO SCH ×2 (08:13→20:55)
[2020-05-04] MEDS: Saccharomyces boulardii 250 MG CAP PO SCH ×2 (08:13→20:55)
[2020-05-04] MEDS: Amiodarone 200 MG TAB PO SCH (08:13)
[2020-05-04] MEDS: Dexamethasone 4 MG TAB PO SCH ×3 (08:14→20:56)
[2020-05-04] MEDS: HumaLOG 300 UNITS/3 ML VIAL SC PRN ×4 (08:14→20:57)
[2020-05-04] MEDS: HumaLOG 300 UNITS/3 ML VIAL SC SCH ×3 (08:14→16:58)
[2020-05-04] MEDS: Aspirin 81 mg Enteric Coated Tablet PO SCH (08:15)
[2020-05-04] MEDS: Heparin 5,000 UNITS/ML VIAL SC SCH ×3 (08:15→20:51)
[2020-05-04] MEDS: Multivit, Therapeutic 1 TAB PO SCH (08:17)
[2020-05-04] MEDS: Insulin Glargine 25 UNITS in Pre-Filled Syringe 1 EACH SC SCH ×2 (08:37→20:56)
[2020-05-04] MEDS ORDERED: Lorazepam 1 MG TAB PO PRN (18:57)
[2020-05-04] MEDS ORDERED: Lorazepam 0.5 MG TAB PO PRN (18:57)
[2020-05-04] MEDS: HYDROcodone/Acetaminophen 5/325 mg Tablet PO PRN (19:19)
[2020-05-05] MEDS: Vancomycin HCl 25 MG/ML Oral PO SCH ×4 (03:49→21:19)
[2020-05-05] MEDS: Ondansetron PF 4 MG/2 ML Vial IVP PRN ×2 (04:08→21:23)
[2020-05-05] MEDS ORDERED: Sodium Chloride 0.9% 500 ML IV SCH (05:45)
[2020-05-05 06:22] LABS: #Lymphocytes 0.1 thou/uL (1.20-3.40); #Neutrophils 11.8 thou/uL (1.40-6.50); %Basophils 0.2 % (0.0-1.0); %Lymphocytes 0.6 % (21.0-51.0); %Monocytes 7.6 % (0.0-10.0); %Neutrophils 91.5 % (42.0-75.0); Hemoglobin 11.9 g/dL (12.0-16.0); Mean Corpuscular HGB CONC 32.8 g/dL (32.0-36.0); Mean Corpuscular Hemoglobin 31.7 pg (27.0-31.0); Mean Corpuscular Volume 96.7 fL (78.0-98.0); Mean Platelet Volume 10.8 fL (7.4-10.4); Platelet Count 59 thou/uL (130-400); RBC Distribution Width 19.4 % (11.5-14.5); Red Blood Cell (RBC) Count 3.76 mill/uL (4.20-5.40); White Blood Cell (WBC) Count 12.9 thou/uL (4.8-10.8)
[2020-05-05 06:41] LABS: Anion Gap 9 mmol/L (10-20); BUN (Urea Nitrogen) 17 mg/dL (7.0-18.7); Calc. Creatinine Clearance 183 mL/min (70-130); Calcium 7.5 mg/dL (7.8-10.44); Carbon Dioxide 23 mmol/L (22-29); Chloride 102 mmol/L (98-107); Estimated GFR-MDRD Greater than 90; Glucose 241 mg/dL (70-105); Potassium 4.7 mmol/L (3.5-5.1); Sodium 129 mmol/L (136-145)
[2020-05-05] MEDS: Heparin 5,000 UNITS/ML VIAL SC SCH ×3 (07:50→21:14)
[2020-05-05] MEDS: Insulin Glargine 25 UNITS in Pre-Filled Syringe 1 EACH SC SCH ×2 (08:42→21:18)
[2020-05-05] MEDS: HumaLOG 300 UNITS/3 ML VIAL SC SCH ×3 (08:43→16:48)
[2020-05-05] MEDS: Amiodarone 200 MG TAB PO SCH (08:43)
[2020-05-05] MEDS: Folic Acid 1 MG TAB PO SCH ×2 (08:43→21:18)
[2020-05-05] MEDS: Saccharomyces boulardii 250 MG CAP PO SCH ×2 (08:43→21:18)
[2020-05-05] MEDS: Aspirin 81 mg Enteric Coated Tablet PO SCH (08:43)
[2020-05-05] MEDS: Multivit, Therapeutic 1 TAB PO SCH (08:43)
[2020-05-05] MEDS: Dexamethasone 4 MG TAB PO SCH ×3 (08:43→21:18)
[2020-05-05] MEDS: HumaLOG 300 UNITS/3 ML VIAL SC PRN ×4 (08:44→21:19)
[2020-05-05] MEDS: Polyethylene Glycol 3350 17 GM Packet PO SCH (10:00)
[2020-05-05] MEDS: Senokot S 8.6-50 MG TAB PO SCH ×2 (10:00→21:19)
--- NOTE | 2020-05-05 17:20 | PDOC.HOSPP ---
- Subjective Encounter Date: 05/04/20 Encounter Time: 15:00 Subjective: pt up in bed no complains, she still cannot process planner much of her lower ext - Objective Vital Signs & Weight: Vital Signs (12 hours) Temp Pulse Resp BP Pulse Ox 05/05/20 08:00 98.8 F 99 16 122/70 97 Weight Admit Weight 184 lb 1 oz Weight 184 lb 1 oz I&O: 05/04/20 05/05/20 05/06/20 06:59 06:59 06:59 Intake Total 1687 1020 1362 Output Total 700 750 400 Balance 987 270 962 Result Diagrams: 05/05/20 06:07 05/05/20 06:07 Additional Labs: Accuchecks 05/05/20 05/05/20 05/05/20 16:29 11:33 05:10 POC Glucose 225 H 210 H 227 H 05/04/20 05/04/20 20:50 16:52 POC Glucose 301 H 289 H Hospitalist ROS - Review of Systems Cardiovascular: denies: chest pain, palpitations, orthopnea, paroxysmal noc. dyspnea, edema, light headedness, other Gastrointestinal: denies: nausea, vomiting, abdominal pain, diarrhea, constipation, melena, hematochezia, other Genitourinary: denies: dysuria, frequency, incontinence, hematuria, retention, other - Medication Medications: Active Medications Generic Name Dose Route Start Last Admin Trade Name Freq PRN Reason Stop Dose Admin Acetaminophen 650 mg 04/23/20 01:18 04/23/20 08:21 Tylenol PO 650 mg Q4H PRN Administration Headache/Fever/Mild Pain (1-3) Hydrocodone Bitart/Acetaminophen 1 tab 05/04/20 18:58 05/04/20 19:19 [place] 5/325 PO 1 tab Q4H PRN Administration Fever/Mild Pain Amiodarone HCl 200 mg 04/23/20 09:00 05/05/20 08:43 Cordarone PO 200 mg DAILY SONNY Administration Aspirin 81 mg 05/04/20 09:00 05/05/20 08:43 Ecotrin PO 81 mg DAILY SONNY Administration Dexamethasone 4 mg 04/28/20 21:00 05/05/20 15:05 Decadron PO 4 mg TID SONNY Administration Diltiazem HCl 30 mg 04/23/20 15:00 05/05/20 15:05 Cardizem PO 30 mg TID SONNY Administration Folic Acid 1 mg 04/23/20 09:00 05/05/20 08:43 Folvite PO 1 mg BID SONNY Administration Heparin Sodium (Porcine) 5,000 units 04/28/20 15:00 05/05/20 15:06 Heparin SC Not Given TID SONNY Insulin Glargine 25 units/ 0.25 mls @ 0 mls/hr 04/28/20 21:00 05/05/20 08:42 Miscellaneous Medication SC 0.25 mls BID SONNY Administration Insulin Human Lispro 0 units 04/23/20 01:31 05/04/20 20:57 Humalog SC 4 unit .BEDTIME SLIDING SC PRN Administration Bedtime Correctional Scale Insulin Human Lispro 0 units 04/27/20 13:09 05/05/20 16:48 Humalog SC 6 unit .AGGRESSIVE SLIDING PRN Administration Aggressive Correctional Scale Insulin Human Lispro 5 units 05/03/20 12:00 05/05/20 16:48 Humalog SC 5 unit TID-WM SONNY Administration Memantine 5 mg 05/02/20 09:00 05/05/20 08:43 Namenda PO 5 mg BID SONNY Administration Multivitamins 1 tab 04/23/20 09:00 05/05/20 08:43 Theragran PO 1 tab DAILY SONNY Administration Ondansetron HCl 4 mg 05/05/20 04:04 05/05/20 04:08 Zofran IVP 4 mg Q6H PRN Administration Nausea/Vomiting Pantoprazole Sodium 40 mg 04/27/20 21:00 05/05/20 08:43 Protonix PO 40 mg BID SONNY Administration Polyethylene Glycol 17 gm 05/05/20 09:00 05/05/20 10:00 Miralax PO 17 gm DAILY SONNY Administration Potassium Chloride 20 meq 04/23/20 09:00 04/25/20 08:46 K-Dur PO 20 meq DAILY SONNY Administration Saccharomyces Boulardii 250 mg 04/26/20 21:00 05/05/20 08:43 Florastor PO 250 mg BID SONNY Administration Senna/Docusate Sodium 1 tab 05/05/20 09:00 05/05/20 10:00 Senokot S PO 1 tab BID SONNY Administration Sodium Chloride 10 ml 04/23/20 01:18 05/05/20 05:52 Flush - Normal Saline IVF 10 ml PRN PRN Administration Saline Flush Vancomycin HCl 250 mg 04/27/20 09:00 05/05/20 15:05 First Vancomycin PO 250 mg 0300,0900,1500,2100 SONNY Administration - Exam Heart: negative: RRR, no murmur, no gallops, no rubs, normal peripheral pulses, irregular, diminshed peripheral pulses, murmur present, II/IV, III/IV Respiratory: negative: CTAB, no wheezes, no rales, no ronchi, normal chest expansion, no tachypnea, normal percussion, rales, rhonchi, tachypneic, wheezes Gastrointestinal: soft, normal bowel sounds Extremities: 1+ LE edema Neurological - other findings: minimal movement of bilateral lower ext 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 Code(s): C50.919 - MALIGNANT NEOPLASM OF UNSP SITE OF UNSPECIFIED FEMALE BREAST ; C79.49 - SECONDARY MALIGNANT NEOPLASM OF OTH PARTS OF NERVOUS SYSTEM Status : Acute (3) Colitis due to Clostridium difficile Code(s): A04.72 - ENTEROCOLITIS D/T CLOSTRIDIUM DIFFICILE, NOT SPCF RECUR Status: Acute (4) DM type 2 (diabetes mellitus, type 2) Status: Chronic Qualifiers: Diabetes mellitus halfway insulin use: without architectural superintendent use Diabetes mellitus complication status: without complication Qualified Code(s): E11.9 - Type 2 diabetes mellitus without complications (5) Moderate protein-calorie malnutrition Code(s): E44.0 - MODERATE PROTEIN-CALORIE MALNUTRITION Status: Acute (6) Physical deconditioning Code(s): R53.81 - OTHER MALAISE Status: Chronic - Plan 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 she also has intramedullary metastatic disease. she was seen by NS and no intervention but will need to continue radiation. will continue steroids. pt's blood sugars are high will adjust insulin. will make sure she has PT and OT. pt has no more diarrhea. 05/04 will continue pain meds. will add prn stool softeners. pt to resume her radiation in am. She is on steroids.
--- NOTE | 2020-05-05 17:25 | PDOC.HOSPP ---
- Subjective Encounter Date: 05/05/20 Encounter Time: 16:00 Subjective: pt up in bed no complains - Objective Vital Signs & Weight: Vital Signs (12 hours) Temp Pulse Resp BP Pulse Ox 05/05/20 08:00 98.8 F 99 16 122/70 97 Weight Admit Weight 184 lb 1 oz Weight 184 lb 1 oz I&O: 05/04/20 05/05/20 05/06/20 06:59 06:59 06:59 Intake Total 1687 1020 1362 Output Total 700 750 400 Balance 987 270 962 Result Diagrams: 05/05/20 06:07 05/05/20 06:07 Additional Labs: Accuchecks 05/05/20 05/05/20 05/05/20 16:29 11:33 05:10 POC Glucose 225 H 210 H 227 H 05/04/20 05/04/20 20:50 16:52 POC Glucose 301 H 289 H Hospitalist ROS - Review of Systems Cardiovascular: denies: chest pain, palpitations, orthopnea, paroxysmal noc. dyspnea, edema, light headedness, other Gastrointestinal: denies: nausea, vomiting, abdominal pain, diarrhea, constipation, melena, hematochezia, other Genitourinary: denies: dysuria, frequency, incontinence, hematuria, retention, other - Medication Medications: Active Medications Generic Name Dose Route Start Last Admin Trade Name Freq PRN Reason Stop Dose Admin Acetaminophen 650 mg 04/23/20 01:18 04/23/20 08:21 Tylenol PO 650 mg Q4H PRN Administration Headache/Fever/Mild Pain (1-3) Hydrocodone Bitart/Acetaminophen 1 tab 05/04/20 18:58 05/04/20 19:19 [place] 5/325 PO 1 tab Q4H PRN Administration Fever/Mild Pain Amiodarone HCl 200 mg 04/23/20 09:00 05/05/20 08:43 Cordarone PO 200 mg DAILY SONNY Administration Aspirin 81 mg 05/04/20 09:00 05/05/20 08:43 Ecotrin PO 81 mg DAILY SONNY Administration Dexamethasone 4 mg 04/28/20 21:00 05/05/20 15:05 Decadron PO 4 mg TID SONNY Administration Diltiazem HCl 30 mg 04/23/20 15:00 05/05/20 15:05 Cardizem PO 30 mg TID SONNY Administration Folic Acid 1 mg 04/23/20 09:00 05/05/20 08:43 Folvite PO 1 mg BID SONNY Administration Heparin Sodium (Porcine) 5,000 units 04/28/20 15:00 05/05/20 15:06 Heparin SC Not Given TID SONNY Insulin Glargine 25 units/ 0.25 mls @ 0 mls/hr 04/28/20 21:00 05/05/20 08:42 Miscellaneous Medication SC 0.25 mls BID SONNY Administration Insulin Human Lispro 0 units 04/23/20 01:31 05/04/20 20:57 Humalog SC 4 unit .BEDTIME SLIDING SC PRN Administration Bedtime Correctional Scale Insulin Human Lispro 0 units 04/27/20 13:09 05/05/20 16:48 Humalog SC 6 unit .AGGRESSIVE SLIDING PRN Administration Aggressive Correctional Scale Insulin Human Lispro 5 units 05/03/20 12:00 05/05/20 16:48 Humalog SC 5 unit TID-WM SONNY Administration Memantine 5 mg 05/02/20 09:00 05/05/20 08:43 Namenda PO 5 mg BID SONNY Administration Multivitamins 1 tab 04/23/20 09:00 05/05/20 08:43 Theragran PO 1 tab DAILY SONNY Administration Ondansetron HCl 4 mg 05/05/20 04:04 05/05/20 04:08 Zofran IVP 4 mg Q6H PRN Administration Nausea/Vomiting Pantoprazole Sodium 40 mg 04/27/20 21:00 05/05/20 08:43 Protonix PO 40 mg BID SONNY Administration Polyethylene Glycol 17 gm 05/05/20 09:00 05/05/20 10:00 Miralax PO 17 gm DAILY SONNY Administration Potassium Chloride 20 meq 04/23/20 09:00 04/25/20 08:46 K-Dur PO 20 meq DAILY SONNY Administration Saccharomyces Boulardii 250 mg 04/26/20 21:00 05/05/20 08:43 Florastor PO 250 mg BID SONNY Administration Senna/Docusate Sodium 1 tab 05/05/20 09:00 05/05/20 10:00 Senokot S PO 1 tab BID SONNY Administration Sodium Chloride 10 ml 04/23/20 01:18 05/05/20 05:52 Flush - Normal Saline IVF 10 ml PRN PRN Administration Saline Flush Vancomycin HCl 250 mg 04/27/20 09:00 05/05/20 15:05 First Vancomycin PO 250 mg 0300,0900,1500,2100 SONYN Administration - Exam Neck: negative: supple, symmetric, no JVD, no thyromegaly, no lymphadenopathy, no carotid bruit, JVD Heart: negative: RRR, no murmur, no gallops, no rubs, normal peripheral pulses, irregular, diminshed peripheral pulses, murmur present, II/IV, III/IV Respiratory: negative: CTAB, no wheezes, no rales, no ronchi, normal chest expansion, no tachypnea, normal percussion, rales, rhonchi, tachypneic, wheezes Gastrointestinal: soft, normal bowel sounds Gastrointestinal - other findings: mild tenderness to epigastric area 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 Code(s): C50.919 - MALIGNANT NEOPLASM OF UNSP SITE OF UNSPECIFIED FEMALE BREAST ; C79.49 - SECONDARY MALIGNANT NEOPLASM OF OTH PARTS OF NERVOUS SYSTEM Status : Acute (3) Colitis due to Clostridium difficile Code(s): A04.72 - ENTEROCOLITIS D/T CLOSTRIDIUM DIFFICILE, NOT SPCF RECUR Status: Acute (4) DM type 2 (diabetes mellitus, type 2) Status: Chronic Qualifiers: Diabetes mellitus long chain beamer insulin use: without long chain beamer use Diabetes mellitus complication status: without complication Qualified Code(s): E11.9 - Type 2 diabetes mellitus without complications (5) Moderate protein-calorie malnutrition Code(s): E44.0 - MODERATE PROTEIN-CALORIE MALNUTRITION Status: Acute (6) Physical deconditioning Code(s): R53.81 - OTHER MALAISE Status: Chronic - Plan 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 she also has intramedullary metastatic disease. she was seen by NS and no intervention but will need to continue radiation. will continue steroids. pt's blood sugars are high will adjust insulin. will make sure she has PT and OT. pt has no more diarrhea. 05/04 will continue pain meds. will add prn stool softeners. pt to resume her radiation in am. She is on steroids. 05/05 no new problems. Her family is going to bring some food for her.
[2020-05-05] MEDS: HYDROcodone/Acetaminophen 5/325 mg Tablet PO PRN (21:27)
[2020-05-06] MEDS: Vancomycin HCl 25 MG/ML Oral PO SCH ×4 (03:23→22:10)
[2020-05-06] MEDS: HYDROcodone/Acetaminophen 5/325 mg Tablet PO PRN ×2 (03:26→10:21)
[2020-05-06] MEDS: HumaLOG 300 UNITS/3 ML VIAL SC PRN (06:36)
[2020-05-06] MEDS: Insulin Glargine 25 UNITS in Pre-Filled Syringe 1 EACH SC SCH ×2 (08:37→22:52)
[2020-05-06] MEDS: HumaLOG 300 UNITS/3 ML VIAL SC SCH ×3 (08:38→18:22)
[2020-05-06] MEDS: Ondansetron PF 4 MG/2 ML Vial IVP PRN ×2 (10:17→16:02)
[2020-05-06] MEDS: Polyethylene Glycol 3350 17 GM Packet PO SCH (11:24)
[2020-05-06] MEDS: Aspirin 81 mg Enteric Coated Tablet PO SCH (11:24)
[2020-05-06] MEDS: Senokot S 8.6-50 MG TAB PO SCH ×2 (11:24→22:06)
[2020-05-06] MEDS: Dexamethasone 4 MG TAB PO SCH ×2 (11:25→16:10)
[2020-05-06] MEDS: Folic Acid 1 MG TAB PO SCH ×2 (11:25→22:09)
[2020-05-06] MEDS: Saccharomyces boulardii 250 MG CAP PO SCH ×2 (11:25→22:09)
[2020-05-06] MEDS: Multivit, Therapeutic 1 TAB PO SCH (11:26)
[2020-05-06] MEDS: Amiodarone 200 MG TAB PO SCH (11:26)
[2020-05-06] MEDS: Heparin 5,000 UNITS/ML VIAL SC SCH ×3 (11:27→22:06)
[2020-05-06] MEDS ORDERED: Bisacodyl 10 MG SUPP PR SCH (11:45)
[2020-05-06] MEDS ORDERED: Promethazine HCl 12.5 MG in Sodium Chloride 0.9% 50 ML IVPB SCH (14:30)
--- NOTE | 2020-05-06 14:51 | PDOC.HOSPP ---
- Subjective Encounter Date: 05/06/20 Encounter Time: 14:49 Subjective: Patient was lying down in the bed when we saw her and appeared very ill. She repeatedly complained of not feeling well and that she's taking too many medications and doesn't know why. - Objective Vital Signs & Weight: Vital Signs (12 hours) Temp Pulse Resp BP Pulse Ox 05/06/20 10:30 97 05/06/20 07:58 98.8 F 106 H 20 127/74 97 Weight Admit Weight 83.489 kg Weight 83.489 kg I&O: 05/05/20 05/06/20 05/07/20 06:59 06:59 06:59 Intake Total 1020 1362 Output Total 750 875 Balance 270 487 Result Diagrams: 05/05/20 06:07 05/05/20 06:07 Additional Labs: Accuchecks 05/06/20 05/06/20 05/05/20 12:34 06:02 20:39 POC Glucose 178 H 220 H 234 H 05/05/20 16:29 POC Glucose 225 H Hospitalist ROS - Review of Systems Constitutional: reports: malaise. denies: fever, chills Respiratory: denies: cough, shortness of breath Cardiovascular: denies: chest pain Gastrointestinal: reports: abdominal pain (tenderness in epigastric region and LLQ), constipation (had bowel movements). denies: nausea, vomiting Musculoskeletal: reports: back pain (continued back pain) Neurological: denies: weakness, numbness, change in speech, confusion, seizures - Medication Medications: Active Medications Generic Name Dose Route Start Last Admin Trade Name Freq PRN Reason Stop Dose Admin Acetaminophen 650 mg 04/23/20 01:18 04/23/20 08:21 Tylenol PO 650 mg Q4H PRN Administration Headache/Fever/Mild Pain (1-3) Hydrocodone Bitart/Acetaminophen 1 tab 05/04/20 18:58 05/06/20 10:21 [place] 5/325 PO 1 tab Q4H PRN Administration Fever/Mild Pain Amiodarone HCl 200 mg 04/23/20 09:00 05/06/20 11:26 Cordarone PO 200 mg DAILY SONNY Administration Aspirin 81 mg 05/04/20 09:00 05/06/20 11:24 Ecotrin PO 81 mg DAILY SONNY Administration Dexamethasone 4 mg 04/28/20 21:00 05/06/20 11:25 Decadron PO 4 mg TID SONNY Administration Diltiazem HCl 30 mg 04/23/20 15:00 05/06/20 11:26 Cardizem PO 30 mg TID SONNY Administration Folic Acid 1 mg 04/23/20 09:00 05/06/20 11:25 Folvite PO 1 mg BID SONNY Administration Heparin Sodium (Porcine) 5,000 units 04/28/20 15:00 05/06/20 11:27 Heparin SC Not Given TID SONNY Insulin Glargine 25 units/ 0.25 mls @ 0 mls/hr 04/28/20 21:00 05/06/20 08:37 Miscellaneous Medication SC 0.25 mls BID SONNY Administration Promethazine HCl 12.5 mg/ 50.5 mls @ 303 mls/hr 05/06/20 14:30 05/06/20 14:39 Sodium Chloride IVPB 05/06/20 16:00 50.5 mls NOW SONNY Administration Insulin Human Lispro 0 units 04/23/20 01:31 05/05/20 21:19 Humalog SC 2 unit .BEDTIME SLIDING SC PRN Administration Bedtime Correctional Scale Insulin Human Lispro 0 units 04/27/20 13:09 05/06/20 06:36 Humalog SC 6 unit .AGGRESSIVE SLIDING PRN Administration Aggressive Correctional Scale Insulin Human Lispro 7 units 05/06/20 08:00 05/06/20 12:31 Humalog SC 7 unit TID-WM SONNY Administration Memantine 5 mg 05/02/20 09:00 05/06/20 11:24 Namenda PO 5 mg BID SONNY Administration Multivitamins 1 tab 04/23/20 09:00 05/06/20 11:26 Theragran PO 1 tab DAILY SONNY Administration Ondansetron HCl 4 mg 05/05/20 04:04 05/06/20 10:17 Zofran IVP 4 mg Q6H PRN Administration Nausea/Vomiting Pantoprazole Sodium 40 mg 04/27/20 21:00 05/06/20 11:27 Protonix PO 40 mg BID SONNY Administration Polyethylene Glycol 17 gm 05/05/20 09:00 05/06/20 11:24 Miralax PO 17 gm DAILY SONNY Administration Potassium Chloride 20 meq 04/23/20 09:00 04/25/20 08:46 K-Dur PO 20 meq DAILY SONNY Administration Saccharomyces Boulardii 250 mg 04/26/20 21:00 05/06/20 11:25 Florastor PO 250 mg BID SONNY Administration Senna/Docusate Sodium 1 tab 05/05/20 09:00 05/06/20 11:24 Senokot S PO 1 tab BID SONNY Administration Sodium Chloride 10 ml 04/23/20 01:18 05/05/20 05:52 Flush - Normal Saline IVF 10 ml PRN PRN Administration Saline Flush Vancomycin HCl 250 mg 04/27/20 09:00 05/06/20 10:12 First Vancomycin PO 250 mg 0300,0900,1500,2100 SONNY Administration - Exam General Appearance: NAD, awake alert Eye: PERRL ENT: normocephalic atraumatic Heart: RRR, no murmur, no gallops, no rubs Respiratory: CTAB, no wheezes, no rales, no ronchi Gastrointestinal: soft, normal bowel sounds, no hepatomegaly, tender to palpation (epigastric region and LLQ) Extremities: no cyanosis, no clubbing, no edema Neurological: cranial nerve grossly intact Neurological - other findings: Patient has decreased sensation and movement in her lower extremities Musculoskeletal - other findings: decreased lower extremity movement Psychiatric: normal affect, normal behavior, A&O x 3 Hosp A/P - Plan Consults: Palliative Care Metastatic cancer: Patient has metastatic cancer that is in her spine as well as the 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 She is undergoing radiation. Prognosis is poor given the amount of metastasis C diff: continue vancomycin and c diff precautions Palliative care: There is a visit with the family organized for later today to discuss goals of care. Will continue pain meds to alleviate patient's pain and will try to minimize the number of medications since the patient doesn't want to be on these many medications.
[2020-05-06] MEDS: Sodium Chloride 0.9% 1,000 ML IV SCH ×2 (15:12→23:04)
--- NOTE | 2020-05-06 15:45 | RAD ---
EXAM: Single view of the abdomen HISTORY: Constipation and nausea. Breast cancer with metastatic disease COMPARISON: None FINDINGS: Single view of the abdomen shows a nonspecific, nonobstructive bowel gas pattern. There is a possibility of air in the right aspect of the pelvis with apparent displacement of air to the left. No suspicious calcifications are seen. Diffuse sclerosis of the bones is consistent with diff use osseous metastatic disease. IMPRESSION: 1. Possible displacement of air in the rectum to the left. A pelvic mass cannot be excluded. 2. Diffuse osseous metastatic disease
[2020-05-06] MEDS ORDERED: chlorproMAZINE HCl 50 MG/2 ML AMP SLOW IVP PRN (16:21)
[2020-05-06] MEDS: Morphine 2 MG/ML VIAL SLOW IVP PRN (16:53)
--- NOTE | 2020-05-06 17:13 | PDOC.PALPN ---
Palliative Progress Note - Subjective Pain, nausea with vomiting. Tearful. - Objective Vital Signs: Vital Signs - Most Recent Temp Pulse Resp BP Pulse Ox 98.8 F 106 H 20 127/74 97 05/06/20 07:58 05/06/20 07:58 05/06/20 07:58 05/06/20 07:58 05/06/20 10:30 - Physical Exam Constitutional: ill appearing, mild distress HEENT: moist MMs, sclera anicteric, TM's clear Respiratory: unlabored breathing Cardiovascular: RRR Gastrointestinal: soft Deviation from normal: tender to abdomen Genitourinary: ramirez catheter Musculoskeletal: no clubbing, diffuse muscle atrophy Neurology: moves all 4 limbs Deviation from normal: Decrease sensation to lower ext, weakness Skin: cap refill <2 seconds - Assessment (1) Palliative care encounter Code(s): Z51.5 - ENCOUNTER FOR PALLIATIVE CARE Current Visit: Yes Status: Acute (2) Abdominal pain Code(s): R10.9 - UNSPECIFIED ABDOMINAL PAIN Current Visit: Yes Status: Acute (3) Bilateral leg weakness Code(s): R29.898 - OTH SYMPTOMS AND SIGNS INVOLVING THE MUSCULOSKELETAL SYSTEM Current Visit: Yes Status: Acute (4) 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 Patient unable to tolerate radiation today secondary to nausea, pain, fatigue Discussed Goal of care, radiation and pursuing evaluation at [facility] ([place]) verses attempting continuing radiation and transition to comfort. Telecommunications Network Engineer services utilized. Discussed Resuscitation status and Goal of Care. Encouraged the family to discuss amongst themselves what is important. Maksim Guzman RNregional program manager to follow up with Goal of care with patient, please also refer to her notes in note section. Thorazine added to mitigate nausea, may consider increasing to 50mg if initial dose of 25mg IVP does not improve. Communicated with pharmacist Morphine 2 mg IVP added secondary to unable to tolerate PO meds. May also consider biophophasphate IV such as pamidronate to mitigate bone pain Communicated with Dr Villarreal and Maksim Rodriguez [[id number]] minutes spent on this encounter with >50% of the time in counseling and coordination of care. - ROS Constitutional: loss appetite, malaise, weakness ENT: other (denies difficulity swallowing, congestion) Gastrointestinal: intolerance of foods, nausea, vomiting Musculoskeletal: back pain Neurological: numbness, weakness Psychological: depression
[2020-05-06] MEDS ORDERED: chlorproMAZINE HCl 25 MG in Sodium Chloride 0.9% 50 ML IVPB PRN (17:31)
[2020-05-06] MEDS ORDERED: Lorazepam 2 MG/ML VIAL SLOW IVP PRN (17:55)
--- NOTE | 2020-05-06 18:05 | PDOC.HOSPP ---
- Subjective Encounter Date: 05/06/20 Encounter Time: 11:30 Subjective: pt up in bed states that she feels "mal". - Objective Vital Signs & Weight: Vital Signs (12 hours) Temp Pulse Resp BP Pulse Ox 05/06/20 10:30 97 05/06/20 07:58 98.8 F 106 H 20 127/74 97 Weight Admit Weight 184 lb 1 oz Weight 184 lb 1 oz I&O: 05/05/20 05/06/20 05/07/20 06:59 06:59 06:59 Intake Total 1020 1362 Output Total 750 875 Balance 270 487 Result Diagrams: 05/05/20 06:07 05/05/20 06:07 Additional Labs: Accuchecks 05/06/20 05/06/20 05/05/20 12:34 06:02 20:39 POC Glucose 178 H 220 H 234 H Hospitalist ROS - Review of Systems Cardiovascular: denies: chest pain, palpitations, orthopnea, paroxysmal noc. dyspnea, edema, light headedness, other Gastrointestinal: reports: nausea, vomiting Genitourinary: denies: dysuria, frequency, incontinence, hematuria, retention, other Musculoskeletal: denies: neck pain, shoulder pain, arm pain, back pain, hand pain, leg pain, foot pain, other - Medication Medications: Active Medications Generic Name Dose Route Start Last Admin Trade Name Freq PRN Reason Stop Dose Admin Acetaminophen 650 mg 04/23/20 01:18 04/23/20 08:21 Tylenol PO 650 mg Q4H PRN Administration Headache/Fever/Mild Pain (1-3) Hydrocodone Bitart/Acetaminophen 1 tab 05/04/20 18:58 05/06/20 10:21 [place] 5/325 PO 1 tab Q4H PRN Administration Fever/Mild Pain Amiodarone HCl 200 mg 04/23/20 09:00 05/06/20 11:26 Cordarone PO 200 mg DAILY SONNY Administration Aspirin 81 mg 05/04/20 09:00 05/06/20 11:24 Ecotrin PO 81 mg DAILY SONNY Administration Chlorpromazine HCl 25 mg 05/06/20 16:21 05/06/20 17:23 Thorazine SLOW IVP 05/06/20 18:00 25 mg Q6H PRN Administration Nausea/Vomiting Dexamethasone 4 mg 04/28/20 21:00 05/06/20 16:10 Decadron PO Not Given TID SONNY Diltiazem HCl 30 mg 04/23/20 15:00 05/06/20 16:10 Cardizem PO Not Given TID SONNY Folic Acid 1 mg 04/23/20 09:00 05/06/20 11:25 Folvite PO 1 mg BID SONNY Administration Heparin Sodium (Porcine) 5,000 units 04/28/20 15:00 05/06/20 16:06 Heparin SC Not Given TID SONNY Insulin Glargine 25 units/ 0.25 mls @ 0 mls/hr 04/28/20 21:00 05/06/20 08:37 Miscellaneous Medication SC 0.25 mls BID SONNY Administration Sodium Chloride 1,000 mls @ 100 mls/hr 05/06/20 15:00 05/06/20 15:12 Normal Saline 0.9% IV 1,000 mls .Q10H SONNY Administration Insulin Human Lispro 0 units 04/23/20 01:31 05/05/20 21:19 Humalog SC 2 unit .BEDTIME SLIDING SC PRN Administration Bedtime Correctional Scale Insulin Human Lispro 0 units 04/27/20 13:09 05/06/20 06:36 Humalog SC 6 unit .AGGRESSIVE SLIDING PRN Administration Aggressive Correctional Scale Insulin Human Lispro 7 units 05/06/20 08:00 05/06/20 12:31 Humalog SC 7 unit TID-WM SONNY Administration Memantine 5 mg 05/02/20 09:00 05/06/20 11:24 Namenda PO 5 mg BID SONNY Administration Morphine Sulfate 2 mg 05/06/20 16:30 05/06/20 16:53 Morphine SLOW IVP 2 mg Q4H PRN Administration Pain Multivitamins 1 tab 04/23/20 09:00 05/06/20 11:26 Theragran PO 1 tab DAILY SONNY Administration Pantoprazole Sodium 40 mg 04/27/20 21:00 05/06/20 11:27 Protonix PO 40 mg BID SONNY Administration Polyethylene Glycol 17 gm 05/05/20 09:00 05/06/20 11:24 Miralax PO 17 gm DAILY SONNY Administration Potassium Chloride 20 meq 04/23/20 09:00 04/25/20 08:46 K-Dur PO 20 meq DAILY SONNY Administration Saccharomyces Boulardii 250 mg 04/26/20 21:00 05/06/20 11:25 Florastor PO 250 mg BID SONNY Administration Senna/Docusate Sodium 1 tab 05/05/20 09:00 05/06/20 11:24 Senokot S PO 1 tab BID SONNY Administration Sodium Chloride 10 ml 04/23/20 01:18 05/05/20 05:52 Flush - Normal Saline IVF 10 ml PRN PRN Administration Saline Flush Vancomycin HCl 250 mg 04/27/20 09:00 05/06/20 16:48 First Vancomycin PO Not Given 0300,0900,1500,2100 SONNY - Exam Heart: negative: RRR, no murmur, no gallops, no rubs, normal peripheral pulses, irregular, diminshed peripheral pulses, murmur present, II/IV, III/IV Respiratory: negative: CTAB, no wheezes, no rales, no ronchi, normal chest expansion, no tachypnea, normal percussion, rales, rhonchi, tachypneic, wheezes Gastrointestinal: soft, normal bowel sounds Gastrointestinal - other findings: soft Extremities: negative: no cyanosis, no clubbing, no edema, 1+ LE edema, 2+ LE edema, clubbing 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 Code(s): C50.919 - MALIGNANT NEOPLASM OF UNSP SITE OF UNSPECIFIED FEMALE BREAST ; C79.49 - SECONDARY MALIGNANT NEOPLASM OF OTH PARTS OF NERVOUS SYSTEM Status : Acute (3) Colitis due to Clostridium difficile Code(s): A04.72 - ENTEROCOLITIS D/T CLOSTRIDIUM DIFFICILE, NOT SPCF RECUR Status: Acute (4) DM type 2 (diabetes mellitus, type 2) Status: Chronic Qualifiers: Diabetes mellitus mcfp insulin use: without mcfp use Diabetes mellitus complication status: without complication Qualified Code(s): E11.9 - Type 2 diabetes mellitus without complications (5) Moderate protein-calorie malnutrition Code(s): E44.0 - MODERATE PROTEIN-CALORIE MALNUTRITION Status: Acute (6) Physical deconditioning Code(s): R53.81 - OTHER MALAISE Status: Chronic - Plan 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 she also has intramedullary metastatic disease. she was seen by NS and no intervention but will need to continue radiation. will continue steroids. pt's blood sugars are high will adjust insulin. will make sure she has PT and OT. pt has no more diarrhea. 05/04 will continue pain meds. will add prn stool softeners. pt to resume her radiation in am. She is on steroids. 05/05 no new problems. Her family is going to bring some food for her. 05/06 pt very nauseated, she had a bowel movement. family meeting today they still want to try few more radiation tx. Family not ready for hospice.
[2020-05-06] MEDS: Dexamethasone 4 mg/ml Vial SLOW IVP SCH (18:34)
[2020-05-06 19:04] LABS: Mean Corpuscular HGB CONC 32.4 g/dL (32.0-36.0); Mean Corpuscular Hemoglobin 31.5 pg (27.0-31.0); Mean Corpuscular Volume 97.2 fL (78.0-98.0); Mean Platelet Volume 13.6 fL (7.4-10.4); Platelet Count 29 thou/uL (130-400); RBC Distribution Width 19.5 % (11.5-14.5); Red Blood Cell (RBC) Count 3.81 mill/uL (4.20-5.40); White Blood Cell (WBC) Count 11.3 thou/uL (4.8-10.8)
[2020-05-06 19:23] LABS: Anisocytosis SLIGHT = 6-15 cells (100X) (0-5/hpf); Band 6 % (5-11); Lymphocytes 2 % (21-51); MDiff Complete? YES; Monocytes 8 % (0-10); Neutrophil 83 % (42-75); Platelet Morphology Comment Appears Decreased; Polychromasia SLIGHT = 2-3 cells (100X) (0-2/hpf); Reactive Lymphocytes 1 % (0-10)
--- NOTE | 2020-05-06 20:10 | PDOC.EVN ---
Event Note - Event Note Event Note: nurse called, patient HR 144, irregular, BP 102/52, RR and Sp02 normal, afebrile. Asymptomatic. Patient has had afib rvr before, has low platelets, not anticoagulated. Will get stat EKG, BMP and Mag. TSH has been checked in past. code green called. See code sheet/note. Patient hypotensive bp 80s/60s, HR 140s , no meds have been given. alert and oriented. Ordered IVF bolus, BP improved. Metoprolol IVP x 2. no rate control. Transferred to [facility], start amio drip with bolus per protocol and give IVF bolus.
[2020-05-06] MEDS ORDERED: Metoprolol Tartrate 5 MG/5 ML VIAL IVP SCH ×2 (21:00)
[2020-05-06 21:01] LABS: Anion Gap 11 mmol/L (10-20); BUN (Urea Nitrogen) 26 mg/dL (7.0-18.7); Calc. Creatinine Clearance 172 mL/min (70-130); Calcium 7.2 mg/dL (7.8-10.44); Carbon Dioxide 22 mmol/L (22-29); Chloride 102 mmol/L (98-107); Estimated GFR-MDRD Greater than 90; Glucose 152 mg/dL (70-105); Magnesium 1.9 mg/dL (1.6-2.6); Potassium 4.9 mmol/L (3.5-5.1); Sodium 130 mmol/L (136-145)
[2020-05-06] MEDS ORDERED: Amiodarone 150 MG, Admixture Fee 1 EACH in Dextrose 5% in Water 100 ML IVPB SCH (22:00)
[2020-05-06] MEDS ORDERED: Magnesium 2 GM/50 ML 2 GM in Premix Bag 1 BAG IVPB SCH (22:00)
[2020-05-06] MEDS: Amiodarone 450 MG, Admixture Fee 1 EACH in Dextrose 5% in Water 250 ML IVPB SCH (22:05)
[2020-05-06 22:37] VITALS: BP 60/0
[2020-05-07] MEDS ORDERED: Sodium Chloride 0.9% 500 ML IV SCH ×2 (00:45→01:00)
[2020-05-07] MEDS: Dexamethasone 4 mg/ml Vial SLOW IVP SCH ×3 (01:42→16:59)
[2020-05-07] MEDS: Vancomycin HCl 25 MG/ML Oral PO SCH ×3 (03:25→16:56)
[2020-05-07 04:20] LABS: ALT (SGPT) 49 U/L (8-55); AST (SGOT) 30 U/L (5-34); Albumin 2.2 g/dL (3.5-5.0); Alkaline Phosphatase 96 U/L (40-110); Anion Gap 8 mmol/L (10-20); BUN (Urea Nitrogen) 21 mg/dL (7.0-18.7); Bilirubin, Total 0.7 mg/dL (0.2-1.2); Calc. Creatinine Clearance 199 mL/min (70-130); Calcium 6.9 mg/dL (7.8-10.44); Carbon Dioxide 23 mmol/L (22-29); Chloride 104 mmol/L (98-107); Estimated GFR-MDRD Greater than 90; Globulin 1.5 g/dL (2.4-3.5); Glucose 125 mg/dL (70-105); Magnesium 2.1 mg/dL (1.6-2.6); Potassium 4.7 mmol/L (3.5-5.1); Protein, Total 3.7 g/dL (6.0-8.3); Sodium 130 mmol/L (136-145)
[2020-05-07] MEDS: Sodium Chloride 0.9% 1,000 ML IV SCH (05:42)
[2020-05-07 08:12] LABS: #Lymphocytes 0.1 thou/uL (1.20-3.40); #Monocytes 1.1 thou/uL (0.11-0.59); #Neutrophils 16.2 thou/uL (1.40-6.50); %Eosinophils 0.1 % (0.0-10.0); %Lymphocytes 0.7 % (21.0-51.0); %Monocytes 6.1 % (0.0-10.0); %Neutrophils 93.2 % (42.0-75.0); Hemoglobin 12.2 g/dL (12.0-16.0); Mean Corpuscular Hemoglobin 31.8 pg (27.0-31.0); Mean Corpuscular Volume 99.5 fL (78.0-98.0); Mean Platelet Volume 11.6 fL (7.4-10.4); Platelet Count 36 thou/uL (130-400); RBC Distribution Width 19.7 % (11.5-14.5); Red Blood Cell (RBC) Count 3.84 mill/uL (4.20-5.40); White Blood Cell (WBC) Count 17.4 thou/uL (4.8-10.8)
[2020-05-07 08:29] LABS: ALT (SGPT) 51 U/L (8-55); AST (SGOT) 31 U/L (5-34); Albumin 2.3 g/dL (3.5-5.0); Alkaline Phosphatase 103 U/L (40-110); Anion Gap 10 mmol/L (10-20); BUN (Urea Nitrogen) 22 mg/dL (7.0-18.7); Bilirubin, Total 0.8 mg/dL (0.2-1.2); Calc. Creatinine Clearance 204 mL/min (70-130); Calcium 7.1 mg/dL (7.8-10.44); Carbon Dioxide 19 mmol/L (22-29); Chloride 105 mmol/L (98-107); Estimated GFR-MDRD Greater than 90; Globulin 1.7 g/dL (2.4-3.5); Glucose 128 mg/dL (70-105); Magnesium 2.1 mg/dL (1.6-2.6); Phosphorus 4.1 mg/dL (2.3-4.7); Sodium 129 mmol/L (136-145)
[2020-05-07] MEDS: Saccharomyces boulardii 250 MG CAP PO SCH ×2 (09:25→20:47)
[2020-05-07] MEDS: Multivit, Therapeutic 1 TAB PO SCH (09:25)
[2020-05-07] MEDS: Amiodarone 200 MG TAB PO SCH (09:25)
[2020-05-07] MEDS: Aspirin 81 mg Enteric Coated Tablet PO SCH (09:27)
[2020-05-07] MEDS: Heparin 5,000 UNITS/ML VIAL SC SCH ×3 (09:27→20:48)
[2020-05-07] MEDS: Folic Acid 1 MG TAB PO SCH ×2 (09:29→20:47)
[2020-05-07] MEDS: Senokot S 8.6-50 MG TAB PO SCH ×2 (09:31→20:49)
[2020-05-07] MEDS: Polyethylene Glycol 3350 17 GM Packet PO SCH (09:31)
[2020-05-07] MEDS: HumaLOG 300 UNITS/3 ML VIAL SC SCH ×3 (11:24→18:41)
[2020-05-07] MEDS: Insulin Glargine 25 UNITS in Pre-Filled Syringe 1 EACH SC SCH ×2 (11:25→20:53)
[2020-05-07] MEDS: Morphine 2 MG/ML VIAL SLOW IVP PRN ×2 (12:39→17:14)
--- NOTE | 2020-05-07 12:58 | CON ---
DATE OF CONSULTATION: 05/07/2020 HISTORY OF PRESENT ILLNESS: I am seeing Ms. 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 Her problems are; 1. Recurrent atrial arrhythmias: a. Paroxysmal atrial fibrillation with frequent recurrences, requiring amiodarone therapy. b. Recurrence noted again in the setting of colitis, now back in sinus rhythm after IV amiodarone bolus. 2. Breast cancer, metastatic, in the central nervous system. a. On radiation therapy and steroids. 3. Thrombocytopenia, prior history of pancytopenia, likely related to chemotherapy. 4. Preserved LVEF at 55% to 60% with normal biatrial size on echo on 12/26/2018. On perfusion, LVEF 68%. 5. Diabetes. 6. Hypertension. 7. Elevated BMI. ALLERGIES: NONE NOTED. MEDICATIONS: At home included; 1. Prochlorperazine. 2. Potassium chloride. 3. Insulin. 4. Furosamide. 5. Diltiazem. 6. Amiodarone 200 mg a day. SUBJECTIVE: Ms. Peña is admitted with recurrent bilateral lower extremity weakness and has known metastasized breast cancer to the central nervous system. She also has been noted to have C diff colitis. She was admitted with rapid atrial fibrillation despite on home regimen. On the other hand, due to her nausea, it is questionable whether she was able to keep up with the drug. She was given IV amiodarone and she converted back to sinus rhythm. continues to be nauseated. Does not pass out. No stroke-like symptoms. No neurological deficits. No fever, chills, or cough. REVIEW OF SYSTEMS: A 12-point review of systems otherwise unremarkable. PAST MEDICAL HISTORY: As above. I have seen this lady with Dr. Foy' referral, back in January as well as also followed up in the office. She has been kept on amiodarone, is a poor candidate for ablation therapy due to her comorbidities. SOCIAL HISTORY: Denies smoking, EtOH, or drug abuse. She has three children. She is . SURGICAL HISTORY: Significant for cholecystectomy and in the past. FAMILY HISTORY: Not contributory. OBJECTIVE: VITAL SIGNS: Blood pressure 119/89, heart rate 92, respirations 16, and temperature 97.8 degrees Fahrenheit. GENERAL: This is an alert and oriented woman, with elevated BMI, with alopecia. Pallor is noted. NECK: Supple. Jugular veins not distended. CHEST: Coarse without crackles. HEART: Sounds are regular to rate and rhythm. No murmur or gallop. ABDOMEN: Benign. Bowel sounds positive. EXTREMITIES: Lower extremities without edema, clubbing, or cyanosis. DATABASE: EKG reviewed, revealing atrial fibrillation, rate of 93 beats per minute. The subsequent telemetry strips revealed conversion to sinus rhythm at 4:51 a.m. LABORATORY DATA: White cell count 17.4, hemoglobin 12.2, platelet count is 36 this morning. Sodium 129, potassium 5, BUN is 20, creatinine is 0.44. Troponin-I 0.014. C diff positive in stool. ASSESSMENT AND PLAN: Ms. 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 She also has advanced pancytopenia, lower extremity weakness possibly related to central nervous system mets. She has developed recurrent atrial fibrillation despite home amiodarone therapy. I have doubts whether she was able to keep down amiodarone due to her nausea. At this point though she is a poor candidate for ablation therapy with low platelet count, also pacing and AV node ablation would be potentially risky due to her heightened chance of infection. If possible, try to re-institute amiodarone therapy, which seems to have done well for last 3 months up until now. I am expecting her to be able to tolerate it better once the colitis has resolved. My plan is: 1. Resume IV or p.o. amiodarone. If necessary, can increase the dose. 2. Poor candidate for anticoagulation due to her thrombocytopenia. 3. Metastatic breast cancer. Apparently, very poor prognosis as per Primary and Oncology Team. Thank you again for allowing me to participate in the care of this patient. Job ID: [id number]
[2020-05-07] MEDS: HYDROcodone/Acetaminophen 5/325 mg Tablet PO PRN (20:54)
[2020-05-07] MEDS: Amiodarone 450 MG, Admixture Fee 1 EACH in Dextrose 5% in Water 250 ML IVPB SCH (23:03)
[2020-05-08] MEDS: Morphine 2 MG/ML VIAL SLOW IVP PRN ×3 (01:11→16:13)
[2020-05-08] MEDS: Dexamethasone 4 mg/ml Vial SLOW IVP SCH ×3 (02:38→16:13)
[2020-05-08] MEDS: Sodium Chloride 0.9% 1,000 ML IV SCH ×2 (02:39→17:42)
[2020-05-08 05:30] LABS: #Lymphocytes 0.1 thou/uL (1.20-3.40); #Monocytes 0.6 thou/uL (0.11-0.59); #Neutrophils 7.9 thou/uL (1.40-6.50); %Basophils 0.1 % (0.0-1.0); %Eosinophils 0.1 % (0.0-10.0); %Lymphocytes 0.9 % (21.0-51.0); Hemoglobin 11.6 g/dL (12.0-16.0); Mean Corpuscular Hemoglobin 31.3 pg (27.0-31.0); Mean Corpuscular Volume 97.8 fL (78.0-98.0); Platelet Count 38 thou/uL (130-400); RBC Distribution Width 19.6 % (11.5-14.5); Red Blood Cell (RBC) Count 3.72 mill/uL (4.20-5.40); White Blood Cell (WBC) Count 8.6 thou/uL (4.8-10.8)
[2020-05-08 05:47] LABS: ALT (SGPT) 49 U/L (8-55); AST (SGOT) 29 U/L (5-34); Albumin 2.4 g/dL (3.5-5.0); Alkaline Phosphatase 99 U/L (40-110); Anion Gap 11 mmol/L (10-20); BUN (Urea Nitrogen) 29 mg/dL (7.0-18.7); Bilirubin, Total 1.2 mg/dL (0.2-1.2); Calc. Creatinine Clearance 160 mL/min (70-130); Calcium 7.3 mg/dL (7.8-10.44); Carbon Dioxide 20 mmol/L (22-29); Chloride 101 mmol/L (98-107); Estimated GFR-MDRD Greater than 90; Globulin 1.8 g/dL (2.4-3.5); Glucose 184 mg/dL (70-105); Potassium 5.2 mmol/L (3.5-5.1); Protein, Total 4.2 g/dL (6.0-8.3); Sodium 127 mmol/L (136-145)
[2020-05-08] MEDS: HumaLOG 300 UNITS/3 ML VIAL SC PRN (05:48)
--- NOTE | 2020-05-08 09:05 | PDOC.HOSPP ---
- Subjective Encounter Date: 05/07/20 Encounter Time: 14:00 Subjective: pt up in bed feels drowsy. - Objective Vital Signs & Weight: Vital Signs (12 hours) Temp 05/08/20 07:19 97.2 F L 05/08/20 03:48 97.4 F L 05/07/20 23:25 98.6 F Weight Admit Weight 184 lb 1 oz Weight 208 lb 4.8 oz Most Recent Monitor Data Heart Rate from ECG 94 NIBP 133/86 NIBP BP-Mean 101 Respiration from ECG 24 SpO2 100 I&O: 05/07/20 05/08/20 05/09/20 06:59 06:59 06:59 Intake Total 1970 2310 Output Total 1750 520 Balance 220 1790 Result Diagrams: 05/08/20 05:00 05/08/20 05:00 Additional Labs: Accuchecks 05/08/20 05/08/20 05/07/20 05:25 01:26 20:07 POC Glucose 180 H 186 H 178 H 05/07/20 05/07/20 16:45 10:44 POC Glucose 154 H 134 H Hospitalist ROS - Review of Systems Cardiovascular: denies: chest pain, palpitations, orthopnea, paroxysmal noc. dyspnea, edema, light headedness, other Gastrointestinal: denies: nausea, vomiting, abdominal pain, diarrhea, constipation, melena, hematochezia, other Genitourinary: denies: dysuria, frequency, incontinence, hematuria, retention, other - Medication Medications: Active Medications Generic Name Dose Route Start Last Admin Trade Name Freq PRN Reason Stop Dose Admin Acetaminophen 650 mg 04/23/20 01:18 04/23/20 08:21 Tylenol PO 650 mg Q4H PRN Administration Headache/Fever/Mild Pain (1-3) Hydrocodone Bitart/Acetaminophen 1 tab 05/04/20 18:58 05/07/20 20:54 [place] 5/325 PO 1 tab Q4H PRN Administration Fever/Mild Pain Amiodarone HCl 200 mg 04/23/20 09:00 05/07/20 09:25 Cordarone PO 200 mg DAILY SONNY Administration Aspirin 81 mg 05/04/20 09:00 05/07/20 09:27 Ecotrin PO 81 mg DAILY SONNY Administration Dexamethasone 4 mg 04/28/20 21:00 05/06/20 16:10 Decadron PO Not Given TID SONNY Dexamethasone 4 mg 05/06/20 18:00 05/08/20 02:38 Decadron SLOW IVP 4 mg Q8H SONNY Administration Diltiazem HCl 30 mg 04/23/20 15:00 05/07/20 20:47 Cardizem PO 30 mg TID SONNY Administration Folic Acid 1 mg 04/23/20 09:00 05/07/20 20:47 Folvite PO 1 mg BID SONNY Administration Heparin Sodium (Porcine) 5,000 units 04/28/20 15:00 05/07/20 20:48 Heparin SC Not Given TID SONNY Insulin Glargine 25 units/ 0.25 mls @ 0 mls/hr 04/28/20 21:00 05/07/20 20:53 Miscellaneous Medication SC 0.25 mls BID SONNY Administration Chlorpromazine HCl 25 mg/ 51 mls @ 102 mls/hr 05/06/20 17:31 05/07/20 12:31 Sodium Chloride IVPB 51 mls Q6H PRN Administration Nausea/Vomiting Amiodarone HCl 450 mg/ 259 mls @ 0 mls/hr 05/06/20 21:45 05/07/20 23:03 Miscellaneous Medication 1 IVPB 259 mls each/ Dextrose/Water INF SONNY Administration Protocol As Directed Insulin Human Lispro 0 units 04/23/20 01:31 05/05/20 21:19 Humalog SC 2 unit .BEDTIME SLIDING SC PRN Administration Bedtime Correctional Scale Insulin Human Lispro 0 units 04/27/20 13:09 05/08/20 05:48 Humalog SC 3 unit .AGGRESSIVE SLIDING PRN Administration Aggressive Correctional Scale Insulin Human Lispro 7 units 05/06/20 08:00 05/07/20 18:41 Humalog SC Not Given TID-WM SONNY Memantine 5 mg 05/02/20 09:00 05/07/20 20:47 Namenda PO 5 mg BID SONNY Administration Morphine Sulfate 2 mg 05/06/20 16:30 05/08/20 01:11 Morphine SLOW IVP 2 mg Q4H PRN Administration Pain Multivitamins 1 tab 04/23/20 09:00 05/07/20 09:25 Theragran PO 1 tab DAILY SONNY Administration Pantoprazole Sodium 40 mg 04/27/20 21:00 05/07/20 20:48 Protonix PO 40 mg BID SONNY Administration Polyethylene Glycol 17 gm 05/05/20 09:00 05/07/20 09:31 Miralax PO Not Given DAILY SONNY Saccharomyces Boulardii 250 mg 04/26/20 21:00 05/07/20 20:47 Florastor PO 250 mg BID SONNY Administration Senna/Docusate Sodium 1 tab 05/05/20 09:00 05/07/20 20:49 Senokot S PO Not Given BID SONNY Sodium Chloride 10 ml 04/23/20 01:18 05/08/20 02:38 Flush - Normal Saline IVF 10 ml PRN PRN Administration Saline Flush - Exam Heart: negative: RRR, no murmur, no gallops, no rubs, normal peripheral pulses, irregular, diminshed peripheral pulses, murmur present, II/IV, III/IV Respiratory: negative: CTAB, no wheezes, no rales, no ronchi, normal chest expansion, no tachypnea, normal percussion, rales, rhonchi, tachypneic, wheezes Gastrointestinal: negative: soft, non-tender, non-distended, normal bowel sounds , no palpable masses, no hepatomegaly, no splenomegaly, no bruit, no guarding, no rigidity, tender to palpation, distended, diminished bowl sounds, voluntary guarding Extremities: 1+ LE edema 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 Code(s): C50.919 - MALIGNANT NEOPLASM OF UNSP SITE OF UNSPECIFIED FEMALE BREAST ; C79.49 - SECONDARY MALIGNANT NEOPLASM OF OTH PARTS OF NERVOUS SYSTEM Status : Acute (3) Colitis due to Clostridium difficile Code(s): A04.72 - ENTEROCOLITIS D/T CLOSTRIDIUM DIFFICILE, NOT SPCF RECUR Status: Acute (4) DM type 2 (diabetes mellitus, type 2) Status: Chronic Qualifiers: Diabetes mellitus alf insulin use: without alf use Diabetes mellitus complication status: without complication Qualified Code(s): E11.9 - Type 2 diabetes mellitus without complications (5) Moderate protein-calorie malnutrition Code(s): E44.0 - MODERATE PROTEIN-CALORIE MALNUTRITION Status: Acute (6) Physical deconditioning Code(s): R53.81 - OTHER MALAISE Status: Chronic - Plan 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 she also has intramedullary metastatic disease. she was seen by NS and no intervention but will need to continue radiation. will continue steroids. pt's blood sugars are high will adjust insulin. will make sure she has PT and OT. pt has no more diarrhea. 05/04 will continue pain meds. will add prn stool softeners. pt to resume her radiation in am. She is on steroids. 05/05 no new problems. Her family is going to bring some food for her. 05/06 pt very nauseated, she had a bowel movement. family meeting today they still want to try few more radiation tx. Family not ready for hospice. 05/07 spoke to pt using employee relations consultant pt states she does not want to be resuscitation but she did not want her family to know then she said yes she wants them to know. she had pain meds when i was talking with her. I will talk to her again fabiano and explain to her about resuscitation. will continue amio. Her platelets are low but she needs to be on dvt ppx lovenox since she is a high risk of dvt since she she had breast cancer with mets. she is also bed bound due to her spinal canal mets.
[2020-05-08] MEDS: Saccharomyces boulardii 250 MG CAP PO SCH ×2 (10:34→20:24)
[2020-05-08] MEDS: Multivit, Therapeutic 1 TAB PO SCH (10:35)
[2020-05-08] MEDS: HumaLOG 300 UNITS/3 ML VIAL SC SCH ×3 (10:35→16:13)
[2020-05-08] MEDS: Amiodarone 200 MG TAB PO SCH (10:35)
[2020-05-08] MEDS: Aspirin 81 mg Enteric Coated Tablet PO SCH (10:36)
[2020-05-08] MEDS: Polyethylene Glycol 3350 17 GM Packet PO SCH (10:36)
[2020-05-08] MEDS: Folic Acid 1 MG TAB PO SCH ×2 (10:37→20:25)
[2020-05-08] MEDS: Senokot S 8.6-50 MG TAB PO SCH ×2 (10:37→20:28)
[2020-05-08] MEDS: Heparin 5,000 UNITS/ML VIAL SC SCH ×4 (10:37→20:26)
[2020-05-08] MEDS: Insulin Glargine 25 UNITS in Pre-Filled Syringe 1 EACH SC SCH ×2 (10:38→20:26)
--- NOTE | 2020-05-08 15:16 | PDOC.EP ---
- Subjective Date: 05/08/20 Time: 12:00 Interval History: HISTORY OF PRESENT ILLNESS: Ms. 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 She also has advanced pancytopenia, lower extremity weakness possibly related to central nervous system mets. She has developed recurrent atrial fibrillation despite home amiodarone therapy. I have doubts whether she was able to keep down amiodarone due to her nausea. At this point though she is a poor candidate for ablation therapy with low platelet count, also pacing and AV node ablation would be potentially risky due to her heightened chance of infection. Amiodarone was reinitiated. - Review of Systems Constitutional: reports: malaise, weakness. denies: chills, fever, sweats Respiratory: denies: cough, shortness of breath Cardiology: reports: heart racing, light headedness, palpitations, passing out. denies: chest pain Gastrointestinal: reports: diarrhea. denies: abdominal pain, constipation Musculoskeletal: denies: falls, neck pain, leg pain, foot pain - Objective Allergies/Adverse Reactions: Allergies Allergy/AdvReac Type Severity Reaction Status Date / Time No Known Allergies Allergy Verified 04/22/20 22:54 Current Medications Acetaminophen (Tylenol) 650 mg PO Q4H PRN PRN Reason: Headache/Fever/Mild Pain (1-3) Last Admin: 04/23/20 08:21 Dose: 650 mg Acetaminophen (Tylenol) 650 mg [place] Q4H PRN PRN Reason: Headache/Fever/Mild Pain (1-3) Hydrocodone Bitart/Acetaminophen ([place] 5/325) 1 tab PO Q4H PRN PRN Reason: Fever/Mild Pain Last Admin: 05/07/20 20:54 Dose: 1 tab Amiodarone HCl (Cordarone) 200 mg PO DAILY [facility] Last Admin: 05/08/20 10:35 Dose: 200 mg Aspirin (Ecotrin) 81 mg PO DAILY [facility] Last Admin: 05/08/20 10:36 Dose: 81 mg Dexamethasone (Decadron) 4 mg PO TID [facility] Last Admin: 05/06/20 16:10 Dose: Not Given Dexamethasone (Decadron) 4 mg SLOW IVP Q8H [facility] Last Admin: 05/08/20 10:36 Dose: 4 mg Dextrose/Water (Dextrose 50%) 25 gm SLOW IVP PRN PRN PRN Reason: Hypoglycemia Diltiazem HCl (Cardizem) 30 mg PO TID [facility] Last Admin: 05/08/20 10:36 Dose: 30 mg Folic Acid (Folvite) 1 mg PO BID [facility] Last Admin: 05/08/20 10:37 Dose: 1 mg Glucagon (Glucagon) 1 mg IM PRN PRN PRN Reason: Hypoglycemia Heparin Sodium (Porcine) (Heparin) 5,000 units SC TID [facility] Last Admin: 05/08/20 10:43 Dose: Not Given Dextrose/Water (D5w) 1,000 mls @ 0 mls/hr IV .Q0M PRN PRN Reason: Hypoglycemia Insulin Glargine 25 units/ (Miscellaneous Medication) 0.25 mls @ 0 mls/hr SC BID [facility] Last Admin: 05/08/20 10:38 Dose: Not Given Chlorpromazine HCl 25 mg/ (Sodium Chloride) 51 mls @ 102 mls/hr IVPB Q6H PRN PRN Reason: Nausea/Vomiting Last Admin: 05/07/20 12:31 Dose: 51 mls Amiodarone HCl 450 mg/Miscellaneous Medication 1 each/ Dextrose/Water 259 mls @ 0 mls/hr IVPB INF [facility]; Protocol Last Admin: 05/07/20 23:03 Dose: 259 mls Insulin Human Lispro (Humalog) 0 units SC .BEDTIME SLIDING SC PRN PRN Reason: Bedtime Correctional Scale Last Admin: 05/05/20 21:19 Dose: 2 unit Insulin Human Lispro (Humalog) 0 units SC .AGGRESSIVE SLIDING PRN PRN Reason: Aggressive Correctional Scale Last Admin: 05/08/20 05:48 Dose: 3 unit Insulin Human Lispro (Humalog) 7 units SC TID[facility] Last Admin: 05/08/20 14:45 Dose: Not Given Lorazepam (Ativan) 0.5 mg PO Q6H PRN PRN Reason: Anxiety Lorazepam (Ativan) 1 mg PO Q6H PRN PRN Reason: Anxiety/Agitation Lorazepam (Ativan) 0.25 mg SLOW IVP Q6H PRN PRN Reason: Nausea/Vomiting Memantine (Namenda) 5 mg PO BID [facility] Last Admin: 05/08/20 10:42 Dose: 5 mg Morphine Sulfate (Morphine) 2 mg SLOW IVP Q4H PRN PRN Reason: Pain Last Admin: 05/08/20 11:28 Dose: 2 mg Multivitamins (Theragran) 1 tab PO DAILY [facility] Last Admin: 05/08/20 10:35 Dose: 1 tab Pantoprazole Sodium (Protonix) 40 mg PO BID [facility] Last Admin: 05/08/20 10:35 Dose: 40 mg Polyethylene Glycol (Miralax) 17 gm PO DAILY [facility] Last Admin: 05/08/20 10:36 Dose: Not Given Prochlorperazine Maleate (Compazine) 10 mg PO Q6H PRN PRN Reason: Nausea Saccharomyces Boulardii (Florastor) 250 mg PO BID [facility] Last Admin: 05/08/20 10:34 Dose: 250 mg Senna/Docusate Sodium (Senokot S) 1 tab PO BID [facility] Last Admin: 05/08/20 10:37 Dose: Not Given Sodium Chloride (Flush - Normal Saline) 10 ml IVF Q12HR PRN PRN Reason: Saline Flush Sodium Chloride (Flush - Normal Saline) 10 ml IVF PRN PRN PRN Reason: Saline Flush Last Admin: 05/08/20 02:38 Dose: 10 ml Sodium Chloride (Normal Saline Pf) 10 ml FS PRN PRN PRN Reason: RECONSTITUTION Vital Signs & Weight: Vital Signs Temp 05/08/20 11:41 96.9 F L 05/08/20 07:19 97.2 F L 05/08/20 03:48 97.4 F L Admit Weight 184 lb 1 oz Weight 208 lb 4.8 oz I/O: I/O 05/07/20 05/08/20 05/09/20 06:59 06:59 06:59 Intake Total 1970 2310 Output Total 1750 520 Balance 220 1790 - Quality Measures Condition: Atrial Fibrillation/Flutter (hx or current) - Medication Contraindications No Anticoagulant reason: Medical contraindication - Physical Exam General: alert & oriented x3, no apparent distress, speech clear HEENT: mucus membranes moist, normocephaly, oral lesions Neck: supple neck, midline trachea, no lymphadenopathy Cardiology: regular rate and rhythm, no murmur, PMI nondisplaced Lungs: clear to auscultation, normal breath sounds, no wheeze, rales, rhonchi Neurology: cranial nerve 2-12 intact, grossly intact, no lateralizing findings - Labs Result Diagrams: 05/08/20 05:00 05/08/20 05:00 - EKG Interpretation EKG Method: Telemetry EKG shows: Sinus rhythm - Assessment/Plan Assessment/Plan: ASSESSMENT AND PLAN: 1. Recurrent atrial arrhythmias: a. Paroxysmal atrial fibrillation with frequent recurrences, requiring amiodarone therapy. b. Recurrence noted again in the setting of C Diff/colitis, now back in sinus rhythm after IV amiodarone bolus. 2. Breast cancer, metastatic, in the central nervous system. a. On radiation therapy and steroids. 3. Thrombocytopenia, prior history of pancytopenia, likely related to chemotherapy. 4. Preserved LVEF at 55% to 60% with normal biatrial size on echo on 2018. On perfusion, LVEF 68%. 5. Diabetes. 6. Hypertension. 7. Elevated BMI. Rhythm stable on Amiodarone 200mg daily. IV amiodarone stopped today. Remains in SR ~90bpm with out any bradycardia. Poor candidate for anticoagulation due to her thrombocytopenia and therefore rules out ablation as a potential treatment option. Overall she has a very grim prognosis with her metastatic breast cancer. Could increase dose of PO amiodarone if needed, but this is likely due to missing some doses of amiodarone and diltiazem when she was nauseated, in addition to dehydration and electrolyte imbalance from CDiff.
--- NOTE | 2020-05-08 17:06 | PDOC.HOSPP ---
- Subjective Encounter Date: 05/08/20 Encounter Time: 11:45 Subjective: pt up in bed feels tired. - Objective Vital Signs & Weight: Vital Signs (12 hours) Temp 05/08/20 15:36 97.6 F 05/08/20 11:41 96.9 F L 05/08/20 07:19 97.2 F L Weight Admit Weight 184 lb 1 oz Weight 208 lb 4.8 oz Most Recent Monitor Data Heart Rate from ECG 96 NIBP 166/98 NIBP BP-Mean 120 Respiration from ECG 16 SpO2 100 I&O: 05/07/20 05/08/20 05/09/20 06:59 06:59 06:59 Intake Total 1970 2310 Output Total 1750 520 Balance 220 1790 Result Diagrams: 05/08/20 05:00 05/08/20 05:00 Additional Labs: Accuchecks 05/08/20 05/08/20 05/08/20 16:53 10:35 05:25 POC Glucose 200 H 161 H 180 H 05/08/20 05/07/20 05/07/20 01:26 20:07 16:45 POC Glucose 186 H 178 H 154 H Hospitalist ROS - Review of Systems Cardiovascular: denies: chest pain, palpitations, orthopnea, paroxysmal noc. dyspnea, edema, light headedness, other Gastrointestinal: reports: abdominal pain Genitourinary: denies: dysuria, frequency, incontinence, hematuria, retention, other - Medication Medications: Active Medications Generic Name Dose Route Start Last Admin Trade Name Freq PRN Reason Stop Dose Admin Acetaminophen 650 mg 04/23/20 01:18 04/23/20 08:21 Tylenol PO 650 mg Q4H PRN Administration Headache/Fever/Mild Pain (1-3) Hydrocodone Bitart/Acetaminophen 1 tab 05/04/20 18:58 05/07/20 20:54 [place] 5/325 PO 1 tab Q4H PRN Administration Fever/Mild Pain Amiodarone HCl 200 mg 04/23/20 09:00 05/08/20 10:35 Cordarone PO 200 mg DAILY [facility] Administration Aspirin 81 mg 05/04/20 09:00 05/08/20 10:36 Ecotrin PO 81 mg DAILY [facility] Administration Dexamethasone 4 mg 04/28/20 21:00 05/06/20 16:10 Decadron PO Not Given TID [facility] Dexamethasone 4 mg 05/06/20 18:00 05/08/20 16:13 Decadron SLOW IVP 4 mg Q8H [facility] Administration Diltiazem HCl 30 mg 04/23/20 15:00 05/08/20 16:12 Cardizem PO 30 mg TID [facility] Administration Folic Acid 1 mg 04/23/20 09:00 05/08/20 10:37 Folvite PO 1 mg BID [facility] Administration Heparin Sodium (Porcine) 5,000 units 04/28/20 15:00 05/08/20 16:12 Heparin SC Not Given TID [facility] Insulin Glargine 25 units/ 0.25 mls @ 0 mls/hr 04/28/20 21:00 05/08/20 10:38 Miscellaneous Medication SC Not Given BID [facility] Chlorpromazine HCl 25 mg/ 51 mls @ 102 mls/hr 05/06/20 17:31 05/07/20 12:31 Sodium Chloride IVPB 51 mls Q6H PRN Administration Nausea/Vomiting Amiodarone HCl 450 mg/ 259 mls @ 0 mls/hr 05/06/20 21:45 05/07/20 23:03 Miscellaneous Medication 1 IVPB 259 mls each/ Dextrose/Water INF [facility] Administration Protocol As Directed Insulin Human Lispro 0 units 04/23/20 01:31 05/05/20 21:19 Humalog SC 2 unit .BEDTIME SLIDING SC PRN Administration Bedtime Correctional Scale Insulin Human Lispro 0 units 04/27/20 13:09 05/08/20 05:48 Humalog SC 3 unit .AGGRESSIVE SLIDING PRN Administration Aggressive Correctional Scale Insulin Human Lispro 7 units 05/06/20 08:00 05/08/20 16:13 Humalog SC Not Given TID-[facility] Memantine 5 mg 05/02/20 09:00 05/08/20 10:42 Namenda PO 5 mg BID [facility] Administration Morphine Sulfate 2 mg 05/06/20 16:30 05/08/20 16:13 Morphine SLOW IVP 2 mg Q4H PRN Administration Pain Multivitamins 1 tab 04/23/20 09:00 05/08/20 10:35 Theragran PO 1 tab DAILY [facility] Administration Pantoprazole Sodium 40 mg 04/27/20 21:00 05/08/20 10:35 Protonix PO 40 mg BID [facility] Administration Polyethylene Glycol 17 gm 05/05/20 09:00 05/08/20 10:36 Miralax PO Not Given DAILY [facility] Saccharomyces Boulardii 250 mg 04/26/20 21:00 05/08/20 10:34 Florastor PO 250 mg BID [facility] Administration Senna/Docusate Sodium 1 tab 05/05/20 09:00 05/08/20 10:37 Senokot S PO Not Given BID [facility] Sodium Chloride 10 ml 04/23/20 01:18 05/08/20 02:38 Flush - Normal Saline IVF 10 ml PRN PRN Administration Saline Flush - Exam Neck: negative: supple, symmetric, no JVD, no thyromegaly, no lymphadenopathy, no carotid bruit, JVD Heart: negative: RRR, no murmur, no gallops, no rubs, normal peripheral pulses, irregular, diminshed peripheral pulses, murmur present, II/IV, III/IV Respiratory: negative: CTAB, no wheezes, no rales, no ronchi, normal chest expansion, no tachypnea, normal percussion, rales, rhonchi, tachypneic, wheezes Gastrointestinal: no palpable masses Extremities: 1+ LE edema 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 Code(s): C50.919 - MALIGNANT NEOPLASM OF UNSP SITE OF UNSPECIFIED FEMALE BREAST ; C79.49 - SECONDARY MALIGNANT NEOPLASM OF OTH PARTS OF NERVOUS SYSTEM Status : Acute (3) Colitis due to Clostridium difficile Code(s): A04.72 - ENTEROCOLITIS D/T CLOSTRIDIUM DIFFICILE, NOT SPCF RECUR Status: Acute (4) DM type 2 (diabetes mellitus, type 2) Status: Chronic Qualifiers: Diabetes mellitus terminal make up operator insulin use: without chcf use Diabetes mellitus complication status: without complication Qualified Code(s): E11.9 - Type 2 diabetes mellitus without complications (5) Moderate protein-calorie malnutrition Code(s): E44.0 - MODERATE PROTEIN-CALORIE MALNUTRITION Status: Acute (6) Physical deconditioning Code(s): R53.81 - OTHER MALAISE Status: Chronic - Plan 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 she also has intramedullary metastatic disease. she was seen by NS and no intervention but will need to continue radiation. will continue steroids. pt's blood sugars are high will adjust insulin. will make sure she has PT and OT. pt has no more diarrhea. 05/04 will continue pain meds. will add prn stool softeners. pt to resume her radiation in am. She is on steroids. 05/05 no new problems. Her family is going to bring some food for her. 05/06 pt very nauseated, she had a bowel movement. family meeting today they still want to try few more radiation tx. Family not ready for hospice. 05/07 spoke to pt using electric shaver mechanic pt states she does not want to be resuscitation but she did not want her family to know then she said yes she wants them to know. she had pain meds when i was talking with her. I will talk to her again fabiano and explain to her about resuscitation. will continue amio. Her platelets are low but she needs to be on dvt ppx lovenox since she is a high risk of dvt since she she had breast cancer with mets. she is also bed bound due to her spinal canal mets. 05/08 spoke with pt using a electric shaver mechanic who is a nurse. pt initially did not want to be resuscitation but then she stated that she was not sure. I will keep her full code for now. I did call her sister an updated her. Sister agrees that pt's overall condition is worsening. She will talk to her tonight and then make a decision. I also talked to the pt about hospice and she states she will think about it. pt is very depressed. I also explained to her that if we had to resuscitate her her overall outcome would be very poor given her metastatic disease.
[2020-05-08] MEDS: Vancomycin HCl 25 MG/ML Oral PO SCH (17:45)
[2020-05-08] MEDS: HYDROcodone/Acetaminophen 5/325 mg Tablet PO PRN (20:24)
--- NOTE | 2020-05-08 22:15 | EKG ---
Test Reason : Blood Pressure : / mmHG Vent. Rate : 151 BPM Atrial Rate : 113 BPM P-R Int : 000 ms QRS Dur : 074 ms QT Int : 296 ms P-R-T Axes : 000 -16 049 degrees QTc Int : 469 ms Atrial fibrillation with rapid ventricular response Low voltage QRS Abnormal ECG When compared with ECG of 30-APR-2020 00:40, No significant change was found Confirmed by Diane ROPER ([id number]) on 05/08/2020 10:15:39 PM Referred By: Confirmed By:Diane ROPER
[2020-05-09] MEDS: Morphine 2 MG/ML VIAL SLOW IVP PRN ×3 (00:21→18:32)
[2020-05-09] MEDS: Vancomycin HCl 25 MG/ML Oral PO SCH ×5 (01:01→23:22)
[2020-05-09] MEDS: Dexamethasone 4 mg/ml Vial SLOW IVP SCH ×3 (02:17→18:08)
[2020-05-09] MEDS ORDERED: Sodium Chloride 0.9% 500 ML IV SCH (02:45)
[2020-05-09] MEDS: Amiodarone 450 MG, Admixture Fee 1 EACH in Dextrose 5% in Water 250 ML IVPB SCH ×2 (03:23→22:25)
[2020-05-09] MEDS: Sodium Chloride 0.9% 1,000 ML IV SCH ×2 (05:29→18:32)
[2020-05-09] MEDS: HumaLOG 300 UNITS/3 ML VIAL SC PRN (05:35)
[2020-05-09] MEDS: HYDROcodone/Acetaminophen 5/325 mg Tablet PO PRN ×2 (05:39→21:00)
[2020-05-09] MEDS: Aspirin 81 mg Enteric Coated Tablet PO SCH (09:56)
[2020-05-09] MEDS: Amiodarone 200 MG TAB PO SCH ×2 (09:56→21:03)
[2020-05-09] MEDS: Folic Acid 1 MG TAB PO SCH ×2 (09:56→21:03)
[2020-05-09] MEDS: Saccharomyces boulardii 250 MG CAP PO SCH ×2 (09:56→21:03)
[2020-05-09] MEDS: Insulin Glargine 25 UNITS in Pre-Filled Syringe 1 EACH SC SCH ×2 (09:57→21:06)
[2020-05-09] MEDS: HumaLOG 300 UNITS/3 ML VIAL SC SCH ×3 (09:57→18:08)
[2020-05-09] MEDS: Heparin 5,000 UNITS/ML VIAL SC SCH ×3 (09:57→21:04)
[2020-05-09] MEDS: Polyethylene Glycol 3350 17 GM Packet PO SCH (09:58)
[2020-05-09] MEDS: Multivit, Therapeutic 1 TAB PO SCH (09:58)
[2020-05-09] MEDS: Senokot S 8.6-50 MG TAB PO SCH ×2 (09:58→21:05)
[2020-05-09] MEDS ORDERED: Nystatin 500,000 UNITS/5 ML UDCUP SSW SCH (14:30)
[2020-05-09 15:16] LABS: ALT (SGPT) 49 U/L (8-55); AST (SGOT) 26 U/L (5-34); Albumin 2.3 g/dL (3.5-5.0); Alkaline Phosphatase 103 U/L (40-110); Anion Gap 7 mmol/L (10-20); BUN (Urea Nitrogen) 24 mg/dL (7.0-18.7); Bilirubin, Total 1.6 mg/dL (0.2-1.2); Calc. Creatinine Clearance 194 mL/min (70-130); Calcium 6.9 mg/dL (7.8-10.44); Carbon Dioxide 21 mmol/L (22-29); Chloride 99 mmol/L (98-107); Estimated GFR-MDRD Greater than 90; Globulin 1.8 g/dL (2.4-3.5); Glucose 336 mg/dL (70-105); Protein, Total 4.1 g/dL (6.0-8.3); Sodium 122 mmol/L (136-145)
--- NOTE | 2020-05-09 16:21 | PDOC.EP ---
- Subjective Date: 05/09/20 Time: 08:00 - Objective Allergies/Adverse Reactions: Allergies Allergy/AdvReac Type Severity Reaction Status Date / Time No Known Allergies Allergy Verified 04/22/20 22:54 Current Medications Acetaminophen (Tylenol) 650 mg PO Q4H PRN PRN Reason: Headache/Fever/Mild Pain (1-3) Last Admin: 04/23/20 08:21 Dose: 650 mg Acetaminophen (Tylenol) 650 mg [place] Q4H PRN PRN Reason: Headache/Fever/Mild Pain (1-3) Hydrocodone Bitart/Acetaminophen ([place] 5/325) 1 tab PO Q4H PRN PRN Reason: Fever/Mild Pain Last Admin: 05/09/20 05:39 Dose: 1 tab Amiodarone HCl (Cordarone) 200 mg PO DAILY [facility] Last Admin: 05/09/20 09:56 Dose: 200 mg Aspirin (Ecotrin) 81 mg PO DAILY [facility] Last Admin: 05/09/20 09:56 Dose: 81 mg Dexamethasone (Decadron) 4 mg PO TID [facility] Last Admin: 05/06/20 16:10 Dose: Not Given Dexamethasone (Decadron) 4 mg SLOW IVP Q8H [facility] Last Admin: 05/09/20 11:00 Dose: 4 mg Dextrose/Water (Dextrose 50%) 25 gm SLOW IVP PRN PRN PRN Reason: Hypoglycemia Diltiazem HCl (Cardizem) 30 mg PO TID [facility] Last Admin: 05/09/20 15:08 Dose: 30 mg Folic Acid (Folvite) 1 mg PO BID [facility] Last Admin: 05/09/20 09:56 Dose: 1 mg Glucagon (Glucagon) 1 mg IM PRN PRN PRN Reason: Hypoglycemia Heparin Sodium (Porcine) (Heparin) 5,000 units SC TID [facility] Last Admin: 05/09/20 15:08 Dose: Not Given Dextrose/Water (D5w) 1,000 mls @ 0 mls/hr IV .Q0M PRN PRN Reason: Hypoglycemia Insulin Glargine 25 units/ (Miscellaneous Medication) 0.25 mls @ 0 mls/hr SC BID [facility] Last Admin: 05/09/20 09:57 Dose: Not Given Chlorpromazine HCl 25 mg/ (Sodium Chloride) 51 mls @ 102 mls/hr IVPB Q6H PRN PRN Reason: Nausea/Vomiting Last Admin: 05/07/20 12:31 Dose: 51 mls Amiodarone HCl 450 mg/Miscellaneous Medication 1 each/ Dextrose/Water 259 mls @ 0 mls/hr IVPB INF [facility]; Protocol Last Admin: 05/09/20 03:23 Dose: 259 mls Sodium Chloride (Normal Saline 0.9%) 1,000 mls @ 75 mls/hr IV .[id number] REPLACED BY [facility] Last Admin: 05/09/20 05:29 Dose: 1,000 mls Insulin Human Lispro (Humalog) 0 units SC .BEDTIME SLIDING SC PRN PRN Reason: Bedtime Correctional Scale Last Admin: 05/05/20 21:19 Dose: 2 unit Insulin Human Lispro (Humalog) 0 units SC .AGGRESSIVE SLIDING PRN PRN Reason: Aggressive Correctional Scale Last Admin: 05/09/20 05:35 Dose: 6 unit Insulin Human Lispro (Humalog) 7 units SC TID-[facility] REPLACED [facility] Last Admin: 05/09/20 09:57 Dose: Not Given Lorazepam (Ativan) 0.5 mg PO Q6H PRN PRN Reason: Anxiety Lorazepam (Ativan) 1 mg PO Q6H PRN PRN Reason: Anxiety/Agitation Lorazepam (Ativan) 0.25 mg SLOW IVP Q6H PRN PRN Reason: Nausea/Vomiting Memantine (Namenda) 5 mg PO BID [facility] Last Admin: 05/09/20 09:57 Dose: 5 mg Morphine Sulfate (Morphine) 2 mg SLOW IVP Q4H PRN PRN Reason: Pain Last Admin: 05/09/20 10:59 Dose: 2 mg Multivitamins (Theragran) 1 tab PO DAILY [facility] Last Admin: 05/09/20 09:58 Dose: 1 tab Nystatin (Mycostatin) 5 units SSW QID REPLACED BY [facility] Nystatin (Mycostatin) 5 units SSW NOW REPLACED BY [facility] Stop: 05/09/20 16:30 Last Admin: 05/09/20 15:07 Dose: 5 units Pantoprazole Sodium (Protonix) 40 mg PO BID [facility] Last Admin: 05/09/20 09:57 Dose: 40 mg Polyethylene Glycol (Miralax) 17 gm PO DAILY [facility] Last Admin: 05/09/20 09:58 Dose: Not Given Prochlorperazine Maleate (Compazine) 10 mg PO Q6H PRN PRN Reason: Nausea Saccharomyces Boulardii (Florastor) 250 mg PO BID [facility] Last Admin: 05/09/20 09:56 Dose: 250 mg Senna/Docusate Sodium (Senokot S) 1 tab PO BID [facility] Last Admin: 05/09/20 09:58 Dose: Not Given Sodium Chloride (Flush - Normal Saline) 10 ml IVF Q12HR PRN PRN Reason: Saline Flush Sodium Chloride (Flush - Normal Saline) 10 ml IVF PRN PRN PRN Reason: Saline Flush Last Admin: 05/09/20 03:28 Dose: 10 ml Sodium Chloride (Normal Saline Pf) 10 ml FS PRN PRN PRN Reason: RECONSTITUTION Vancomycin HCl (First Vancomycin) 250 mg PO Q6HR REPLACED BY [facility] Last Admin: 05/09/20 15:07 Dose: 250 mg Vital Signs & Weight: Vital Signs Temp Pulse Ox 05/09/20 15:19 96.9 F L 05/09/20 11:39 97.2 F L 05/09/20 08:00 98 05/09/20 07:09 97.3 F L Admit Weight 184 lb 1 oz Weight 211 lb 8 oz I/O: I/O 05/08/20 05/09/20 05/10/20 06:59 06:59 06:59 Intake Total 2310 2190 Output Total 520 800 Balance 1790 1390 - Quality Measures Condition: Atrial Fibrillation/Flutter (hx or current) - Medication Contraindications No Anticoagulant reason: Medical contraindication - Labs Result Diagrams: 05/08/20 05:00 05/09/20 14:27 - Assessment/Plan Assessment/Plan: ASSESSMENT AND PLAN: 1. Recurrent atrial arrhythmias: a. Paroxysmal atrial fibrillation with frequent recurrences, requiring amiodarone therapy. b. Recurrence noted again in the setting of C Diff/colitis, now back in sinus rhythm after IV amiodarone bolus. 2. Breast cancer, metastatic, in the central nervous system. a. On radiation therapy and steroids. 3. Thrombocytopenia, prior history of pancytopenia, likely related to chemotherapy. 4. Preserved LVEF at 55% to 60% with normal biatrial size on echo on 2018. On perfusion, LVEF 68%. 5. Diabetes. 6. Hypertension. 7. Elevated BMI. IV amiodarone stopped 05/08 but went back into AF RVR and it was restarted. Poor candidate for anticoagulation due to her thrombocytopenia and therefore rules out ablation as a potential treatment option. Overall she has a very grim prognosis with her metastatic breast cancer. Increase oral amiodarone to 200 mg t.i.d. continue drip for now.
--- NOTE | 2020-05-09 18:21 | PDOC.HOSPP ---
- Subjective Encounter Date: 05/09/20 Encounter Time: 10:30 Subjective: pt very drowsy. - Objective Vital Signs & Weight: Vital Signs (12 hours) Temp Pulse Ox 05/09/20 15:19 96.9 F L 05/09/20 11:39 97.2 F L 05/09/20 08:00 98 05/09/20 07:09 97.3 F L Weight Admit Weight 184 lb 1 oz Weight 211 lb 8 oz Most Recent Monitor Data Heart Rate from ECG 92 NIBP 146/123 NIBP BP-Mean 130 Respiration from ECG 15 SpO2 100 I&O: 05/08/20 05/09/20 05/10/20 06:59 06:59 06:59 Intake Total 2310 2190 Output Total 520 800 Balance 1790 1390 Result Diagrams: 05/08/20 05:00 05/09/20 14:27 Additional Labs: Accuchecks 05/09/20 05/09/20 05/09/20 16:38 10:37 05:35 POC Glucose 264 H 213 H 217 H 05/08/20 19:41 POC Glucose 212 H Hospitalist ROS - Review of Systems Gastrointestinal: reports: abdominal pain. denies: nausea, vomiting, diarrhea, constipation, melena, hematochezia, other Genitourinary: denies: dysuria, frequency, incontinence, hematuria, retention, other Musculoskeletal: denies: neck pain, shoulder pain, arm pain, back pain, hand pain, leg pain, foot pain, other - Medication Medications: Active Medications Generic Name Dose Route Start Last Admin Trade Name Freq PRN Reason Stop Dose Admin Acetaminophen 650 mg 04/23/20 01:18 04/23/20 08:21 Tylenol PO 650 mg Q4H PRN Administration Headache/Fever/Mild Pain (1-3) Hydrocodone Bitart/Acetaminophen 1 tab 05/04/20 18:58 05/09/20 05:39 [place] 5/325 PO 1 tab Q4H PRN Administration Fever/Mild Pain Aspirin 81 mg 05/04/20 09:00 05/09/20 09:56 Ecotrin PO 81 mg DAILY SONNY Administration Dexamethasone 4 mg 04/28/20 21:00 05/06/20 16:10 Decadron PO Not Given TID SONNY Dexamethasone 4 mg 05/06/20 18:00 05/09/20 18:08 Decadron SLOW IVP 4 mg Q8H SONNY Administration Diltiazem HCl 30 mg 04/23/20 15:00 05/09/20 15:08 Cardizem PO 30 mg TID SONNY Administration Folic Acid 1 mg 04/23/20 09:00 05/09/20 09:56 Folvite PO 1 mg BID SONNY Administration Heparin Sodium (Porcine) 5,000 units 04/28/20 15:00 05/09/20 15:08 Heparin SC Not Given TID SONNY Insulin Glargine 25 units/ 0.25 mls @ 0 mls/hr 04/28/20 21:00 05/09/20 09:57 Miscellaneous Medication SC Not Given BID SONNY Chlorpromazine HCl 25 mg/ 51 mls @ 102 mls/hr 05/06/20 17:31 05/07/20 12:31 Sodium Chloride IVPB 51 mls Q6H PRN Administration Nausea/Vomiting Amiodarone HCl 450 mg/ 259 mls @ 0 mls/hr 05/06/20 21:45 05/09/20 03:23 Miscellaneous Medication 1 IVPB 259 mls each/ Dextrose/Water INF SONNY Administration Protocol As Directed Sodium Chloride 1,000 mls @ 75 mls/hr 05/08/20 17:00 05/09/20 05:29 Normal Saline 0.9% IV 1,000 mls .[id number] SONNY Administration Insulin Human Lispro 0 units 04/23/20 01:31 05/05/20 21:19 Humalog SC 2 unit .BEDTIME SLIDING SC PRN Administration Bedtime Correctional Scale Insulin Human Lispro 0 units 04/27/20 13:09 05/09/20 05:35 Humalog SC 6 unit .AGGRESSIVE SLIDING PRN Administration Aggressive Correctional Scale Insulin Human Lispro 7 units 05/06/20 08:00 05/09/20 18:08 Humalog SC 7 unit TID-WM SONNY Administration Memantine 5 mg 05/02/20 09:00 05/09/20 09:57 Namenda PO 5 mg BID SONNY Administration Morphine Sulfate 2 mg 05/06/20 16:30 05/09/20 10:59 Morphine SLOW IVP 2 mg Q4H PRN Administration Pain Multivitamins 1 tab 04/23/20 09:00 05/09/20 09:58 Theragran PO 1 tab DAILY SONNY Administration Pantoprazole Sodium 40 mg 04/27/20 21:00 05/09/20 09:57 Protonix PO 40 mg BID SONNY Administration Polyethylene Glycol 17 gm 05/05/20 09:00 05/09/20 09:58 Miralax PO Not Given DAILY SONNY Saccharomyces Boulardii 250 mg 04/26/20 21:00 05/09/20 09:56 Florastor PO 250 mg BID SONNY Administration Senna/Docusate Sodium 1 tab 05/05/20 09:00 05/09/20 09:58 Senokot S PO Not Given BID SONNY Sodium Chloride 10 ml 04/23/20 01:18 05/09/20 03:28 Flush - Normal Saline IVF 10 ml PRN PRN Administration Saline Flush Vancomycin HCl 250 mg 05/08/20 18:00 05/09/20 18:09 First Vancomycin PO 250 mg Q6HR SONNY Administration - Exam Heart: negative: RRR, no murmur, no gallops, no rubs, normal peripheral pulses, irregular, diminshed peripheral pulses, murmur present, II/IV, III/IV Respiratory: negative: CTAB, no wheezes, no rales, no ronchi, normal chest expansion, no tachypnea, normal percussion, rales, rhonchi, tachypneic, wheezes Gastrointestinal: soft, normal bowel sounds Gastrointestinal - other findings: mild lower abdomen pain on palpation 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 Code(s): C50.919 - MALIGNANT NEOPLASM OF UNSP SITE OF UNSPECIFIED FEMALE BREAST ; C79.49 - SECONDARY MALIGNANT NEOPLASM OF OTH PARTS OF NERVOUS SYSTEM Status : Acute (3) Colitis due to Clostridium difficile Code(s): A04.72 - ENTEROCOLITIS D/T CLOSTRIDIUM DIFFICILE, NOT SPCF RECUR Status: Acute (4) DM type 2 (diabetes mellitus, type 2) Status: Chronic Qualifiers: Diabetes mellitus ferry terminal agent insulin use: without longterm use Diabetes mellitus complication status: without complication Qualified Code(s): E11.9 - Type 2 diabetes mellitus without complications (5) Moderate protein-calorie malnutrition Code(s): E44.0 - MODERATE PROTEIN-CALORIE MALNUTRITION Status: Acute (6) Physical deconditioning Code(s): R53.81 - OTHER MALAISE Status: Chronic - Plan 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 she also has intramedullary metastatic disease. she was seen by NS and no intervention but will need to continue radiation. will continue steroids. pt's blood sugars are high will adjust insulin. will make sure she has PT and OT. pt has no more diarrhea. 05/04 will continue pain meds. will add prn stool softeners. pt to resume her radiation in am. She is on steroids. 05/05 no new problems. Her family is going to bring some food for her. 05/06 pt very nauseated, she had a bowel movement. family meeting today they still want to try few more radiation tx. Family not ready for hospice. 05/07 spoke to pt using parts inspector pt states she does not want to be resuscitation but she did not want her family to know then she said yes she wants them to know. she had pain meds when i was talking with her. I will talk to her again fabiano and explain to her about resuscitation. will continue amio. Her platelets are low but she needs to be on dvt ppx lovenox since she is a high risk of dvt since she she had breast cancer with mets. she is also bed bound due to her spinal canal mets. 05/08 spoke with pt using a parts inspector who is a nurse. pt initially did not want to be resuscitation but then she stated that she was not sure. I will keep her full code for now. I did call her sister an updated her. Sister agrees that pt's overall condition is worsening. She will talk to her tonight and then make a decision. I also talked to the pt about hospice and she states she will think about it. pt is very depressed. I also explained to her that if we had to resuscitate her her overall outcome would be very poor given her metastatic disease. 05/09 spoke with pt using a mortgage operations manager, pt again keeps stating she wants to be a full code. I expressed that her overall outcome will be poor if we would have to resuscitate her. pt has been going in and out of afib rvr. she is not stable to get radiation. spoke with nursing staff to set up meeting with family in am.
[2020-05-09 20:08] LABS: Bacteria/HPF 4+ HPF (None Seen); Bilirubin Negative (Negative); Blood, Urine Negative (Negative); Clarity Extra Turbid (Clear); Glucose, Urine (Dipstick) Normal (Negative); Ketone, Urine Negative (Negative); Leukocyte 500 Leu/uL (Negative); Nitrite 1+ (Negative); Protein, Urine (Dipstick) Greater than 600 mg/dL (Neg-Trace); Specific Gravity, Urine 1.027 (1.002-1.036); Squamous Epithelial None Seen HPF (0-3); Triple Phosphate Crystal Rare HPF (None Seen); Urobilinogen Normal mg/dL (Less than 2); pH, Urine 8.5 (5.0-9.0)
[2020-05-09 20:12] LABS: Urine Culture Reflex Yes Yes
--- NOTE | 2020-05-09 20:35 | PDOC.EVN ---
Event Note - Event Note Event Note: Notified by RN, patient with UA +, will start Rocephin for UTI. Also noted sodium trending down, will d/c fluids and recheck in 6 hours as per discussion with Dr. Angel Travis Hyponatremia most likely associated with underlying malignancy.
[2020-05-09] MEDS: Dexamethasone 4 MG TAB PO SCH (21:03)
[2020-05-09] MEDS: Nystatin 500,000 UNITS/5 ML UDCUP SSW SCH (21:04)
[2020-05-09 21:16] LABS: Anion Gap 9 mmol/L (10-20); BUN (Urea Nitrogen) 21 mg/dL (7.0-18.7); Calc. Creatinine Clearance 202 mL/min (70-130); Calcium 7.1 mg/dL (7.8-10.44); Carbon Dioxide 19 mmol/L (22-29); Chloride 102 mmol/L (98-107); Estimated GFR-MDRD Greater than 90; Glucose 257 mg/dL (70-105); Sodium 125 mmol/L (136-145)
[2020-05-09] MEDS: cefTRIAXone\\ROCEPHIN 2 GM in Sodium Chloride 0.9% 100 ML IVPB SCH (21:17)
[2020-05-10] MEDS: HYDROcodone/Acetaminophen 5/325 mg Tablet PO PRN ×4 (01:42→19:11)
[2020-05-10] MEDS: Dexamethasone 4 mg/ml Vial SLOW IVP SCH ×3 (02:50→17:09)
[2020-05-10 04:13] LABS: Anion Gap 8 mmol/L (10-20); BUN (Urea Nitrogen) 23 mg/dL (7.0-18.7); Calc. Creatinine Clearance 210 mL/min (70-130); Carbon Dioxide 20 mmol/L (22-29); Chloride 101 mmol/L (98-107); Estimated GFR-MDRD Greater than 90; Glucose 220 mg/dL (70-105); Sodium 124 mmol/L (136-145)
[2020-05-10] MEDS: Vancomycin HCl 25 MG/ML Oral PO SCH ×3 (06:34→17:09)
[2020-05-10] MEDS: HumaLOG 300 UNITS/3 ML VIAL SC PRN (06:44)
[2020-05-10] MEDS: Nystatin 500,000 UNITS/5 ML UDCUP SSW SCH ×4 (08:33→19:38)
[2020-05-10] MEDS: Saccharomyces boulardii 250 MG CAP PO SCH ×2 (08:34→19:37)
[2020-05-10] MEDS: Folic Acid 1 MG TAB PO SCH ×2 (08:35→19:37)
[2020-05-10] MEDS: Aspirin 81 mg Enteric Coated Tablet PO SCH (08:35)
[2020-05-10] MEDS: Morphine 2 MG/ML VIAL SLOW IVP PRN (08:35)
[2020-05-10] MEDS: Amiodarone 200 MG TAB PO SCH ×3 (08:35→19:37)
[2020-05-10] MEDS: Multivit, Therapeutic 1 TAB PO SCH (08:36)
[2020-05-10] MEDS: Senokot S 8.6-50 MG TAB PO SCH ×2 (08:37→19:38)
[2020-05-10] MEDS: Heparin 5,000 UNITS/ML VIAL SC SCH ×4 (08:37→19:45)
[2020-05-10] MEDS: Polyethylene Glycol 3350 17 GM Packet PO SCH (08:37)
[2020-05-10 09:15] LABS: Anion Gap 9 mmol/L (10-20); BUN (Urea Nitrogen) 23 mg/dL (7.0-18.7); Calc. Creatinine Clearance 210 mL/min (70-130); Calcium 7.1 mg/dL (7.8-10.44); Carbon Dioxide 20 mmol/L (22-29); Chloride 101 mmol/L (98-107); Estimated GFR-MDRD Greater than 90; Glucose 206 mg/dL (70-105); Potassium 5.2 mmol/L (3.5-5.1); Sodium 125 mmol/L (136-145)
[2020-05-10] MEDS: HumaLOG 300 UNITS/3 ML VIAL SC SCH ×3 (11:10→17:26)
--- NOTE | 2020-05-10 12:14 | PDOC.EP ---
- Subjective Date: 05/10/20 Time: 12:13 Interval History: HISTORY OF PRESENT ILLNESS: Ms. 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 She also has advanced pancytopenia, lower extremity weakness possibly related to central nervous system mets. She has developed recurrent atrial fibrillation despite home amiodarone therapy. I have doubts whether she was able to keep down amiodarone due to her nausea. At this point though she is a poor candidate for ablation therapy with low platelet count, also pacing and AV node ablation would be potentially risky due to her heightened chance of infection. Amiodarone was reinitiated. She has decided to transition to hospice, once a company has been chosen. - Review of Systems Constitutional: reports: weakness. denies: chills, fever, malaise Respiratory: denies: cough, pleuritic pain, shortness of breath, wheezing Cardiology: denies: chest pain, heart racing, light headedness, palpitations, passing out Gastrointestinal: denies: abdominal pain, constipation, vomitting - Objective Allergies/Adverse Reactions: Allergies Allergy/AdvReac Type Severity Reaction Status Date / Time No Known Allergies Allergy Verified 04/22/20 22:54 Current Medications Acetaminophen (Tylenol) 650 mg PO Q4H PRN PRN Reason: Headache/Fever/Mild Pain (1-3) Last Admin: 04/23/20 08:21 Dose: 650 mg Acetaminophen (Tylenol) 650 mg MD Q4H PRN PRN Reason: Headache/Fever/Mild Pain (1-3) Hydrocodone Bitart/Acetaminophen ([place] 5/325) 1 tab PO Q4H PRN PRN Reason: Fever/Mild Pain Last Admin: 05/10/20 11:04 Dose: 1 tab Amiodarone HCl (Cordarone) 200 mg PO TID [facility] Last Admin: 05/10/20 08:35 Dose: 200 mg Aspirin (Ecotrin) 81 mg PO DAILY [facility] Last Admin: 05/10/20 08:35 Dose: 81 mg Dexamethasone (Decadron) 4 mg SLOW IVP Q8H [facility] Last Admin: 05/10/20 02:50 Dose: 4 mg Dextrose/Water (Dextrose 50%) 25 gm SLOW IVP PRN PRN PRN Reason: Hypoglycemia Diltiazem HCl (Cardizem) 30 mg PO TID [facility] Last Admin: 05/10/20 08:34 Dose: 30 mg Folic Acid (Folvite) 1 mg PO BID [facility] Last Admin: 05/10/20 08:35 Dose: 1 mg Glucagon (Glucagon) 1 mg IM PRN PRN PRN Reason: Hypoglycemia Heparin Sodium (Porcine) (Heparin) 5,000 units SC TID [facility] Last Admin: 05/10/20 08:37 Dose: Not Given Dextrose/Water (D5w) 1,000 mls @ 0 mls/hr IV .Q0M PRN PRN Reason: Hypoglycemia Insulin Glargine 25 units/ (Miscellaneous Medication) 0.25 mls @ 0 mls/hr SC BID [facility] Last Admin: 05/09/20 21:06 Dose: 0.25 mls Chlorpromazine HCl 25 mg/ (Sodium Chloride) 51 mls @ 102 mls/hr IVPB Q6H PRN PRN Reason: Nausea/Vomiting Last Admin: 05/07/20 12:31 Dose: 51 mls Amiodarone HCl 450 mg/Miscellaneous Medication 1 each/ Dextrose/Water 259 mls @ 0 mls/hr IVPB INF [facility]; Protocol Last Admin: 05/09/20 22:25 Dose: 259 mls Ceftriaxone Sodium 2 gm/ (Sodium Chloride) 100 mls @ 200 mls/hr IVPB 2100 [facility] Last Admin: 05/09/20 21:17 Dose: 100 mls Insulin Human Lispro (Humalog) 0 units SC .BEDTIME SLIDING SC PRN PRN Reason: Bedtime Correctional Scale Last Admin: 05/05/20 21:19 Dose: 2 unit Insulin Human Lispro (Humalog) 0 units SC .AGGRESSIVE SLIDING PRN PRN Reason: Aggressive Correctional Scale Last Admin: 05/10/20 06:44 Dose: 3 unit Insulin Human Lispro (Humalog) 7 units SC TID[facility] Last Admin: 05/10/20 11:10 Dose: Not Given Lorazepam (Ativan) 0.5 mg PO Q6H PRN PRN Reason: Anxiety Lorazepam (Ativan) 1 mg PO Q6H PRN PRN Reason: Anxiety/Agitation Lorazepam (Ativan) 0.25 mg SLOW IVP Q6H PRN PRN Reason: Nausea/Vomiting Memantine (Namenda) 5 mg PO BID [facility] Last Admin: 05/10/20 08:34 Dose: 5 mg Morphine Sulfate (Morphine) 2 mg SLOW IVP Q4H PRN PRN Reason: Pain Last Admin: 05/10/20 08:35 Dose: 2 mg Multivitamins (Theragran) 1 tab PO DAILY [facility] Last Admin: 05/10/20 08:36 Dose: 1 tab Nystatin (Mycostatin) 5 units SSW QID [facility] Last Admin: 05/10/20 08:33 Dose: 5 units Pantoprazole Sodium (Protonix) 40 mg PO BID [facility] Last Admin: 05/10/20 08:34 Dose: 40 mg Polyethylene Glycol (Miralax) 17 gm PO DAILY [facility] Last Admin: 05/10/20 08:37 Dose: Not Given Prochlorperazine Maleate (Compazine) 10 mg PO Q6H PRN PRN Reason: Nausea Saccharomyces Boulardii (Florastor) 250 mg PO BID [facility] Last Admin: 05/10/20 08:34 Dose: 250 mg Senna/Docusate Sodium (Senokot S) 1 tab PO BID [facility] Last Admin: 05/10/20 08:37 Dose: Not Given Sodium Chloride (Flush - Normal Saline) 10 ml IVF Q12HR PRN PRN Reason: Saline Flush Last Admin: 05/09/20 21:05 Dose: 10 ml Sodium Chloride (Flush - Normal Saline) 10 ml IVF PRN PRN PRN Reason: Saline Flush Last Admin: 05/10/20 02:51 Dose: 10 ml Sodium Chloride (Normal Saline Pf) 10 ml FS PRN PRN PRN Reason: RECONSTITUTION Vancomycin HCl (First Vancomycin) 250 mg PO Q6HR [facility] Last Admin: 05/10/20 06:34 Dose: 250 mg Vital Signs & Weight: Vital Signs Temp Pulse Ox 05/10/20 07:44 98 05/10/20 07:30 97.6 F 05/10/20 04:19 97.8 F Admit Weight 184 lb 1 oz Weight 211 lb 8 oz I/O: I/O 05/09/20 05/10/20 05/11/20 06:59 06:59 06:59 Intake Total 2190 2030 Output Total 800 750 Balance 1390 1280 - Quality Measures Condition: Atrial Fibrillation/Flutter (hx or current) - Medication Contraindications No Anticoagulant reason: Medical contraindication - Physical Exam General: alert & oriented x3, no apparent distress, speech clear HEENT: mucus membranes moist, normocephaly, EOMI Neck: supple neck, no JVD/HJR, no lymphadenopathy Cardiology: regular rate and rhythm, no murmur, PMI nondisplaced Lungs: clear to auscultation, normal breath sounds, no wheeze, rales, rhonchi Neurology: cranial nerve 2-12 intact, grossly intact, no lateralizing findings - Labs Result Diagrams: 05/12/20 09:27 05/12/20 09:27 - EKG Interpretation EKG Method: Telemetry EKG shows: Sinus rhythm - Assessment/Plan Assessment/Plan: ASSESSMENT AND PLAN: 1. Recurrent atrial arrhythmias: a. Paroxysmal atrial fibrillation with frequent recurrences, requiring amiodarone therapy. b. Recurrence noted again in the setting of C Diff/colitis, now back in sinus rhythm after IV amiodarone bolus. 2. Breast cancer, metastatic, in the central nervous system. a. On radiation therapy and steroids. 3. Thrombocytopenia, prior history of pancytopenia, likely related to chemotherapy. 4. Preserved LVEF at 55% to 60% with normal biatrial size on echo on 2018. On perfusion, LVEF 68%. 5. Diabetes. 6. Hypertension. 7. Elevated BMI. Has decided on hospice. She was not symptomatic with her AF but rates were elevated which could cause fluid retention/add to discomfort. Continue amiodarone drip until the current bag is done, then DC. Continue amiodarone 200mg PO TID until DC. Dc home on 200gm BID. EP signing off.
[2020-05-10] MEDS: Insulin Glargine 25 UNITS in Pre-Filled Syringe 1 EACH SC SCH ×2 (12:45→19:40)
[2020-05-10] MEDS: Amiodarone 450 MG, Admixture Fee 1 EACH in Dextrose 5% in Water 250 ML IVPB SCH (12:45)
[2020-05-10 13:22] VITALS: BMI 35.2
[2020-05-10] MEDS ORDERED: Fentanyl 100 MCG/2 ML VIAL SLOW IVP PRN (13:44)
--- NOTE | 2020-05-10 16:10 | PDOC.HOSPP ---
- Subjective Encounter Date: 05/10/20 Encounter Time: 11:45 Subjective: pt up in bed appears ill - Objective Vital Signs & Weight: Vital Signs (12 hours) Temp Pulse Ox 05/10/20 15:20 98.0 F 05/10/20 07:44 98 05/10/20 07:30 97.6 F 05/10/20 04:19 97.8 F Weight Admit Weight 184 lb 1 oz Weight 211 lb 8 oz Most Recent Monitor Data Heart Rate from ECG 87 NIBP 154/98 NIBP BP-Mean 116 Respiration from ECG 18 SpO2 100 I&O: 05/09/20 05/10/20 05/11/20 06:59 06:59 06:59 Intake Total 2190 2030 Output Total 800 750 Balance 1390 1280 Result Diagrams: 05/08/20 05:00 05/10/20 08:42 Additional Labs: Accuchecks 05/10/20 05/10/20 05/09/20 10:43 05:39 20:19 POC Glucose 220 H 192 H 282 H 05/09/20 16:38 POC Glucose 264 H Hospitalist ROS - Review of Systems Other: unable to obtain - Medication Medications: Active Medications Generic Name Dose Route Start Last Admin Trade Name Freq PRN Reason Stop Dose Admin Acetaminophen 650 mg 04/23/20 01:18 04/23/20 08:21 Tylenol PO 650 mg Q4H PRN Administration Headache/Fever/Mild Pain (1-3) Hydrocodone Bitart/Acetaminophen 1 tab 05/04/20 18:58 05/10/20 11:04 [place] 5/325 PO 1 tab Q4H PRN Administration Fever/Mild Pain Amiodarone HCl 200 mg 05/09/20 21:00 05/10/20 08:35 Cordarone PO 200 mg TID SONNY Administration Aspirin 81 mg 05/04/20 09:00 05/10/20 08:35 Ecotrin PO 81 mg DAILY SONNY Administration Dexamethasone 4 mg 05/06/20 18:00 05/10/20 12:45 Decadron SLOW IVP 4 mg Q8H SONNY Administration Diltiazem HCl 30 mg 04/23/20 15:00 05/10/20 08:34 Cardizem PO 30 mg TID SONNY Administration Folic Acid 1 mg 04/23/20 09:00 05/10/20 08:35 Folvite PO 1 mg BID SONNY Administration Heparin Sodium (Porcine) 5,000 units 04/28/20 15:00 05/10/20 08:37 Heparin SC Not Given TID SONNY Insulin Glargine 25 units/ 0.25 mls @ 0 mls/hr 04/28/20 21:00 05/10/20 12:45 Miscellaneous Medication SC 0.25 mls BID SONNY Administration Chlorpromazine HCl 25 mg/ 51 mls @ 102 mls/hr 05/06/20 17:31 05/07/20 12:31 Sodium Chloride IVPB 51 mls Q6H PRN Administration Nausea/Vomiting Amiodarone HCl 450 mg/ 259 mls @ 0 mls/hr 05/06/20 21:45 05/10/20 12:45 Miscellaneous Medication 1 IVPB 259 mls each/ Dextrose/Water INF SONNY Administration Protocol As Directed Ceftriaxone Sodium 2 gm/ 100 mls @ 200 mls/hr 05/09/20 21:00 05/09/20 21:17 Sodium Chloride IVPB 100 mls 2100 SONNY Administration Insulin Human Lispro 0 units 04/23/20 01:31 05/05/20 21:19 Humalog SC 2 unit .BEDTIME SLIDING SC PRN Administration Bedtime Correctional Scale Insulin Human Lispro 0 units 04/27/20 13:09 05/10/20 06:44 Humalog SC 3 unit .AGGRESSIVE SLIDING PRN Administration Aggressive Correctional Scale Insulin Human Lispro 7 units 05/06/20 08:00 05/10/20 12:48 Humalog SC 7 unit TID-WM SONNY Administration Memantine 5 mg 05/02/20 09:00 05/10/20 08:34 Namenda PO 5 mg BID SONNY Administration Morphine Sulfate 2 mg 05/06/20 16:30 05/10/20 08:35 Morphine SLOW IVP 2 mg Q4H PRN Administration Pain Multivitamins 1 tab 04/23/20 09:00 05/10/20 08:36 Theragran PO 1 tab DAILY SONNY Administration Nystatin 5 units 05/09/20 21:00 05/10/20 12:55 Mycostatin SSW 5 units QID SONNY Administration Pantoprazole Sodium 40 mg 04/27/20 21:00 05/10/20 08:34 Protonix PO 40 mg BID SONNY Administration Polyethylene Glycol 17 gm 05/05/20 09:00 05/10/20 08:37 Miralax PO Not Given DAILY SONNY Saccharomyces Boulardii 250 mg 04/26/20 21:00 05/10/20 08:34 Florastor PO 250 mg BID SONNY Administration Senna/Docusate Sodium 1 tab 05/05/20 09:00 05/10/20 08:37 Senokot S PO Not Given BID SONNY Sodium Chloride 10 ml 04/23/20 01:18 05/09/20 21:05 Flush - Normal Saline IVF 10 ml Q12HR PRN Administration Saline Flush Sodium Chloride 10 ml 04/23/20 01:18 05/10/20 02:51 Flush - Normal Saline IVF 10 ml PRN PRN Administration Saline Flush Vancomycin HCl 250 mg 05/08/20 18:00 05/10/20 12:47 First Vancomycin PO 250 mg Q6HR SONNY Administration - Exam Heart: negative: RRR, no murmur, no gallops, no rubs, normal peripheral pulses, irregular, diminshed peripheral pulses, murmur present, II/IV, III/IV Respiratory: negative: CTAB, no wheezes, no rales, no ronchi, normal chest expansion, no tachypnea, normal percussion, rales, rhonchi, tachypneic, wheezes Gastrointestinal: negative: soft, non-tender, non-distended, normal bowel sounds , no palpable masses, no hepatomegaly, no splenomegaly, no bruit, no guarding, no rigidity, tender to palpation, distended, diminished bowl sounds, voluntary guarding Extremities: 2+ LE edema 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 Code(s): C50.919 - MALIGNANT NEOPLASM OF UNSP SITE OF UNSPECIFIED FEMALE BREAST ; C79.49 - SECONDARY MALIGNANT NEOPLASM OF OTH PARTS OF NERVOUS SYSTEM Status : Acute (3) Colitis due to Clostridium difficile Code(s): A04.72 - ENTEROCOLITIS D/T CLOSTRIDIUM DIFFICILE, NOT SPCF RECUR Status: Acute (4) DM type 2 (diabetes mellitus, type 2) Status: Chronic Qualifiers: Diabetes mellitus residential insulin use: without exterminator termite use Diabetes mellitus complication status: without complication Qualified Code(s): E11.9 - Type 2 diabetes mellitus without complications (5) Moderate protein-calorie malnutrition Code(s): E44.0 - MODERATE PROTEIN-CALORIE MALNUTRITION Status: Acute (6) Physical deconditioning Code(s): R53.81 - OTHER MALAISE Status: Chronic - Plan 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 she also has intramedullary metastatic disease. she was seen by NS and no intervention but will need to continue radiation. will continue steroids. pt's blood sugars are high will adjust insulin. will make sure she has PT and OT. pt has no more diarrhea. 05/04 will continue pain meds. will add prn stool softeners. pt to resume her radiation in am. She is on steroids. 05/05 no new problems. Her family is going to bring some food for her. 05/06 pt very nauseated, she had a bowel movement. family meeting today they still want to try few more radiation tx. Family not ready for hospice. 05/07 spoke to pt using sports physician pt states she does not want to be resuscitation but she did not want her family to know then she said yes she wants them to know. she had pain meds when i was talking with her. I will talk to her again fabiano and explain to her about resuscitation. will continue amio. Her platelets are low but she needs to be on dvt ppx lovenox since she is a high risk of dvt since she she had breast cancer with mets. she is also bed bound due to her spinal canal mets. 05/08 spoke with pt using a sports physician who is a nurse. pt initially did not want to be resuscitation but then she stated that she was not sure. I will keep her full code for now. I did call her sister an updated her. Sister agrees that pt's overall condition is worsening. She will talk to her tonight and then make a decision. I also talked to the pt about hospice and she states she will think about it. pt is very depressed. I also explained to her that if we had to resuscitate her her overall outcome would be very poor given her metastatic disease. 05/09 spoke with pt using a inspector paper products, pt again keeps stating she wants to be a full code. I expressed that her overall outcome will be poor if we would have to resuscitate her. pt has been going in and out of afib rvr. she is not stable to get radiation. spoke with nursing staff to set up meeting with family in am. 05/10 Had family meeting today with and son. sports physician who was her nurse helped with translation. palliative care also was present. Pt wants to be full code while she is here. We have updated pt's and her family about her overall poor prognosis. list of hospice companies have been provided to pt' s family. will order pillowcase sewer consult for hospice. pt is not eating.
[2020-05-10] MEDS: cefTRIAXone\\ROCEPHIN 2 GM in Sodium Chloride 0.9% 100 ML IVPB SCH (19:40)
[2020-05-11] MEDS: Vancomycin HCl 25 MG/ML Oral PO SCH ×4 (00:11→17:49)
[2020-05-11] MEDS: Dexamethasone 4 mg/ml Vial SLOW IVP SCH ×3 (02:23→17:51)
[2020-05-11] MEDS ORDERED: Furosemide 20 MG/2 ML VIAL SLOW IVP SCH (07:15)
[2020-05-11] MEDS: Nystatin 500,000 UNITS/5 ML UDCUP SSW SCH ×4 (09:15→20:47)
[2020-05-11] MEDS: HYDROcodone/Acetaminophen 5/325 mg Tablet PO PRN ×2 (09:16→20:47)
[2020-05-11] MEDS: Saccharomyces boulardii 250 MG CAP PO SCH ×2 (09:16→20:48)
[2020-05-11] MEDS: Morphine 2 MG/ML VIAL SLOW IVP PRN ×2 (09:17→18:02)
[2020-05-11] MEDS: Amiodarone 200 MG TAB PO SCH ×3 (09:17→20:48)
[2020-05-11] MEDS: Folic Acid 1 MG TAB PO SCH ×2 (09:17→20:48)
[2020-05-11] MEDS: Aspirin 81 mg Enteric Coated Tablet PO SCH (09:17)
[2020-05-11] MEDS: Heparin 5,000 UNITS/ML VIAL SC SCH ×4 (09:19→20:48)
[2020-05-11] MEDS: Insulin Glargine 25 UNITS in Pre-Filled Syringe 1 EACH SC SCH ×2 (09:19→20:45)
[2020-05-11] MEDS: HumaLOG 300 UNITS/3 ML VIAL SC SCH ×3 (09:19→17:51)
[2020-05-11] MEDS: Multivit, Therapeutic 1 TAB PO SCH (09:19)
[2020-05-11] MEDS: Senokot S 8.6-50 MG TAB PO SCH ×2 (09:20→20:49)
[2020-05-11] MEDS: Polyethylene Glycol 3350 17 GM Packet PO SCH (09:20)
--- NOTE | 2020-05-11 11:53 | PDOC.HOSPP ---
- Subjective Encounter Date: 05/11/20 Encounter Time: 11:30 Subjective: pt very drowsy, but answers softly when she is spoken to. - Objective Vital Signs & Weight: Vital Signs (12 hours) Temp Pulse Ox 05/11/20 11:14 96.6 F L 05/11/20 08:00 100 05/11/20 07:18 96.9 F L 05/11/20 04:50 96.8 F L Weight Admit Weight 184 lb 1 oz Weight 211 lb 8 oz Most Recent Monitor Data Heart Rate from ECG 83 NIBP 140/109 NIBP BP-Mean 119 Respiration from ECG 17 SpO2 98 I&O: 05/10/20 05/11/20 05/12/20 06:59 06:59 06:59 Intake Total 2030 1284.4 Output Total 750 550 Balance 1280 734.4 Result Diagrams: 05/08/20 05:00 05/10/20 08:42 Additional Labs: Accuchecks 05/11/20 05/11/20 05/10/20 10:43 06:42 19:44 POC Glucose 155 H 179 H 194 H 05/10/20 16:41 POC Glucose 202 H Hospitalist ROS - Review of Systems Cardiovascular: denies: chest pain, palpitations, orthopnea, paroxysmal noc. dyspnea, edema, light headedness, other Gastrointestinal: denies: nausea, vomiting, abdominal pain, diarrhea, constipation, melena, hematochezia, other Genitourinary: denies: dysuria, frequency, incontinence, hematuria, retention, other - Medication Medications: Active Medications Generic Name Dose Route Start Last Admin Trade Name Freq PRN Reason Stop Dose Admin Acetaminophen 650 mg 04/23/20 01:18 04/23/20 08:21 Tylenol PO 650 mg Q4H PRN Administration Headache/Fever/Mild Pain (1-3) Hydrocodone Bitart/Acetaminophen 1 tab 05/04/20 18:58 05/10/20 19:11 [place] 5/325 PO 1 tab Q4H PRN Administration Fever/Mild Pain Amiodarone HCl 200 mg 05/09/20 21:00 05/11/20 09:17 Cordarone PO 200 mg TID SONNY Administration Aspirin 81 mg 05/04/20 09:00 05/11/20 09:17 Ecotrin PO 81 mg DAILY SONNY Administration Dexamethasone 4 mg 05/06/20 18:00 05/11/20 09:18 Decadron SLOW IVP 4 mg Q8H SONNY Administration Diltiazem HCl 30 mg 04/23/20 15:00 05/11/20 09:17 Cardizem PO 30 mg TID SONNY Administration Fentanyl 50 mcg 05/10/20 13:44 05/10/20 17:10 Sublimaze SLOW IVP 50 mcg Q6H PRN Administration Pain Folic Acid 1 mg 04/23/20 09:00 05/11/20 09:17 Folvite PO 1 mg BID SONNY Administration Heparin Sodium (Porcine) 5,000 units 04/28/20 15:00 05/11/20 09:19 Heparin SC Not Given TID SONNY Insulin Glargine 25 units/ 0.25 mls @ 0 mls/hr 04/28/20 21:00 05/11/20 09:19 Miscellaneous Medication SC Not Given BID [facility] Chlorpromazine HCl 25 mg/ 51 mls @ 102 mls/hr 05/06/20 17:31 05/07/20 12:31 Sodium Chloride IVPB 51 mls Q6H PRN Administration Nausea/Vomiting Amiodarone HCl 450 mg/ 259 mls @ 0 mls/hr 05/06/20 21:45 05/10/20 12:45 Miscellaneous Medication 1 IVPB 259 mls each/ Dextrose/Water INF SONNY Administration Protocol As Directed Ceftriaxone Sodium 2 gm/ 100 mls @ 200 mls/hr 05/09/20 21:00 05/10/20 19:40 Sodium Chloride IVPB 100 mls 2100 SONNY Administration Insulin Human Lispro 0 units 04/23/20 01:31 05/05/20 21:19 Humalog SC 2 unit .BEDTIME SLIDING SC PRN Administration Bedtime Correctional Scale Insulin Human Lispro 0 units 04/27/20 13:09 05/10/20 06:44 Humalog SC 3 unit .AGGRESSIVE SLIDING PRN Administration Aggressive Correctional Scale Insulin Human Lispro 7 units 05/06/20 08:00 05/11/20 09:19 Humalog SC Not Given TID-WM [facility] Lorazepam 0.5 mg 05/04/20 18:57 05/10/20 19:37 Ativan PO 0.5 mg Q6H PRN Administration Anxiety Memantine 5 mg 05/02/20 09:00 05/11/20 09:22 Namenda PO 5 mg BID SONNY Administration Morphine Sulfate 2 mg 05/06/20 16:30 05/11/20 09:17 Morphine SLOW IVP 2 mg Q4H PRN Administration Pain Multivitamins 1 tab 04/23/20 09:00 05/11/20 09:19 Theragran PO Not Given DAILY SONNY Nystatin 5 units 05/09/20 21:00 05/11/20 09:15 Mycostatin SSW 5 units QID SONNY Administration Pantoprazole Sodium 40 mg 04/27/20 21:00 05/11/20 09:17 Protonix PO 40 mg BID SONNY Administration Polyethylene Glycol 17 gm 05/05/20 09:00 05/11/20 09:20 Miralax PO Not Given DAILY SONNY Saccharomyces Boulardii 250 mg 04/26/20 21:00 05/11/20 09:16 Florastor PO 250 mg BID SONNY Administration Senna/Docusate Sodium 1 tab 05/05/20 09:00 05/11/20 09:20 Senokot S PO Not Given BID SONNY Sodium Chloride 10 ml 04/23/20 01:18 05/09/20 21:05 Flush - Normal Saline IVF 10 ml Q12HR PRN Administration Saline Flush Sodium Chloride 10 ml 04/23/20 01:18 05/10/20 02:51 Flush - Normal Saline IVF 10 ml PRN PRN Administration Saline Flush Vancomycin HCl 250 mg 05/08/20 18:00 05/11/20 09:15 First Vancomycin PO 250 mg Q6HR SONNY Administration - Exam Neck: negative: supple, symmetric, no JVD, no thyromegaly, no lymphadenopathy, no carotid bruit, JVD Heart: negative: RRR, no murmur, no gallops, no rubs, normal peripheral pulses, irregular, diminshed peripheral pulses, murmur present, II/IV, III/IV Respiratory: negative: CTAB, no wheezes, no rales, no ronchi, normal chest expansion, no tachypnea, normal percussion, rales, rhonchi, tachypneic, wheezes Gastrointestinal: negative: soft, non-tender, non-distended, normal bowel sounds , no palpable masses, no hepatomegaly, no splenomegaly, no bruit, no guarding, no rigidity, tender to palpation, distended, diminished bowl sounds, voluntary guarding Neurological - other findings: pt's movement to her lower ext is limited. 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 she also has intramedullary metastatic disease. she was seen by NS and no intervention but will need to continue radiation. will continue steroids. pt's blood sugars are high will adjust insulin. will make sure she has PT and OT. pt has no more diarrhea. 05/04 will continue pain meds. will add prn stool softeners. pt to resume her radiation in am. She is on steroids. 05/05 no new problems. Her family is going to bring some food for her. 05/06 pt very nauseated, she had a bowel movement. family meeting today they still want to try few more radiation tx. Family not ready for hospice. 05/07 spoke to pt using import/export analyst pt states she does not want to be resuscitation but she did not want her family to know then she said yes she wants them to know. she had pain meds when i was talking with her. I will talk to her again fabiano and explain to her about resuscitation. will continue amio. Her platelets are low but she needs to be on dvt ppx lovenox since she is a high risk of dvt since she she had breast cancer with mets. she is also bed bound due to her spinal canal mets. 05/08 spoke with pt using a import/export analyst who is a nurse. pt initially did not want to be resuscitation but then she stated that she was not sure. I will keep her full code for now. I did call her sister an updated her. Sister agrees that pt's overall condition is worsening. She will talk to her tonight and then make a decision. I also talked to the pt about hospice and she states she will think about it. pt is very depressed. I also explained to her that if we had to resuscitate her her overall outcome would be very poor given her metastatic disease. 05/09 spoke with pt using a manager heavy duty, pt again keeps stating she wants to be a full code. I expressed that her overall outcome will be poor if we would have to resuscitate her. pt has been going in and out of afib rvr. she is not stable to get radiation. spoke with nursing staff to set up meeting with family in am. 05/10 Had family meeting today with and son. import/export analyst who was her nurse helped with translation. palliative care also was present. Pt wants to be full code while she is here. We have updated pt's and her family about her overall poor prognosis. list of hospice companies have been provided to pt' s family. will order outsole caser consult for hospice. pt is not eating. 05/11 pt's family has picked a hospice company will ask case management to ask them to come evaluate pt so that she can be discharged home with hospice. I did speak with Rad/Onc who also stated that her overall prognosis is poor and that she has had minimal improvement on radiation tx in regards to her lower ext. He further stated that it may prolong her life a bit. However pt has been going into afib with RVR and has not been eating much. Not sure if radiation will help. I did discuss this with pt's family yesterday.
--- NOTE | 2020-05-11 18:22 | PDOC.EVN ---
Event Note - Event Note Event Note: pt's family has talked to hospice and all equipment will be set up and pt will be discharged on wednesday.
[2020-05-11] MEDS: HumaLOG 300 UNITS/3 ML VIAL SC PRN (20:45)
[2020-05-11] MEDS: cefTRIAXone\\ROCEPHIN 2 GM in Sodium Chloride 0.9% 100 ML IVPB SCH (20:47)
[2020-05-12] MEDS: Morphine 2 MG/ML VIAL SLOW IVP PRN ×4 (00:24→21:53)
[2020-05-12] MEDS: Vancomycin HCl 25 MG/ML Oral PO SCH ×5 (00:24→23:50)
[2020-05-12] MEDS: Dexamethasone 4 mg/ml Vial SLOW IVP SCH ×3 (02:13→17:27)
[2020-05-12] MEDS: HumaLOG 300 UNITS/3 ML VIAL SC PRN ×2 (05:27→21:19)
[2020-05-12] MEDS: Nystatin 500,000 UNITS/5 ML UDCUP SSW SCH ×4 (08:51→21:20)
[2020-05-12] MEDS: Amiodarone 200 MG TAB PO SCH ×3 (08:52→21:20)
[2020-05-12] MEDS: Saccharomyces boulardii 250 MG CAP PO SCH ×2 (08:52→21:20)
[2020-05-12] MEDS: Multivit, Therapeutic 1 TAB PO SCH (08:52)
[2020-05-12] MEDS: Folic Acid 1 MG TAB PO SCH ×2 (08:52→21:20)
[2020-05-12] MEDS: Heparin 5,000 UNITS/ML VIAL SC SCH ×3 (08:52→21:21)
[2020-05-12] MEDS: Aspirin 81 mg Enteric Coated Tablet PO SCH (08:52)
[2020-05-12] MEDS: Insulin Glargine 25 UNITS in Pre-Filled Syringe 1 EACH SC SCH ×2 (08:53→21:19)
[2020-05-12] MEDS: Polyethylene Glycol 3350 17 GM Packet PO SCH (08:53)
[2020-05-12] MEDS: Senokot S 8.6-50 MG TAB PO SCH ×2 (08:54→21:57)
[2020-05-12 09:38] LABS: Hemoglobin 12.2 g/dL (12.0-16.0); Mean Corpuscular HGB CONC 32.4 g/dL (32.0-36.0); Mean Corpuscular Hemoglobin 32.1 pg (27.0-31.0); Mean Corpuscular Volume 99.1 fL (78.0-98.0); Mean Platelet Volume 11.8 fL (7.4-10.4); Platelet Count 26 thou/uL (130-400); Red Blood Cell (RBC) Count 3.81 mill/uL (4.20-5.40); White Blood Cell (WBC) Count 9.2 thou/uL (4.8-10.8)
[2020-05-12 09:56] LABS: Anion Gap 9 mmol/L (10-20); BUN (Urea Nitrogen) 20 mg/dL (7.0-18.7); Calc. Creatinine Clearance 215 mL/min (70-130); Calcium 7.3 mg/dL (7.8-10.44); Carbon Dioxide 20 mmol/L (22-29); Chloride 102 mmol/L (98-107); Estimated GFR-MDRD Greater than 90; Glucose 203 mg/dL (70-105); Potassium 5.1 mmol/L (3.5-5.1); Sodium 126 mmol/L (136-145)
[2020-05-12] MEDS: HumaLOG 300 UNITS/3 ML VIAL SC SCH ×3 (09:59→17:26)
--- NOTE | 2020-05-12 18:37 | PDOC.HOSPP ---
- Subjective Encounter Date: 05/12/20 Encounter Time: 12:00 Subjective: The patient has no complaints. She states her diarrhea has resolved. She denies abd pain. She has poor appetite. She is asking when she can go home - Objective Vital Signs & Weight: Vital Signs (12 hours) Temp Pulse Ox 05/12/20 15:36 96.2 F L 05/12/20 11:17 96.7 F L 05/12/20 08:00 100 05/12/20 07:31 96.8 F L Weight Admit Weight 184 lb 1 oz Weight 211 lb 8 oz Most Recent Monitor Data Heart Rate from ECG 84 NIBP 130/75 NIBP BP-Mean 93 Respiration from ECG 11 SpO2 98 I&O: 05/11/20 05/12/20 05/13/20 06:59 06:59 06:59 Intake Total 1284.4 790 Output Total 550 1075 Balance 734.4 -285 Result Diagrams: 05/12/20 09:27 05/12/20 09:27 Additional Labs: Accuchecks 05/12/20 05/12/20 05/12/20 16:45 10:40 05:24 POC Glucose 202 H 189 H 219 H 05/11/20 20:10 POC Glucose 272 H Hospitalist ROS - Review of Systems Constitutional: denies: fever, chills - Medication Medications: Active Medications Generic Name Dose Route Start Last Admin Trade Name Freq PRN Reason Stop Dose Admin Acetaminophen 650 mg 04/23/20 01:18 04/23/20 08:21 Tylenol PO 650 mg Q4H PRN Administration Headache/Fever/Mild Pain (1-3) Hydrocodone Bitart/Acetaminophen 1 tab 05/04/20 18:58 05/11/20 20:47 [place] 5/325 PO 1 tab Q4H PRN Administration Fever/Mild Pain Amiodarone HCl 200 mg 05/09/20 21:00 05/12/20 17:26 Cordarone PO 200 mg TID SONNY Administration Aspirin 81 mg 05/04/20 09:00 05/12/20 08:52 Ecotrin PO 81 mg DAILY SONNY Administration Dexamethasone 4 mg 05/06/20 18:00 05/12/20 17:27 Decadron SLOW IVP 4 mg Q8H SONNY Administration Diltiazem HCl 30 mg 04/23/20 15:00 05/12/20 17:26 Cardizem PO 30 mg TID SONNY Administration Fentanyl 50 mcg 05/10/20 13:44 05/10/20 17:10 Sublimaze SLOW IVP 50 mcg Q6H PRN Administration Pain Folic Acid 1 mg 04/23/20 09:00 05/12/20 08:52 Folvite PO 1 mg BID SONNY Administration Heparin Sodium (Porcine) 5,000 units 04/28/20 15:00 05/12/20 15:44 Heparin SC Not Given TID SONNY Insulin Glargine 25 units/ 0.25 mls @ 0 mls/hr 04/28/20 21:00 05/12/20 08:53 Miscellaneous Medication SC 0.25 mls BID SONNY Administration Chlorpromazine HCl 25 mg/ 51 mls @ 102 mls/hr 05/06/20 17:31 05/07/20 12:31 Sodium Chloride IVPB 51 mls Q6H PRN Administration Nausea/Vomiting Amiodarone HCl 450 mg/ 259 mls @ 0 mls/hr 05/06/20 21:45 05/10/20 12:45 Miscellaneous Medication 1 IVPB 259 mls each/ Dextrose/Water INF SONNY Administration Protocol As Directed Ceftriaxone Sodium 2 gm/ 100 mls @ 200 mls/hr 05/09/20 21:00 05/11/20 20:47 Sodium Chloride IVPB 100 mls 2100 SONNY Administration Insulin Human Lispro 0 units 04/23/20 01:31 05/11/20 20:45 Humalog SC 3 unit .BEDTIME SLIDING SC PRN Administration Bedtime Correctional Scale Insulin Human Lispro 0 units 04/27/20 13:09 05/12/20 05:27 Humalog SC 6 unit .AGGRESSIVE SLIDING PRN Administration Aggressive Correctional Scale Insulin Human Lispro 7 units 05/06/20 08:00 05/12/20 17:26 Humalog SC 7 unit TID-WM SONNY Administration Lorazepam 0.5 mg 05/04/20 18:57 05/10/20 19:37 Ativan PO 0.5 mg Q6H PRN Administration Anxiety Memantine 5 mg 05/02/20 09:00 05/12/20 08:53 Namenda PO 5 mg BID SONNY Administration Morphine Sulfate 2 mg 05/06/20 16:30 05/12/20 13:14 Morphine SLOW IVP 2 mg Q4H PRN Administration Pain Multivitamins 1 tab 04/23/20 09:00 05/12/20 08:52 Theragran PO 1 tab DAILY SONNY Administration Nystatin 5 units 05/09/20 21:00 05/12/20 17:26 Mycostatin SSW 5 units QID SONNY Administration Pantoprazole Sodium 40 mg 04/27/20 21:00 05/12/20 08:52 Protonix PO 40 mg BID SONNY Administration Polyethylene Glycol 17 gm 05/05/20 09:00 05/12/20 08:53 Miralax PO Not Given DAILY SONNY Saccharomyces Boulardii 250 mg 04/26/20 21:00 05/12/20 08:52 Florastor PO 250 mg BID SONNY Administration Senna/Docusate Sodium 1 tab 05/05/20 09:00 05/12/20 08:54 Senokot S PO Not Given BID SONNY Sodium Chloride 10 ml 04/23/20 01:18 05/09/20 21:05 Flush - Normal Saline IVF 10 ml Q12HR PRN Administration Saline Flush Sodium Chloride 10 ml 04/23/20 01:18 05/10/20 02:51 Flush - Normal Saline IVF 10 ml PRN PRN Administration Saline Flush Vancomycin HCl 250 mg 05/08/20 18:00 05/12/20 12:57 First Vancomycin PO 250 mg Q6HR SONNY Administration - Exam General Appearance: NAD, awake alert General - other findings: alopecia Eye: PERRL, anicteric sclera ENT: normocephalic atraumatic, no oropharyngeal lesions Neck: supple, no JVD Heart: RRR, no murmur Respiratory: CTAB, no wheezes, no rales, no ronchi Gastrointestinal: soft, non-tender, non-distended, normal bowel sounds, no palpable masses, no hepatomegaly, no splenomegaly, no bruit Extremities: no cyanosis, no clubbing, no edema Hosp A/P - Plan This is a 49 year old female with metastatic breast cancer presenting with worsening weakness. She also had diarrhea and tested positive for C diff Metastatic breast cancer - poor prognosis - hospice is aware, plan to dc patient on Wednesday C diff diarrhea - continue oral vancomycin - diarrhea has resolved per patient Hyponatremia -sodium 126, appears to be chronic - check serum and urine osmolarity Leukocytosis -resolved Thrombocytopenia - platelet count 26, stable DVT prophylaxis: SCDS Code status: full code
[2020-05-12] MEDS: cefTRIAXone\\ROCEPHIN 2 GM in Sodium Chloride 0.9% 100 ML IVPB SCH (21:18)
[2020-05-12] MEDS: HYDROcodone/Acetaminophen 5/325 mg Tablet PO PRN (21:18)
[2020-05-13] MEDS: Dexamethasone 4 mg/ml Vial SLOW IVP SCH ×2 (02:54→13:26)
[2020-05-13] MEDS: Vancomycin HCl 25 MG/ML Oral PO SCH ×2 (06:27→13:26)
[2020-05-13] MEDS: Morphine 2 MG/ML VIAL SLOW IVP PRN ×3 (06:32→13:52)
[2020-05-13] MEDS: Insulin Glargine 25 UNITS in Pre-Filled Syringe 1 EACH SC SCH (09:15)
[2020-05-13] MEDS: Multivit, Therapeutic 1 TAB PO SCH (09:17)
[2020-05-13] MEDS: Saccharomyces boulardii 250 MG CAP PO SCH (09:17)
[2020-05-13] MEDS: Aspirin 81 mg Enteric Coated Tablet PO SCH (09:17)
[2020-05-13] MEDS: Nystatin 500,000 UNITS/5 ML UDCUP SSW SCH ×2 (09:17→13:26)
[2020-05-13] MEDS: HumaLOG 300 UNITS/3 ML VIAL SC SCH ×2 (09:18→13:26)
[2020-05-13] MEDS: Folic Acid 1 MG TAB PO SCH (09:18)
[2020-05-13] MEDS: Amiodarone 200 MG TAB PO SCH (09:18)
[2020-05-13] MEDS: Polyethylene Glycol 3350 17 GM Packet PO SCH (09:19)
[2020-05-13] MEDS: Heparin 5,000 UNITS/ML VIAL SC SCH (09:19)
[2020-05-13] MEDS: Senokot S 8.6-50 MG TAB PO SCH (09:19)
[2020-05-13 11:21] VITALS: TEMP 97.3
--- NOTE | 2020-05-13 21:03 | DIS ---
DATE OF ADMISSION: 04/22/2020 DATE OF DISCHARGE: 05/13/2020 DISCHARGE DIAGNOSES: 1. Metastatic breast cancer to the spine and brain. 2. Clostridium difficile colitis. 3. Thrombocytopenia. 4. Hyponatremia. 5. Proteus urinary tract infection. CONSULTATIONS: 1. Dr. Oneil Rowland with Neurosurgery. 2. Dr. Oneil Davis with Gastroenterology. 3. Roxanna Rodriguez with Oncology. 4. Dr. Gucci Mccarthy with Radiation Oncology. BRIEF HISTORY OF PRESENT ILLNESS: This is a 49-year-old female with a past medical history of metastatic breast cancer, receiving chemotherapy every 3 weeks, who presented to the emergency room due to worsening weakness in her legs. The patient reported that she had gradual worsening of lower extremity weakness in her legs extending up to her upper thighs. She also reported some diarrhea. She denied any fevers, chills, or sweats. Upon arrival to the emergency room, she had a CT scan of her abdomen that showed findings of infectious proctocolitis. She was also noted to have liver mets, scattered ascites, and diffuse osteoblastic mets. Her labs showed leukopenia, thrombocytopenia, and anemia. She was started on Cipro and Flagyl for acute colitis. She was admitted for further workup. Metastatic breast cancer to the spine and brain: The patient underwent an MRI of her lumbar spine on 04/23, which showed diffuse osteoblastic metastatic disease of the lumbar spine and possible cauda equina. The thoracic spine MRI showed the same with no cord compromise and left paracentral disk protrusion at T8-T9. Her cervical spine MRI showed osseous metastases without pathologic fracture. She also had an MRI of her brain done, which showed intraparenchymal metastatic lesions and osseous metastases. The patient was seen by Neurosurgery in consultation for possible cauda equina. They felt that she was not a surgical candidate, and she should be treated with radiation therapy. She was seen by Dr. Mccarthy from Radiation Oncology. She did receive the radiation therapy. She was started on radiation therapy and received treatments while in the hospital. However, her weakness did not significantly improve. She was seen by Physical Therapy; however, they were unable to treat her due to patient having persistent nausea and vomiting, hypotension, and due to a code Green. Eventually, decided the patient will be discharged with hospice. She can consider getting therapy there. C diff colitis: The patient initially treated with Cipro and Flagyl. She did have stool studies including stool cultures, which were negative for Giardia and Cryptosporidium, negative for Campylobacter and E coli, however, positive for C diff. The patient was started on oral vancomycin with improvement in her diarrhea. She will be discharged with vancomycin for an additional week. E coli UTI: The patient was treated with ceftriaxone while in the hospital for 3 days. Given that she also has a concomitant C diff infection, she was not given additional antibiotics. Atrial fibrillation with RVR: The patient was noted to have a code Green on the , where the patient became hypotensive, and her heart rate was 147. She was seen by Dr. Grover in consultation, however, was thought to be quite poor candidate for an ablation. She was started on amiodarone while in the hospital. She will be discharged on amiodarone 200 mg p.o. b.i.d. until she follows up with her blanking machine operator. She will also be discharged on aspirin. Thrush: The patient was started on nystatin while in the hospital and received 4 days of this. She will be discharged with nystatin for an additional week. Type 2 diabetes: The patient was taking insulin 16 units daily at home. However, in the hospital, required 25 units subcu b.i.d., most likely secondary to steroids she was receiving. She will be discharged with 25 units Lantus subcu b.i.d. Shortness of breath: The patient was receiving dexamethasone while in the hospital 4 mg IV q.8 hours. This was eventually tapered on discharge to 40 mg for 3 days , then 20 mg for 3 days, then discontinue. Hyponatremia: The patient's sodium was noted to be persistently in the 124 to 127 range since 05/08. This might be secondary to poor p.o. intake. She can have this followed if she wishes on an outpatient basis in a week. DISCHARGE PHYSICAL EXAMINATION: VITAL SIGNS: Temperature 97.3, heart rate 140, heart rate 85, blood pressure 145/87, respiratory rate 15, O2 saturation 99% on room air. GENERAL: The patient is alert, awake, and oriented x3. CVS: Regular rate and rhythm with no murmurs, rubs, or gallops. LUNGS: Clear to auscultation bilaterally. ABDOMEN: Positive bowel sounds, soft, nontender, nondistended. EXTREMITIES: No edema. LABORATORY DATA: CBC on 05/12: White count 9.2, hemoglobin 12.2, hematocrit 37.7, platelet count 26. BMP 05/12: Sodium 126, potassium 5.1, chloride 102, bicarb 20, BUN 20, creatinine 0.48. Iron panel: Iron 41, TIBC 211, iron sat 19, ferritin 613.56. UA 05/09: Turbid urine, greater than 600 protein, 1+ nitrite, leukocyte esterase 500, rbc's 4 to 6, white blood cells 4 to 6. COVID antigen serology on 05/07: Negative. Stool cultures: Negative for C diff, E coli, Campylobacter. Positive for C diff. Urine culture on 05/09: Shows 100,000 Proteus. IMAGING DATA: Cervical spine MRI: No significant central canal stenosis. Multifocal osseous metastasis without pathological fracture. Brain MRI: Multifocal intraparenchymal metastatic lesions. Multifocal osseous metastases. MRI lumbar spine: Diffuse osteoblastic metastatic disease of the lumbar spine. New extensive nodularity now involving cauda equina, suspicious for intramedullary metastatic disease. MRI thoracic spine: Diffuse osteoblastic metastatic disease of the thoracic spine without evidence of cord compromise. Small left paracentral disk protrusion at T8-T9. Small bilateral pleural effusions. Abdominal x-ray: Possible placement of air in the rectum to the left. diffuse osseous metastatic disease. DISCHARGE CONDITION: Poor prognosis. The patient will be discharged to hospice. ACTIVITY: As tolerated. DIET: As tolerated. Regular diet. DISCHARGE MEDICATIONS: New prescriptions: 1. Nystatin 100,000 unit/mL q.i.d. for 7 days. 2. Prednisone 40 mg x3 days, then 20 mg x3 days, then discontinue. 3. Florastor 250 mg p.o. b.i.d. 4. Lantus 25 units subcu b.i.d. 5. Lasix 40 mg p.o. b.i.d. 6. Aspirin 81 mg p.o. daily. 7. Amiodarone 200 mg p.o. b.i.d. 8. Vancomycin 250 mg p.o. q.6 hours for an additional week. All other home medications were resumed. Please refer to discharge work sheet. DISCHARGE INSTRUCTIONS: The patient will be discharged to hospice. Consider follow up with her PCP and her oncologist. Consider repeat BMP in a week. Job ID: [id number] [facility]
--- NOTE | 2020-05-14 06:57 | PQF ---
CLINICAL DOCUMENTATION CLARIFICATION FORM: Dear : Christine Musa Date / Time: 05/14/20 0656 Please exercise your independent, professional judgment in responding to the clarification form. Clinical indicators are provided on the bottom of this form for your review Please check appropriate box(es): [ X ] Sepsis due to C Difficile Colitis [ ] Severe sepsis due to C Difficile Colitis [ ] Septic Shock due to C Difficile Colitis [ ] Localized infection without sepsis [ ] Other diagnosis [ ] Unable to determine In addition, please specify: Present on Admission (POA): [ X ] Yes [ ] No [ ] Unable to determine Physician Signature: Date/Time: For continuity of documentation, please document condition throughout progress notes and discharge summary. Thank You. To be completed by CDI/Coding staff for physician review: Present Clinical Indicators - Signs / Symptoms / Labs Results and Location in Medical Record [X] C Diif Assay, Toxic C Diff-Positive Microbiology 04/26 [X] WBC 1.9, Neutrophils 78, Plt count 48, Band 3 Laboratory Hematology 04/22 [X] BP 98/54, Pulse 99, Resp 22, Temp 98.8 Vital signs 04/22 [X] CT abdomen/Pelvis findings of proctocolitis, infectious Imaging 04/22 [X] abdominal discomfort as well as worsening weakness H&P p1 04/22 Membreno PA-C [X] Acute colitis H&P p1 04/22 Membreno PA-C [X] Clostridium difficile colitis DS p1 05/13 Dr Musa [X] patient very drowsy PN 05/11 [X] Urine culture: Proteus mirabilis Collected 05/09 Present Risk Factors Results and Location in Medical Record [X] Acute colitis H&P p1 04/22 Membreno PA-C [X] DM H&P p5 04/22 Membreno PA-C [X] HTN H&P p5 04/22 Membreno PA-C [X] Obesity H&P p5 04/22 Membreno PA-C [X] Breast mets to liver, brain and spinal H&P p5 04/22 Membreno PA-C [X] Clostridium difficile colitis DS p1 05/13 Dr Musa [X] Proteus urinary tract infection DS p1 05/13 Dr uMsa [X] Presence of portacath HP 04/23 [X] Moderate PCM PN 05/11 Present Treatments Results and Location in Medical Record [X] C Diif Assay, Toxic C Diff Microbiology 04/26 [X] Vancomycin 125 mg oral DEC 29 [X] IVF NS 1L DEC 28 [X] IV Metronidazole 500 mg DEC 28 [X] IV Ciprofloxacin 400 mg DEC 28 [X] IV cefepime 1 gm DEC 28 [X] Ct abdomen Imaging 04/22 [X] Urine culture Collected 05/09 CDS/Tangled Yarn Worker Signature: Jeanine Cutler Phone #: ext [phone] Date/Time: 05/14/20 0656 This is a permanent part of the Medical Record [facility]
== END 2020-05-13 15:14 | disposition hospice, home (50) | DRG 871 ==
LOC: ERS 16:26 → ONC 20:14 → IMCU/EMU 05-06 21:13
PROVIDERS: ADMIT Internal Medicine; ATTEND Internal Medicine
PROC: 8E0ZXY6 Isolation (ICD-10-PCS; 2020-04-23)
PROC: D0Y0FZZ Plaque Radiation of Brain (ICD-10-PCS; principal; 2020-04-25)
PROC: 0T9B70Z Drainage of Bladder with Drainage Device, Via Natural or Artificial Opening (ICD-10-PCS; 2020-04-28)
DX: A41.89 Other specified sepsis (principal); D61.810 Antineoplastic chemotherapy induced pancytopenia; A04.72 Enterocolitis due to Clostridium difficile, not specified as recurrent; C79.49 Secondary malignant neoplasm of other parts of nervous system; C79.31 Secondary malignant neoplasm of brain; C79.51 Secondary malignant neoplasm of bone; G83.4 Cauda equina syndrome; C78.7 Secondary malignant neoplasm of liver and intrahepatic bile duct; E87.1 Hypo-osmolality and hyponatremia; N39.0 Urinary tract infection, site not specified; B37.0 Candidal stomatitis; C78.6 Secondary malignant neoplasm of retroperitoneum and peritoneum; E44.0 Moderate protein-calorie malnutrition; R18.8 Other ascites; Z74.01 Bed confinement status; Z51.5 Encounter for palliative care; B96.4 Proteus (mirabilis) (morganii) as the cause of diseases classified elsewhere; B96.20 Unspecified Escherichia coli [E. coli] as the cause of diseases classified elsewhere; I10 Essential (primary) hypertension; C50.911 Malignant neoplasm of unspecified site of right female breast; E78.5 Hyperlipidemia, unspecified; E66.9 Obesity, unspecified; K21.9 Gastro-esophageal reflux disease without esophagitis; T45.1X5A Adverse effect of antineoplastic and immunosuppressive drugs, initial encounter; E78.00 Pure hypercholesterolemia, unspecified; E53.8 Deficiency of other specified B group vitamins; R32 Unspecified urinary incontinence; E11.65 Type 2 diabetes mellitus with hyperglycemia; T38.0X5A Adverse effect of glucocorticoids and synthetic analogues, initial encounter; D72.829 Elevated white blood cell count, unspecified; I95.9 Hypotension, unspecified; I48.0 Paroxysmal atrial fibrillation; Z79.899 Other long term (current) drug therapy; Z79.4 Long term (current) use of insulin; Z68.35 Body mass index [BMI] 35.0-35.9, adult
CPT/HCPCS: 36415; 36416; 51701; 70553; 71045; 72141; 72148; 72157; 74018; 74177; 77014; 77280; 77290; 77307; 77334; 77336; 77412; 77417; 80048; 80053; 81001; 81003; 81015; 82550; 82607; 82728; 82746; 83540; 83550; 83605; 83630; 83690; 83735; 83880; 83930; 83935; 84100; 84443; 84484; 85025; 85027; 85610; 85730; 86850; 86900; 86901; 87040; 87045; 87046; 87077; 87086; 87186; 87324; 87328; 87329; 87337; 87427; 87449; 87493; 93005; 93010; 96361; 96365; 96367; 96374; 96375; 96376; C9113; J0282; J0692; J0696; J0744; J1100; J1644; J1815; J1940; J2270; J2405; J2550; J3010; J3230; J3475; J3490; J7070; J8540; Q9967